=== PATIENT | female | born 1960 | race Caucasian/White ===

== ENCOUNTER → 2018-08-04 | Outpatient (REF) | payer BC ==
[2018-08-04 13:46] LABS: C REACTIVE PROTEIN QUANTITATIV 1.35 MG/DL (0.00-0.30); RHEUMATOID FACTOR QUANT < 10.0 IU/ML (<15.0)
[2018-08-04 13:58] LABS: HEPATITIS B SURFACE ANTIBODY NEGATIVE (POSITIVE)
[2018-08-04 14:09] LABS: HEPATITIS B SURFACE ANTIGEN NEGATIVE (NEGATIVE)
[2018-08-04 14:37] LABS: HEPATITIS C VIRUS ABY INDEX 0.1 INDEX (<0.8)
[2018-08-08 00:13] LABS: ANA (HEP2) Positive (.); CYCLIC CITRULLINATED PEPTIDE 8 units (0-19); HEPATITIS B CORE ANTIBODY IGG Negative (Negative)
== END ==
LOC: M LAB REF 12:42
PROVIDERS: ATTEND Nurse Practitioner Family
DX: L40.50 Arthropathic psoriasis, unspecified (principal)

== ENCOUNTER 2018-09-25 12:29 | Outpatient (CLI) | payer BC ==
[~2018-09-25] VITALS: Ht 160 cm; Wt 95.9 kg
[2018-09-25] MEDS ORDERED: FILTER 1.2 MICRON (ADULT TPN/MANNITOL/REMICADE) XX ONE (13:00)
[2018-09-25] MEDS ORDERED: ALBUTEROL SULFATE 2.5 MG/0.5 ML INH NEB SOLN INH PRN (13:00)
[2018-09-25] MEDS ORDERED: NS 1,000 ML IV SCH (13:00)
[2018-09-25] MEDS ORDERED: methylPREDNISolone INJ 125 MG/2 ML VIAL (J2930) IV PRN (13:00)
[2018-09-25] MEDS ORDERED: EPINEPHrine INJ 1 MG/ML 1ML AMP IM PRN (13:00)
[2018-09-25] MEDS ORDERED: diphenhydrAMINE INJ 50MG/ML VIAL (J1200) IV PRN (13:00)
[2018-09-25 13:10] VITALS: BP 158/88
[2018-09-25] MEDS ORDERED: INFLIXIMAB BIOSIMILAR 600 MG in NS 190 ML IV ONE (14:00)
[2018-09-25] MEDS ORDERED: SIMV10TA2 PO (14:48)
[2018-09-25] MEDS ORDERED: METF-723 PO (14:48)
[2018-09-25] MEDS ORDERED: METH10CA9 PO (14:48)
[2018-09-25] MEDS ORDERED: GLIP10TA PO (14:48)
[2018-09-25] MEDS ORDERED: LISI10TA4 PO (14:48)
[2018-09-25 16:03] VITALS: BP 143/81
== END 2018-09-25 16:02 | disposition home or self-care (01) ==
LOC: M INFU 12:29
PROVIDERS: ATTEND Internal Medicine Rheumatology
DX: L40.50 Arthropathic psoriasis, unspecified (principal)
CPT/HCPCS: 96413; 96415; Q5103

== ENCOUNTER → 2018-11-06 | Outpatient (REF) | payer BC ==
[~2018-11-06] MED LIST: GLIP10TA PO; LISI10TA4 PO; METF-723 PO; METH10CA9 PO; SIMV10TA2 PO
== END ==
LOC: M LAB REF 16:18
PROVIDERS: ATTEND Nurse Practitioner Family
DX: L40.50 Arthropathic psoriasis, unspecified (principal)

== ENCOUNTER 2018-12-07 11:00 | Outpatient (CLI) | payer BC ==
[~2018-12-07] VITALS: Ht 160 cm; Wt 95.9 kg
[2018-12-07] MEDS ORDERED: NS 1,000 ML IV SCH (11:15)
[2018-12-07] MEDS ORDERED: EPINEPHrine INJ 1 MG/ML 1ML AMP IM PRN (11:15)
[2018-12-07] MEDS ORDERED: diphenhydrAMINE INJ 50MG/ML VIAL (J1200) IV PRN (11:15)
[2018-12-07] MEDS ORDERED: FILTER 1.2 MICRON (ADULT TPN/MANNITOL/REMICADE) XX ONE (11:15)
[2018-12-07] MEDS ORDERED: ALBUTEROL SULFATE 2.5 MG/0.5 ML INH NEB SOLN INH PRN (11:15)
[2018-12-07] MEDS ORDERED: methylPREDNISolone INJ 125 MG/2 ML VIAL (J2930) IV PRN (11:15)
[2018-12-07] MEDS ORDERED: INFLIXIMAB BIOSIMILAR 600 MG in NS 190 ML IV ONE (11:30)
[2018-12-07 11:45] VITALS: BP 132/70
== END 2018-12-07 14:05 | disposition home or self-care (01) ==
LOC: M INFU 11:00
PROVIDERS: ATTEND Internal Medicine Rheumatology
DX: L40.50 Arthropathic psoriasis, unspecified (principal)
CPT/HCPCS: 96413; 96415; Q5103

== ENCOUNTER 2019-01-08 23:43 | Emergency (ER) | payer BC ==
[~2019-01-08] VITALS: Ht 160 cm; Wt 91.0 kg
[2019-01-09 03:24] VITALS: BP 128/60
== END 2019-01-09 03:25 | disposition home or self-care (01) ==
LOC: M ED 23:43
DX: F41.1 Generalized anxiety disorder (principal); E11.9 Type 2 diabetes mellitus without complications; I10 Essential (primary) hypertension; F33.9 Major depressive disorder, recurrent, unspecified; Z79.899 Other long term (current) drug therapy; Z79.84 Long term (current) use of oral hypoglycemic drugs

== ENCOUNTER 2019-01-09 11:39 | Outpatient (CLI) | payer BC ==
[~2019-01-09] VITALS: Ht 160 cm; Wt 95.9 kg
[2019-01-09 11:53] VITALS: BP 124/75
[2019-01-09] MEDS ORDERED: methylPREDNISolone INJ 125 MG/2 ML VIAL (J2930) IV PRN (12:00)
[2019-01-09] MEDS ORDERED: ALBUTEROL SULFATE 2.5 MG/0.5 ML INH NEB SOLN INH PRN (12:00)
[2019-01-09] MEDS ORDERED: FILTER 1.2 MICRON (ADULT TPN/MANNITOL/REMICADE) XX ONE (12:00)
[2019-01-09] MEDS ORDERED: INFLIXIMAB BIOSIMILAR 600 MG in NS 190 ML IV ONE (12:00)
[2019-01-09] MEDS ORDERED: NS 1,000 ML IV SCH (12:00)
[2019-01-09] MEDS ORDERED: EPINEPHrine INJ 1 MG/ML 1ML AMP IM PRN (12:00)
[2019-01-09] MEDS ORDERED: diphenhydrAMINE INJ 50MG/ML VIAL (J1200) IV PRN (12:00)
== END 2019-01-09 14:40 | disposition home or self-care (01) ==
LOC: M INFU 11:39
PROVIDERS: ATTEND Internal Medicine Rheumatology
DX: L40.50 Arthropathic psoriasis, unspecified (principal)
CPT/HCPCS: 96365; 96366; Q5103

== ENCOUNTER → 2019-02-27 | Outpatient (REF) | payer BC ==
[~2019-02-27] MED LIST changes: +CVS400LI PO; +INFL10VL IV; +VENL150C43 PO
== END ==
LOC: M LAB REF 13:35
PROVIDERS: ATTEND Internal Medicine
DX: L40.50 Arthropathic psoriasis, unspecified (principal)

== ENCOUNTER 2019-03-06 12:47 | Outpatient (CLI) | payer BC ==
[~2019-03-06] VITALS: Ht 160 cm; Wt 88.0 kg
[2019-03-06] VITALS (8 sets, daily range): BP systolic 90–139; BP diastolic 51–69
[~2019-03-06 12:47] MED LIST changes: -CVS400LI PO; -INFL10VL IV; -SIMV10TA2 PO; +SIMV10TA21 PO; -VENL150C43 PO
[2019-03-06] MEDS ORDERED: FILTER 1.2 MICRON (ADULT TPN/MANNITOL/REMICADE) XX ONE (13:30)
[2019-03-06] MEDS ORDERED: diphenhydrAMINE INJ 50MG/ML VIAL (J1200) IV PRN (13:30)
[2019-03-06] MEDS ORDERED: ALBUTEROL SULFATE 2.5 MG/0.5 ML INH NEB SOLN INH PRN (13:30)
[2019-03-06] MEDS ORDERED: EPINEPHrine INJ 1 MG/ML 1ML VIAL IM PRN (13:30)
[2019-03-06] MEDS ORDERED: INFLIXIMAB BIOSIMILAR 600 MG in NS 190 ML IV ONE (13:30)
[2019-03-06] MEDS ORDERED: methylPREDNISolone INJ 125 MG/2 ML VIAL (J2930) IV PRN (13:30)
[2019-03-06] MEDS ORDERED: CVS400LI PO (16:30)
[2019-03-06] MEDS ORDERED: VENL150C43 PO (16:31)
[2019-03-06] MEDS ORDERED: INFL10VL IV (16:32)
[2019-06-08] MEDS ORDERED: CINN500C2 PO (11:21)
[2019-06-08] MEDS ORDERED: RA T500C2 PO (11:21)
[2019-06-08] MEDS ORDERED: B-10TAB2 PO (11:22)
[2019-06-08] MEDS ORDERED: MULTCAP PO (11:22)
[2019-07-05] MEDS ORDERED: ALPR2TAB3 PO ×2 (11:47→15:06)
[2019-07-06] MEDS ORDERED: ALPR1TAB7 PO (14:17)
== END 2019-03-06 16:30 | disposition home or self-care (01) ==
LOC: M INFU 12:47
PROVIDERS: ATTEND Internal Medicine Rheumatology
DX: L40.50 Arthropathic psoriasis, unspecified (principal)
CPT/HCPCS: 96413; 96415; Q5103

== ENCOUNTER 2019-04-20 13:59 | Inpatient (IN) | payer BC ==
[~2019-04-20] VITALS: Ht 160 cm; Wt 88.2 kg
[~2019-04-20 13:59] MED LIST changes: +CVS400LI PO; +INFL10VL IV; +VENL150C43 PO
[2019-04-20] MEDS ORDERED: METH30CA PO (14:22)
[2019-04-20] MEDS ORDERED: INVO100T PO (14:23)
[2019-04-20 14:58] LABS: BASO % 0.3 % (0.0-1.0); EOS % 0.3 % (0.0-3.0); HEMATOCRIT 37.7 % (36.0-47.0); HEMOGLOBIN 11.9 g/dl (12.0-15.5); LYMPH # 2.5 10^3/uL (1.5-5.0); MEAN CORPUSCULAR HEMOGLOBIN 25.2 pg (27.0-33.0); MEAN CORPUSCULAR HGB CONC 31.6 g/dl (32.0-36.5); MEAN CORPUSCULAR VOLUME 79.7 fl (80.0-96.0); MONO # 0.9 10^3/uL (0.0-0.8); MONO % 7.2 % (0.0-5.0); NEUTROPHILS # 8.3 10^3/uL (1.5-8.5); NEUTROPHILS % 70.8 % (36.0-66.0); PLATELET COUNT, AUTOMATED 489 10^3/uL (150-450); RED BLOOD COUNT 4.73 10^6/uL (4.00-5.40); WHITE BLOOD COUNT 11.7 10^3/uL (4.0-10.0)
[2019-04-20 15:11] LABS: INR 1.12; PROTHROMBIN TIME 14.1 SECONDS (11.8-14.0)
[2019-04-20 15:12] LABS: PARTIAL THROMBOPLASTIN TIME 29.1 SECONDS (25.0-38.4)
[2019-04-20 15:23] LABS: ALBUMIN 3.4 GM/DL (3.2-5.2); ALT/SGPT 16 U/L (12-78); AMYLASE 30 U/L (25-115); BILIRUBIN,DIRECT < 0.1 MG/DL (0.0-0.2); BILIRUBIN,TOTAL 0.3 MG/DL (0.2-1.0); LIPASE 68 U/L (73-393); TOTAL PROTEIN 7.9 GM/DL (6.4-8.2)
[2019-04-20 16:05] LABS: BLOOD UREA NITROGEN 8 MG/DL (7-18); CALCIUM LEVEL 9.5 MG/DL (8.5-10.1); CARBON DIOXIDE LEVEL 27 MEQ/L (21-32); CHLORIDE LEVEL 98 MEQ/L (98-107); CREATININE FOR GFR 0.76 MG/DL (0.55-1.30); GLOMERULAR FILTRATION RATE > 60.0 (>51); GLUCOSE, FASTING 285 MG/DL (70-100); SODIUM LEVEL 133 MEQ/L (136-145)
[2019-04-20] MEDS ORDERED: ISOVUE-370 76% 100ML VIAL (Q9967) As Ordered ONE (16:10)
--- NOTE | 2019-04-20 16:45 | REP ---
Clinical: Periumbilical pain. Technique: Axial contrast enhanced images from the lung bases to the pubic symphysis using 100 ml Isovue 370 intravenous contrast material with coronal and sagittal re-formations. Comparison: 10/29/2013. Findings: There is an irregular obstructing colonic neoplasm involving the mid ascending colon just inferior to the liver irregular apple core appearance, surrounding inflammatory stranding, adenopathy, and an adjacent separate metastatic focus measuring 4.3 cm diameter just inferior to the esther hepatis. Mass lesion is causing early moderate small bowel obstruction and obstructing the cecum through the ascending colon to the level of the mass. Subtle invasion along the inferior margin of the right hepatic lobe inseparable from the mass lesion cannot be excluded as well. Liver includes 1.5 cm hemangioma and no further hepatic lesions are identified. Spleen, pancreas, bilateral adrenal glands and kidneys appear normal. Cholelithiasis noted without acute cholecystitis. Pelvis demonstrates normal bladder and age-appropriate uterus/adnexa. Small amount of free fluid in the pelvis is nonspecific and a possible metastatic focus in the deep posterior cul-de-sac measuring 2.1 cm ("drop met") cannot be excluded (image 116). Abdominal aorta and vasculature appear normal. Musculoskeletal structures demonstrate degenerative changes and small stable bone island in the left jasbir-sacrum. Lung bases are clear. Impression: 1. Obstructing colonic neoplasm in the mid ascending colon with surrounding inflammatory change, adenopathy, and adjacent metastatic focus. Obstructing lesion is causing associated small bowel obstruction. Possible metastatic focus in the deep hemipelvis. 2. Benign hemangioma in the posterior right hepatic lobe. 3. Cholelithiasis. Electronically Signed by Parker Razo MD 04/20/2019 04:36 P
[2019-04-20] MEDS ORDERED: DEXTROSE 50% 50 ML SYRINGE IV PRN (17:45)
[2019-04-20] MEDS ORDERED: GLUCAGON FOR INJ 1 MG VIAL (J1610) SC PRN (17:45)
[2019-04-20] MEDS ORDERED: GLUCOSE 4 GM CHEW TABLET PO PRN (17:45)
--- NOTE | 2019-04-20 17:53 | HPEPDOC ---
[facility] Medical History & Physical Date of Admission Apr 20, 2019 Date of Service: Apr 20, 2019 Attending Physician: MIREYA GORDON MD History and Physical CHIEF COMPLAINT: Abdominal pain, nausea HISTORY OF PRESENT ILLNESS: 58-year-old female with past medical history of hypertension, hyperlipidemia, diabetes, psoriasis, ADHD, presents with lower abdominal pain. She reports pain has been intermittent since August of this year, has been progressively worsening over the past few months, significantly worse over the past week. At its worst. She rates the pain 6-7 out of 10, pain is located in the lower abdomen, not radiating, dull in nature, with associated nausea but no vomiting. She reports mild diarrhea over the past few days as well. She also reports a 30+ pound weight loss over the past year, unplanned. She also reports night sweats over the past month or so. She denies any fever, shortness of breath, chest pain or headaches. 10 point review of system was negative except for above PAST MEDICAL HISTORY: 1. Hypertension. 2. Hyperlipidemia. 3. Diabetes mellitus. 4. Psoriasis. 5. ADHD. PAST SURGICAL HISTORY: 1. None. SOCIAL HISTORY: Never smoker. Denies alcohol. Denies drug use FAMILY HISTORY: family history pancreatic cancer (sister) ALLERGIES: Please see below. HOME MEDICATIONS: Please see below. PHYSICAL EXAMINATION: VITAL SIGNS: Please see below. GENERAL: No distress, obese HEENT: Normocephalic, atraumatic, moist mucous membranes NECK: Supple CARDIOVASCULAR EXAMINATION: S1, S2, no murmurs RESPIRATORY EXAMINATION: Clear to auscultation, no wheezing ABDOMINAL EXAMINATION: Soft, mild tenderness to palpation right upper quadrant region, no rebound or guarding, nondistended, positive bowel sounds EXTREMITIES: Range of motion intact SKIN: No rash NEUROLOGICAL EXAMINATION: Alert and oriented 3, no focal deficits PSYCHIATRIC EXAMINATION: Calm and cooperative LABORATORY DATA: See below. IMAGING: CT of abdomen and pelvis showing neoplastic lesion in the ascending colon with subsequent small bowel obstruction, possible deep pelvic lesion, adenopathy. MICROBIOLOGY: Please see below. ASSESSMENT: 28-year-old female with past medical history of hypertension, hy perlipidemia, diabetes, ADHD, and psoriasis with intermittent abdominal pain for the past 6 months, being admitted for small bowel obstruction likely secondary to neoplastic lesion in the ascending colon. PLAN: 1. Bowel obstruction. Secondary to neoplastic lesion in the ascending colon, has been having symptoms for the past 6 months, night sweats and weight loss over the past year, no prior history of colonoscopy. Surgery consult pending, consider oncology evaluation. Nothing by mouth, maintenance IV fluids, no need for NG tube. 2. Hypertension. Continue ALBINO inhibitor. 3. Diabetes mellitus. Hold metformin and Invokana, sliding scale insulin with fingersticks every 6 hours. 4. Psoriasis. Hold Remicade. 5. ADHD. Continue Ritalin 6. Hyperlipidemia. Continue statin DVT prophylaxis: Heparin subcutaneous GI prophylaxis: Not needed Vital Signs Vital Signs Date Time Temp Pulse Resp B/P (MAP) Pulse Ox O2 Delivery O2 Flow Rate FiO2 04/20/19 14:00 97.0 87 20 158/72 (100) 100 Room Air Laboratory Data Labs 24H Laboratory Tests 2 04/20/19 14:15: Immature Granulocyte % (Auto) 0.4, Neutrophils (%) (Auto) 70.8H, Lymphocytes (%) (Auto) 21.0L, Monocytes (%) (Auto) 7.2H, Eosinophils (%) (Auto) 0.3, Basophils (%) (Auto) 0.3, Neutrophils # (Auto) 8.3, Lymphocytes # (Auto) 2.5, Monocytes # (Auto) 0.9H, Eosinophils # (Auto) 0.0, Basophils # (Auto) 0.0, Nucleated Red Blood Cells % (auto) 0.0, Prothrombin Time 14.1H, Prothromb Time International Ratio 1.12, Activated Partial Thromboplast Time 29.1, Urine Color YELLOW, Urine Appearance CLEAR, Urine pH 6.0, Urine Specific [place] 1.010, Urine Protein NEGATIVE, Urine Glucose (UA) 2+H, Urine Ketones NEGATIVE, Urine Blood NEGATIVE, Urine Nitrite NEGATIVE, Urine Bilirubin NEGATIVE, Urine Urobilinogen 0.2, Urine Leukocyte Esterase TRACEH, Urine WBC (Auto) 2, Urine RBC (Auto) 2, Urine Hyaline Casts (Auto) 1, Urine Bacteria (Auto) NEGATIVE, Urine Squamous Epithelial Cells 0, Urine Mucus (Auto) SMALL, Urine Sperm (Auto) , Anion Gap 8, Glomerular Filtration Rate > 60.0, Calcium Level 9.5, Total Bilirubin 0.3, Direct Bilirubin < 0.1, Aspartate Amino Transf (AST/SGOT) 10, Alanine Aminotransferase (ALT/SGPT) 16, Alkaline Phosphatase 101, Total Protein 7.9, Albumin 3.4, Albumin/Globulin Ratio 0.76L, Amylase Level 30, Lipase 68L CBC/BMP Laboratory Tests 04/20/19 14:15 Microbiology Microbiology 04/20/19 Urine Culture, Received Pending Home Medications Scheduled Canagliflozin (Invokana) 100 Mg Tablet, 100 MG PO DAILY Cholecalciferol (Vitamin D3) (Vitamin D3) 15 Ml Drops, 1 DROP PO DAILY Glipizide (Glipizide) 10 Mg Tablet, 10 MG PO DAILY Infliximab Injection (Remicade) 100 Mg Vial, 100 MG IV ASDIRECTED Lisinopril (Lisinopril) 10 Mg Tablet, 10 MG PO DAILY Metformin HCl (Metformin HCl ER) 500 Mg Tab.er.24h, 1,000 MG PO BID Simvastatin (Simvastatin) 10 Mg Tablet, 10 MG PO DAILY Venlafaxine HCl (Venlafaxine HCl ER) 150 Mg Cap.er.24h, 1 CAP PO DAILY Miscellaneous Medications Methylphenidate HCl (Methylphenidate LA) 30 Mg Cpbp.50.50, 30 MG PO Allergies Coded Allergies: No Known Allergies (Unverified , 09/25/18) A-FIB/CHADSVASC A-FIB History Current/History of A-Fib/PAF?: No MIREYA GORDON MD Apr 20, 2019 17:53
[2019-04-20] MEDS ORDERED: MORPHINE 2 MG/ML 1ML VIAL (J2270) IV PRN (18:45)
[2019-04-20] MEDS ORDERED: MORPHINE 4 MG/ML 1ML VIAL/SYRINGE (J2270) As Ordered ONE (18:47)
[2019-04-20] MEDS: MORPHINE 4 MG/ML 1ML VIAL/SYRINGE (J2270) IV PRN ×2 (18:51→23:45)
[2019-04-20 19:13] LABS: AMPHETAMINES LEVEL URINE NEGATIVE (NEGATIVE); BARBITURATES URINE NEGATIVE (NEGATIVE); BENZODIAZEPINES URINE NEGATIVE (NEGATIVE); CANNABINOIDS URINE NEGATIVE (NEGATIVE); COCAINE METABOLITE URINE NEGATIVE (NEGATIVE); METHADONE URINE NEGATIVE (NEGATIVE); OPIATES URINE NEGATIVE (NEGATIVE); PHENCYCLIDINE URINE NEGATIVE (NEGATIVE)
[2019-04-20] MEDS ORDERED: BABY400D2 PO (19:16)
[2019-04-20] MEDS ORDERED: PT COMMENTS (19:17)
[2019-04-20 20:07] VITALS: BP 148/84
[2019-04-20] MEDS: ONDANSETRON 4MG/2ML VIAL (J2405) IV SCH ×2 (20:13→23:37)
[2019-04-20] MEDS: D5W/0.9% SODIUM CHLORIDE 1,000 ML IV SCH (20:13)
[2019-04-20] MEDS: cefTRIAXone SOD 1 GM in D5W MINI-BAG PLUS 50 ML IV SCH (20:13)
[2019-04-20 20:45] VITALS: BP 141/78
[2019-04-20] MEDS: HumaLOG INSULIN (NovoLOG) PER UNIT SC SCH ×2 (21:00→23:37)
[2019-04-20] MEDS: HEPARIN SOD (PORCINE) 5000 UNITS/ML VIAL SC SCH (21:43)
[2019-04-21] MEDS: ONDANSETRON 4MG/2ML VIAL (J2405) IV SCH ×6 (03:17→22:11)
[2019-04-21 06:24] VITALS: BP 111/51
[2019-04-21 06:40] LABS: HEMATOCRIT 33.3 % (36.0-47.0); HEMOGLOBIN 10.2 g/dl (12.0-15.5); MEAN CORPUSCULAR HEMOGLOBIN 25.1 pg (27.0-33.0); MEAN CORPUSCULAR HGB CONC 30.6 g/dl (32.0-36.5); MEAN CORPUSCULAR VOLUME 81.8 fl (80.0-96.0); PLATELET COUNT, AUTOMATED 406 10^3/uL (150-450); RED BLOOD COUNT 4.07 10^6/uL (4.00-5.40); WHITE BLOOD COUNT 8.6 10^3/uL (4.0-10.0)
[2019-04-21] MEDS: D5W/0.9% SODIUM CHLORIDE 1,000 ML IV SCH (06:41)
[2019-04-21] MEDS: HEPARIN SOD (PORCINE) 5000 UNITS/ML VIAL SC SCH ×3 (06:41→22:11)
[2019-04-21] MEDS: HumaLOG INSULIN (NovoLOG) PER UNIT SC SCH ×3 (06:41→17:52)
[2019-04-21 07:18] LABS: ALBUMIN 2.6 GM/DL (3.2-5.2); ALT/SGPT 14 U/L (12-78); BILIRUBIN,TOTAL 0.3 MG/DL (0.2-1.0); BLOOD UREA NITROGEN 6 MG/DL (7-18); CARBON DIOXIDE LEVEL 28 MEQ/L (21-32); CHLORIDE LEVEL 103 MEQ/L (98-107); CREATININE FOR GFR 0.74 MG/DL (0.55-1.30); FERRITIN 67 NG/ML (8-252); GLOMERULAR FILTRATION RATE > 60.0 (>51); GLUCOSE, FASTING 230 MG/DL (70-100); IRON (FE) 19 UG/DL (50-170); MAGNESIUM LEVEL 2.2 MG/DL (1.8-2.4); PERCENT SATURATION 7.1 % (13.2-45.0); POTASSIUM SERUM 3.6 MEQ/L (3.5-5.1); SODIUM LEVEL 137 MEQ/L (136-145); TOTAL IRON BINDING CAPACITY 267 UG/DL (250-450); TOTAL PROTEIN 6.6 GM/DL (6.4-8.2)
[2019-04-21] MEDS ORDERED: KCL 20MEQ IN D5/0.45NS 1000ML 1,000 ML IV SCH (08:00)
--- NOTE | 2019-04-21 08:38 | REP ---
Clinical: Preoperative assessment . Comparison: 07/28/2009 . Technique: PA and lateral. Findings: The mediastinum and cardiac silhouette are normal. The lung greene are clear and without acute consolidation, effusion, or pneumothorax. The skeletal structures are intact and normal. Impression: 1. No acute cardiopulmonary process. Electronically Signed by Parker Razo MD 04/21/2019 08:29 A
[2019-04-21] MEDS: VENLAFAXINE **XR** 75MG CAPSULE PO SCH (08:54)
--- NOTE | 2019-04-21 08:54 | IPN ---
DATE: 04/21/2019 PRIMARY CARE PROVIDER: Dr. Judith Graves. ATTENDING PHYSICIAN: Hospitalist service. CLINICAL TRIAL MANAGER: Dr. Miguel Angel Kim. Molly Morfin is a 58-year-old on the hospitalist service admitted with suspected malignancy of her ascending colon. She has no prior colonoscopy. She was admitted with partial small bowel obstruction. The case was discussed with Dr. Kim. He plans some peripheral parenteral nutrition for a few days and has surgery planned for 04/24/2019. The patient denies any fever, chills, or night sweats. Her last Remicade infusion was 03/06/2019. She has a past medical history of psoriatic arthritis as well as cutaneous psoriasis, hypertensive heart disease, depression, type 2 diabetes, chronic anxiety and attention deficit hyperactivity disorder (ADHD). Home medications: - Effexor XR 150 mg daily - metformin 500 mg daily - lisinopril 10 mg daily - vitamin D 2000 units daily - Remicade infusions every 8 weeks - glipizide 10 mg daily - simvastatin 40 mg at bedtime - Invokana 100 mg daily SOCIAL HISTORY: Nonsmoker. Rare to moderate alcohol. ALLERGIES: None known. PHYSICAL EXAMINATION: VITAL SIGNS: Per flow sheet. They are stable. She is resting comfortably. No distress. HEENT: Unremarkable. Lungs: Clear. Heart without murmur. Abdomen: Soft, nontender. No masses. No peripheral edema. LABS: Sodium 137, potassium 3.6, BUN 6, creatinine 0.7, glucose 230, TIBC and ferritin are both normal. CEA 44. White count 8.6, hemoglobin 10.2, platelets 406, hemoglobin is down from 11.9, probably from hydration. IMPRESSION: Obstructing mass ascending colon suspicious for colon cancer with possible metastases. PLAN: 1. After discussion with Dr. Kim, he plans surgery on 04/24/2019. The patient is at an optimal interval from her last Remicade treatment. She needs a preoperative EKG and chest x-ray which we will order. Surgical risk looks average/acceptable. 2. Type 2 diabetes: Sliding scale insulin with coverage based on fingerstick blood sugars. Her metformin and Invokana have both discontinued as has her glipizide. 3. Hyperlipidemia: Continue her simvastatin. 4. Hypertensive heart disease: Blood pressure is currently adequately controlled. Her antihypertensives are on hold. Should they be restarted, I would advise holding lisinopril on the morning of her surgical procedure in order to reduce intraoperative, perioperative hypotension. 5. History of depression: Restart her Effexor XR to avoid any kind of serotonin-norepinephrine reuptake Inhibitor (SNRI) withdrawal preoperatively. 6. Attention deficit hyperactivity disorder (ADHD): Hold her methylphenidate at this time.
[2019-04-21] MEDS ORDERED: FLUBLOK(EGG FREE)(QUAD)INFLUENZA VACC 0.5ML SYRINGE (90682)18YRS&OLDER IM ONE (09:00)
[2019-04-21] MEDS: AMINO AC/ELECTROLYTE/DEX/CALC 1,000 ML IV SCH (12:50)
--- NOTE | 2019-04-21 13:47 | IPN ---
DATE: 04/21/2019 Patient has done well overnight. She has needed less pain medication. Still has been nauseated with some crampy abdominal pain that seems to come in waves. She has been taking sips of water and some ice chips. She does not feel significantly distended. She states that she did have some small bowel movements that are relatively soft, but not normal. Her abdomen is soft, nontender, nondistended. She is afebrile and her labs show a white count came down from 11.7 down to 8.6 this morning. Albumin is down to 2.6 which is where I anticipated this should be with the chronic malnutrition associated with weight loss and this lesion present. Her CEA came back 44, which also supports the fact that this is most likely a colon cancer primary. Once again, we will continue her on some IV nutrition and both decompress her with time and I anticipate that we will see how she is doing over the next 48 hours and plan on operative intervention probably Tuesday or Tuesday this week.
--- NOTE | 2019-04-21 13:52 | CR ---
DATE OF CONSULTATION: 04/20/2019 REASON FOR CONSULTATION: Abdominal pain, nausea, weight loss, and evidence of a hepatic flexure mass on CAT scan. BRIEF HISTORY OF PRESENT ILLNESS: The patient is a 58-year-old female with lower abdominal pain that has been going on intermittently over the last 6 months. However, over the last few weeks it has been getting worse and over the last week it has been steady. She notes it is mostly across her mid abdomen radiating into her back at times. She has had some intermittent diarrhea. She has had some night sweats without true fevers, without constipation. She is here for a high-grade partial obstruction of the colon and an ascending colon mass. Past medical history is significant for diabetes mellitus, hypertension, hyperlipidemia, psoriasis, ADHD. Medications include: - Invokana - vitamin D - glipizide - Remicade - lisinopril - metformin - simvastatin - venlafaxine Physical exam reveals an obese, white female who looks stated age. HEENT is unremarkable. Neck supple without adenopathy. Lungs are clear to auscultation without crackles, wheezes or rhonchi. Heart is regular. Abdomen is softly distended throughout without significant guarding, rebound or peritoneal signs. Extremities are warm, well-perfused. IMPRESSION/PLAN: CAT scan was reviewed and indeed there is a lesion in the ascending colon/hepatic flexure which seems to be abutting if not invasive into the liver edge. There is also some lymphadenopathy in this area and evidence of a small bowel obstruction, but I anticipate this bowel obstruction is secondary to this ascending colon/hepatic flexure lesion given the significant distension of the cecum and terminal ileum, etc. There is a lymph node that is present overlying the duodenum but does not seem to be invasive into the duodenum. I am not seeing any metastatic disease in her liver. However, there may be a drop metastases in the pelvis. Thus, at this point, my recommendation is to keep her nothing by mouth, intravenous (IV) fluids, IV antibiotics given that the concern is that she does have a slightly elevated white count and there may be some infectious process or at least some necrosis of the tumor in this area causing some of her significant discomfort instead of just bowel obstruction issues, and we will see how she is doing in the morning. I would recommend that we start her on some total parenteral nutrition (TPN)/peripheral parenteral nutrition (PPN) while we are setting up a semi-elective/urgent right colectomy. I anticipate this may be a few days before we get this on the schedule, and in the meantime, she can be optimized from a medical standpoint diabetic, cardiac issues. Fortunately, her last dose of Remicade was several weeks ago also optimizing the time for operative intervention. In general, the patient has no evidence of emergent need for operative intervention, i.e. no active bleeding, no perforation and no significant peritoneal signs.
[2019-04-21 14:00] VITALS: BP 123/65
[2019-04-21] MEDS ORDERED: FAT EMULSION IV 20% 500 ML IV SCH (18:00)
[2019-04-21] MEDS: cefTRIAXone SOD 1 GM in D5W MINI-BAG PLUS 50 ML IV SCH (20:52)
[2019-04-21] MEDS: SIMVASTATIN 10 MG TAB PO SCH (20:52)
[2019-04-21 21:00] VITALS: BP 124/65
[2019-04-22] MEDS: HumaLOG INSULIN (NovoLOG) PER UNIT SC SCH ×4 (00:29→18:00)
[2019-04-22] MEDS: AMINO AC/ELECTROLYTE/DEX/CALC 1,000 ML IV SCH ×2 (00:29→12:32)
[2019-04-22] MEDS: ONDANSETRON 4MG/2ML VIAL (J2405) IV SCH ×6 (02:58→22:39)
[2019-04-22 05:15] VITALS: BP 118/52
[2019-04-22] MEDS: HEPARIN SOD (PORCINE) 5000 UNITS/ML VIAL SC SCH ×3 (06:01→22:38)
[2019-04-22 06:23] LABS: MEAN CORPUSCULAR HEMOGLOBIN 25.3 pg (27.0-33.0); MEAN CORPUSCULAR HGB CONC 31.3 g/dl (32.0-36.5); MEAN CORPUSCULAR VOLUME 80.8 fl (80.0-96.0); PLATELET COUNT, AUTOMATED 390 10^3/uL (150-450); RED BLOOD COUNT 3.96 10^6/uL (4.00-5.40)
[2019-04-22 06:47] LABS: BLOOD UREA NITROGEN 7 MG/DL (7-18); CALCIUM LEVEL 8.4 MG/DL (8.5-10.1); CARBON DIOXIDE LEVEL 28 MEQ/L (21-32); CHLORIDE LEVEL 103 MEQ/L (98-107); CREATININE FOR GFR 0.73 MG/DL (0.55-1.30); GLOMERULAR FILTRATION RATE > 60.0 (>51); GLUCOSE, FASTING 238 MG/DL (70-100); POTASSIUM SERUM 4.1 MEQ/L (3.5-5.1); SODIUM LEVEL 139 MEQ/L (136-145)
[2019-04-22] MEDS: VENLAFAXINE **XR** 75MG CAPSULE PO SCH (08:47)
--- NOTE | 2019-04-22 11:55 | IPN ---
DATE: 04/22/2019 Emperatriz was seen on [address] [facility]. She is getting PPN preoperatively. She has no chest pain, shortness of breath, and no new symptoms today. PHYSICAL EXAMINATION: Afebrile. Vital signs stable. Lungs: Clear. Heart: Regular rhythm. Abdomen: Soft, nontender. No peripheral edema. LABS: Look unremarkable. CBC and BMP were reviewed. IMPRESSION: 1. Suspected obstructing colon cancer for which she is receiving preoperative PPN in anticipation of surgery later this week. 2. Type 2 diabetes. Fingerstick with coverage. Metformin, Invokana, glipizide on hold. 3. Hyperlipidemia. Continue simvastatin. 4. Hypertensive heart disease. Blood pressure medications are currently on hold. Continue to hold lisinopril on the morning of procedure to reduce perioperative hypotension. 5. History of depression. Restart her Effexor XR yesterday to avoid SNRI withdrawal. 6. Attention deficit/hyperactivity disorder (ADHD). Hold her methylphenidate at this time.
--- NOTE | 2019-04-22 12:21 | IPN ---
DATE: 04/22/2019 The patient seems to be doing well since her admission. Overall, no other major complaints. She still has some intermittent nausea, but she has been having some bowel movements. She has had no fevers or chills. These are just very small liquid bowel movements. She is not having any blood per rectum and her white count is returning to normal. Hematocrit is decreasing as I anticipated would. Otherwise, she is seems to be stable. Abdomen is soft, nontender, nondistended. She has been afebrile and vital signs are stable. IMPRESSION AND PLAN: The patient has a high-grade partial obstruction of the ascending colon. Will plan on a right colectomy and this will need to be an open operative intervention for her. Will keep her decompressed as much as possible prior to operative intervention and will discuss with the operating room when there is available OR time. Otherwise will be continuing IV nutrition for now.
[2019-04-22 14:00] VITALS: BP 103/85
[2019-04-22] MEDS: FAT EMULSION IV 20% 500 ML IV SCH (18:03)
[2019-04-22] MEDS: SIMVASTATIN 10 MG TAB PO SCH (20:32)
[2019-04-22] MEDS: cefTRIAXone SOD 1 GM in D5W MINI-BAG PLUS 50 ML IV SCH (20:33)
[2019-04-22 21:01] VITALS: BP 104/84
[2019-04-22] MEDS ORDERED: RAMELTEON 8 MG TAB (ROZEREM) PO ONE (22:30)
[2019-04-23] MEDS: HumaLOG INSULIN (NovoLOG) PER UNIT SC SCH ×4 (00:40→18:30)
[2019-04-23] MEDS: ONDANSETRON 4MG/2ML VIAL (J2405) IV SCH ×6 (03:00→22:18)
[2019-04-23] MEDS: AMINO AC/ELECTROLYTE/DEX/CALC 1,000 ML IV SCH ×2 (03:22→17:20)
[2019-04-23] MEDS: FAT EMULSION IV 20% 500 ML IV SCH (03:23)
[2019-04-23 05:36] VITALS: BP 125/69
[2019-04-23] MEDS: HEPARIN SOD (PORCINE) 5000 UNITS/ML VIAL SC SCH ×3 (06:05→21:48)
[2019-04-23 06:42] LABS: HEMATOCRIT 33.2 % (36.0-47.0); HEMOGLOBIN 10.4 g/dl (12.0-15.5); MEAN CORPUSCULAR HEMOGLOBIN 25.2 pg (27.0-33.0); MEAN CORPUSCULAR HGB CONC 31.3 g/dl (32.0-36.5); MEAN CORPUSCULAR VOLUME 80.4 fl (80.0-96.0); PLATELET COUNT, AUTOMATED 371 10^3/uL (150-450); RED BLOOD COUNT 4.13 10^6/uL (4.00-5.40); WHITE BLOOD COUNT 8.5 10^3/uL (4.0-10.0)
[2019-04-23 07:04] LABS: BLOOD UREA NITROGEN 9 MG/DL (7-18); CALCIUM LEVEL 8.6 MG/DL (8.5-10.1); CARBON DIOXIDE LEVEL 26 MEQ/L (21-32); CHLORIDE LEVEL 105 MEQ/L (98-107); CREATININE FOR GFR 0.64 MG/DL (0.55-1.30); GLOMERULAR FILTRATION RATE > 60.0 (>51); GLUCOSE, FASTING 206 MG/DL (70-100); POTASSIUM SERUM 3.9 MEQ/L (3.5-5.1); SODIUM LEVEL 138 MEQ/L (136-145)
[2019-04-23] MEDS: VENLAFAXINE **XR** 75MG CAPSULE PO SCH (09:33)
--- NOTE | 2019-04-23 09:37 | IPN ---
DATE: 04/23/2019 Molly is seen on [address] [facility]. She is awaiting surgery. Denies any chest pain or shortness of breath. She is tolerating her total parenteral nutrition (TPN) without any difficulty. PHYSICAL EXAMINATION: Vital signs stable. Lungs are clear. Heart regular rhythm. Abdomen soft and nontender. No peripheral edema. LABS: CBC unremarkable. CMP unremarkable. Blood sugars have been in the 100 to 200 range. IMPRESSION: 1. Bowel obstruction secondary to suspected colon cancer. Received her preoperative TPN. Plan for surgery perhaps later this evening. 2. Type 2 diabetes. Continue finger stick with coverage. Her home oral meds are on hold. 3. Hyperlipidemia. Continue simvastatin. 4. Hypertensive heart disease. Her lisinopril and furosemide are on hold pending surgery. Her blood pressure is in the 100 to 120 range systolic. She might not need to have these restarted postoperatively until her blood pressure returns to a hypertensive range. 5. History of depression. Continue Effexor XR. 6. Attention deficit hyperactivity disorder (ADHD). She is off her methylphenidate at this time and doing well without it.
--- NOTE | 2019-04-23 13:48 | IPN ---
DATE: 04/23/2019 The patient has been admitted. We are going to put a peripherally inserted central catheter (PICC) line in her today and continue her TPN. Her white count is been fine. She has been having some minimal soft bowel movements. Her abdomen is becoming softer over time. She has had no fevers or chills and from her standpoint has been doing relatively well. At this point, we are optimizing her for operative intervention and it appears that we will be able to schedule her for Tuesday. I have discussed the operative intervention with the patient, but I will discuss this in more detail over the next couple days. We will keep her on TPN until that time. She understands and at this point I do have slight concerns that the hepatic flexure cancer will be partially invasive into the edge of the liver and in addition it appears that she may have some metastatic nodules or a drop metastases in the pelvis that might be present, suggesting advanced disease. The family is concerned about starting chemotherapy and the timing of that and most importantly I have discussed with them that this will depend on how she does perioperatively and postoperatively.
[2019-04-23 14:00] VITALS: BP 137/79
[2019-04-23] MEDS ORDERED: LIDOCAINE 1% MDV 20ML VIAL As Ordered ONE (15:45)
[2019-04-23] MEDS ORDERED: FAT EMULSION IV 20% 500 ML IV SCH (18:00)
[2019-04-23] MEDS ORDERED: AMINO AC/ELECTROLYTE/DEX/CALC 2,000 ML IV SCH (18:00)
[2019-04-23] MEDS: cefTRIAXone SOD 1 GM in D5W MINI-BAG PLUS 50 ML IV SCH (20:05)
[2019-04-23 20:11] VITALS: BP 135/48
--- NOTE | 2019-04-23 21:33 | ECGEPIP ---
[facility] Test Date: 2019-04-21 Pat Name: BROOKS YAO Department: Room: [place] [address] Gender: Female Pipe Caulker: AB : 1960 Requested By: Cristian Marroquin Order Number: [id number] Reading MD: James Alvarenga Measurements Intervals [place] Rate: 80 P: 20 AL: 153 QRS: 24 QRSD: 86 T: 47 QT: 347 QTc: 403 Interpretive Statements Normal sinus rhythm Normal EKG Comparison tracing not on file Electronically Signed on 04-23-2019 21:33:45 EST by James Alvarenga
[2019-04-23] MEDS: RAMELTEON 8 MG TAB (ROZEREM) PO SCH (21:48)
[2019-04-23] MEDS: SIMVASTATIN 10 MG TAB PO SCH (21:49)
[2019-04-24] MEDS: HumaLOG INSULIN (NovoLOG) PER UNIT SC SCH ×4 (00:21→17:58)
[2019-04-24] MEDS ORDERED: ACETAMINOPHEN TAB 650MG DOSE (2X325MG) PO ONE (02:00)
[2019-04-24] MEDS: ONDANSETRON 4MG/2ML VIAL (J2405) IV SCH ×6 (03:00→22:01)
[2019-04-24 05:32] VITALS: BP 145/63
[2019-04-24] MEDS: HEPARIN SOD (PORCINE) 5000 UNITS/ML VIAL SC SCH ×3 (06:36→22:00)
[2019-04-24] MEDS: SODIUM CHLORIDE 0.9% INJ 10 ML SYR IV SCH ×2 (06:36→17:58)
[2019-04-24 07:57] LABS: HEMATOCRIT 32.3 % (36.0-47.0); HEMOGLOBIN 9.9 g/dl (12.0-15.5); MEAN CORPUSCULAR HEMOGLOBIN 24.8 pg (27.0-33.0); MEAN CORPUSCULAR HGB CONC 30.7 g/dl (32.0-36.5); MEAN CORPUSCULAR VOLUME 80.8 fl (80.0-96.0); PLATELET COUNT, AUTOMATED 321 10^3/uL (150-450); WHITE BLOOD COUNT 6.1 10^3/uL (4.0-10.0)
--- NOTE | 2019-04-24 07:57 | REP ---
Procedure: PICC line insertion with Ronnie The procedure was performed under the direct supervision of Dr. Kelly. The risks and benefits of the procedure were explained to the patient and informed consent was obtained. The right basilic vein was localized using ultrasound guidance. The skin was prepped and draped in a sterile fashion. 1% lidocaine was used as a local anesthetic. Using ultrasound guidance the basilic vein was cannulated and a 0.018 guidewire was inserted and advanced to the SVC using fluoroscopic guidance. The needle was removed and a 5.5 [place] dilator and peel-away sheath was inserted over the guide wire. A 5.5 [place] dual lumen catheter was cut to length of 38 cm. The dilator was removed and the catheter was inserted over the guide wire with the tip ending in the SVC. The peel-away sheath was removed and the catheter was flushed with heparinized saline as per Hospital protocol. The catheter was affixed to the skin and a sterile dressing was applied. The patient tolerated the procedure well and there were no immediate complications. 0.1 minutes of fluoro time was utilized for this procedure. Electronically Signed by MARIO Bellamy 04/23/2019 04:33 P Electronically Signed by Michelet Kelly MD 04/23/2019 05:26 P
[2019-04-24 08:17] LABS: BLOOD UREA NITROGEN 11 MG/DL (7-18); CALCIUM LEVEL 8.5 MG/DL (8.5-10.1); CARBON DIOXIDE LEVEL 27 MEQ/L (21-32); CHLORIDE LEVEL 104 MEQ/L (98-107); CREATININE FOR GFR 0.71 MG/DL (0.55-1.30); GLOMERULAR FILTRATION RATE > 60.0 (>51); GLUCOSE, FASTING 271 MG/DL (70-100); POTASSIUM SERUM 4.4 MEQ/L (3.5-5.1); SODIUM LEVEL 138 MEQ/L (136-145)
[2019-04-24] MEDS: VENLAFAXINE **XR** 75MG CAPSULE PO SCH (09:44)
[2019-04-24 14:00] VITALS: BP 115/56
--- NOTE | 2019-04-24 16:54 | IPN ---
DATE: 04/24/2019 The patient seems to be making some nice daily progress. Otherwise seems to be doing well. We have discussed with her specifically that will proceed with a right colectomy. This will be an open colectomy tomorrow and I anticipate we should be able to proceed with a anastomosis with a small bowel to transverse colon. The hope is that the enlarged lymph node in the area of the duodenum / sweep of the duodenum is mobile and that we can also resect this as well and also plan to with also plan to remove the drop metastases at this is not tightly adherent to other underlying structures in the pelvis. In any case the patient understands our current plan. She has been nothing by mouth and her abdomen is becoming less distended each day and seems to be doing well with the TPN. Thus at this point will plan on keeping her nothing by mouth, IV fluids, TPN and plan on operative intervention tomorrow afternoon.
--- NOTE | 2019-04-24 16:56 | IPNPDOC ---
Date Seen The patient was seen on 04/24/19. Progress Note SUBJECTIVE: 58-year-old female, past medical history diabetes, hypertension, depression, ADHD, was admitted for bowel structures secondary to colonic mass. She is awaiting surgery scheduled for tomorrow, currently on TPN via PICC line. She reports no complaints at this time, denies any short of breath, chest pain, vomiting, abdominal pain or diarrhea. 10 point review of system was negative except for above PHYSICAL EXAMINATION: VITAL SIGNS: Please see below. GENERAL: No distress, obese HEENT: Normocephalic, atraumatic, moist mucous membranes NECK: Supple CARDIOVASCULAR EXAMINATION: S1, S2, no murmurs RESPIRATORY EXAMINATION: Clear to auscultation, no wheezing ABDOMINAL EXAMINATION: Soft, nontender, nondistended, positive bowel sounds EXTREMITIES: Range of motion intact SKIN: No rash NEUROLOGICAL EXAMINATION: Alert and oriented 3, no focal deficits PSYCHIATRIC EXAMINATION: Calm and cooperative LABORATORY DATA, IMAGING STUDIES, MICROBIOLOGY: Please see below. DVT prophylaxis ordered?: Yes ASSESSMENT AND PLAN: 58-year-old female with past medical history of hypertension, diabetes, depression and ADHD admitted for bowel structures second her to colonic mass. PROBLEMS: 1. Colonic mass: . Likely malignancy, scheduled for surgical removal tomorrow. Continue TPN via PICC line 2. Hypertension.: Holding home meds preoperatively. 3. Diabetes mellitus: Sliding scale insulin with fingersticks every 6 hours. 4. ADHD. Hold Ritalin for now. 5. Depression. Continue Effexor DVT prophylaxis: Heparin subcutaneous GI prophylaxis: Not needed VS, I&O, 24H, Fishbone Vital Signs/I&O Vital Signs Date Time Temp Pulse Resp B/P (MAP) Pulse Ox O2 Delivery O2 Flow Rate FiO2 04/24/19 14:00 99.5 83 15 115/56 (75) 99 Room Air I&O- Last 24 Hours up to 6 AM 04/24/19 06:00 Intake Total 20 ml Output Total 0 ml Balance 20 ml Laboratory Data 24H LABS Laboratory Tests 2 04/23/19 17:15: Bedside Glucose (Misc Panel) 124H 04/24/19 00:04: Bedside Glucose (Misc Panel) 298H 04/24/19 05:29: Bedside Glucose (Misc Panel) 237H 04/24/19 07:32: Nucleated Red Blood Cells % (auto) 0.0, Anion Gap 7L, Glomerular Filtration Rate > 60.0, Calcium Level 8.5 04/24/19 12:18: Bedside Glucose (Misc Panel) 248H CBC/BMP Laboratory Tests 04/24/19 07:32 Microbiology Microbiology 04/20/19 Urine Culture - Final, Complete MIREYA GORDON MD Apr 24, 2019 16:56
[2019-04-24] MEDS ORDERED: FAT EMULSION IV 20% 500 ML IV SCH (18:00)
[2019-04-24] MEDS ORDERED: AMINO AC/ELECTROLYTE/DEX/CALC 2,000 ML IV SCH (18:00)
[2019-04-24] MEDS: RAMELTEON 8 MG TAB (ROZEREM) PO SCH (22:00)
[2019-04-24] MEDS: SIMVASTATIN 10 MG TAB PO SCH (22:01)
[2019-04-24 22:32] VITALS: BP 119/56
[2019-04-25] VITALS (7 sets, daily range): BP systolic 131–145; BP diastolic 70–74
[2019-04-25] MEDS: HumaLOG INSULIN (NovoLOG) PER UNIT SC SCH ×4 (01:21→18:46)
[2019-04-25] MEDS: ONDANSETRON 4MG/2ML VIAL (J2405) IV SCH ×3 (03:00→11:00)
[2019-04-25] MEDS: SODIUM CHLORIDE 0.9% INJ 10 ML SYR IV SCH ×2 (06:04→18:46)
[2019-04-25 06:40] LABS: HEMATOCRIT 33.1 % (36.0-47.0); HEMOGLOBIN 10.3 g/dl (12.0-15.5); MEAN CORPUSCULAR HEMOGLOBIN 25.1 pg (27.0-33.0); MEAN CORPUSCULAR HGB CONC 31.1 g/dl (32.0-36.5); MEAN CORPUSCULAR VOLUME 80.5 fl (80.0-96.0); PLATELET COUNT, AUTOMATED 310 10^3/uL (150-450); RED BLOOD COUNT 4.11 10^6/uL (4.00-5.40); WHITE BLOOD COUNT 5.4 10^3/uL (4.0-10.0)
[2019-04-25 07:08] LABS: ALBUMIN 2.6 GM/DL (3.2-5.2); ALT/SGPT 26 U/L (12-78); BILIRUBIN,TOTAL 0.2 MG/DL (0.2-1.0); BLOOD UREA NITROGEN 11 MG/DL (7-18); CALCIUM LEVEL 8.6 MG/DL (8.5-10.1); CARBON DIOXIDE LEVEL 27 MEQ/L (21-32); CHLORIDE LEVEL 103 MEQ/L (98-107); CREATININE FOR GFR 0.69 MG/DL (0.55-1.30); GLOMERULAR FILTRATION RATE > 60.0 (>51); GLUCOSE, FASTING 253 MG/DL (70-100); MAGNESIUM LEVEL 2.2 MG/DL (1.8-2.4); PHOSPHORUS LEVEL 3.8 MG/DL (2.5-4.9); SODIUM LEVEL 136 MEQ/L (136-145); TOTAL PROTEIN 7.4 GM/DL (6.4-8.2)
[2019-04-25] MEDS: VENLAFAXINE **XR** 75MG CAPSULE PO SCH (09:18)
[2019-04-25] MEDS ORDERED: PROPOFOL 200 MG/20 ML VIAL As Ordered ONE (11:25)
[2019-04-25] MEDS ORDERED: ROCURONIUM BROMIDE 50 MG/5 ML VIAL As Ordered ONE ×2 (11:25→12:55)
[2019-04-25] MEDS ORDERED: MIDAZOLAM INJ 2 MG/2 ML VIAL (J2250) As Ordered ONE (11:25)
[2019-04-25] MEDS ORDERED: LIDOCAINE 2% INJ 100 MG/5 ML SDV (FOR ANES.) As Ordered ONE (11:25)
[2019-04-25] MEDS ORDERED: fentaNYL 100 MCG/2 ML INJECTION (J3010) As Ordered ONE ×2 (11:25→14:12)
--- NOTE | 2019-04-25 11:56 | IPNPDOC ---
Date Seen The patient was seen on 04/25/19. Progress Note SUBJECTIVE: 58-year-old female, past medical history diabetes, hypertension, depression, ADHD, was admitted for bowel structures secondary to colonic mass. 04/25/2019 Patient without any complaints in the morning, scheduled for surgery later in the day, all questions answered. She denies any nausea, vomiting, chest pain, abdominal pain or diarrhea. 10 point review of system was negative except for above PHYSICAL EXAMINATION: VITAL SIGNS: Please see below. GENERAL: No distress, obese HEENT: Normocephalic, atraumatic, moist mucous membranes NECK: Supple CARDIOVASCULAR EXAMINATION: S1, S2, no murmurs RESPIRATORY EXAMINATION: Clear to auscultation, no wheezing ABDOMINAL EXAMINATION: Soft, nontender, nondistended, positive bowel sounds EXTREMITIES: Range of motion intact SKIN: No rash NEUROLOGICAL EXAMINATION: Alert and oriented 3, no focal deficits PSYCHIATRIC EXAMINATION: Calm and cooperative LABORATORY DATA, IMAGING STUDIES, MICROBIOLOGY: Please see below. DVT prophylaxis ordered?: Yes ASSESSMENT AND PLAN: 58-year-old female with past medical history of hypertension, diabetes, depression and ADHD admitted for bowel structures second her to colonic mass. PROBLEMS: 1. Colonic mass: Likely malignancy, scheduled for surgery today Continue TPN via PICC line 2. Hypertension.: Holding home meds preoperatively. 3. Diabetes mellitus: Sliding scale insulin with fingersticks every 6 hours. 4. ADHD. Hold Ritalin for now. 5. Depression. Continue Effexor DVT prophylaxis: Heparin subcutaneous GI prophylaxis: Not needed VS, I&O, 24H, Fishbone Vital Signs/I&O Vital Signs Date Time Temp Pulse Resp B/P (MAP) Pulse Ox O2 Delivery O2 Flow Rate FiO2 04/25/19 05:56 99.5 74 18 145/72 (96) 98 Room Air I&O- Last 24 Hours up to 6 AM 04/25/19 06:00 Intake Total 1840 ml Output Total 250 ml Balance 1590 ml Laboratory Data 24H LABS Laboratory Tests 2 04/24/19 12:18: Bedside Glucose (Misc Panel) 248H 04/24/19 17:26: Bedside Glucose (Misc Panel) 219H 04/25/19 01:13: Bedside Glucose (Misc Panel) 301H 04/25/19 05:52: Bedside Glucose (Misc Panel) 268H 04/25/19 06:06: Nucleated Red Blood Cells % (auto) 0.0, Anion Gap 6L, Glomerular Filtration Rate > 60.0, Calcium Level 8.6, Phosphorus Level 3.8, Magnesium Level 2.2, Total Bilirubin 0.2, Aspartate Amino Transf (AST/SGOT) 23, Alanine Aminotransferase (ALT/SGPT) 26, Alkaline Phosphatase 77, Total Protein 7.4, Albumin 2.6L, Albumin/Globulin Ratio 0.54L CBC/BMP Laboratory Tests 04/25/19 06:06 Microbiology Microbiology 04/20/19 Urine Culture - Final, Complete MIREYA GORDON MD Apr 25, 2019 11:55
[2019-04-25] MEDS ORDERED: HumaLOG INSULIN (NovoLOG) PER UNIT SC ONE ×2 (12:00→15:30)
[2019-04-25] MEDS ORDERED: HumaLOG INSULIN (NovoLOG) PER UNIT As Ordered ONE ×2 (12:03→15:17)
[2019-04-25] MEDS ORDERED: HYDROmorphone HCL 2 MG/ML 1ML VIAL (J1170) As Ordered ONE (12:55)
[2019-04-25] MEDS ORDERED: dexameTHASONE 4 MG/ML 1ML VIAL (J1100) As Ordered ONE (12:55)
[2019-04-25] MEDS ORDERED: ePHEDrine SULFATE 25 MG/5 ML(5MG/ML) SYRINGE As Ordered ONE (13:11)
[2019-04-25] MEDS ORDERED: METOCLOPRAMIDE INJ 10MG/2ML VIAL (J2765) As Ordered ONE (13:11)
[2019-04-25] MEDS ORDERED: ONDANSETRON 4MG/2ML VIAL (J2405) As Ordered ONE ×2 (13:12→15:16)
[2019-04-25] MEDS ORDERED: ESMOLOL INJ 100MG/10ML VIAL As Ordered ONE (13:23)
[2019-04-25] MEDS ORDERED: LABETALOL HCL 100 MG/20 ML VIAL As Ordered ONE (13:56)
[2019-04-25] MEDS ORDERED: NEOSTIGMINE 10 MG/10 ML VIAL (J2710) As Ordered ONE (14:12)
[2019-04-25] MEDS ORDERED: ACETAMINOPHEN 1000MG 100ML IV BTL (OFIRMEV) (J0131 PER 10MG) As Ordered ONE (14:12)
[2019-04-25] MEDS ORDERED: GLYCOPYRROLATE INJ 0.2 MG/ML 2 ML VIAL As Ordered ONE (14:13)
[2019-04-25] MEDS ORDERED: BUPIVACAINE HCL 0.25% 10 ML VIAL As Ordered ONE (14:24)
[2019-04-25] MEDS ORDERED: BUPIVACAINE LIPOSOME/PF 1.3% 20ML VIAL (13.3MG/ML)(EXPAREL)(C9290 PER1MG) As Ordered ONE (14:24)
[2019-04-25] MEDS ORDERED: MORPHINE 1MG/ML IN 0.9% NACL 100ML IV BAG As Ordered ONE (14:46)
[2019-04-25] MEDS: NS 1,000 ML IV SCH (14:54)
[2019-04-25] MEDS ORDERED: diphenhydrAMINE INJ 50MG/ML VIAL (J1200) IV PRN (15:00)
[2019-04-25] MEDS ORDERED: EPIDURAL/PCA KEYS XX PRN (15:00)
[2019-04-25] MEDS ORDERED: MORPHINE 1MG/ML IN 0.9% NACL 100ML IV BAG IV PRN (15:00)
[2019-04-25] MEDS ORDERED: NALBUPHINE HCL 10 MG/ML AMP (J2300) IV PRN (15:00)
[2019-04-25] MEDS ORDERED: NALOXONE INJ 0.4 MG/1 ML VIAL (J2310) IV PRN (15:00)
[2019-04-25] MEDS ORDERED: fentaNYL 100 MCG/2 ML INJECTION (J3010) IV PRN (15:30)
[2019-04-25] MEDS ORDERED: ONDANSETRON 4MG/2ML VIAL (J2405) IV PRN (15:30)
[2019-04-25] MEDS ORDERED: LR 1,000 ML IV SCH (15:30)
[2019-04-25] MEDS ORDERED: PROMETHAZINE INJ 25 MG/ML VIAL (J2550) IV PRN (15:30)
[2019-04-25] MEDS ORDERED: KETOROLAC 30 MG/ML VIAL (J1885) IV PRN (15:30)
[2019-04-25] MEDS: HYDROMORPHONE HCL 0.5 MG/ 0.5 ML SYRINGE (J1170 PER 1) IV PRN ×2 (15:31→15:49)
[2019-04-25] MEDS ORDERED: HYDROMORPHONE HCL 0.5 MG/ 0.5 ML SYRINGE (J1170 PER 1) As Ordered ONE (15:36)
[2019-04-25] MEDS: KETOROLAC 30 MG/ML VIAL (J1885) IV SCH ×2 (16:00→21:44)
[2019-04-25] MEDS ORDERED: FAT EMULSION IV 20% 500 ML IV SCH (18:00)
[2019-04-25] MEDS ORDERED: AMINO AC/ELECTROLYTE/DEX/CALC 2,000 ML IV SCH (18:00)
[2019-04-25] MEDS: RAMELTEON 8 MG TAB (ROZEREM) PO SCH (21:44)
[2019-04-25] MEDS: ALVIMOPAN 12 MG CAPSULE (ENTEREG) PO SCH (21:44)
[2019-04-25] MEDS: SIMVASTATIN 10 MG TAB PO SCH (21:44)
[2019-04-25] MEDS: ONDANSETRON 4MG/2ML VIAL (J2405) IV PRN (21:51)
[2019-04-26] MEDS: HumaLOG INSULIN (NovoLOG) PER UNIT SC SCH ×4 (00:34→17:36)
[2019-04-26 03:31] VITALS: BP 132/76
[2019-04-26] MEDS: KETOROLAC 30 MG/ML VIAL (J1885) IV SCH ×4 (04:13→21:11)
[2019-04-26 05:35] VITALS: BP 135/61
[2019-04-26] MEDS: HEPARIN SOD (PORCINE) 5000 UNITS/ML VIAL SC SCH ×3 (06:02→21:11)
[2019-04-26] MEDS: SODIUM CHLORIDE 0.9% INJ 10 ML SYR IV SCH ×2 (06:03→17:35)
[2019-04-26] MEDS ORDERED: MOM 30ML SUSPENSION UDC PO ONE (06:15)
[2019-04-26 07:21] LABS: HEMATOCRIT 32.4 % (36.0-47.0); HEMOGLOBIN 9.8 g/dl (12.0-15.5); MEAN CORPUSCULAR HEMOGLOBIN 24.6 pg (27.0-33.0); MEAN CORPUSCULAR HGB CONC 30.2 g/dl (32.0-36.5); MEAN CORPUSCULAR VOLUME 81.2 fl (80.0-96.0); PLATELET COUNT, AUTOMATED 316 10^3/uL (150-450); RED BLOOD COUNT 3.99 10^6/uL (4.00-5.40); WHITE BLOOD COUNT 8.6 10^3/uL (4.0-10.0)
[2019-04-26 07:54] LABS: BLOOD UREA NITROGEN 15 MG/DL (7-18); CALCIUM LEVEL 8.3 MG/DL (8.5-10.1); CARBON DIOXIDE LEVEL 29 MEQ/L (21-32); CHLORIDE LEVEL 100 MEQ/L (98-107); CREATININE FOR GFR 0.74 MG/DL (0.55-1.30); GLOMERULAR FILTRATION RATE > 60.0 (>51); GLUCOSE, FASTING 293 MG/DL (70-100); POTASSIUM SERUM 4.2 MEQ/L (3.5-5.1); SODIUM LEVEL 135 MEQ/L (136-145)
[2019-04-26] MEDS ORDERED: CALCIUM CARBONATE 500 MG CHEW U/D PO SCH (09:00)
[2019-04-26] MEDS: ALVIMOPAN 12 MG CAPSULE (ENTEREG) PO SCH ×2 (09:11→21:11)
[2019-04-26] MEDS: VENLAFAXINE **XR** 75MG CAPSULE PO SCH (09:11)
[2019-04-26 14:00] VITALS: BP 138/78
--- NOTE | 2019-04-26 14:09 | IPNPDOC ---
Date Seen The patient was seen on 04/26/19. Progress Note SUBJECTIVE: 58-year-old female, past medical history diabetes, hypertension, depression, ADHD, was admitted for bowel structures secondary to colonic mass status post right colectomy. 04/26/2019 Patient resting comfortably in bed, status post right colectomy yesterday, reporting mild abdominal pain/discomfort, no other complaints at this time. Denies any nausea, vomiting, chest pain or headache. 10 point review of system was negative except for above PHYSICAL EXAMINATION: VITAL SIGNS: Please see below. GENERAL: No distress, obese HEENT: Normocephalic, atraumatic, moist mucous membranes NECK: Supple CARDIOVASCULAR EXAMINATION: S1, S2, no murmurs RESPIRATORY EXAMINATION: Clear to auscultation, no wheezing ABDOMINAL EXAMINATION: Soft, mild tenderness to palpation, DEL draining serosang uineous fluid, dressings clean, dry and intact, nondistended, hypoactive bowel sounds EXTREMITIES: Range of motion intact SKIN: No rash NEUROLOGICAL EXAMINATION: Alert and oriented 3, no focal deficits PSYCHIATRIC EXAMINATION: Calm and cooperative LABORATORY DATA, IMAGING STUDIES, MICROBIOLOGY: Please see below. DVT prophylaxis ordered?: Yes ASSESSMENT AND PLAN: 58-year-old female with past medical history of hypertension, diabetes, depression and ADHD admitted for bowel structures second her to colonic mass. PROBLEMS: 1. Colonic mass: Likely malignancy, status post right hemicolectomy, path pending Continue TPN via PICC line 2. Hypertension.: Restart lisinopril 3. Diabetes mellitus: Sliding scale insulin with fingersticks every 6 hours. Start Levemir 20 units daily 4. ADHD. Hold Ritalin for now. 5. Depression. Continue Effexor DVT prophylaxis: Heparin subcutaneous GI prophylaxis: Not needed VS, I&O, 24H, Fishbone Vital Signs/I&O Vital Signs Date Time Temp Pulse Resp B/P (MAP) Pulse Ox O2 Delivery O2 Flow Rate FiO2 04/26/19 05:35 98.0 77 20 135/61 (85) 99 Room Air 04/26/19 03:31 2.0 I&O- Last 24 Hours up to 6 AM 04/26/19 05:59 Intake Total 1550 ml Output Total 2330 ml Balance -780 ml Laboratory Data 24H LABS Laboratory Tests 2 04/25/19 14:53: Bedside Glucose (Misc Panel) 325H 04/25/19 18:19: Bedside Glucose (Misc Panel) 340H 04/26/19 00:26: Bedside Glucose (Misc Panel) 272H 04/26/19 05:31: Bedside Glucose (Misc Panel) 280H 04/26/19 06:55: Nucleated Red Blood Cells % (auto) 0.0, Anion Gap 6L, Glomerular Filtration Rate > 60.0, Calcium Level 8.3L 04/26/19 11:52: Bedside Glucose (Misc Panel) 293H CBC/BMP Laboratory Tests 04/26/19 06:55 Microbiology Microbiology 04/20/19 Urine Culture - Final, Complete MIREYA GORDON MD Apr 26, 2019 14:09
[2019-04-26] MEDS: NS 1,000 ML IV SCH (14:57)
[2019-04-26] MEDS: LEVEMIR (INSULIN DETEMIR) 1 UNITS/0.01ML SC SCH (14:58)
[2019-04-26] MEDS ORDERED: FAT EMULSION IV 20% 500 ML IV SCH (18:00)
[2019-04-26] MEDS ORDERED: AMINO AC/ELECTROLYTE/DEX/CALC 2,000 ML IV SCH (18:00)
[2019-04-26 20:00] VITALS: BP 155/73
[2019-04-26] MEDS: RAMELTEON 8 MG TAB (ROZEREM) PO SCH (21:11)
[2019-04-26] MEDS: SIMVASTATIN 10 MG TAB PO SCH (21:11)
[2019-04-26] MEDS: CALCIUM CARBONATE 500 MG CHEW U/D PO PRN (21:11)
[2019-04-26] MEDS: lisinopriL 10 MG TAB PO SCH (21:14)
[2019-04-27] MEDS: HumaLOG INSULIN (NovoLOG) PER UNIT SC SCH ×5 (00:21→23:49)
[2019-04-27 02:00] VITALS: BP 148/68
[2019-04-27] MEDS: KETOROLAC 30 MG/ML VIAL (J1885) IV SCH ×4 (03:38→21:12)
[2019-04-27] MEDS: SODIUM CHLORIDE 0.9% INJ 10 ML SYR IV SCH ×2 (05:48→18:01)
[2019-04-27 06:00] VITALS: BP 120/67
[2019-04-27] MEDS: HEPARIN SOD (PORCINE) 5000 UNITS/ML VIAL SC SCH ×3 (06:02→21:12)
[2019-04-27 06:09] LABS: HEMATOCRIT 30.8 % (36.0-47.0); HEMOGLOBIN 9.3 g/dl (12.0-15.5); MEAN CORPUSCULAR HEMOGLOBIN 24.7 pg (27.0-33.0); MEAN CORPUSCULAR HGB CONC 30.2 g/dl (32.0-36.5); MEAN CORPUSCULAR VOLUME 81.9 fl (80.0-96.0); PLATELET COUNT, AUTOMATED 264 10^3/uL (150-450); RED BLOOD COUNT 3.76 10^6/uL (4.00-5.40); WHITE BLOOD COUNT 8.5 10^3/uL (4.0-10.0)
[2019-04-27 06:35] LABS: BLOOD UREA NITROGEN 16 MG/DL (7-18); CALCIUM LEVEL 8.4 MG/DL (8.5-10.1); CARBON DIOXIDE LEVEL 27 MEQ/L (21-32); CHLORIDE LEVEL 103 MEQ/L (98-107); CREATININE FOR GFR 0.56 MG/DL (0.55-1.30); GLOMERULAR FILTRATION RATE > 60.0 (>51); GLUCOSE, FASTING 246 MG/DL (70-100); PHOSPHORUS LEVEL 4.3 MG/DL (2.5-4.9); POTASSIUM SERUM 4.1 MEQ/L (3.5-5.1); SODIUM LEVEL 135 MEQ/L (136-145)
[2019-04-27] MEDS ORDERED: LEVEMIR (INSULIN DETEMIR) 1 UNITS/0.01ML SC ONE (09:00)
[2019-04-27] MEDS: ALVIMOPAN 12 MG CAPSULE (ENTEREG) PO SCH ×2 (09:00→21:12)
[2019-04-27] MEDS: VENLAFAXINE **XR** 75MG CAPSULE PO SCH (09:01)
[2019-04-27] MEDS: LEVEMIR (INSULIN DETEMIR) 1 UNITS/0.01ML SC SCH (09:01)
[2019-04-27 10:00] VITALS: BP 174/77
[2019-04-27] MEDS: PANTOPRAZOLE 40MG INJ (PROTONIX) (C9113) IV SCH ×2 (10:58→21:11)
--- NOTE | 2019-04-27 13:20 | IPNPDOC ---
Date Seen The patient was seen on 04/27/19. Progress Note SUBJECTIVE: 58-year-old female, past medical history diabetes, hypertension, depression, ADHD, was admitted for bowel structures secondary to colonic mass status post right colectomy. 04/26/2019 Patient resting comfortably in bed, status post right colectomy yesterday, reporting mild abdominal pain/discomfort, no other complaints at this time. Denies any nausea, vomiting, chest pain or headache. 04/27/2019 Patient resting comfortably in bed, reports abdominal pain with movement and exertion, otherwise no symptoms at this time. She did have a bowel movement earlier today. She denies any nausea, vomiting, shortness of breath, chest pain, or headache. Patient remains on TPN at this time. 10 point review of system was negative except for above PHYSICAL EXAMINATION: VITAL SIGNS: Please see below. GENERAL: No distress, obese HEENT: Normocephalic, atraumatic, moist mucous membranes NECK: Supple CARDIOVASCULAR EXAMINATION: S1, S2, no murmurs RESPIRATORY EXAMINATION: Clear to auscultation, no wheezing ABDOMINAL EXAMINATION: Soft, mild tenderness to palpation, DEL draining serosanguineous fluid, dressings removed, wound is stapled and clean, nondistended, hypoactive bowel sounds EXTREMITIES: Range of motion intact SKIN: No rash NEUROLOGICAL EXAMINATION: Alert and oriented 3, no focal deficits PSYCHIATRIC EXAMINATION: Calm and cooperative LABORATORY DATA, IMAGING STUDIES, MICROBIOLOGY: Please see below. DVT prophylaxis ordered?: Yes ASSESSMENT AND PLAN: 58-year-old female with past medical history of hypertension, diabetes, depression and ADHD admitted for bowel structures second her to colonic mass. PROBLEMS: 1. Adenocarcinoma of colon. Status post right hemicolectomy, pathology positive for moderately differentiated adenocarcinoma with 5 positive lymph nodes. Plan to stop TPN after today, start liquid diet tomorrow, remove Javier today as per surgery. No oncology coverage through the weekend, will plan for outpatient follow-up and treatment. When ready for discharge. 2. Hypertension.: Continue lisinopril 3. Diabetes mellitus: Sliding scale insulin with fingersticks every 6 hours. Start Levemir 20 units daily 4. ADHD. Continue Ritalin 5. Depression. Continue Effexor DVT prophylaxis: Heparin subcutaneous GI prophylaxis: Not needed VS, I&O, 24H, Fishbone Vital Signs/I&O Vital Signs Date Time Temp Pulse Resp B/P (MAP) Pulse Ox O2 Delivery O2 Flow Rate FiO2 04/27/19 10:00 99.1 78 20 174/77 (109) 96 Room Air 04/26/19 03:31 2.0 I&O- Last 24 Hours up to 6 AM 04/27/19 05:59 Intake Total 60 ml Output Total 1190 ml Balance -1130 ml Laboratory Data 24H LABS Laboratory Tests 2 04/26/19 17:00: Bedside Glucose (Misc Panel) 275H 04/26/19 23:47: Bedside Glucose (Misc Panel) 311H 04/27/19 05:43: Nucleated Red Blood Cells % (auto) 0.0, Anion Gap 5L, Glomerular Filtration Rate > 60.0, Calcium Level 8.4L, Phosphorus Level 4.3, Magnesium Level 2.0 04/27/19 05:56: Bedside Glucose (Misc Panel) 241H 04/27/19 11:40: Bedside Glucose (Misc Panel) 246H CBC/BMP Laboratory Tests 04/27/19 05:43 Microbiology Microbiology 04/20/19 Urine Culture - Final, Complete MIREYA GORDON MD Apr 27, 2019 13:20
[2019-04-27 14:00] VITALS: BP 142/52
[2019-04-27] MEDS: MORPHINE 4 MG/ML 1ML VIAL/SYRINGE (J2270) IV PRN ×2 (18:44→21:11)
--- NOTE | 2019-04-27 20:08 | IPN ---
DATE: 04/27/2019 Patient seems to be doing well. She had a bowel movement this morning. However, she still has some nausea, and she has been taking a fair bit of Tums for some reflux symptoms that she has had. And my concern at this point is although she is not having any significant nausea, she has been taking some Zofran, this nausea has been better since her operation but still present and with some increased reflux symptoms. She is still not having any significant pain and only using the patient-controlled analgesia (BARREL RIFLER) every couple hours. Her Vic-Rothman drainage yesterday was 110 mL, still serosanguineous. Her abdomen is otherwise soft, nontender, nondistended. The dressing was removed from the midline and reveals a clean incision, intact and otherwise the dressings are clean and dry. IMPRESSION AND PLAN: Patient probably has some return of bowel function. However, I anticipate this is probably the small bowel and the colon that has returned its bowel function. However, with the extensive dissection in the area of the duodenum, I do have concern that she may have some difficulty with gastric emptying, which may last for another 24-48 hours. So, instead of starting her on a clear liquid diet, I would like to hold off that until tomorrow morning, and I would like to get rid of her Javier, discontinue her IVs, BARREL RIFLER, change house attendant to some as needed pain medication and see if we can mobilize her a little bit more today.
--- NOTE | 2019-04-27 20:18 | IPN ---
DATE: 04/26/2019 SUBJECTIVE The patient has been doing quite well with no complaints at this time. No nausea, no vomiting. No fevers, no chills, no diarrhea complaints. No other GI complaints at this time. Her white count has been normal and hematocrit has been stable. Her Vic-Rothman drain has been putting out some serosanguineous and otherwise she seems to be doing well. She was up out of bed yesterday, still complaining of some discomfort and then using the PRINTMAKER. Vital signs are stable. She has been afebrile. Intake and output (I and Os) reveal Vic-Rothman output of serosanguineous fluid 190 mL yesterday. It seems to be less today. PHYSICAL EXAMINATION: Reveals abdomen which is softly distended, nontender. No guarding, no rebound. No peritoneal signs are appreciated. Dressing is clean and dry without any drainage, erythema. IMPRESSION AND PLAN The patient seems to be stable at this time making typical progress after her colectomy and extensive resection of ed involvement near the duodenal C-loop. At this point my recommendation is that we keep her nothing by mouth (npo), continue with TPN for today and will see how she does over the ensuing 12 hours to 24 hours. Otherwise continue with the Javier catheter until she a little more ambulatory, probably discontinue that tomorrow.
[2019-04-27 20:48] VITALS: BP 143/52
[2019-04-27] MEDS: SIMVASTATIN 10 MG TAB PO SCH (21:12)
[2019-04-27] MEDS: RAMELTEON 8 MG TAB (ROZEREM) PO SCH (21:12)
[2019-04-27] MEDS: lisinopriL 10 MG TAB PO SCH (21:19)
[2019-04-27] MEDS: SODIUM CHLORIDE 0.9% INJ 10 ML SYR IV PRN (21:25)
[2019-04-28] MEDS: KETOROLAC 30 MG/ML VIAL (J1885) IV SCH ×4 (04:34→20:48)
[2019-04-28 06:03] VITALS: BP 148/72
[2019-04-28] MEDS: HumaLOG INSULIN (NovoLOG) PER UNIT SC SCH ×3 (06:24→20:47)
[2019-04-28] MEDS: SODIUM CHLORIDE 0.9% INJ 10 ML SYR IV SCH ×2 (06:25→17:06)
[2019-04-28] MEDS: HEPARIN SOD (PORCINE) 5000 UNITS/ML VIAL SC SCH ×3 (06:25→20:47)
[2019-04-28 06:55] LABS: HEMOGLOBIN 9.4 g/dl (12.0-15.5); MEAN CORPUSCULAR HEMOGLOBIN 24.9 pg (27.0-33.0); MEAN CORPUSCULAR HGB CONC 31.3 g/dl (32.0-36.5); MEAN CORPUSCULAR VOLUME 79.4 fl (80.0-96.0); PLATELET COUNT, AUTOMATED 301 10^3/uL (150-450); RED BLOOD COUNT 3.78 10^6/uL (4.00-5.40); WHITE BLOOD COUNT 8.7 10^3/uL (4.0-10.0)
[2019-04-28 07:16] LABS: BLOOD UREA NITROGEN 13 MG/DL (7-18); CALCIUM LEVEL 8.8 MG/DL (8.5-10.1); CARBON DIOXIDE LEVEL 28 MEQ/L (21-32); CHLORIDE LEVEL 105 MEQ/L (98-107); CREATININE FOR GFR 0.59 MG/DL (0.55-1.30); GLOMERULAR FILTRATION RATE > 60.0 (>51); GLUCOSE, FASTING 151 MG/DL (70-100); POTASSIUM SERUM 4.2 MEQ/L (3.5-5.1); SODIUM LEVEL 138 MEQ/L (136-145)
[2019-04-28 08:54] LABS: MAGNESIUM LEVEL 2.3 MG/DL (1.8-2.4)
[2019-04-28] MEDS: VENLAFAXINE **XR** 75MG CAPSULE PO SCH (08:56)
[2019-04-28] MEDS: ALVIMOPAN 12 MG CAPSULE (ENTEREG) PO SCH ×2 (08:57→20:45)
[2019-04-28] MEDS: PANTOPRAZOLE 40MG INJ (PROTONIX) (C9113) IV SCH ×2 (08:58→20:45)
[2019-04-28] MEDS: SODIUM CHLORIDE 0.9% INJ 10 ML SYR IV PRN ×2 (09:09→20:49)
[2019-04-28 10:00] VITALS: BP 141/69
[2019-04-28] MEDS ORDERED: DEXTROSE 50% 50 ML SYRINGE IV PRN ×2 (12:30→13:00)
[2019-04-28] MEDS ORDERED: GLUCOSE 4 GM CHEW TABLET PO PRN ×2 (12:30→13:00)
[2019-04-28] MEDS ORDERED: GLUCAGON FOR INJ 1 MG VIAL (J1610) SC PRN ×2 (12:30→13:00)
[2019-04-28 14:00] VITALS: BP 145/68
--- NOTE | 2019-04-28 14:09 | IPNPDOC ---
Date Seen The patient was seen on 04/28/19. Progress Note SUBJECTIVE: 58-year-old female, past medical history diabetes, hypertension, depression, ADHD, was admitted for bowel structures secondary to colonic mass status post right colectomy. 04/26/2019 Patient resting comfortably in bed, status post right colectomy yesterday, reporting mild abdominal pain/discomfort, no other complaints at this time. Denies any nausea, vomiting, chest pain or headache. 04/27/2019 Patient resting comfortably in bed, reports abdominal pain with movement and exertion, otherwise no symptoms at this time. She did have a bowel movement earlier today. She denies any nausea, vomiting, shortness of breath, chest pain, or headache. Patient remains on TPN at this time. 04/28/2019 Patient comfortably in bed, minimal abdominal pain/discomfort, tolerated clear liquid diet today, ambulating around the room, no complaints at this time. She denies any shortness of breath, chest pain, nausea, vomiting or diarrhea. 10 point review of system was negative except for above PHYSICAL EXAMINATION: VITAL SIGNS: Please see below. GENERAL: No distress, obese HEENT: Normocephalic, atraumatic, moist mucous membranes NECK: Supple CARDIOVASCULAR EXAMINATION: S1, S2, no murmurs RESPIRATORY EXAMINATION: Clear to auscultation, no wheezing ABDOMINAL EXAMINATION: Soft, mild tenderness to palpation, DEL draining serosanguineous fluid, dressings removed, wound is stapled and clean, nondistended, normoactive bowel sounds EXTREMITIES: Range of motion intact SKIN: No rash NEUROLOGICAL EXAMINATION: Alert and oriented 3, no focal deficits PSYCHIATRIC EXAMINATION: Calm and cooperative LABORATORY DATA, IMAGING STUDIES, MICROBIOLOGY: Please see below. DVT prophylaxis ordered?: Yes ASSESSMENT AND PLAN: 58-year-old female with past medical history of hypertension, diabetes, depression and ADHD admitted for bowel structures second her to colonic mass. PROBLEMS: 1. Adenocarcinoma of colon. Status post right hemicolectomy, pathology positive for moderately differentiated adenocarcinoma with 5 positive lymph nodes. Continue clear liquid diet, will monitor, possible discharge on Tuesday No oncology coverage through the weekend, will plan for outpatient follow-up and treatment when ready for discharge. 2. Hypertension: Continue lisinopril 3. Diabetes mellitus: Sliding scale insulin with fingersticks every 6 hours. Continue Levemir 30 units daily 4. ADHD. Continue Ritalin 5. Depression. Continue Effexor DVT prophylaxis: Heparin subcutaneous GI prophylaxis: Protonix VS, I&O, 24H, Fishbone Vital Signs/I&O Vital Signs Date Time Temp Pulse Resp B/P (MAP) Pulse Ox O2 Delivery O2 Flow Rate FiO2 04/28/19 10:00 98.1 73 18 141/69 (93) 99 Room Air 04/26/19 03:31 2.0 I&O- Last 24 Hours up to 6 AM 04/28/19 06:00 Intake Total 480 ml Output Total 1945 ml Balance -1465 ml Laboratory Data 24H LABS Laboratory Tests 2 04/27/19 17:16: Bedside Glucose (Misc Panel) 180H 04/27/19 23:47: Bedside Glucose (Misc Panel) 90 04/28/19 05:59: Bedside Glucose (Misc Panel) 135H 04/28/19 06:38: Nucleated Red Blood Cells % (auto) 0.0, Anion Gap 5L, Glomerular Filtration Rate > 60.0, Calcium Level 8.8, Phosphorus Level 5.0H, Magnesium Level 2.3 04/28/19 12:43: Bedside Glucose (Misc Panel) 150H CBC/BMP Laboratory Tests 04/28/19 06:38 Microbiology Microbiology 04/20/19 Urine Culture - Final, Complete MIREYA GORDON MD Apr 28, 2019 14:09
[2019-04-28] MEDS: LEVEMIR (INSULIN DETEMIR) 1 UNITS/0.01ML SC SCH (14:40)
[2019-04-28] MEDS: lisinopriL 10 MG TAB PO SCH (20:46)
[2019-04-28] MEDS: RAMELTEON 8 MG TAB (ROZEREM) PO SCH (20:46)
[2019-04-28] MEDS: SIMVASTATIN 10 MG TAB PO SCH (20:46)
[2019-04-28 22:00] VITALS: BP 136/69
[2019-04-29] MEDS: KETOROLAC 30 MG/ML VIAL (J1885) IV SCH ×4 (03:40→21:24)
[2019-04-29] MEDS: HEPARIN SOD (PORCINE) 5000 UNITS/ML VIAL SC SCH ×3 (06:06→21:23)
[2019-04-29] MEDS: MORPHINE 4 MG/ML 1ML VIAL/SYRINGE (J2270) IV PRN (06:10)
[2019-04-29] MEDS: SODIUM CHLORIDE 0.9% INJ 10 ML SYR IV SCH ×2 (06:10→17:33)
[2019-04-29 06:28] LABS: HEMATOCRIT 30.2 % (36.0-47.0); HEMOGLOBIN 9.4 g/dl (12.0-15.5); MEAN CORPUSCULAR HEMOGLOBIN 24.7 pg (27.0-33.0); MEAN CORPUSCULAR HGB CONC 31.1 g/dl (32.0-36.5); MEAN CORPUSCULAR VOLUME 79.5 fl (80.0-96.0); PLATELET COUNT, AUTOMATED 352 10^3/uL (150-450); WHITE BLOOD COUNT 9.8 10^3/uL (4.0-10.0)
[2019-04-29 06:45] VITALS: BP 136/68
[2019-04-29 06:51] LABS: BLOOD UREA NITROGEN 11 MG/DL (7-18); CALCIUM LEVEL 8.4 MG/DL (8.5-10.1); CARBON DIOXIDE LEVEL 28 MEQ/L (21-32); CHLORIDE LEVEL 106 MEQ/L (98-107); CREATININE FOR GFR 0.64 MG/DL (0.55-1.30); GLOMERULAR FILTRATION RATE > 60.0 (>51); GLUCOSE, FASTING 73 MG/DL (70-100); POTASSIUM SERUM 3.9 MEQ/L (3.5-5.1); SODIUM LEVEL 140 MEQ/L (136-145)
[2019-04-29] MEDS: HumaLOG INSULIN (NovoLOG) PER UNIT SC SCH ×4 (07:30→21:00)
[2019-04-29] MEDS: PANTOPRAZOLE 40MG INJ (PROTONIX) (C9113) IV SCH ×2 (09:03→21:23)
--- NOTE | 2019-04-29 09:03 | IPNPDOC ---
Subjective General Date/Time Seen The patient was seen on 04/29/19 at 09:02. Subject Chief Complaint/History The patient is a 58-year-old female admitted with a reason for visit of Adhd Colon Neoplasm Diabetes Mellitus Hld Htn...... Patient complaining of epigastric discomfort overnight, oral intake not so great yet. She denies any nausea, still passing flatus, no BMs yesteday. She is ambulating the hallways and using her incentive spirometer Current Medications Current Medications Current Medications Medications (Trade) Dose Ordered Sig/Juan Route PRN Reason Start Time Stop Time Status Last Admin Dose Admin Alvimopan (Entereg) 12 mg BID PO 04/25/19 21:00 05/02/19 20:59 04/28/19 20:45 Amino Ac/Electrol/ Dextrose/Calcium 1,000 ml @ 75 mls/hr [id number] IV 04/21/19 12:00 04/23/19 17:59 DC 04/23/19 03:22 Amino Ac/Electrol/ Dextrose/Calcium 2,000 ml @ 75 mls/hr ONCE@1800 IV 04/23/19 18:00 04/24/19 17:59 DC 04/23/19 18:28 Amino Ac/Electrol/ Dextrose/Calcium 2,000 ml @ 75 mls/hr ONCE@1800 IV 04/24/19 18:00 04/25/19 17:59 DC 04/24/19 17:58 Amino Ac/Electrol/ Dextrose/Calcium 2,000 ml @ 75 mls/hr ONCE@1800 IV 04/25/19 18:00 04/26/19 17:59 DC 04/25/19 19:57 Amino Ac/Electrol/ Dextrose/Calcium 2,000 ml @ 75 mls/hr ONCE@1800 IV 04/26/19 18:00 04/27/19 17:59 DC 04/26/19 17:35 Calcium Carbonate (Tums) 1,000 mg BID PO 04/26/19 09:00 04/26/19 13:45 DC 04/26/19 09:00 Calcium Carbonate (Tums) 1,000 mg BID PRN PO INDIGESTION 04/26/19 13:45 04/26/19 21:11 Ceftriaxone Sodium 1 gm/ Dextrose 50 ml @ 100 mls/hr Q24H IV 04/20/19 20:00 04/24/19 13:09 DC 04/23/19 20:05 Dextrose (Dextrose 50%) 25 ml ASDIRECTED PRN IV SEE LABEL COMMENTS 04/20/19 17:45 Cancel Dextrose (Dextrose 50%) 25 ml ASDIRECTED PRN IV SEE LABEL COMMENTS 04/28/19 12:30 Dextrose (Dextrose 50%) 25 ml ASDIRECTED PRN IV SEE LABEL COMMENTS 04/28/19 13:00 Dextrose/Sodium Chloride 1,000 ml @ 80 mls/hr [id number] IV 04/20/19 17:45 04/21/19 07:50 DC 04/21/19 06:41 Diphenhydramine HCl (Benadryl) 12.5 mg Q4HP PRN IV ITCHING 04/25/19 15:00 Fat Emulsion Intravenous 500 ml @ 20 mls/hr ONCE@1800 IV 04/21/19 18:00 04/22/19 17:59 DC 04/21/19 17:53 Fat Emulsion Intravenous 500 ml @ 20 mls/hr ONCE@1800 IV 04/22/19 18:00 04/23/19 17:59 DC 04/23/19 03:23 Fat Emulsion Intravenous 500 ml @ 20 mls/hr ONCE@1800 IV 04/23/19 18:00 04/24/19 17:59 DC 04/23/19 18:28 Fat Emulsion Intravenous 500 ml @ 20 mls/hr ONCE@1800 IV 04/24/19 18:00 04/25/19 17:59 DC 04/24/19 17:58 Fat Emulsion Intravenous 500 ml @ 20 mls/hr ONCE@1800 IV 04/25/19 18:00 04/26/19 17:59 DC 04/25/19 19:57 Fat Emulsion Intravenous 500 ml @ 20 mls/hr ONCE@1800 IV 04/26/19 18:00 04/27/19 17:59 DC 04/26/19 17:35 Fentanyl Citrate (Sublimaze) 25 mcg Q5MP PRN IV PAIN LEVEL 5-10 04/25/19 15:30 04/25/19 16:30 DC Glucagon (Glucagon) 1 mg ASDIRECTED PRN SC SEE LABEL COMMENTS 04/20/19 17:45 Cancel Glucagon (Glucagon) 1 mg ASDIRECTED PRN SC SEE LABEL COMMENTS 04/28/19 12:30 Glucagon (Glucagon) 1 mg ASDIRECTED PRN SC SEE LABEL COMMENTS 04/28/19 13:00 Glucose (Glucose) 16 GM ASDIRECTED PRN PO SEE LABEL COMMENTS 04/20/19 17:45 Cancel Glucose (Glucose) 16 GM ASDIRECTED PRN PO SEE LABEL COMMENTS 04/28/19 12:30 Glucose (Glucose) 16 GM ASDIRECTED PRN PO SEE LABEL COMMENTS 04/28/19 13:00 Heparin Sodium (Heparin (Flush)) 200 units ASDIRECTED PRN IV SEE LABEL COMMENTS 04/23/19 19:00 04/28/19 20:49 Heparin Sodium (Heparin (Flush)) 200 units PICC IV 04/24/19 06:00 04/29/19 06:10 Heparin Sodium (Porcine) (Heparin) 5,000 units Q8H SC 04/20/19 22:00 04/29/19 06:06 Home Med (Med Rec Complete!) ASDIRECTED XX 04/20/19 19:30 04/20/19 19:20 DC Hydromorphone HCl (Dilaudid) 0.2 mg Q5MP PRN IV PAIN LEVEL 4-7 04/25/19 15:30 04/25/19 16:30 DC 04/25/19 15:49 Insulin Detemir (Levemir Insulin) 20 units DAILY SC 04/26/19 15:00 04/27/19 13:14 DC 04/27/19 09:01 Insulin Detemir (Levemir Insulin) 30 units DAILY@1500 SC 04/28/19 15:00 04/28/19 14:40 Insulin Human Lispro (HumaLOG INSULIN) SEE PROTOCOL TABLE Q6H DC 04/20/19 18:00 04/28/19 12:30 DC 04/28/19 06:24 Insulin Human Lispro (HumaLOG INSULIN) See Protocol Table AC DC 04/28/19 17:30 04/28/19 17:05 Insulin Human Lispro (HumaLOG INSULIN) See Protocol Table QHS SC 04/28/19 21:00 Ketorolac Tromethamine (ToRADol) 30 mg ONCE PRN IV PAIN 04/25/19 15:30 04/25/19 16:30 DC Ketorolac Tromethamine (ToRADol) 30 mg Q6H IV 04/25/19 16:00 04/30/19 15:59 04/28/19 20:48 Lactated Ringer's 1,000 ml @ 100 mls/hr Q10H IV 04/25/19 15:30 04/25/19 16:30 DC Lisinopril (Prinivil) 10 mg QHS PO 04/26/19 21:00 04/28/19 20:46 Miscellaneous (Unresolved Clarification Entry) SEE LABEL COMMENTS DAILY XX 04/26/19 09:00 04/27/19 06:25 DC Miscellaneous (Unresolved Clarification Entry) SEE LABEL COMMENTS DAILY XX 04/27/19 09:00 04/28/19 17:33 DC Morphine Sulfate (Morphine Sulfate In 0.9%Nacl Iv Bag) Concentration 1 mg/ml ASDIRECTED PRN IV SEE LABEL COMMENTS 04/25/19 15:00 04/27/19 09:01 DC 04/25/19 15:11 Morphine Sulfate (Morphine Sulfate Inj) 2 mg Q2H PRN IV PAIN LEVEL 1-5 04/20/19 18:45 04/27/19 18:44 DC 04/23/19 11:07 Morphine Sulfate (Morphine Sulfate Inj) 3 mg Q2HP PRN IV MODERATE/SEVERE PAIN (PS 5-10) 04/27/19 09:15 04/29/19 06:10 Morphine Sulfate (Morphine Sulfate Inj) 4 mg Q3HP PRN IV SEVERE PAIN (PS 8-10) 04/20/19 18:45 04/25/19 14:57 DC 04/20/19 23:45 Nalbuphine HCl (Nubain) 2.5 mg Q6HP PRN IV PRURITIS 04/25/19 15:00 04/27/19 09:01 DC Naloxone HCl (Narcan) 0.1 mg Q5MP PRN IV SEE LABEL COMMENTS 04/25/19 15:00 04/27/19 09:01 DC Non-Formulary Medication (Epidural/[employer] [place]) USE THIS ENTRY TO VEND ... Q1M PRN XX SEE LABEL COMMENTS 04/25/19 15:00 04/27/19 09:01 DC Ondansetron HCl (ZOFRAN INJection) 4 mg Q4H IV 04/20/19 19:00 04/25/19 14:57 DC 04/22/19 14:39 Ondansetron HCl (ZOFRAN INJection) 4 mg Q4HP PRN IV NAUSEA OR VOMITING 04/25/19 15:30 04/25/19 16:30 DC 04/25/19 15:21 Ondansetron HCl (ZOFRAN INJection) 4 mg Q6HP PRN IV NAUSEA 04/25/19 15:00 04/25/19 21:51 Pantoprazole Sodium (Protonix) 40 mg Q12H IV 04/27/19 09:00 04/28/19 20:45 Potassium Chloride/Dextrose/ Sod Cl 1,000 ml @ 75 mls/hr [id number] IV 04/21/19 08:00 04/21/19 21:21 DC 04/21/19 08:54 Promethazine HCl (PHENERGAN INJection) 12.5 mg Q5MP PRN IV NAUSEA OR VOMITING 04/25/19 15:30 04/25/19 16:30 DC Ramelteon (Rozerem) 8 mg QHS PO 04/23/19 21:00 04/28/19 20:46 Simvastatin (Zocor) 10 mg QHS PO 04/21/19 21:00 04/28/19 20:46 Sodium Chloride 1,000 ml @ 15 mls/hr Q24H IV 04/25/19 14:54 04/27/19 09:01 DC 04/26/19 14:57 Sodium Chloride (Saline Lock Flush) 10 ml ASDIRECTED PRN IV SEE LABEL COMMENTS 04/23/19 19:00 04/28/19 20:49 Sodium Chloride (Saline Lock Flush) 10 ml PICC IV 04/24/19 06:00 04/29/19 06:10 Venlafaxine HCl (Effexor Xr) 150 mg DAILY PO 04/21/19 09:00 04/28/19 08:56 Allergies Coded Allergies: No Known Allergies (Unverified , 09/25/18) Objective Physical Examination Examination GENERAL APPEARANCE:looks comfortable. SKIN: warm and dry. HEENT: Normocephalic, atraumatic. [place] palpebral conjunctiva, anicteric sclerae. Lips and mucosa appear moist. NECK: Supple, no thyromegaly. No obvious jugular venous distention. LUNGS: Clear to auscultation bilaterally. No wheezing appreciated. HEART: No chest wall abnormalities. Regular rate and rhythm with no murmurs appreciated. ABDOMEN: Abdomen is mild obese, soft, minimally distended. midline incision is C/D/I. no erythema or drainage. Nontender on palpatin. EXTREMITIES: Extremities have no deformities. No edema identified. Vital Signs Vital Signs Date Time Temp Pulse Resp B/P (MAP) Pulse Ox O2 Delivery O2 Flow Rate FiO2 04/29/19 06:45 97.4 74 17 136/68 (90) 99 Room Air 04/26/19 03:31 2.0 I&Os I&O- Last 24 Hours up to 6 AM0 04/29/19 06:00 Intake Total 1470 ml Output Total 240 ml Balance 1230 ml Laboratory Data Labs 24H Laboratory Tests 2 04/28/19 12:43: Bedside Glucose (Misc Panel) 150H 04/28/19 16:54: Bedside Glucose (Misc Panel) 160H 04/28/19 20:14: Bedside Glucose (Misc Panel) 127H 04/29/19 06:16: Nucleated Red Blood Cells % (auto) 0.0, Anion Gap 6L, Glomerular Filtration Rate > 60.0, Calcium Level 8.4L CBC/BMP Laboratory Tests 04/29/19 06:16 Microbiology Microbiology 04/20/19 Urine Culture - Final, Complete Impression She is now postop day 4 after 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 Final pathology shows She also suspected to have dropped metastases in the peritoneum in the sacrum. I have discussed with her the pathology result and have told her that she will need adjuvant chemotherapy which will be arranged after her discharge from the hospital. still poor oral intake but she is working on it. will give her one dose of MOM today. She is ambulating to the hallways and promises to d more of that today continue with incentives. Plan / VTE VTE Prophylaxis Ordered?: Yes KUN PATINO MD Apr 29, 2019 09:03
[2019-04-29] MEDS: VENLAFAXINE **XR** 75MG CAPSULE PO SCH (09:04)
[2019-04-29] MEDS: ALVIMOPAN 12 MG CAPSULE (ENTEREG) PO SCH ×2 (09:04→21:22)
[2019-04-29] MEDS ORDERED: MOM 30ML SUSPENSION UDC PO ONE (09:45)
[2019-04-29 10:00] VITALS: BP 140/69
[2019-04-29] MEDS: NORCO, ANEXSIA 5/325MG TABLET (HYDROcodone/ACETAMINOPHEN) PO PRN ×3 (11:27→21:25)
[2019-04-29 14:00] VITALS: BP 141/70
--- NOTE | 2019-04-29 14:49 | IPNPDOC ---
Date Seen The patient was seen on 04/29/19. Progress Note SUBJECTIVE: 58-year-old female, past medical history diabetes, hypertension, depression, ADHD, was admitted for bowel structures secondary to colonic mass status post right colectomy. 04/26/2019 Patient resting comfortably in bed, status post right colectomy yesterday, reporting mild abdominal pain/discomfort, no other complaints at this time. Denies any nausea, vomiting, chest pain or headache. 04/27/2019 Patient resting comfortably in bed, reports abdominal pain with movement and exertion, otherwise no symptoms at this time. She did have a bowel movement earlier today. She denies any nausea, vomiting, shortness of breath, chest pain, or headache. Patient remains on TPN at this time. 04/28/2019 Patient comfortably in bed, minimal abdominal pain/discomfort, tolerated clear liquid diet today, ambulating around the room, no complaints at this time. She denies any shortness of breath, chest pain, nausea, vomiting or diarrhea. 04/29/2019 Patient comfortably bed, reports mild abdominal pain after is getting out of bed and moving, otherwise tolerating diet, advanced to solids today. 10 point review of system was negative except for above PHYSICAL EXAMINATION: VITAL SIGNS: Please see below. GENERAL: No distress, obese HEENT: Normocephalic, atraumatic, moist mucous membranes NECK: Supple CARDIOVASCULAR EXAMINATION: S1, S2, no murmurs RESPIRATORY EXAMINATION: Clear to auscultation, no wheezing ABDOMINAL EXAMINATION: Soft, mild tenderness to palpation, DEL draining serosangu ineous fluid, dressings removed, wound is stapled and clean, nondistended, normoactive bowel sounds EXTREMITIES: Range of motion intact SKIN: No rash NEUROLOGICAL EXAMINATION: Alert and oriented 3, no focal deficits PSYCHIATRIC EXAMINATION: Calm and cooperative LABORATORY DATA, IMAGING STUDIES, MICROBIOLOGY: Please see below. DVT prophylaxis ordered?: Yes ASSESSMENT AND PLAN: 58-year-old female with past medical history of hypertension, diabetes, depression and ADHD admitted for bowel structures second her to colonic mass. PROBLEMS: 1. Adenocarcinoma of colon. Status post right hemicolectomy, pathology positive for moderately differentiated adenocarcinoma with 5 positive lymph nodes. Advanced to solids today, likely discharge tomorrow if stable. No oncology coverage through the weekend, will plan for outpatient follow-up and treatment when ready for discharge. 2. Hypertension: Continue lisinopril 3. Diabetes mellitus: Sliding scale insulin with fingersticks every 6 hours. Continue Levemir 30 units daily 4. ADHD. Continue Ritalin 5. Depression. Continue Effexor DVT prophylaxis: Heparin subcutaneous GI prophylaxis: Protonix VS, I&O, 24H, Fishbone Vital Signs/I&O Vital Signs Date Time Temp Pulse Resp B/P (MAP) Pulse Ox O2 Delivery O2 Flow Rate FiO2 04/29/19 11:57 18 Room Air 04/29/19 06:45 97.4 74 136/68 (90) 99 04/26/19 03:31 2.0 I&O- Last 24 Hours up to 6 AM 04/29/19 06:00 Intake Total 1470 ml Output Total 240 ml Balance 1230 ml Laboratory Data 24H LABS Laboratory Tests 2 04/28/19 16:54: Bedside Glucose (Misc Panel) 160H 04/28/19 20:14: Bedside Glucose (Misc Panel) 127H 04/29/19 06:16: Nucleated Red Blood Cells % (auto) 0.0, Anion Gap 6L, Glomerular Filtration Rate > 60.0, Calcium Level 8.4L 04/29/19 11:45: Bedside Glucose (Misc Panel) 125H CBC/BMP Laboratory Tests 04/29/19 06:16 Microbiology Microbiology 04/20/19 Urine Culture - Final, Complete MIREYA GORDON MD Apr 29, 2019 14:49
[2019-04-29] MEDS ORDERED: LEVEMIR (INSULIN DETEMIR) 1 UNITS/0.01ML SC SCH (15:00)
[2019-04-29] MEDS: LEVEMIR (INSULIN DETEMIR) 1 UNITS/0.01ML SC SCH ×2 (15:35→16:54)
[2019-04-29 18:00] VITALS: BP 142/70
[2019-04-29] MEDS: SIMVASTATIN 10 MG TAB PO SCH (21:22)
[2019-04-29] MEDS: RAMELTEON 8 MG TAB (ROZEREM) PO SCH (21:22)
[2019-04-29] MEDS: lisinopriL 10 MG TAB PO SCH (21:23)
[2019-04-29] MEDS: SODIUM CHLORIDE 0.9% INJ 10 ML SYR IV PRN (21:25)
[2019-04-29 21:33] VITALS: BP 100/70
[2019-04-30 02:00] VITALS: BP 116/72
[2019-04-30] MEDS: KETOROLAC 30 MG/ML VIAL (J1885) IV SCH ×2 (04:00→08:54)
[2019-04-30] MEDS: HEPARIN SOD (PORCINE) 5000 UNITS/ML VIAL SC SCH ×3 (05:34→21:39)
[2019-04-30] MEDS: SODIUM CHLORIDE 0.9% INJ 10 ML SYR IV SCH ×2 (05:34→17:44)
[2019-04-30] MEDS: NORCO, ANEXSIA 5/325MG TABLET (HYDROcodone/ACETAMINOPHEN) PO PRN ×4 (05:36→21:49)
[2019-04-30 06:21] VITALS: BP 122/68
[2019-04-30 06:32] LABS: HEMATOCRIT 30.4 % (36.0-47.0); HEMOGLOBIN 9.4 g/dl (12.0-15.5); MEAN CORPUSCULAR HEMOGLOBIN 24.7 pg (27.0-33.0); MEAN CORPUSCULAR HGB CONC 30.9 g/dl (32.0-36.5); MEAN CORPUSCULAR VOLUME 79.8 fl (80.0-96.0); PLATELET COUNT, AUTOMATED 383 10^3/uL (150-450); RED BLOOD COUNT 3.81 10^6/uL (4.00-5.40); WHITE BLOOD COUNT 11.6 10^3/uL (4.0-10.0)
[2019-04-30 07:00] LABS: BLOOD UREA NITROGEN 13 MG/DL (7-18); CALCIUM LEVEL 8.4 MG/DL (8.5-10.1); CARBON DIOXIDE LEVEL 28 MEQ/L (21-32); CHLORIDE LEVEL 106 MEQ/L (98-107); CREATININE FOR GFR 0.79 MG/DL (0.55-1.30); GLOMERULAR FILTRATION RATE > 60.0 (>51); GLUCOSE, FASTING 170 MG/DL (70-100); MAGNESIUM LEVEL 2.4 MG/DL (1.8-2.4); POTASSIUM SERUM 4.1 MEQ/L (3.5-5.1); SODIUM LEVEL 138 MEQ/L (136-145)
[2019-04-30 08:49] LABS: ALBUMIN 2.2 GM/DL (3.2-5.2); ALT/SGPT 25 U/L (12-78); BILIRUBIN,TOTAL 0.2 MG/DL (0.2-1.0); LIPASE 974 U/L (73-393); TOTAL PROTEIN 6.6 GM/DL (6.4-8.2)
[2019-04-30] MEDS: PANTOPRAZOLE 40MG INJ (PROTONIX) (C9113) IV SCH ×2 (08:53→21:39)
[2019-04-30] MEDS: ALVIMOPAN 12 MG CAPSULE (ENTEREG) PO SCH ×2 (08:54→21:40)
[2019-04-30] MEDS: HumaLOG INSULIN (NovoLOG) PER UNIT SC SCH ×4 (08:56→21:00)
[2019-04-30] MEDS: VENLAFAXINE **XR** 75MG CAPSULE PO SCH (08:57)
[2019-04-30 10:00] VITALS: BP 127/65
--- NOTE | 2019-04-30 13:23 | IPNPDOC ---
Date Seen The patient was seen on 04/30/19. Progress Note SUBJECTIVE: 58-year-old female, past medical history diabetes, hypertension, depression, ADHD, was admitted for bowel structures secondary to colonic mass status post right colectomy. 04/26/2019 Patient resting comfortably in bed, status post right colectomy yesterday, reporting mild abdominal pain/discomfort, no other complaints at this time. Denies any nausea, vomiting, chest pain or headache. 04/27/2019 Patient resting comfortably in bed, reports abdominal pain with movement and exertion, otherwise no symptoms at this time. She did have a bowel movement earlier today. She denies any nausea, vomiting, shortness of breath, chest pain, or headache. Patient remains on TPN at this time. 04/28/2019 Patient comfortably in bed, minimal abdominal pain/discomfort, tolerated clear liquid diet today, ambulating around the room, no complaints at this time. She denies any shortness of breath, chest pain, nausea, vomiting or diarrhea. 04/29/2019 Patient comfortably bed, reports mild abdominal pain after is getting out of bed and moving, otherwise tolerating diet, advanced to solids today. 04/30/2019 Patient reports mild abdominal discomfort, otherwise without complaints. She is tolerating her diet, having bowel movements, ambulating. She denies any shortness of breath, chest pain, nausea, vomiting or diarrhea. 10 point review of system was negative except for above PHYSICAL EXAMINATION: VITAL SIGNS: Please see below. GENERAL: No distress, obese HEENT: Normocephalic, atraumatic, moist mucous membranes NECK: Supple CARDIOVASCULAR EXAMINATION: S1, S2, no murmurs RESPIRATORY EXAMINATION: Clear to auscultation, no wheezing ABDOMINAL EXAMINATION: Soft, mild tenderness to palpation, DEL draining serosanguineous fluid, dressings removed, wound is stapled and clean, nondistended, normoactive bowel sounds EXTREMITIES: Range of motion intact SKIN: No rash NEUROLOGICAL EXAMINATION: Alert and oriented 3, no focal deficits PSYCHIATRIC EXAMINATION: Calm and cooperative LABORATORY DATA, IMAGING STUDIES, MICROBIOLOGY: Please see below. DVT prophylaxis ordered?: Yes ASSESSMENT AND PLAN: 58-year-old female with past medical history of hypertension, diabetes, depression and ADHD admitted for bowel structures second her to colonic mass. PROBLEMS: 1. Adenocarcinoma of colon. Status post right hemicolectomy, pathology positive for moderately differentiated adenocarcinoma with 5 positive lymph nodes. Tolerating solids, lipase is elevated, mild abdominal tenderness, will provide IV fluids. Outpatient follow-up with oncology 2. Hypertension: Continue lisinopril 3. Diabetes mellitus: Sliding scale insulin with fingersticks every 6 hours. Continue Levemir 30 units daily 4. ADHD. Continue Ritalin 5. Depression. Continue Effexor DVT prophylaxis: Heparin subcutaneous GI prophylaxis: Protonix VS, I&O, 24H, Fishbone Vital Signs/I&O Vital Signs Date Time Temp Pulse Resp B/P (MAP) Pulse Ox O2 Delivery O2 Flow Rate FiO2 04/30/19 12:51 18 Room Air 04/30/19 10:00 99.0 72 127/65 (85) 99 04/26/19 03:31 2.0 I&O- Last 24 Hours up to 6 AM 04/30/19 06:00 Intake Total 1410 ml Output Total 180 ml Balance 1230 ml Laboratory Data 24H LABS Laboratory Tests 2 04/29/19 17:04: Bedside Glucose (Misc Panel) 136H 04/29/19 20:02: Bedside Glucose (Misc Panel) 139H 04/30/19 06:03: Nucleated Red Blood Cells % (auto) 0.0, Anion Gap 4L, Glomerular Filtration Rate > 60.0, Calcium Level 8.4L, Magnesium Level 2.4, Total Bilirubin 0.2, Aspartate Amino Transf (AST/SGOT) 18, Alanine Aminotransferase (ALT/SGPT) 25, Alkaline Phosphatase 102, Total Protein 6.6, Albumin 2.2L, Albumin/Globulin Ratio 0.50L, Lipase 974H 04/30/19 11:34: Bedside Glucose (Misc Panel) 100 CBC/BMP Laboratory Tests 04/30/19 06:03 Microbiology Microbiology 04/20/19 Urine Culture - Final, Complete MIREYA GORDON MD Apr 30, 2019 13:23
[2019-04-30] MEDS: NS 1,000 ML IV SCH ×3 (13:30→21:39)
[2019-04-30 14:00] VITALS: BP 134/65
[2019-04-30] MEDS: LEVEMIR (INSULIN DETEMIR) 1 UNITS/0.01ML SC SCH (15:00)
[2019-04-30] MEDS: SODIUM CHLORIDE 0.9% INJ 10 ML SYR IV PRN (17:42)
[2019-04-30] MEDS: ONDANSETRON 4MG/2ML VIAL (J2405) IV PRN (18:04)
[2019-04-30] MEDS: RAMELTEON 8 MG TAB (ROZEREM) PO SCH (21:39)
[2019-04-30] MEDS: lisinopriL 10 MG TAB PO SCH (21:40)
[2019-04-30] MEDS: SIMVASTATIN 10 MG TAB PO SCH (21:40)
[2019-04-30 21:42] VITALS: BP 169/67
--- NOTE | 2019-04-30 23:34 | IPN ---
DATE: 04/30/2019 Patient was seen early this morning for evaluation/followup of her colon cancer resection. However, today she had a bump in her white count and slight elevation of her temperature, although really did not have any other etiologies for her from an infectious standpoint, and knowing her dissection included dissecting the enlarged lymph node off the pancreatic head/duodenal C-loop, I then ordered a lipase which indeed showed elevated lipase, which would fit better with her current situation. Otherwise her abdomen is soft, nondistended, nontender. No guarding, no rebound, no peritoneal signs are appreciated. She has some mild discomfort in the upper abdomen but states this really has not made much of a difference over the last 12 hours to 24 hours. IMPRESSION AND PLAN: The patient has evidence of possible mild pancreatitis. It may be that it was worse yesterday. Will have to get some followup labs in the morning tomorrow and see how that is going, and then depending on the findings, will ask her to stay on a low-fat diet after discharge. However, if lipase increases, we may need to make her nothing by mouth or at least on clear liquids. This was discussed with the patient. She understands our current plan at this time. WILLIAMS
[2019-05-01] MEDS: HEPARIN SOD (PORCINE) 5000 UNITS/ML VIAL SC SCH ×3 (05:55→22:10)
[2019-05-01] MEDS: SODIUM CHLORIDE 0.9% INJ 10 ML SYR IV SCH ×2 (05:55→18:53)
[2019-05-01] MEDS: NORCO, ANEXSIA 5/325MG TABLET (HYDROcodone/ACETAMINOPHEN) PO PRN (05:56)
[2019-05-01 06:00] VITALS: BP 153/51
[2019-05-01 07:02] LABS: HEMATOCRIT 27.8 % (36.0-47.0); HEMOGLOBIN 8.6 g/dl (12.0-15.5); MEAN CORPUSCULAR HEMOGLOBIN 24.6 pg (27.0-33.0); MEAN CORPUSCULAR HGB CONC 30.9 g/dl (32.0-36.5); MEAN CORPUSCULAR VOLUME 79.7 fl (80.0-96.0); PLATELET COUNT, AUTOMATED 333 10^3/uL (150-450); RED BLOOD COUNT 3.49 10^6/uL (4.00-5.40); WHITE BLOOD COUNT 12.6 10^3/uL (4.0-10.0)
[2019-05-01 07:45] LABS: BLOOD UREA NITROGEN 7 MG/DL (7-18); CALCIUM LEVEL 8.2 MG/DL (8.5-10.1); CARBON DIOXIDE LEVEL 24 MEQ/L (21-32); CHLORIDE LEVEL 104 MEQ/L (98-107); CREATININE FOR GFR 0.61 MG/DL (0.55-1.30); GLOMERULAR FILTRATION RATE > 60.0 (>51); GLUCOSE, FASTING 162 MG/DL (70-100); LIPASE 71 U/L (73-393); MAGNESIUM LEVEL 1.9 MG/DL (1.8-2.4); POTASSIUM SERUM 3.8 MEQ/L (3.5-5.1); SODIUM LEVEL 137 MEQ/L (136-145)
[2019-05-01] MEDS ORDERED: ISOVUE-370 76% 100ML VIAL (Q9967) As Ordered ONE (08:28)
[2019-05-01] MEDS: HumaLOG INSULIN (NovoLOG) PER UNIT SC SCH ×4 (08:30→21:00)
[2019-05-01] MEDS: PANTOPRAZOLE 40MG INJ (PROTONIX) (C9113) IV SCH ×2 (08:31→22:10)
[2019-05-01] MEDS: ALVIMOPAN 12 MG CAPSULE (ENTEREG) PO SCH ×2 (08:31→22:14)
[2019-05-01] MEDS: VENLAFAXINE **XR** 75MG CAPSULE PO SCH (08:31)
[2019-05-01 10:00] VITALS: BP 171/54
--- NOTE | 2019-05-01 12:58 | IPNPDOC ---
Date Seen The patient was seen on 05/01/19. Progress Note SUBJECTIVE: 58-year-old female, past medical history diabetes, hypertension, depression, ADHD, was admitted for bowel structures secondary to colonic mass status post right colectomy. 04/26/2019 Patient resting comfortably in bed, status post right colectomy yesterday, reporting mild abdominal pain/discomfort, no other complaints at this time. Denies any nausea, vomiting, chest pain or headache. 04/27/2019 Patient resting comfortably in bed, reports abdominal pain with movement and exertion, otherwise no symptoms at this time. She did have a bowel movement earlier today. She denies any nausea, vomiting, shortness of breath, chest pain, or headache. Patient remains on TPN at this time. 04/28/2019 Patient comfortably in bed, minimal abdominal pain/discomfort, tolerated clear liquid diet today, ambulating around the room, no complaints at this time. She denies any shortness of breath, chest pain, nausea, vomiting or diarrhea. 04/29/2019 Patient comfortably bed, reports mild abdominal pain after is getting out of bed and moving, otherwise tolerating diet, advanced to solids today. 04/30/2019 Patient reports mild abdominal discomfort, otherwise without complaints. She is tolerating her diet, having bowel movements, ambulating. She denies any shortness of breath, chest pain, nausea, vomiting or diarrhea. 05/01/2019 Patient febrile overnight (T-Max of 100.9), patient continues to have mild abdominal pain, decreased appetite, no other complaints at this time. She denies any shortness of breath, chest pain, nausea, vomiting or diarrhea. CT ordered in the morning, results pending. 10 point review of system was negative except for above PHYSICAL EXAMINATION: VITAL SIGNS: Please see below. GENERAL: No distress, obese HEENT: Normocephalic, atraumatic, moist mucous membranes NECK: Supple CARDIOVASCULAR EXAMINATION: S1, S2, no murmurs RESPIRATORY EXAMINATION: Clear to auscultation, no wheezing ABDOMINAL EXAMINATION: Soft, mild tenderness to palpation, DEL draining serous fluid, wound is stapled and clean, nondistended, normoactive bowel sounds EXTREMITIES: Range of motion intact SKIN: No rash NEUROLOGICAL EXAMINATION: Alert and oriented 3, no focal deficits PSYCHIATRIC EXAMINATION: Calm and cooperative LABORATORY DATA, IMAGING STUDIES, MICROBIOLOGY: Please see below. DVT prophylaxis ordered?: Yes ASSESSMENT AND PLAN: 58-year-old female with past medical history of hypertension, diabetes, depression and ADHD admitted for bowel structures second her to colonic mass. PROBLEMS: 1. Adenocarcinoma of colon. Status post right hemicolectomy, pathology positive for moderately differentiated adenocarcinoma with 5 positive lymph nodes. Tolerating solids, lipase normalized after IV fluids, continues to have mild abdominal tenderness, now febrile, CT abdomen and pelvis done, results pending. Outpatient follow-up with oncology 2. Hypertension: Continue lisinopril 3. Diabetes mellitus: Sliding scale insulin with fingersticks every 6 hours. Decrease Levemir to 7 units daily, oral intake has decreased, no longer on TPN. 4. ADHD. Continue Ritalin 5. Depression. Continue Effexor DVT prophylaxis: Heparin subcutaneous GI prophylaxis: Protonix VS, I&O, 24H, Fishbone Vital Signs/I&O Vital Signs Date Time Temp Pulse Resp B/P (MAP) Pulse Ox O2 Delivery O2 Flow Rate FiO2 05/01/19 06:26 3 05/01/19 06:00 100.3 91 153/51 (85) 95 Room Air 04/26/19 03:31 2.0 I&O- Last 24 Hours up to 6 AM 05/01/19 06:00 Intake Total 2050 ml Output Total 155 ml Balance 1895 ml Laboratory Data 24H LABS Laboratory Tests 2 04/30/19 16:28: Bedside Glucose (Misc Panel) 133H 04/30/19 21:04: Bedside Glucose (Misc Panel) 147H 05/01/19 05:46: Bedside Glucose (Misc Panel) 161H 05/01/19 06:50: Nucleated Red Blood Cells % (auto) 0.0, Anion Gap 9, Glomerular Filtration Rate > 60.0, Calcium Level 8.2L, Phosphorus Level 3.0, Magnesium Level 1.9, Lipase 71L 05/01/19 11:44: Bedside Glucose (Misc Panel) 190H CBC/BMP Laboratory Tests 05/01/19 06:50 MIREYA GORDON MD May 01, 2019 12:58
[2019-05-01] MEDS ORDERED: ACETAMINOPHEN TAB 650MG DOSE (2X325MG) PO PRN (13:00)
[2019-05-01] MEDS: PIPERACILLIN/TAZOBACTAM SOD 3.375 GM in D5W MINI-BAG PLUS 50 ML IV SCH ×2 (15:39→22:09)
[2019-05-01 17:28] VITALS: BP 164/61
--- NOTE | 2019-05-01 20:58 | IPN ---
DATE: 05/01/2019 The patient was seen earlier this morning, had increasing white count and with the white count elevation I ordered a lipase on the fluid that was draining out of her DEL drain, concerned that this may be lipase/a fistula associated with the pancreas, although it seemed unlikely given the dissection that I performed. But in any case with the elevated lipase yesterday this was not an unreasonable possibility. We did get the lipase back from blood today and it was down to 71. The fluid also was serous fluid and overall because of this elevated white count, a CT scan was performed and revealed some air within the incision. Final report is still pending but given the air in the incision I reevaluated her incision. I could see just a little bit of redness in the supraumbilical area; not a significant amount, but with the air and the subcutaneous tissue that was present then I took the saloni out and the incision actually opened up relatively easy suggesting that this was infected and then all of a sudden the subcutaneous pus came out through this wound. A few more saloni were removed and the wound relatively fell apart and I just packed this wound at the bedside, and is the most likely etiology for the elevated white count. IMPRESSION AND PLAN: The patient has a wound infection, status post colectomy. Unfortunately, the patient did not receive a preoperative bowel prep because of her obstruction nor did she receive any made by mouth antibiotics prior to her operative intervention thus increasing her postoperative infection rate unfortunately. Given this presentation and it is drainage present I do feel that antibiotic treatment at this time and dressing changes is very reasonable. Dressing changes have been ordered. Culture as been ordered and will see how things look in the morning. If she has significant improvement of her white count and her wound seems to clear up over the next 24-48 hours it may be reasonable to have a wound vac placed for a few days prior to discharge. Family is very nervous about taking care of any wound and feels quite overwhelmed with the acute onset of this issue/obstruction present and the cancer diagnosis and thus at this point I do feel that it is reasonable to see how she does with a wound vac for a few days over the weekend if the patient would so desire this.
[2019-05-01] MEDS ORDERED: LEVEMIR (INSULIN DETEMIR) 1 UNITS/0.01ML SC SCH (21:00)
[2019-05-01] MEDS: CALCIUM CARBONATE 500 MG CHEW U/D PO PRN (21:09)
[2019-05-01] MEDS: SODIUM CHLORIDE 0.9% INJ 10 ML SYR IV PRN (21:09)
[2019-05-01] MEDS: ONDANSETRON 4MG/2ML VIAL (J2405) IV PRN (21:09)
[2019-05-01 22:00] VITALS: BP 135/79
[2019-05-01] MEDS: RAMELTEON 8 MG TAB (ROZEREM) PO SCH (22:11)
[2019-05-01] MEDS: lisinopriL 10 MG TAB PO SCH (22:14)
[2019-05-01] MEDS: SIMVASTATIN 10 MG TAB PO SCH (22:14)
[2019-05-02 02:00] VITALS: BP 142/78
[2019-05-02] MEDS: PIPERACILLIN/TAZOBACTAM SOD 3.375 GM in D5W MINI-BAG PLUS 50 ML IV SCH ×4 (03:34→21:35)
[2019-05-02] MEDS: HEPARIN SOD (PORCINE) 5000 UNITS/ML VIAL SC SCH ×3 (04:55→21:36)
[2019-05-02] MEDS: SODIUM CHLORIDE 0.9% INJ 10 ML SYR IV SCH ×2 (04:55→17:25)
--- NOTE | 2019-05-02 05:25 | REP ---
Clinical: Pancreatitis. Technique: Axial contrast enhanced images from the lung bases to the pubic symphysis using 100 ml Isovue 370 intravenous contrast material with coronal and sagittal re-formations. Comparison: 04/20/2019, 03/06/2011. Findings: The patient is known to be status post right hemicolectomy for colonic neoplasm. A drainage catheter is identified in the right side of the abdomen and postsurgical stranding primarily noted in the right upper quadrant and subcutaneous tissues with small amounts of gas in relation to the midline incisional site as well as at the inferior tip of the liver are noted. The enterocolonic anastomosis appears relatively normal / intact. There is no evidence for bowel obstruction. No significant ascites or drainable collection/abscess identified. Liver demonstrates few scattered hypodensities which are similar to prior examination and likely reflect focal fatty infiltration and small cysts/hemangioma. Spleen, pancreas, bilateral adrenal glands and kidneys are normal / stable. Small left adrenal nodule along the lateral limb is again identified and essentially stable compared 09/06/2010. Cholelithiasis noted without acute cholecystitis. No obvious evidence of pancreatitis. Pelvis demonstrates normal bladder and stable appearance to the uterus/adnexa. Small mass in the posterior cul-de-sac between the cervix and the rectum is unchanged (image 131). No obvious intraperitoneal or significant retroperitoneal adenopathy. Abdominal aorta without aneurysm or dissection. Musculoskeletal structures are intact. Lung bases are clear. Impression: 1. Relatively normal-appearing postsurgical changes related to prior right hemicolectomy for colonic neoplasm. A mild peritonitis cannot definitively be excluded. No significant free air or drainable collection/abscess identified. 2. Suspicious possible small metastatic focus/mass lesion in the posterior pelvic cul-de-sac between the cervix and the rectum remains stable. 3. Hepatic hypodensities remain stable likely representing cysts/hemangioma and possible focal fatty changes. 4. Cholelithiasis. 5. No obvious CT evidence for acute cholecystitis. Electronically Signed by Parker Razo MD 05/02/2019 05:16 A
[2019-05-02 05:52] LABS: HEMOGLOBIN 8.6 g/dl (12.0-15.5); MEAN CORPUSCULAR HEMOGLOBIN 24.7 pg (27.0-33.0); MEAN CORPUSCULAR HGB CONC 30.7 g/dl (32.0-36.5); MEAN CORPUSCULAR VOLUME 80.5 fl (80.0-96.0); PLATELET COUNT, AUTOMATED 367 10^3/uL (150-450); RED BLOOD COUNT 3.48 10^6/uL (4.00-5.40); WHITE BLOOD COUNT 11.2 10^3/uL (4.0-10.0)
[2019-05-02 06:00] VITALS: BP 171/74
[2019-05-02] MEDS: NORCO, ANEXSIA 5/325MG TABLET (HYDROcodone/ACETAMINOPHEN) PO PRN ×2 (06:11→21:35)
[2019-05-02 06:13] LABS: BLOOD UREA NITROGEN 5 MG/DL (7-18); CARBON DIOXIDE LEVEL 29 MEQ/L (21-32); CHLORIDE LEVEL 103 MEQ/L (98-107); CREATININE FOR GFR 0.64 MG/DL (0.55-1.30); GLOMERULAR FILTRATION RATE > 60.0 (>51); GLUCOSE, FASTING 174 MG/DL (70-100); MAGNESIUM LEVEL 1.9 MG/DL (1.8-2.4); PHOSPHORUS LEVEL 3.4 MG/DL (2.5-4.9); POTASSIUM SERUM 3.6 MEQ/L (3.5-5.1); SODIUM LEVEL 138 MEQ/L (136-145)
[2019-05-02] MEDS: HumaLOG INSULIN (NovoLOG) PER UNIT SC SCH ×4 (07:30→21:00)
[2019-05-02 08:45] VITALS: BP 119/66
[2019-05-02] MEDS: VENLAFAXINE **XR** 75MG CAPSULE PO SCH (09:10)
[2019-05-02] MEDS: ALVIMOPAN 12 MG CAPSULE (ENTEREG) PO SCH (09:20)
[2019-05-02] MEDS: PANTOPRAZOLE 40MG INJ (PROTONIX) (C9113) IV SCH ×2 (09:20→21:35)
--- NOTE | 2019-05-02 13:38 | IPN ---
DATE: 05/02/2019 The patient's white count dropped nicely down to 11.2 today and her temperature has been normal overnight. She states that she is having less discomfort and pressure in the upper abdomen, and overall no other complaints at this time. No nausea or vomiting. No fevers. No chills. She is still having some bowel movements. Her wound packing was removed and replaced and revealed some good healthy appearing granulation tissue on the lateral aspect, but there still a fair amount of drainage present. Otherwise, no cellulitis is appreciated. No other inflammatory infectious process. IMPRESSION/PLAN: The patient seems to be making some good progress at this time and we will keep her with a wet-to-dry today, but however, once tomorrow comes around will place a wound vacuum-assisted closure (VAC) on her to see if that does not expedite her wound healing since she will be needing some chemotherapy after discharge. I anticipate she will probably spend the next few days in the hospital with the wound VAC in place and give her some empiric antibiotics while were waiting for the cultures to return and discharge her to home with a wound VAC on Tuesday of next week. Otherwise, from a Vic-Roth[employer] (J-P) standpoint she is putting out less fluid and overall doing quite well.
[2019-05-02 13:45] VITALS: BP 143/80
--- NOTE | 2019-05-02 17:28 | REP ---
CT chest with IV contrast: History: New diagnosis of colonic adenocarcinoma. Staging exam. Comparison CT study chest exam is from March 06, 2011. CT contrast dose: 75 mL of intravenous Isovue [address] findings: Digital preliminary will call clerk radiograph demonstrates a right-sided PICC line but no other finding. Axial CT images show no pleural or pericardial effusion. There is no evidence of hilar or mediastinal adenopathy. There are two or three scattered very small normal appearing mediastinal lymph nodes. There are two tiny epicardial lymph nodes. No pulmonary mass lesion or significant pulmonary nodule is appreciated. No infiltrate is seen. There is no evidence of endobronchial disease. The PICC line terminates in the superior vena cava. No mediastinal vascular abnormality is observed. There is a segmental perfusion asymmetry visible in the right lobe of the liver and a wedge shaped configuration. There is a 1 cm low density area in the dome of the liver and a 1.6 cm low density area is seen in the posterior segment of the right lobe further caudally as seen on recent abdominal CT study. The latter low density area is unchanged from the 2011 study. No bony destructive lesion is seen. Impression: No active cardiopulmonary disease. Electronically Signed by Michelet Kelly MD 05/03/2019 07:58 A
[2019-05-02 18:00] VITALS: BP 122/53
--- NOTE | 2019-05-02 19:43 | IPNPDOC ---
Date Seen The patient was seen on 05/02/19. Progress Note SUBJECTIVE: 58-year-old female, past medical history diabetes, hypertension, depression, ADHD, was admitted for bowel structures secondary to colonic mass status post right colectomy. 05/02/2019 Patient with abdominal wound infection, saloni removed by surgery and wound is currently packed, reportedly was draining, cultures pending, surgery plans to place wound VAC. Patient without any additional Lasix at this time, denies nausea, vomiting, shortness of breath, chest pain or diarrhea. Patient is tolerating diet without difficulty. 10 point review of system was negative except for above PHYSICAL EXAMINATION: VITAL SIGNS: Please see below. GENERAL: No distress, obese HEENT: Normocephalic, atraumatic, moist mucous membranes NECK: Supple CARDIOVASCULAR EXAMINATION: S1, S2, no murmurs RESPIRATORY EXAMINATION: Clear to auscultation, no wheezing ABDOMINAL EXAMINATION: Soft, abdominal wound partially open and packed, DEL draining serous fluid, nondistended, normoactive bowel sounds EXTREMITIES: Range of motion intact SKIN: No rash NEUROLOGICAL EXAMINATION: Alert and oriented 3, no focal deficits PSYCHIATRIC EXAMINATION: Calm and cooperative LABORATORY DATA, IMAGING STUDIES, MICROBIOLOGY: Please see below. DVT prophylaxis ordered?: Yes ASSESSMENT AND PLAN: 58-year-old female with past medical history of hypertension, diabetes, depression and ADHD admitted for bowel structures second her to colonic mass. PROBLEMS: 1. Adenocarcinoma of colon. Status post right hemicolectomy, pathology positive for moderately differentiated adenocarcinoma with 5 positive lymph nodes. Case discussed with oncology who advised patient needs to heal from wound infection and surgery before any treatment can be initiated. Outpatient follow-up with oncology 2. Surgical wound infection. Continue Zosyn, wound currently open with packing, plan for wound VAC placement as per surgery. 3. Hypertension: Continue lisinopril 4. Diabetes mellitus: Sliding scale insulin with fingersticks every 6 hours. Increase Levemir to 10 units daily. 5. ADHD. Continue Ritalin 6. Depression. Continue Effexor DVT prophylaxis: Heparin subcutaneous GI prophylaxis: Protonix VS, I&O, 24H, Fishbone Vital Signs/I&O Vital Signs Date Time Temp Pulse Resp B/P (MAP) Pulse Ox O2 Delivery O2 Flow Rate FiO2 05/02/19 18:00 98.7 85 18 122/53 (76) 98 Room Air 04/26/19 03:31 2.0 I&O- Last 24 Hours up to 6 AM 05/02/19 05:59 Intake Total 1680 ml Output Total 100 ml Balance 1580 ml Laboratory Data 24H LABS Laboratory Tests 2 05/01/19 20:37: Bedside Glucose (Misc Panel) 237H 05/02/19 05:25: Nucleated Red Blood Cells % (auto) 0.0, Anion Gap 6L, Glomerular Filtration Rate > 60.0, Lactic Acid Level 0.8, Calcium Level 8.0L, Phosphorus Level 3.4, Magnesium Level 1.9 05/02/19 11:38: Bedside Glucose (Misc Panel) 189H 05/02/19 16:20: Bedside Glucose (Misc Panel) 188H CBC/BMP Laboratory Tests 05/02/19 05:25 Microbiology Microbiology 05/01/19 Blood Culture - Preliminary, Resulted No growth after 24 hours . All specim... MIREYA GORDON MD May 02, 2019 19:43
[2019-05-02 20:00] VITALS: BP 140/73
[2019-05-02] MEDS: RAMELTEON 8 MG TAB (ROZEREM) PO SCH (21:34)
[2019-05-02] MEDS: SIMVASTATIN 10 MG TAB PO SCH (21:35)
[2019-05-02] MEDS: lisinopriL 10 MG TAB PO SCH (21:35)
[2019-05-02] MEDS: LEVEMIR (INSULIN DETEMIR) 1 UNITS/0.01ML SC SCH (21:36)
[2019-05-03] MEDS: PIPERACILLIN/TAZOBACTAM SOD 3.375 GM in D5W MINI-BAG PLUS 50 ML IV SCH ×4 (03:02→21:54)
[2019-05-03] MEDS: NORCO, ANEXSIA 5/325MG TABLET (HYDROcodone/ACETAMINOPHEN) PO PRN ×2 (05:18→13:55)
[2019-05-03] MEDS: HEPARIN SOD (PORCINE) 5000 UNITS/ML VIAL SC SCH ×3 (05:18→21:53)
[2019-05-03] MEDS: SODIUM CHLORIDE 0.9% INJ 10 ML SYR IV SCH ×2 (05:19→17:51)
[2019-05-03 05:53] VITALS: BP 119/64
[2019-05-03 06:17] LABS: HEMATOCRIT 27.2 % (36.0-47.0); HEMOGLOBIN 8.4 g/dl (12.0-15.5); MEAN CORPUSCULAR HEMOGLOBIN 24.6 pg (27.0-33.0); MEAN CORPUSCULAR HGB CONC 30.9 g/dl (32.0-36.5); MEAN CORPUSCULAR VOLUME 79.5 fl (80.0-96.0); PLATELET COUNT, AUTOMATED 391 10^3/uL (150-450); RED BLOOD COUNT 3.42 10^6/uL (4.00-5.40); WHITE BLOOD COUNT 9.6 10^3/uL (4.0-10.0)
[2019-05-03 07:42] LABS: ALBUMIN 1.9 GM/DL (3.2-5.2); ALT/SGPT 21 U/L (12-78); BILIRUBIN,TOTAL 0.3 MG/DL (0.2-1.0); BLOOD UREA NITROGEN 5 MG/DL (7-18); CALCIUM LEVEL 8.4 MG/DL (8.5-10.1); CARBON DIOXIDE LEVEL 30 MEQ/L (21-32); CHLORIDE LEVEL 105 MEQ/L (98-107); GLOMERULAR FILTRATION RATE > 60.0 (>51); GLUCOSE, FASTING 152 MG/DL (70-100); MAGNESIUM LEVEL 2.1 MG/DL (1.8-2.4); PHOSPHORUS LEVEL 4.3 MG/DL (2.5-4.9); POTASSIUM SERUM 3.6 MEQ/L (3.5-5.1); SODIUM LEVEL 140 MEQ/L (136-145); TOTAL PROTEIN 5.7 GM/DL (6.4-8.2)
[2019-05-03] MEDS ORDERED: POTASSIUM CHLORIDE 10 MEQ SR TABLET PO ONE (08:30)
[2019-05-03] MEDS: PANTOPRAZOLE 40MG INJ (PROTONIX) (C9113) IV SCH ×2 (09:17→21:53)
[2019-05-03] MEDS: VENLAFAXINE **XR** 75MG CAPSULE PO SCH (09:18)
[2019-05-03] MEDS: HumaLOG INSULIN (NovoLOG) PER UNIT SC SCH ×4 (09:19→21:00)
[2019-05-03 14:30] VITALS: BP 125/82
--- NOTE | 2019-05-03 19:08 | IPNPDOC ---
Date Seen The patient was seen on 05/03/19. Progress Note SUBJECTIVE: 58-year-old female, past medical history diabetes, hypertension, depression, ADHD, was admitted for bowel structures secondary to colonic mass status post right colectomy. 05/02/2019 Patient with abdominal wound infection, saloni removed by surgery and wound is currently packed, reportedly was draining, cultures pending, surgery plans to place wound VAC. Patient without any additional Lasix at this time, denies nausea, vomiting, shortness of breath, chest pain or diarrhea. Patient is tolerating diet without difficulty. 05/03/2019 Patient comfort and bed, without any complaints, reports significant improvement in abdominal discomfort from yesterday. She is tolerating her diet, ambulating, awaiting wound VAC placement today. 10 point review of system was negative except for above PHYSICAL EXAMINATION: VITAL SIGNS: Please see below. GENERAL: No distress, obese HEENT: Normocephalic, atraumatic, moist mucous membranes NECK: Supple CARDIOVASCULAR EXAMINATION: S1, S2, no murmurs RESPIRATORY EXAMINATION: Clear to auscultation, no wheezing ABDOMINAL EXAMINATION: Soft, abdominal wound partially open and packed, DEL draining serous fluid, nondistended, normoactive bowel sounds EXTREMITIES: Range of motion intact SKIN: No rash NEUROLOGICAL EXAMINATION: Alert and oriented 3, no focal deficits PSYCHIATRIC EXAMINATION: Calm and cooperative LABORATORY DATA, IMAGING STUDIES, MICROBIOLOGY: Please see below. DVT prophylaxis ordered?: Yes ASSESSMENT AND PLAN: 58-year-old female with past medical history of hypertension, diabetes, depression and ADHD admitted for bowel structures second her to colonic mass. PROBLEMS: 1. Adenocarcinoma of colon. Status post right hemicolectomy, pathology positive for moderately differentiated adenocarcinoma with 5 positive lymph nodes. Case discussed with oncology who advised patient needs to heal from wound infection and surgery before any treatment can be initiated. Outpatient follow-up with oncology 2. Surgical wound infection. Continue Zosyn, wound currently open with packing, plan for wound VAC placement as per surgery, blood cultures negative so far. 3. Hypertension: Continue lisinopril 4. Diabetes mellitus: Sliding scale insulin with fingersticks every 6 hours. Increase Levemir to 10 units daily. 5. ADHD. Continue Ritalin 6. Depression. Continue Effexor DVT prophylaxis: Heparin subcutaneous GI prophylaxis: Protonix VS, I&O, 24H, Fishbone Vital Signs/I&O Vital Signs Date Time Temp Pulse Resp B/P (MAP) Pulse Ox O2 Delivery O2 Flow Rate FiO2 05/03/19 14:30 99.0 76 16 125/82 (96) 97 Room Air I&O- Last 24 Hours up to 6 AM 05/03/19 06:00 Intake Total 1680 ml Output Total 20 ml Balance 1660 ml Laboratory Data 24H LABS Laboratory Tests 2 05/02/19 20:58: Bedside Glucose (Misc Panel) 235H 05/03/19 05:39: Nucleated Red Blood Cells % (auto) 0.0, Anion Gap 5L, Glomerular Filtration Rate > 60.0, Calcium Level 8.4L, Phosphorus Level 4.3#, Magnesium Level 2.1, Total Bilirubin 0.3, Aspartate Amino Transf (AST/SGOT) 11, Alanine Aminotransferase (ALT/SGPT) 21, Alkaline Phosphatase 100, Total Protein 5.7L, Albumin 1.9L, Albumin/Globulin Ratio 0.50L 05/03/19 12:26: Bedside Glucose (Misc Panel) 161H 05/03/19 17:21: Bedside Glucose (Misc Panel) 140H CBC/BMP Laboratory Tests 05/03/19 05:39 Microbiology Microbiology 05/01/19 Blood Culture - Preliminary, Resulted No Growth after 48 hours. All Specime... MIREYA GORDON MD May 03, 2019 19:08
[2019-05-03 20:00] VITALS: BP 143/71
[2019-05-03] MEDS: lisinopriL 10 MG TAB PO SCH (21:53)
[2019-05-03] MEDS: SIMVASTATIN 10 MG TAB PO SCH (21:53)
[2019-05-03] MEDS: LEVEMIR (INSULIN DETEMIR) 1 UNITS/0.01ML SC SCH (21:53)
[2019-05-03] MEDS: RAMELTEON 8 MG TAB (ROZEREM) PO SCH (21:53)
[2019-05-04] MEDS: PIPERACILLIN/TAZOBACTAM SOD 3.375 GM in D5W MINI-BAG PLUS 50 ML IV SCH ×2 (03:19→08:18)
[2019-05-04] MEDS: HEPARIN SOD (PORCINE) 5000 UNITS/ML VIAL SC SCH ×3 (05:48→21:43)
[2019-05-04] MEDS: SODIUM CHLORIDE 0.9% INJ 10 ML SYR IV SCH ×2 (05:49→17:39)
[2019-05-04] MEDS: NORCO, ANEXSIA 5/325MG TABLET (HYDROcodone/ACETAMINOPHEN) PO PRN (05:49)
[2019-05-04 06:07] LABS: HEMATOCRIT 27.2 % (36.0-47.0); HEMOGLOBIN 8.3 g/dl (12.0-15.5); MEAN CORPUSCULAR HEMOGLOBIN 24.5 pg (27.0-33.0); MEAN CORPUSCULAR HGB CONC 30.5 g/dl (32.0-36.5); MEAN CORPUSCULAR VOLUME 80.2 fl (80.0-96.0); PLATELET COUNT, AUTOMATED 410 10^3/uL (150-450); RED BLOOD COUNT 3.39 10^6/uL (4.00-5.40); WHITE BLOOD COUNT 8.2 10^3/uL (4.0-10.0)
[2019-05-04 06:39] LABS: BLOOD UREA NITROGEN 5 MG/DL (7-18); CALCIUM LEVEL 8.7 MG/DL (8.5-10.1); CARBON DIOXIDE LEVEL 29 MEQ/L (21-32); CHLORIDE LEVEL 106 MEQ/L (98-107); CREATININE FOR GFR 0.68 MG/DL (0.55-1.30); GLOMERULAR FILTRATION RATE > 60.0 (>51); GLUCOSE, FASTING 170 MG/DL (70-100); POTASSIUM SERUM 3.9 MEQ/L (3.5-5.1); SODIUM LEVEL 141 MEQ/L (136-145)
[2019-05-04 06:47] VITALS: BP 136/77
[2019-05-04] MEDS: VENLAFAXINE **XR** 75MG CAPSULE PO SCH (08:17)
[2019-05-04] MEDS: HumaLOG INSULIN (NovoLOG) PER UNIT SC SCH ×4 (08:18→21:00)
[2019-05-04] MEDS: PANTOPRAZOLE 40MG INJ (PROTONIX) (C9113) IV SCH (08:18)
[2019-05-04] MEDS: FERROUS GLUCONATE 324 MG TAB PO SCH (12:02)
[2019-05-04] MEDS: BACTRIM 160MG/800MG DS TAB PO SCH ×2 (12:02→21:44)
--- NOTE | 2019-05-04 17:43 | IPNPDOC ---
Date Seen The patient was seen on 05/04/19. Progress Note SUBJECTIVE: 58-year-old female, past medical history diabetes, hypertension, depression, ADHD, was admitted for bowel structures secondary to colonic mass status post right colectomy. 05/02/2019 Patient with abdominal wound infection, saloni removed by surgery and wound is currently packed, reportedly was draining, cultures pending, surgery plans to place wound VAC. Patient without any additional Lasix at this time, denies nausea, vomiting, shortness of breath, chest pain or diarrhea. Patient is tolerating diet without difficulty. 05/03/2019 Patient comfort and bed, without any complaints, reports significant improvement in abdominal discomfort from yesterday. She is tolerating her diet, ambulating, awaiting wound VAC placement today. 05/04/2019 Patient comfortable, wound VAC in place, without any complaints, ambulating and tolerating diet without difficulty. She denies any shortness of breath, nausea, vomiting, chest pain, abdominal pain or diarrhea. 10 point review of system was negative except for above PHYSICAL EXAMINATION: VITAL SIGNS: Please see below. GENERAL: No distress, obese HEENT: Normocephalic, atraumatic, moist mucous membranes NECK: Supple CARDIOVASCULAR EXAMINATION: S1, S2, no murmurs RESPIRATORY EXAMINATION: Clear to auscultation, no wheezing ABDOMINAL EXAMINATION: Soft, wound VAC in place, nondistended, normoactive bowel sounds EXTREMITIES: Range of motion intact SKIN: No rash NEUROLOGICAL EXAMINATION: Alert and oriented 3, no focal deficits PSYCHIATRIC EXAMINATION: Calm and cooperative LABORATORY DATA, IMAGING STUDIES, MICROBIOLOGY: Please see below. DVT prophylaxis ordered?: Yes ASSESSMENT AND PLAN: 58-year-old female with past medical history of hypertension, diabetes, depression and ADHD admitted for bowel structures second her to colonic mass. PROBLEMS: 1. Adenocarcinoma of colon. Status post right hemicolectomy, pathology positive for moderately differentiated adenocarcinoma with 5 positive lymph nodes. Case discussed with oncology who advised patient needs to heal from wound infection and surgery before any treatment can be initiated. Outpatient follow-up with oncology 2. Surgical wound infection. Antibiotic switched to Bactrim by mouth, wound VAC in place, cultures negative so far. 3. Hypertension: Continue lisinopril 4. Diabetes mellitus: Sliding scale insulin with fingersticks every 6 hours. Continue Levemir 10 units daily. 5. ADHD. Continue Ritalin 6. Depression. Continue Effexor DVT prophylaxis: Heparin subcutaneous GI prophylaxis: Protonix VS, I&O, 24H, Fishbone Vital Signs/I&O Vital Signs Date Time Temp Pulse Resp B/P (MAP) Pulse Ox O2 Delivery O2 Flow Rate FiO2 05/04/19 06:47 97.0 62 20 136/77 (96) 98 Room Air I&O- Last 24 Hours up to 6 AM 05/04/19 06:00 Intake Total 1520 ml Output Total 30 ml Balance 1490 ml Laboratory Data 24H LABS Laboratory Tests 2 05/03/19 21:05: Bedside Glucose (Misc Panel) 204H 05/04/19 05:49: Nucleated Red Blood Cells % (auto) 0.0, Anion Gap 6L, Glomerular Filtration Rate > 60.0, Calcium Level 8.7 05/04/19 11:22: Bedside Glucose (Misc Panel) 210H 05/04/19 16:50: Bedside Glucose (Misc Panel) 142H CBC/BMP Laboratory Tests 05/04/19 05:49 Microbiology Microbiology 05/01/19 Blood Culture - Preliminary, Resulted No Growth after 72 hours. All specime... MIREYA GORDON MD May 04, 2019 17:43
[2019-05-04 20:00] VITALS: BP 119/78
[2019-05-04] MEDS: LEVEMIR (INSULIN DETEMIR) 1 UNITS/0.01ML SC SCH (21:43)
[2019-05-04] MEDS: lisinopriL 10 MG TAB PO SCH (21:44)
[2019-05-04] MEDS: RAMELTEON 8 MG TAB (ROZEREM) PO SCH (21:44)
[2019-05-04] MEDS: SIMVASTATIN 10 MG TAB PO SCH (21:44)
[2019-05-05] MEDS: HEPARIN SOD (PORCINE) 5000 UNITS/ML VIAL SC SCH ×3 (05:38→21:24)
[2019-05-05] MEDS: SODIUM CHLORIDE 0.9% INJ 10 ML SYR IV SCH ×2 (05:38→18:06)
[2019-05-05] MEDS: NORCO, ANEXSIA 5/325MG TABLET (HYDROcodone/ACETAMINOPHEN) PO PRN ×2 (05:39→17:42)
[2019-05-05 06:00] VITALS: BP 123/77
[2019-05-05 07:29] LABS: HEMATOCRIT 30.9 % (36.0-47.0); HEMOGLOBIN 9.3 g/dl (12.0-15.5); MEAN CORPUSCULAR HEMOGLOBIN 24.3 pg (27.0-33.0); MEAN CORPUSCULAR HGB CONC 30.1 g/dl (32.0-36.5); MEAN CORPUSCULAR VOLUME 80.7 fl (80.0-96.0); PLATELET COUNT, AUTOMATED 479 10^3/uL (150-450); RED BLOOD COUNT 3.83 10^6/uL (4.00-5.40); WHITE BLOOD COUNT 8.9 10^3/uL (4.0-10.0)
[2019-05-05] MEDS: HumaLOG INSULIN (NovoLOG) PER UNIT SC SCH ×4 (07:30→21:00)
[2019-05-05 07:47] LABS: BLOOD UREA NITROGEN 5 MG/DL (7-18); CALCIUM LEVEL 8.6 MG/DL (8.5-10.1); CARBON DIOXIDE LEVEL 25 MEQ/L (21-32); CHLORIDE LEVEL 106 MEQ/L (98-107); CREATININE FOR GFR 0.61 MG/DL (0.55-1.30); GLOMERULAR FILTRATION RATE > 60.0 (>51); GLUCOSE, FASTING 174 MG/DL (70-100); POTASSIUM SERUM 4.2 MEQ/L (3.5-5.1); SODIUM LEVEL 141 MEQ/L (136-145)
[2019-05-05] MEDS: VENLAFAXINE **XR** 75MG CAPSULE PO SCH (08:59)
[2019-05-05] MEDS: FERROUS GLUCONATE 324 MG TAB PO SCH (09:00)
[2019-05-05] MEDS: BACTRIM 160MG/800MG DS TAB PO SCH ×2 (09:00→21:24)
[2019-05-05 14:00] VITALS: BP 125/71
--- NOTE | 2019-05-05 16:27 | IPNPDOC ---
Date Seen The patient was seen on 05/05/19. Progress Note SUBJECTIVE: 58-year-old female, past medical history diabetes, hypertension, depression, ADHD, was admitted for bowel structures secondary to colonic mass status post right colectomy, pathology positive for adenocarcinoma, hospitalization complicated by wound infection, currently on Bactrim, wound VAC in place, awaiting home arrangement for wound VAC prior to discharge. Patient reports no complaints today, tolerating diet, ambulating, denies nausea, vomiting, abdominal pain, diarrhea, chest pain, shortness of breath. 10 point review of system was negative except for above PHYSICAL EXAMINATION: VITAL SIGNS: Please see below. GENERAL: No distress, obese HEENT: Normocephalic, atraumatic, moist mucous membranes NECK: Supple CARDIOVASCULAR EXAMINATION: S1, S2, no murmurs RESPIRATORY EXAMINATION: Clear to auscultation, no wheezing ABDOMINAL EXAMINATION: Soft, wound VAC in place, nondistended, normoactive bowel sounds EXTREMITIES: Range of motion intact SKIN: No rash NEUROLOGICAL EXAMINATION: Alert and oriented 3, no focal deficits PSYCHIATRIC EXAMINATION: Calm and cooperative LABORATORY DATA, IMAGING STUDIES, MICROBIOLOGY: Please see below. DVT prophylaxis ordered?: Yes ASSESSMENT AND PLAN: 58-year-old female with past medical history of hypertension, diabetes, depression and ADHD admitted for bowel structures second her to colonic mass. PROBLEMS: 1. Adenocarcinoma of colon. Status post right hemicolectomy, pathology positive for moderately differentiated adenocarcinoma with 5 positive lymph nodes. Case discussed with oncology who advised patient needs to heal from wound infection and surgery before any treatment can be initiated. Outpatient follow-up with oncology 2. Surgical wound infection. Continue Bactrim, wound VAC in place. 3. Hypertension: Continue lisinopril 4. Diabetes mellitus: Sliding scale insulin with fingersticks every 6 hours. Continue Levemir 10 units daily. 5. ADHD. Continue Ritalin 6. Depression. Continue Effexor DVT prophylaxis: Heparin subcutaneous GI prophylaxis: Not needed VS, I&O, 24H, Fishbone Vital Signs/I&O Vital Signs Date Time Temp Pulse Resp B/P (MAP) Pulse Ox O2 Delivery O2 Flow Rate FiO2 05/05/19 14:00 100.5 79 17 125/71 (89) 98 Room Air I&O- Last 24 Hours up to 6 AM 05/05/19 06:00 Intake Total 2190 ml Output Total 5 ml Balance 2185 ml Laboratory Data 24H LABS Laboratory Tests 2 05/04/19 16:50: Bedside Glucose (Misc Panel) 142H 05/04/19 21:34: Bedside Glucose (Misc Panel) 213H 05/05/19 06:42: Nucleated Red Blood Cells % (auto) 0.0, Anion Gap 10, Glomerular Filtration Rate > 60.0, Calcium Level 8.6 05/05/19 11:43: Bedside Glucose (Misc Panel) 195H CBC/BMP Laboratory Tests 05/05/19 06:42 Microbiology Microbiology 05/01/19 Blood Culture - Preliminary, Resulted No Growth after 72 hours. All specime... MIREYA GORDON MD May 05, 2019 16:27
[2019-05-05] MEDS: ONDANSETRON 4MG/2ML VIAL (J2405) IV PRN (19:26)
[2019-05-05] MEDS: LEVEMIR (INSULIN DETEMIR) 1 UNITS/0.01ML SC SCH (21:23)
[2019-05-05] MEDS: RAMELTEON 8 MG TAB (ROZEREM) PO SCH (21:24)
[2019-05-05] MEDS: SIMVASTATIN 10 MG TAB PO SCH (21:24)
[2019-05-05] MEDS: lisinopriL 10 MG TAB PO SCH (21:27)
[2019-05-05 22:00] VITALS: BP 132/83
[2019-05-06 06:00] VITALS: BP 122/61
[2019-05-06] MEDS: HEPARIN SOD (PORCINE) 5000 UNITS/ML VIAL SC SCH ×3 (06:17→22:30)
[2019-05-06] MEDS: SODIUM CHLORIDE 0.9% INJ 10 ML SYR IV SCH ×2 (06:17→18:46)
[2019-05-06] MEDS: HumaLOG INSULIN (NovoLOG) PER UNIT SC SCH ×4 (09:00→21:00)
[2019-05-06] MEDS: FERROUS GLUCONATE 324 MG TAB PO SCH (09:56)
[2019-05-06] MEDS: BACTRIM 160MG/800MG DS TAB PO SCH ×2 (09:56→22:33)
[2019-05-06] MEDS: VENLAFAXINE **XR** 75MG CAPSULE PO SCH (09:56)
[2019-05-06] MEDS: ONDANSETRON 4MG/2ML VIAL (J2405) IV PRN (11:54)
[2019-05-06 13:56] VITALS: BP 134/66
--- NOTE | 2019-05-06 15:17 | IPNPDOC ---
Text Note Date of Service The patient was seen on 05/06/19. NOTE SUBJECTIVE: 58-year-old female, past medical history diabetes, hypertension, depression, ADHD, was admitted for bowel structures secondary to colonic mass status post right colectomy, pathology positive for adenocarcinoma, hospitalization complicated by wound infection, currently on Bactrim, wound VAC in place, awaiting home arrangement for wound VAC prior to discharge. Patient reports no complaints today, tolerating diet, ambulating, denies nausea, vomiting, abdominal pain, diarrhea, chest pain, shortness of breath. 10 point review of system was negative except for above PHYSICAL EXAMINATION: VITAL SIGNS: Please see below. GENERAL: No distress, obese HEENT: Normocephalic, atraumatic, moist mucous membranes NECK: Supple CARDIOVASCULAR EXAMINATION: S1, S2, no murmurs RESPIRATORY EXAMINATION: Clear to auscultation, no wheezing ABDOMINAL EXAMINATION: Soft, wound VAC in place, nondistended, normoactive bowel sounds EXTREMITIES: Range of motion intact SKIN: No rash NEUROLOGICAL EXAMINATION: Alert and oriented 3, no focal deficits PSYCHIATRIC EXAMINATION: Calm and cooperative LABORATORY DATA, IMAGING STUDIES, MICROBIOLOGY: Please see below. DVT prophylaxis ordered?: Yes ASSESSMENT AND PLAN: 58-year-old female with past medical history of hypertension, diabetes, depression and ADHD admitted for bowel structures second her to colonic mass. PROBLEMS: 1. Adenocarcinoma of colon. Status post right hemicolectomy, pathology positive for moderately differentiated adenocarcinoma with 5 positive lymph nodes. Case discussed with oncology who advised patient needs to heal from wound infection and surgery before any treatment can be initiated. Outpatient follow-up with oncology 2. Surgical wound infection. Continue Bactrim, wound VAC in place. 3. Hypertension: Continue lisinopril 4. Diabetes mellitus: Sliding scale insulin with fingersticks every 6 hours. Continue Levemir 10 units daily. 5. ADHD. Continue Ritalin 6. Depression. Continue Effexor #DVT prophylaxis: Heparin subcutaneous Dispo:pending surgery f/u and placement VS,Fishbone, I+O VS, Fishbone, I+O Vital Signs Date Time Temp Pulse Resp B/P (MAP) Pulse Ox O2 Delivery O2 Flow Rate FiO2 05/06/19 13:56 98.2 84 18 134/66 (88) 100 Room Air l I&O- Last 24 Hours up to 6 AM 05/06/19 06:00 Intake Total 1380 ml Output Total 0 ml Balance 1380 ml MICHELL PINA MD May 06, 2019 15:17
[2019-05-06] MEDS: NORCO, ANEXSIA 5/325MG TABLET (HYDROcodone/ACETAMINOPHEN) PO PRN (15:47)
[2019-05-06] MEDS: LEVEMIR (INSULIN DETEMIR) 1 UNITS/0.01ML SC SCH (21:00)
[2019-05-06 22:00] VITALS: BP 125/58
[2019-05-06] MEDS: SIMVASTATIN 10 MG TAB PO SCH (22:30)
[2019-05-06] MEDS: RAMELTEON 8 MG TAB (ROZEREM) PO SCH (22:30)
[2019-05-06] MEDS: lisinopriL 10 MG TAB PO SCH (22:32)
[2019-05-07] MEDS: SODIUM CHLORIDE 0.9% INJ 10 ML SYR IV SCH (06:11)
[2019-05-07] MEDS: HEPARIN SOD (PORCINE) 5000 UNITS/ML VIAL SC SCH ×3 (06:11→20:58)
[2019-05-07 07:04] LABS: HEMATOCRIT 30.7 % (36.0-47.0); HEMOGLOBIN 9.4 g/dl (12.0-15.5); MEAN CORPUSCULAR HEMOGLOBIN 24.6 pg (27.0-33.0); MEAN CORPUSCULAR HGB CONC 30.6 g/dl (32.0-36.5); MEAN CORPUSCULAR VOLUME 80.4 fl (80.0-96.0); PLATELET COUNT, AUTOMATED 510 10^3/uL (150-450); RED BLOOD COUNT 3.82 10^6/uL (4.00-5.40); WHITE BLOOD COUNT 12.2 10^3/uL (4.0-10.0)
[2019-05-07 07:22] LABS: BLOOD UREA NITROGEN 8 MG/DL (7-18); CALCIUM LEVEL 8.4 MG/DL (8.5-10.1); CARBON DIOXIDE LEVEL 25 MEQ/L (21-32); CHLORIDE LEVEL 100 MEQ/L (98-107); GLOMERULAR FILTRATION RATE > 60.0 (>51); GLUCOSE, FASTING 209 MG/DL (70-100); POTASSIUM SERUM 3.7 MEQ/L (3.5-5.1); SODIUM LEVEL 136 MEQ/L (136-145)
[2019-05-07] MEDS: VENLAFAXINE **XR** 75MG CAPSULE PO SCH (08:41)
[2019-05-07] MEDS: FERROUS GLUCONATE 324 MG TAB PO SCH (08:41)
[2019-05-07] MEDS: BACTRIM 160MG/800MG DS TAB PO SCH ×2 (08:42→20:58)
[2019-05-07] MEDS: HumaLOG INSULIN (NovoLOG) PER UNIT SC SCH ×5 (08:42→21:00)
[2019-05-07] MEDS ORDERED: ISOVUE-370 76% 100ML VIAL (Q9967) As Ordered ONE (11:13)
--- NOTE | 2019-05-07 12:20 | IPNPDOC ---
Text Note Date of Service The patient was seen on 05/07/19. NOTE SUBJECTIVE: 58-year-old female, past medical history diabetes, hypertension, depression, ADHD, was admitted for bowel structures secondary to colonic mass status post right colectomy, pathology positive for adenocarcinoma, hospitalization complicated by wound infection, currently on Bactrim, wound VAC in place, awaiting home arrangement for wound VAC prior to discharge. Patient reports no complaints today, tolerating diet, ambulating, denies nausea, vomiting, abdominal pain, diarrhea, chest pain, shortness of breath. 10 point review of system was negative except for above PHYSICAL EXAMINATION: VITAL SIGNS: Please see below. GENERAL: No distress, obese HEENT: Normocephalic, atraumatic, moist mucous membranes NECK: Supple CARDIOVASCULAR EXAMINATION: S1, S2, no murmurs RESPIRATORY EXAMINATION: Clear to auscultation, no wheezing ABDOMINAL EXAMINATION: Soft, wound VAC in place, nondistended, normoactive bowel sounds EXTREMITIES: Range of motion intact SKIN: No rash NEUROLOGICAL EXAMINATION: Alert and oriented 3, no focal deficits PSYCHIATRIC EXAMINATION: Calm and cooperative LABORATORY DATA, IMAGING STUDIES, MICROBIOLOGY: Please see below. DVT prophylaxis ordered?: Yes ASSESSMENT AND PLAN: 58-year-old female with PMHx of hypertension, diabetes, depression and ADHD, found to have adenoCA of the colon s/p resection. #Adenocarcinoma of colon. s/p right hemicolectomy, pathology positive for moderately differentiated adenocarcinoma with 5 positive lymph nodes. Case discussed with oncology who advised patient needs to heal from wound infection and surgery before any treatment can be initiated. Outpatient follow-up with oncology #Surgical wound infection. Continue Bactrim, wound VAC in place. - worsening leukocytosis - surgical f/u appreciated - repeat CT A/P pending #HTN - continue lisinopril #DM - sliding scale insulin with fingersticks every 6 hours. Continue Levemir 10 units daily. #ADHD Continue Ritalin #Depression. Continue Effexor #DVT prophylaxis: Heparin subcutaneous Dispo: repeat CT pending, surgical f/u VS,Fishbone, I+O VS, Fishbone, I+O Laboratory Tests 05/07/19 06:46 Vital Signs Date Time Temp Pulse Resp B/P (MAP) Pulse Ox O2 Delivery O2 Flow Rate FiO2 05/06/19 22:32 134/68 05/06/19 22:00 98.3 87 18 96 Room Air I&O- Last 24 Hours up to 6 AM 05/07/19 06:00 Intake Total 1260 ml Output Total 1 ml Balance 1259 ml MICHELL PINA MD May 07, 2019 12:20
--- NOTE | 2019-05-07 13:31 | REP ---
CT abdomen and pelvis with IV but without oral contrast: History: Elevated white blood cell count. The patient is status post right hemicolectomy for obstructing colonic neoplasm. Comparison CT study May 01, 2019. Preoperative study from April 20, [address] contrast dose: 100 mL of intravenous Isovue 370 is administered. Findings: Digital preliminary electric distribution checker radiograph demonstrates a right-sided PICC line in good position. Bowel gas pattern shows two or three dilated small bowel loops filled with air and fluid in the central abdomen. Colonic loops are unremarkable. Scattered surgical clips. Today's CT images demonstrate that the lung bases are clear. There is mild diffuse fatty infiltration of the liver with areas of fat sparing as before. A surgical drain has been removed from the abdomen in the interval since the May 01, 2019 study. There is a tiny 1 cm by 1.8 cm fluid collection at the inferior tip of the liver adjacent to the drainage tube tract. There is some fluid and air tracking in the laparotomy incision in the periumbilical region of the abdomen wall anteriorly. There is a little less air and a little more fluid compared to the prior study in this region. No other abdominal wall collection is seen. No intraabdominal or pelvic abscess is seen. Right ileocolonic anastomosis appears patent. There are a few air-fluid levels in mildly dilated central abdominal small bowel loops which may reflect ileus. No obstructive lesion is seen. The previously noted paraduodenal lymph ed mass has been removed. Superiorly adjacent to the anastomosis with the right colon, there is a 1.7 cm low density area which may be lymph node or residual fluid. The previously noted nodular density between the cervix and the rectum is again seen 2.5 cm in diameter. This is most compatible with a fibroid at the level of the cervix. Impression: Status post right hemicolectomy. Ileus pattern. Two tiny fluid collections. Gallstones. Fluid and air tracking in the laparotomy incision site in the anterior abdominal wall. Electronically Signed by Michelet Kelly MD 05/07/2019 01:39 P
[2019-05-07 14:00] VITALS: BP 116/66
[2019-05-07] MEDS: RAMELTEON 8 MG TAB (ROZEREM) PO SCH (20:57)
[2019-05-07 20:58] VITALS: BP 116/66
[2019-05-07] MEDS: LEVEMIR (INSULIN DETEMIR) 1 UNITS/0.01ML SC SCH (20:58)
[2019-05-07] MEDS: SIMVASTATIN 10 MG TAB PO SCH (20:58)
[2019-05-07] MEDS: lisinopriL 10 MG TAB PO SCH (20:58)
[2019-05-07 20:59] VITALS: BP 133/80
[2019-05-08 05:57] LABS: HEMATOCRIT 28.5 % (36.0-47.0); HEMOGLOBIN 8.9 g/dl (12.0-15.5); MEAN CORPUSCULAR HEMOGLOBIN 24.9 pg (27.0-33.0); MEAN CORPUSCULAR HGB CONC 31.2 g/dl (32.0-36.5); MEAN CORPUSCULAR VOLUME 79.8 fl (80.0-96.0); PLATELET COUNT, AUTOMATED 516 10^3/uL (150-450); RED BLOOD COUNT 3.57 10^6/uL (4.00-5.40)
[2019-05-08 06:14] VITALS: BP 126/57
[2019-05-08 06:18] LABS: BLOOD UREA NITROGEN 9 MG/DL (7-18); CALCIUM LEVEL 8.8 MG/DL (8.5-10.1); CARBON DIOXIDE LEVEL 26 MEQ/L (21-32); CHLORIDE LEVEL 103 MEQ/L (98-107); CREATININE FOR GFR 0.82 MG/DL (0.55-1.30); GLOMERULAR FILTRATION RATE > 60.0 (>51); GLUCOSE, FASTING 164 MG/DL (70-100); POTASSIUM SERUM 3.9 MEQ/L (3.5-5.1); SODIUM LEVEL 136 MEQ/L (136-145)
[2019-05-08] MEDS: HEPARIN SOD (PORCINE) 5000 UNITS/ML VIAL SC SCH ×2 (06:42→14:00)
[2019-05-08] MEDS ORDERED: SULF1TAB93 PO (08:27)
[2019-05-08] MEDS ORDERED: HYDR-4571 PO (08:27)
[2019-05-08] MEDS: FERROUS GLUCONATE 324 MG TAB PO SCH (09:51)
[2019-05-08] MEDS: VENLAFAXINE **XR** 75MG CAPSULE PO SCH (09:51)
[2019-05-08] MEDS: BACTRIM 160MG/800MG DS TAB PO SCH (09:51)
[2019-05-08] MEDS: HumaLOG INSULIN (NovoLOG) PER UNIT SC SCH ×2 (09:52→14:15)
[2019-05-08 10:00] VITALS: BP 140/77
--- NOTE | 2019-05-08 18:32 | DS.PDOC ---
Discharge Summary General Date of Admission Apr 23, 2019 at 09:20 Date of Discharge 05/08/2019 Attending Physician: MIREYA GORDON MD Discharge Summary PROCEDURES PERFORMED DURING STAY: None. ADMITTING DIAGNOSES: 1. Bowel obstruction, colon cancer. DISCHARGE DIAGNOSES: 1. Bowel obstruction, colon cancer, wound infection. COMPLICATIONS/CHIEF COMPLAINT: Adhd Colon Neoplasm Diabetes Mellitus Hld Htn...... HISTORY OF PRESENT ILLNESS: 58-year-old female admitted for bowel obstruction secondary to ascending colon mass underwent right hemicolectomy, pathology positive for adenocarcinoma of the colon. Imaging also showed questionable liver and pelvic lesion. Patient's hospitalization was complicated by wound infection, being treated with Bactrim, wound VAC placed. Patient without any complaints, tolerating diet, ambulating without difficulty, arrangements have been made for home wound VAC, ready for discharge. Patient is clinically, he would not be stable for discharge at this time with outpatient follow-up. Patient will follow up with oncology, reportedly at [facility] and PCP. HOSPITAL COURSE: As above. DISCHARGE MEDICATIONS: Please see below. ALLERGIES: Please see below. PHYSICAL EXAMINATION: VITAL SIGNS: Please see below. GENERAL: No distress HEENT: Normocephalic, atraumatic, moist mucous membranes NECK: Supple CARDIOVASCULAR EXAMINATION: S1, S2, no murmurs RESPIRATORY EXAMINATION: Clear to auscultation, no wheezing ABDOMINAL EXAMINATION: Soft, nontender, wound VAC in place, positive bowel sounds EXTREMITIES: Range of motion intact SKIN: No rash NEUROLOGICAL EXAMINATION: Alert and oriented 3, no focal deficits PSYCHIATRIC EXAMINATION: Calm and cooperative LABORATORY DATA: Please see below. PROGNOSIS: Guarded ACTIVITY: As tolerated. DIET: Consistent carbs DISCHARGE PLAN: She will follow with oncology and PCP in 1-2 weeks DISPOSITION: 06 Home Health Service. DISCHARGE INSTRUCTIONS: 1. As above. DISCHARGE CONDITION: Stable. TIME SPENT ON DISCHARGE: Greater than 33 minutes. Vital Signs/I&Os Vital Signs Date Time Temp Pulse Resp B/P (MAP) Pulse Ox O2 Delivery O2 Flow Rate FiO2 05/08/19 10:30 99 Room Air 05/08/19 10:00 99.0 106 16 140/77 (98) I&O- Last 24 Hours up to 6 AM 05/08/19 06:00 Intake Total 1290 ml Output Total 0 ml Balance 1290 ml Laboratory Data Labs 24H Laboratory Tests 2 05/07/19 21:02: Bedside Glucose (Misc Panel) 151H 05/08/19 05:29: Nucleated Red Blood Cells % (auto) 0.0, Anion Gap 7L, Glomerular Filtration Rate > 60.0, Calcium Level 8.8 05/08/19 11:36: Bedside Glucose (Misc Panel) 149H CBC/BMP Laboratory Tests 05/08/19 05:29 FSBS Laboratory Tests Test 05/07/19 21:02 05/08/19 11:36 Range/Units Bedside Glucose (Misc Panel) 151 149 70-105 MG/DL Microbiology Microbiology 05/01/19 Blood Culture - Final, Complete NO GROWTH AFTER 5 DAYS Discharge Medications Scheduled Canagliflozin (Invokana) 100 Mg Tablet, 100 MG PO DAILY, (Reported) Cholecalciferol (Vitamin D3) (Baby Vitamin D3) 15 Ml Drops, 1 DROP PO DAILY, (Reported) Glipizide (Glipizide) 10 Mg Tablet, 10 MG PO DAILY, (Reported) Infliximab Injection (Remicade) 100 Mg Vial, 100 MG IV ASDIRECTED, (Reported) Lisinopril (Lisinopril) 10 Mg Tablet, 10 MG PO QHS, (Reported) Metformin HCl (Metformin HCl ER) 500 Mg Tab.er.24h, 1,000 MG PO QHS, (Reported) Simvastatin (Simvastatin) 10 Mg Tablet, 10 MG PO QHS, (Reported) Sulfamethoxazole/Trimethoprim (Sulfamethoxazole-Tmp Ds Tablet) 1 Each Tablet, 1 TAB PO BID Venlafaxine HCl (Venlafaxine HCl ER) 150 Mg Cap.er.24h, 150 MG PO DAILY, (Reported) Scheduled PRN Hydrocodone/Acetaminophen (Hydrocodone-Acetamin 5-325 mg) 1 Each Tablet, 1 TAB PO Q4HP PRN for MILD/MODERATE PAIN (PS 1-7) Methylphenidate HCl (Methylphenidate LA) 30 Mg Cpbp.50.50, 30 MG PO DAILY PRN for ADHD, (Reported) Miscellaneous Medications [Pt Comments] , (Reported) PT STATES THAT SHE HASN'T RENEWED SCRIPTS IN A WHILE AND SO HAS BEEN MISSING GLIPIZIDE, INVOKANA AND SIMVASTATIN FOR AT LEAST 2 WEEKS. Allergies Coded Allergies: No Known Allergies (Unverified , 09/25/18) MIREYA GORDON MD May 08, 2019 18:32
--- NOTE | 2019-05-28 19:24 | RO ---
DATE OF PROCEDURE: 04/25/2019 PREOPERATIVE DIAGNOSIS: Obstructing right colon cancer. POSTOPERATIVE DIAGNOSIS: Obstructing right colon cancer. PROCEDURE: Right colectomy. SURGEON: Dr. Miguel Angel Kim. THREADING MACHINE OPERATOR: Dr. Kumar (provided retraction, exposure assistance with the anastomosis, abdominal wall closure). ESTIMATED BLOOD LOSS: Minimal. FLUIDS: Crystalloid. ANESTHESIA: General endotracheal anesthesia. BRIEF OPERATIVE SUMMARY: The patient was brought to the operating room and was given general anesthesia. After adequate anesthesia and preoperative antibiotics were given the patient was prepped and draped in the usual sterile fashion. Next the midline incision was made with skin knife. Electrocautery was used cut through dermis, underlying subcutaneous tissue down to the fascia which was opened. The patient had a relatively large obstructing cancer in the right-hand side with a large lymph node located at the head of the pancreas. the located at the head of the pancreas. This appeared to be a malignant appearing node on the CT scan. There was also a node/nodule that was in the pelvis seen preoperatively and after opening the abdomen placing the Bookwalter in place it was obvious there was a large mass in the right colon The patient did not receive a bowel prep preoperatively because of this obstructing mass. However, fortunately the small bowel decompressed for relatively well prior to this but the colon still was not bowel mechanically prepped. In any case after evaluating the omentum I did not see any omental metastases in the pelvis and was able to feel the nodularity nodule that was appreciated on the CT scan. However, it was up against the pelvis behind the peritoneum and thus I did not appreciate an intraperitoneal mass. The terminal ileum then was transected using a CINDY stapler. The ileocolic vessels were taken with echelon 60 stapler. After the right colon was mobilized along the line of Toldt using some electrocautery. He has some blunt dissection and eventually this was mobilized off the vessels in this area. The dissection continued such that it was able to visualize the duodenum nicely around the room of the C loop and once I was able to mobilize this further the transverse colon was transected the right colon / hepatic flexure area will mesentery was transected using a echelon 60 stapler and the large node that was a palpable was on the anterior surface of the pancreas. This was slowly dissected off after the colon had been removed and direct visualization of this area could be seen and did not have any active vessels going into it and care was taken to slowly go around this large firm node and eventually using the harmonic using electrocautery. Blunt dissection and some minimal sharp dissection node was removed. No other significantly enlarged nodes were appreciated in this area and then a [id number] anastomosis of the small bowel to the colon was performed with a CINDY stapler. The enterotomy site was closed with CINDY stapler and the #19 Vic-Rothman drain was left in the bed of the dissection there was some oozing throughout the right upper quadrant with this dissection and given the desmoplastic reaction and the inflammatory response of this obstructing colon cancer but mostly this was some venous oozing along this area which was well controlled prior to closure. The abdomen was copiously irrigated until clear and the midline was closed with running looped O PDS times 2 and the cyst was subcutaneous tissue was irrigated copiously with normal saline and then brought together with saloni. Dry sterile dressing was applied. The patient was awakened, extubated, brought to recovery room awake, alert, hemodynamically stable. Sponge and needle counts correct times two.
== END 2019-05-08 17:25 | disposition home health service (06) | DRG 221 ==
LOC: M ED 13:59 → M ED INP 14:00 → M MS5PR 19:20 → OBSVTOIN 04-23 09:20
PROVIDERS: ADMIT Internal Medicine; ATTEND Internal Medicine
PROC: 3E0436Z Introduction of Nutritional Substance into Central Vein, Percutaneous Approach (ICD-10-PCS; 2019-04-24)
PROC: 02HV33Z Insertion of Infusion Device into Superior Vena Cava, Percutaneous Approach (ICD-10-PCS; 2019-04-24)
PROC: 0DBL0ZZ Excision of Transverse Colon, Open Approach (ICD-10-PCS; 2019-04-25)
PROC: 0DBB0ZZ Excision of Ileum, Open Approach (ICD-10-PCS; 2019-04-25)
PROC: 07BB0ZX Excision of Mesenteric Lymphatic, Open Approach, Diagnostic (ICD-10-PCS; 2019-04-25)
PROC: 0DTF0ZZ Resection of Right Large Intestine, Open Approach (ICD-10-PCS; principal; 2019-04-25 07:30)
DX: C18.2 Malignant neoplasm of ascending colon (principal); C77.2 Secondary and unspecified malignant neoplasm of intra-abdominal lymph nodes; I11.9 Hypertensive heart disease without heart failure; E78.5 Hyperlipidemia, unspecified; F32.9 Major depressive disorder, single episode, unspecified; E11.9 Type 2 diabetes mellitus without complications; L40.9 Psoriasis, unspecified; F90.9 Attention-deficit hyperactivity disorder, unspecified type; Z79.84 Long term (current) use of oral hypoglycemic drugs; Z79.899 Other long term (current) drug therapy; Y83.8 Other surgical procedures as the cause of abnormal reaction of the patient, or of later complication, without mention of misadventure at the time of the procedure; T81.49XA Infection following a procedure, other surgical site, initial encounter

== ENCOUNTER → 2019-06-15 | Outpatient (CLI) | payer BC ==
[~2019-06-15] MED LIST changes: +B-10TAB2 PO; +BABY400D2 PO; +CINN500C2 PO; +GASTROGRAFIN SOLUTION 30ML (Q9963) As Ordered ONE; +HYDR-4571 PO; +INVO100T PO; +ISOVUE-370 76% 100ML VIAL (Q9967) As Ordered ONE; +METH30CA PO; +MULTCAP PO; +PT COMMENTS; +RA T500C2 PO; +SULF1TAB93 PO
--- NOTE | 2019-06-15 17:16 | REP ---
Clinical: Colon cancer. Restaging. Technique: Axial contrast enhanced images from the lung bases to the pubic symphysis using oral (per protocol) and 100 ml Isovue 370 intravenous contrast material with coronal and sagittal re-formations as well as delayed images of the abdomen. Comparison: 05/07/2019. Findings: Lung bases are clear. Visualized heart and pericardium normal. Subtle scattered hepatic hypodensities suggest few metastatic lesions measuring up to 1.6 cm which represents a change from prior examination dated 04/20/2019. Few stable hepatic hypodensities are also noted suggesting chronic benign cysts. Spleen, pancreas, bilateral adrenal glands and kidneys are normal. Cholelithiasis noted without acute cholecystitis. Postsurgical changes consistent with prior right hemicolectomy are again noted and similar to prior examination. In the right upper quadrant adjacent to the the surgical clips and inflammatory stranding, there are increased lymph nodes measuring up to approximately 12 mm concerning and consistent with continued neoplastic involvement. The remaining small large bowel is without obstruction or acute inflammatory process. Evaluation of the pelvis demonstrates normal bladder and age-appropriate uterus/adnexa. There is a heterogeneous enhancing 2.7 cm mass in the right jasbir pelvis (image 103) which is increased in size and concerning for metastatic focus. No ascites. No free air. No retroperitoneal adenopathy. Abdominal aorta without aneurysm or dissection. Musculoskeletal structures are intact. Impression: 1. Increased adenopathy at the surgical site in the right upper quadrant along with subtle increased hypodense lesions in the liver up to 1.6 cm and increasing presumed metastatic focus in the right jasbir pelvis. Findings are consistent with continued malignancy. Electronically Signed by Parker Razo MD 06/15/2019 05:08 P
== END ==
LOC: M RAD 14:46
PROVIDERS: ATTEND Internal Medicine Medical Oncology
DX: C18.9 Malignant neoplasm of colon, unspecified (principal)
CPT/HCPCS: 74177; Q9963; Q9967

== ENCOUNTER 2019-06-23 17:10 | Emergency (ER) | payer BC ==
[~2019-06-23] VITALS: Ht 160 cm; Wt 83.6 kg
[~2019-06-23 17:10] MED LIST changes: -GASTROGRAFIN SOLUTION 30ML (Q9963) As Ordered ONE; -ISOVUE-370 76% 100ML VIAL (Q9967) As Ordered ONE
[2019-06-23 17:12] VITALS: BP 126/59
[2019-06-23] MEDS ORDERED: ROBA750T4 PO (18:00)
[2019-06-23] MEDS ORDERED: LIDO1CRE2 TOP (18:00)
== END 2019-06-23 18:12 | disposition home or self-care (01) ==
LOC: M ED 17:10
DX: M25.511 Pain in right shoulder (principal); E11.9 Type 2 diabetes mellitus without complications; I10 Essential (primary) hypertension; F41.9 Anxiety disorder, unspecified; F32.9 Major depressive disorder, single episode, unspecified; Z79.84 Long term (current) use of oral hypoglycemic drugs; Z79.899 Other long term (current) drug therapy

== ENCOUNTER → 2019-06-27 | Outpatient (CLI) | payer BC ==
[~2019-06-27] MED LIST changes: +LIDO1CRE2 TOP; +ROBA750T4 PO
--- NOTE | 2019-06-27 18:46 | REP ---
PET/CT: History: Staging malignant neoplasm of the ascending colon. Comparisons: Comparison CT study abdomen and pelvis June 15, 2019. TECHNIQUE: 45 minutes following the intravenous injection of a 8.52 mCi dose of F-18 FDG, three-dimensional PET scintigraphy is acquired from the skull base to the proximal thighs. Triplanar noncontrast CT scanning is acquired through the same anatomic range for attenuation correction, and image registration with scan parameters optimized to minimize radiation exposure to the patient. PET scintigraphy and CT datasets were fused and displayed on a workstation with multiplanar and projection display capability. PET/CT Findings: Head and neck soft tissues are unremarkable. There is no abnormal hypermetabolic uptake within the thorax. There is a hypodense hypermetabolic lesion in the dome of the liver anteriorly consistent with a hepatic metastasis. Maximum standard uptake value here is 5.52. There is another small low-density lesion in the liver posteriorly but this does not show hypermetabolic uptake over background liver parenchyma. There is a second 1 cm suspicious hypermetabolic left lobe liver lesion with maximum SUV value 5.40. There is a hypermetabolic soft tissue uptake in the region of the umbilicus with maximizing the value 6.63. This may be postoperative or neoplastic. In the right upper quadrant, adjacent to some surgical sutures and clips anterior to the duodenum is an ill-defined non mass-like area of mildly increased uptake 4.27. This is of uncertain significance. There is a 2.7 cm hypermetabolic ed mass lesion in the right pelvis in front of the upper sacrum with maximum standard uptake value 6.55. Lastly the enhancing nodular density seen in the cul-de-sac posterior the bladder and anterior to the rectum shows hypermetabolic uptake, maximum SUV value to 6.06. This density measures 3.5 cm and is just posterior to the cervix. No other abnormal hypermetabolic uptake is seen. Impression: There are two suspicious hypermetabolic liver nodules. There are two ed masses in the pelvis one the cul-de-sac and the other in the right pelvis. There is equivocal uptake in the abdominal wall at the umbilicus and equivocal uptake is seen at the surgical site in the right upper quadrant paraduodenal region. Electronically Signed by Michelet Kelly MD 06/27/2019 09:28 P
== END ==
LOC: M PLARAD 09:23
PROVIDERS: ATTEND Internal Medicine Medical Oncology
DX: C18.2 Malignant neoplasm of ascending colon (principal)
CPT/HCPCS: 78815; A9552

== ENCOUNTER → 2019-07-02 | Outpatient (CLI) | payer BC ==
--- NOTE | 2019-07-02 11:29 | REP ---
INDICATION: Trauma PROCEDURE: Plain film cervical spine includes AP lateral and obliques COMPARISON STUDIES: no similar FINDINGS: No acute fracture or malalignment. Prevertebral soft tissues within normal limits. Craniovertebral junction is unremarkable. CONCLUSION: No traumatic findings. Normal examination. Electronically Signed by Shabbir Cheney MD 07/02/2019 11:20 A
--- NOTE | 2019-07-03 01:51 | REP ---
Clinical: Trauma. Technique: AP and lateral views of the right humerus. Findings: Age-related changes at the shoulder and elbow joint. No acute fracture dislocation. Surrounding soft tissues are unremarkable. Impression: No acute fracture dislocation. Electronically Signed by Parker Razo MD 07/03/2019 01:42 A
== END ==
LOC: M RAD 10:44
PROVIDERS: ATTEND Internal Medicine Medical Oncology
DX: C18.9 Malignant neoplasm of colon, unspecified (principal)

== ENCOUNTER → 2019-07-05 | Outpatient (CLI) | payer BC ==
[~2019-07-05] MED LIST changes: +ALPR1TAB7 PO; +ALPR2TAB3 PO; +ISOVUE-370 76% 100ML VIAL (Q9967) As Ordered ONE; +ONDA8TAB10 PO; +PROC10TA4 PO
--- NOTE | 2019-07-05 08:59 | REP ---
INDICATION: Stage IV colon CA PROCEDURE: CT head with and without contrast COMPARISON STUDIES: No prior similar studies FINDINGS: No acute bleed or acute large vessel territorial infarct. Ventricles, cisterns and sulci within normal limits. No mass effect or midline shift. No abnormal fluid collections. Following contrast, no abnormal enhancement. Paranasal sinuses and mastoid air cells are clear. No evidence of a calvarial lesion. CONCLUSION: No evidence of metastatic disease to brain or calvarium. Electronically Signed by Shabbir Cheney MD 07/05/2019 08:51 A
--- NOTE | 2019-07-06 01:51 | REP ---
Clinical: Trauma. Technique: Two views of the left clavicle. Findings: Evidence to suggest old healed mid clavicular shaft fracture. No obvious acute fractures appreciated. Sternoclavicular joint is normal. The acromioclavicular joint demonstrates cortical irregularities suggesting mild degenerative change. Surrounding soft tissues are unremarkable. Impression: Findings suggesting old mid clavicular shaft fracture. Electronically Signed by Parker Razo MD 07/06/2019 01:43 A
== END ==
LOC: M RAD 08:02
PROVIDERS: ATTEND Internal Medicine Medical Oncology
DX: C18.9 Malignant neoplasm of colon, unspecified (principal); R51 Headache
CPT/HCPCS: 70470; 73000; Q9967

== ENCOUNTER → 2019-07-05 | Outpatient (CLI) | payer BC ==
[~2019-07-05] MED LIST changes: -ISOVUE-370 76% 100ML VIAL (Q9967) As Ordered ONE; +LIDOCAINE 1% MDV 20ML VIAL As Ordered ONE; +MIDAZOLAM INJ 2 MG/2 ML VIAL (J2250) As Ordered ONE; +ceFAZolin 1GM INJ (J0690 PER 500MG) As Ordered ONE; +diphenhydrAMINE INJ 50MG/ML VIAL (J1200) As Ordered ONE; +fentaNYL 100 MCG/2 ML INJECTION (J3010) As Ordered ONE
--- NOTE | 2019-07-05 14:43 | IRHP ---
[facility] IR Pre-Procedure H & P General Date of Service: Jul 05, 2019 Procedure: Same Day Surgery Interval History and Physical I have seen the patient and reviewed last H & P performed within 30 days. There is no significant interval change. History of Present Illness Chief Complaint The patient is a 59-year-old female admitted with a reason for visit of Colon Ca. PRE-PROCEDURE DIAGNOSIS: colon ca HEART: normal rate. LUNGS: normal breathing at rest. ASA Classification ASA Classification: II-Mild systemic disease Mallampati Score: II NPO: Yes Problems with prior sedation: No Obstructive Sleep Apnea: No Plan moderate sedation Allergies Coded Allergies: No Known Allergies (Unverified , 09/25/18) Home Medications Scheduled Cholecalciferol (Vitamin D3) (Baby Vitamin D3), 1 DROP PO DAILY, (Reported) Lisinopril (Lisinopril), 10 MG PO QHS, (Reported) Metformin HCl (Metformin HCl ER), 1,000 MG PO QHS, (Reported) Methocarbamol (Robaxin-750), 1 TAB PO TID Multivitamin (Multivitamins), 1 CAP PO DAILY, (Reported) Simvastatin (Simvastatin), 10 MG PO QHS, (Reported) Venlafaxine HCl (Venlafaxine HCl ER), 150 MG PO DAILY, (Reported) Vit B Complex 100 Combo No.2 (B-100 Complex), 1 TAB PO DAILY, (Reported) Scheduled PRN Methylphenidate HCl (Methylphenidate LA), 30 MG PO DAILY PRN for ADHD, (Reported) Miscellaneous Medications Cinnamon Bark (Cinnamon), 500 MG PO, (Reported) Turmeric Root Extract (Turmeric), PO, (Reported) Discontinued Medications Alprazolam (Alprazolam), 1 TAB PO DAILY PRN for anxiety Discontinued Reason: Pt states not taking Lidocaine (Lidocaine), 1 APLCT TOP BID Discontinued Reason: Pt states not taking [Pt Comments], (Reported) Discontinued Reason: Pt states not taking VS, I&O, 24H, Fishbone Vital Signs/I&O Vital Signs Date Time Temp Pulse Resp B/P (MAP) Pulse Ox O2 Delivery O2 Flow Rate FiO2 07/05/19 14:30 83 18 100 Nasal Cannula 2 07/05/19 13:05 98.8 WYATT NICE MD Jul 05, 2019 14:43
--- NOTE | 2019-07-05 15:26 | POST-OPPD ---
Postoperative Procedure Note Date Of Procedure: Jul 05, 2019 Time Of Procedure: 15:25 PREOPERATIVE DIAGNOSIS: colon ca POSTOPERATIVE DIAGNOSIS: same FINDINGS: patent right IJ PROCEDURE: right sided port SURGEON: mukesh ANESTHESIA: mod sed ESTIMATED BLOOD LOSS: < 5 ml COMPLICATIONS: none POSTOPERATIVE CONDITION: stable WYATT NICE MD Jul 05, 2019 15:26
[2019-07-05 16:40] VITALS: BP 110/54
--- NOTE | 2019-07-06 07:04 | REP ---
IR Ultrasound and fluoroscopy-guided port placement. IR Ultrasound of the neck. IR Moderate sedation. Clinical information: colon cancer. Physician: Dr. Parker. Procedure: The patient was advised of the benefits, risks, and alternatives of the procedure and informed consent was obtained. A time-out was performed with verification of the patient's name, MRN, site of procedure and type of procedure to be performed. The patient was positioned in the supine position on the angiographic table. The site was prepped and draped in the usual sterile fashion. Moderate sedation was performed by the physician including the presence of an independent trained observer who assisted and monitored the patient's level of consciousness and physiologic status. Following the administration of Fentanyl and versed, the physician spent 45 minutes of continuous face to face time with the patient. Ultrasound of the neck reveals a patent and compressible right internal jugular vein. A account support manager radiograph reveals no gross abnormality. The neck and anterior chest wall were anesthetized with lidocaine. The right internal jugular vein was accessed using a microintroducer needle under ultrasound guidance, via a lateral approach. An 018 wire was advanced into the superior vena cava, the needle was removed and a microsheath was placed. An Amplatz wire was then passed into the inferior vena cava. An incision at the internal jugular vein access site and anterior chest wall were made using a scalpel. An incision was made at the anterior chest wall. A small pocket was created using a combination of blunt and sharp dissection. A tunneling device was then used to pass the catheter from the pocket to the neck puncture site. An 8-Bruneian Angio dynamics Smart power port was then positioned in the pocket. The catheter was then measured and cut. The introducer sheath was exchanged for a peel-away sheath. The catheter was passed through the peel-away sheath into the internal jugular vein and the peel-away sheath was removed. The port tip was positioned at the cavoatrial junction. The port was then accessed with a Hernandez needle. The port flushes and aspirates well. The puncture site in the neck was closed. The chest wall incision was then closed with 2-0 Vicryl and 4-0 Monocryl. Glue and Steri-Strips were applied. A sterile dressing was then applied. The patient tolerated the procedure well and was returned to the PRU in stable condition. Estimated blood loss: <5 ml. Complications: None. Conclusion: 1. Successful placement of an 8-Bruneian Angio dynamics Smart power port via the right internal jugular vein. The port is ready for immediate use. 2. Patient to follow up in IR clinic in 2 weeks. Thank you for this referral. Electronically Signed by Mary Parker MD 07/06/2019 07:03 A
== END ==
LOC: M IRPRO 12:14
PROVIDERS: ATTEND Internal Medicine Medical Oncology
DX: C18.9 Malignant neoplasm of colon, unspecified (principal); Z79.899 Other long term (current) drug therapy
CPT/HCPCS: 36561; 99152; 99153; C1769; C1788; C1894; J0690; J1200; J2250; J3010

== ENCOUNTER → 2019-07-17 | Outpatient (REF) | payer BC ==
[~2019-07-17] MED LIST changes: -LIDOCAINE 1% MDV 20ML VIAL As Ordered ONE; -MIDAZOLAM INJ 2 MG/2 ML VIAL (J2250) As Ordered ONE; -ceFAZolin 1GM INJ (J0690 PER 500MG) As Ordered ONE; -diphenhydrAMINE INJ 50MG/ML VIAL (J1200) As Ordered ONE; -fentaNYL 100 MCG/2 ML INJECTION (J3010) As Ordered ONE
== END ==
LOC: M LAB REF 13:09
PROVIDERS: ATTEND Nurse Practitioner Family
DX: N76.0 Acute vaginitis (principal)

== ENCOUNTER → 2019-07-27 | Outpatient (CLI) | payer BC ==
[~2019-07-27] MED LIST changes: +PROHANCE 279.3MG/ML 15ML VIAL (A9576) As Ordered ONE; +PROHANCE 279.3MG/ML 5ML VIAL (A9576) As Ordered ONE
--- NOTE | 2019-07-28 17:42 | REPVR ---
PROCEDURE INFORMATION: Exam: MR Thoracic Spine Without and With Contrast Exam date and time: 07/27/2019 1:09 PM Age: 59 years old Clinical indication: Injury or trauma; Late effect from previous injury; Crushing; Injury date: 06/07; Injury details: HX fall, back neck pain; Patient HX: HX CA; Additional info: Radicular pain in back TECHNIQUE: Imaging protocol: Multiplanar magnetic resonance images of the thoracic spine without and with intravenous contrast. Contrast material: PROHANCE; Contrast volume: 16 ml; Contrast route: IV; COMPARISON: No relevant prior studies available. FINDINGS: Vertebrae: T1 weighted images demonstrate mottled decreased signal throughout the vertebrae, findings which can be seen in association with chronic anemia or other myeloproliferative abnormality. This should be correlated with clinical evaluation. Spinal cord: No abnormal signal, myelomalacia or cord expansion. No abnormal enhancement. Discs/Spinal canal/Neural foramina: Small posterior disc protrusions at T5-T6, T6-T7, and T7-T8 without cord impingement. Soft tissues: Unremarkable. IMPRESSION: 1. T1 weighted images demonstrate mottled decreased signal throughout the vertebrae, findings which can be seen in association with chronic anemia or other myeloproliferative abnormality. This should be correlated with clinical evaluation. 2. Small posterior disc protrusions at T5-T6, T6-T7, and T7-T8 without cord impingement. Electronically signed by: Shahid Logan On 07/28/2019 17:41:43 PM
== END ==
LOC: M RAD 13:03
PROVIDERS: ATTEND Internal Medicine Medical Oncology
DX: M54.16 Radiculopathy, lumbar region (principal)
CPT/HCPCS: 72157; A9576

== ENCOUNTER 2019-08-25 10:35 | Emergency (ER) | payer BC ==
[~2019-08-25] VITALS: Ht 160 cm; Wt 81.0 kg
[~2019-08-25 10:35] MED LIST changes: -PROHANCE 279.3MG/ML 15ML VIAL (A9576) As Ordered ONE; -PROHANCE 279.3MG/ML 5ML VIAL (A9576) As Ordered ONE
[2019-08-25 12:14] VITALS: BP 119/69
[2019-08-26] MEDS ORDERED: SODIUM CHLORIDE 0.9% INJ 10 ML SYR IV SCH (09:00)
== END 2019-08-25 12:16 | disposition home or self-care (01) ==
LOC: M ED 10:35
DX: Z45.2 Encounter for adjustment and management of vascular access device (principal); E11.9 Type 2 diabetes mellitus without complications; I10 Essential (primary) hypertension; Z79.899 Other long term (current) drug therapy; Z79.84 Long term (current) use of oral hypoglycemic drugs
CPT/HCPCS: 99283; J1642

== ENCOUNTER → 2019-08-30 | Outpatient (CLI) | payer BC ==
[~2019-08-30] MED LIST changes: +GASTROGRAFIN SOLUTION 30ML (Q9963) As Ordered ONE; +ISOVUE-370 76% 100ML VIAL (Q9967) As Ordered ONE; -METH30CA PO; +METH30CA13 PO
--- NOTE | 2019-08-30 14:11 | REP ---
Whole body radionuclide bone scan: Five views. History: Colon cancer. Evaluate for metastatic disease. Technique: 22.0 mCi technetium 99m MDP is injected and standard whole body bone scan images are acquired. Scintigraphic findings: There is normal distribution of skeletal tracer with uptake in bilateral kidneys and within the urinary bladder. There is mild arthritic uptake in each wrist. Mild arthropathy related uptake is seen in the feet bilaterally. There is no other abnormal uptake to suggest metastatic disease. Impression: No evidence to suggest skeletal metastatic disease. Electronically Signed by Michelet Kelly MD 08/30/2019 02:02 P
--- NOTE | 2019-08-31 05:33 | REP ---
Clinical: Colon cancer. Staging. Technique: Axial contrast enhanced images from the thoracic inlet to the upper abdomen with coronal and sagittal re-formations using 100 ml Isovue 370 intravenous contrast material. Comparison: 05/02/2019. Findings: There is a small 2 mm subpleural nodule along the periphery of the left lower lobe (image 68). Two small perifissural densities along the anterior and lateral margins of the minor fissure are similar to prior examination. No further obvious nodule or mass lesion. No consolidation. No effusion. No pneumothorax. Axillary and mediastinal lymph nodes are nonspecific and measure up to approximately 12 mm. Tracheobronchial tree is patent. Thoracic aorta, pulmonary vasculature and heart/pericardium appear normal. Surrounding musculoskeletal structures are intact. [id number] identified with tip in the SVC. Impression: 1. Small 2 mm subpleural nodule in the periphery of the left lower lobe represents a new finding. While this may represent small benign granuloma, follow-up may be warranted to exclude the possibility of metastatic disease. Electronically Signed by Parker Razo MD 08/31/2019 05:24 A
--- NOTE | 2019-08-31 05:47 | REP ---
Clinical: Colon cancer. Staging. Technique: Axial contrast enhanced images from the lung bases to the pubic symphysis using oral (per protocol) and 100 ml Isovue 370 intravenous contrast material with coronal and sagittal re-formations. Delayed images of the abdomen obtained. Comparison: 06/15/2019. Findings: Few scattered small of vague hypodense areas within the right hepatic lobe and medial segment left hepatic lobe are again noted and concerning for metastatic disease, but without significant progression as compared to prior examination. A presumed benign hepatic cyst in the posterior segment right lobe is unchanged and measures approximately 1.3 cm. Spleen, pancreas, bilateral adrenal glands and kidneys appear normal/stable. Cholelithiasis noted without acute cholecystitis. The right upper quadrant adjacent to the area of prior surgical anastomoses demonstrates inflammatory changes appear improved from prior examination and without the previously noted subtle focal soft tissue. There is mildly prominent mesenteric adenopathy primarily noted in the right upper quadrant which appears to be improved. Specifically, the largest lymph nodes now identifiable measure approximately 10 mm maximal diameter and previously measured 12 mm maximal diameter. The midline incision site and underlying subcutaneous tissue demonstrates postsurgical changes and the previously noted soft tissue prominence appears decreased. Small soft tissue lesion in the deep right jasbir pelvis now measures roughly 1.7 cm maximal diameter and previously measured 2.7 cm maximal diameter (image 102). No ascites. No new mass lesion identified. Further evaluation of the pelvis demonstrates normal bladder and stable age appropriate uterus / adnexa. Abdominal aorta and vasculature without aneurysm or dissection. Musculoskeletal structures demonstrate degenerative changes without focal abnormality. Impression: 1. Very subtle scattered hypodense lesions within the liver are similar to prior examination and may represent stable metastatic changes. No new or progressively enlarging hepatic lesions are identified. 2. The changes involving the right upper quadrant and subcutaneous tissues at the site of surgical incision appear improved. Previously noted abdominal mesenteric lymph nodes have decreased in size. 3. Soft tissue lesion within the right jasbir pelvis has decreased. No new abdominopelvic mass lesion is appreciated. No ascites. No increased adenopathy. 4. Incidental cholelithiasis again noted. Electronically Signed by Parker aRzo MD 08/31/2019 05:39 A
== END ==
LOC: M RAD 08:40
PROVIDERS: ATTEND Internal Medicine Medical Oncology
DX: R91.1 Solitary pulmonary nodule (principal); C18.9 Malignant neoplasm of colon, unspecified; K80.20 Calculus of gallbladder without cholecystitis without obstruction
CPT/HCPCS: 71260; 74177; 78306; A9503; Q9963; Q9967

== ENCOUNTER → 2019-11-20 | Outpatient (CLI) | payer BC ==
[~2019-11-20] MED LIST changes: -GASTROGRAFIN SOLUTION 30ML (Q9963) As Ordered ONE; -ISOVUE-370 76% 100ML VIAL (Q9967) As Ordered ONE
--- NOTE | 2019-11-21 09:54 | REP ---
REASON FOR EXAM: Followup colon cancer. Prior PET/CT 06/27/2019 was reviewed along with prior CT scan chest, abdomen and pelvis 08/30/2019. The latest prior PET/CT showed two suspicious areas of hypermetabolic activity in the pelvis, one in the right hemipelvis and the other in the cul-de-sac with two supposed hypermetabolic areas in the liver. After the intravenous administration of 8.75 millicuries of FDG18, triplane whole body PET/CT was performed from the skull base to the mid thigh. The hypermetabolic activity seen previously in the pelvis has abated. The activity seen throughout the liver is heterogeneously symmetric without abnormal focal hypermetabolic lesions. There is no abnormal hypermetabolic activity seen in the neck, chest, abdomen or pelvis. There is diffuse hypermetabolic activity seen throughout the axial and appendicular skeleton. This represents a change from the prior exam. Maximal SUV values at multiple sites is between 5 and 6 SUV values. IMPRESSION: 1. Hypermetabolic activity seen in the axial and appendicular skeleton is likely secondary to chemotherapeutic response with chemo-reactive marrow. Unfortunately, I have not been given the patient's history in regards to chemotherapy a such, although unlikely, I cannot rule out metastatic disease. 2. Improvement in the liver and pelvis as described above. Electronically Signed by Russell Caballero DO 11/21/2019 11:26 A
== END ==
LOC: M PLARAD 08:35
PROVIDERS: ATTEND Internal Medicine Medical Oncology
DX: C18.8 Malignant neoplasm of overlapping sites of colon (principal)
CPT/HCPCS: 78815; A9552

== ENCOUNTER → 2020-07-12 | Outpatient (CLI) | payer BC ==
[~2020-07-12] MED LIST changes: +BACT800T5 PO; +CYMB1CAP5 PO; +LISI10TA22 PO; -LISI10TA4 PO; +MAGICMW SSP; +NEUR100C PO
== END ==
LOC: M LABSMTC 11:39
PROVIDERS: ATTEND Anesthesiology
DX: Z01.812 Encounter for preprocedural laboratory examination (principal); Z20.822 Contact with and (suspected) exposure to COVID-19

== ENCOUNTER 2020-07-17 09:33 | Day surgery (SDC) | payer BC ==
[~2020-07-17] VITALS: Ht 160 cm; Wt 77.0 kg
[~2020-07-17 09:33] MED LIST changes: +LIDOCAINE 2% 100MG/5ML SDV (FOR ANES.) As Ordered ONE; -LISI10TA22 PO; +LISI10TA4 PO; +NS 1,000 ML IV ONE; +SODIUM CHLORIDE 0.9% INJ 10 ML SYR IV SCH; +propofoL 200 MG/20 ML VIAL As Ordered ONE
--- OUTSIDE RECORDS SUMMARY | 2020-07-17 09:39 | CCD ---
Author Author [facility] Address Unknown Phone Unavailable Care Team Providers Care Quality Systems Technician Name Role Phone Isaiah iKm JR, MD Unavailable Unavailable Isaiah Kim JR, MD Unavailable Unavailable Isaiah Kim JR, MD Unavailable Unavailable Isaiah Kim JR, MD Unavailable Unavailable Isaiah Kim JR, MD Unavailable Unavailable Isaiah Kim JR, MD Unavailable Unavailable Isaiah Kim JR, MD Unavailable Unavailable Isaiah Kim JR, MD Unavailable Unavailable Isaiah Kim JR, MD Unavailable Unavailable Isaiah Kim JR, MD Unavailable Unavailable Isiaah Kim JR, MD Unavailable Unavailable Isaiah Kim JR, MD Unavailable Unavailable Isaiah Kim JR, MD Unavailable Unavailable Isaiah Kim JR, MD Unavailable Unavailable Isaiah Kim JR, MD Unavailable Unavailable Isaiah Kim JR, MD Unavailable Unavailable Isaiah Kim JR, MD Unavailable Unavailable Isaiah Kim JR, MD Unavailable Unavailable Isaiah Kim JR, MD Unavailable Unavailable Isaiah Kim JR, MD Unavailable Unavailable Isaiah Kim JR, MD Unavailable Unavailable Isaiah Kim JR, MD Unavailable Unavailable JudyIsaiah cash JR, MD Unavailable Unavailable JudyIsaiah cash JR, MD Unavailable Unavailable Judy JR, J Miguel Angel BARNES Unavailable Unavailable Judy JR, J Miguel Angel BARNES Unavailable Unavailable Judy JR, J Miguel Angel BARNES Unavailable Unavailable Judy JR, J Miguel Angel BARNES Unavailable Unavailable Judy JR, J Miguel Angel BARNES Unavailable Unavailable Judy JR, J Miguel Angel BARNES Unavailable Unavailable Judy JR, J Miguel Angel BARNES Unavailable Unavailable Judy JR, J Miguel Angel BARNES Unavailable Unavailable Judy , J Miguel Angel BARNES Unavailable Unavailable Judy JR, J Miguel Angel BARNES Unavailable Unavailable Judy JR, J Miguel Angel BARNES Unavailable Unavailable Judy JR, J Miguel Angel BARNES Unavailable Unavailable Judy JR, J Miguel Angel BARNES Unavailable Unavailable Judy JR, J Miguel Angel BARNES Unavailable Unavailable Judy JR, J Miguel Angel BARNES Unavailable Unavailable Judy JR, J Miguel Angel BARNES Unavailable Unavailable Judy JR, J Miguel Angel BARNES Unavailable Unavailable Judy JR, J Miguel Angel BARNES Unavailable Unavailable Judy JR, J Miguel Angel BARNES Unavailable Unavailable Judy JR, J Miguel Angel BARNES Unavailable Unavailable JudyIsaiah cash JR, MD Unavailable Unavailable Judy JR, J Miguel Angel BARNES Unavailable Unavailable Judy JR, J Miguel Angel BARNES Unavailable Unavailable JudyIsaiah cash JR, MD Unavailable Unavailable JudyIsaiah cash JR, MD Unavailable Unavailable Isaiah Kim JR, MD Unavailable Unavailable Isaiah Kim JR, MD Unavailable Unavailable Isaiah Kim JR, MD Unavailable Unavailable Isaiah Kim JR, MD Unavailable Unavailable Isaiah Kim JR, MD Unavailable Unavailable Isaiah Kim JR, MD Unavailable Unavailable Iasiah Kim JR, MD Unavailable Unavailable Tosin BURR MD Unavailable Unavailable Gumaro Chacko MD Unavailable Unavailable Fozia Crisostomo MD Unavailable Unavailable Fozia Crisostomo MD Unavailable Unavailable Fozia Crisostomo MD Unavailable Unavailable Fozia Crisostomo MD Unavailable Unavailable Fozia Crisostomo MD Unavailable Unavailable Fozia Crisostomo MD Unavailable Unavailable Fozia Crisostomo MD Unavailable Unavailable Fozia Crisostomo MD Unavailable Unavailable Fozia Crisostomo MD Unavailable Unavailable Fozia Crisostomo MD Unavailable Unavailable Fozia Crisostomo MD Unavailable Unavailable Fozia Crisostomo MD Unavailable Unavailable Fozia Crisostomo MD Unavailable Unavailable Fozia Crisostomo MD Unavailable Unavailable KranthiFozia MD Unavailable Unavailable KranthiFozia MD Unavailable Unavailable KranthiFozia MD Unavailable Unavailable KranthiFozia MD Unavailable Unavailable KranthiFozia MD Unavailable Unavailable KranthiFozia MD Unavailable Unavailable KranthiFozia MD Unavailable Unavailable KranthiFozia MD Unavailable Unavailable KranthiFozia MD Unavailable Unavailable KranthiFozia davenport MD Unavailable Unavailable KranthiFozia MD Unavailable Unavailable KranthiFozia MD Unavailable Unavailable KranthiFozia MD Unavailable Unavailable KranthiFozia MD Unavailable Unavailable KranthiFozia MD Unavailable Unavailable KranthiFozia MD Unavailable Unavailable KranthiFozia MD Unavailable Unavailable KranthiFozia MD Unavailable Unavailable KranthiFozia MD Unavailable Unavailable KranthiFozia anand MD Unavailable Unavailable Fozia Crisostomo MD Unavailable Unavailable Fozia Crisostomo MD Unavailable Unavailable KranthiFozia davenport MD Unavailable Unavailable Fozia Crisostomo MD Unavailable Unavailable Fozia Crisostomo MD Unavailable Unavailable Fozia Crisostomo MD Unavailable Unavailable Fozia Crisostomo MD Unavailable Unavailable Fozia Crisostomo MD Unavailable Unavailable Fozia Crisostomo MD Unavailable Unavailable Fozia Crisostomo MD Unavailable Unavailable Fozia Crisostomo MD Unavailable Unavailable Fzoia Crisostomo MD Unavailable Unavailable Fozia Crisostomo MD Unavailable Unavailable Fozia Crisostomo MD Unavailable Unavailable Fozia Crisostomo MD Unavailable Unavailable Fozia Crisostomo MD Unavailable Unavailable Fozia Crisostomo MD Unavailable Unavailable Fozia Crisostomo MD Unavailable Unavailable Fozia Crisostomo MD Unavailable Unavailable oFzia Crisostomo MD Unavailable Unavailable Fozia Crisostomo MD Unavailable Unavailable Fozia Crisostomo MD Unavailable Unavailable KranthiFozia davenport MD Unavailable Unavailable Fozia Crisostomo MD Unavailable Unavailable Fozia Crisostomo MD Unavailable Unavailable Fozia Crisostomo MD Unavailable Unavailable Fozia Crisostomo MD Unavailable Unavailable Fozia Crisostomo MD Unavailable Unavailable Fozia Crisostomo MD Unavailable Unavailable KranthiFozia davenport MD Unavailable Unavailable Kranthi M Judith MD Unavailable Unavailable Fozia Crisostomo MD Unavailable Unavailable Fozia Crisostomo MD Unavailable Unavailable Fozia Crisostomo MD Unavailable Unavailable Fozia Crisostomo MD Unavailable Unavailable Fozia Crisostomo MD Unavailable Unavailable Fozia Crisostomo MD Unavailable Unavailable Fozai Crisostomo MD Unavailable Unavailable Fozia Crisostomo MD Unavailable Unavailable Fozia Crisostomo MD Unavailable Unavailable Fozia Crisostomo MD Unavailable Unavailable Fozia Crisostomo MD Unavailable Unavailable Fozia Crisostomo MD Unavailable Unavailable Fozia Crisostomo MD Unavailable Unavailable Ankush Ocampo MD Unavailable Unavailable JAGDEEP ZAMAN MD Unavailable Unavailable JAGDEEP ZMAAN MD Unavailable Unavailable JAGDEEP ZAMAN MD Unavailable Unavailable JAGDEEP ZAMAN MD Unavailable Unavailable JAGDEEP ZAMAN MD Unavailable Unavailable JAGDEEP ZAMAN MD Unavailable Unavailable JAGDEEP ZAMAN MD Unavailable Unavailable JAGDEEP ZAMAN MD Unavailable Unavailable JAGDEEP ZAMNA MD Unavailable Unavailable JAGDEEP ZAMAN MD Unavailable Unavailable JAGDEEP ZAMAN MD Unavailable Unavailable JAGDEEP ZAMAN MD Unavailable Unavailable Soldier, F Day M.D. Unavailable Unavailable Soldier, F Day M.D. Unavailable Unavailable Soldier, F Day M.D. Unavailable Unavailable Soldier, F Day M.D. Unavailable Unavailable Soldier, F Day M.D. Unavailable Unavailable Soldier, F Day M.D. Unavailable Unavailable Jarrett, Madelaine RACEBOOK WRITER Unavailable Unavailable Jarrett, Madelaine RACEBOOK WRITER Unavailable Unavailable Jarrett, Madelaine RACEBOOK WRITER Unavailable Unavailable Jarrett, Madelaine RACEBOOK WRITER Unavailable Unavailable Jarrett, Madelaine RACEBOOK WRITER Unavailable Unavailable Jarrett, Madelaine RACEBOOK WRITER Unavailable Unavailable Jarrett, Madelaine RACEBOOK WRITER Unavailable Unavailable Jarrett, Madelaine RACEBOOK WRITER Unavailable Unavailable Jarrett, Madelaine RACEBOOK WRITER Unavailable Unavailable Jarrett, Madelaine RACEBOOK WRITER Unavailable Unavailable Jarrett, Madelaine RACEBOOK WRITER Unavailable Unavailable Ajrrett, Madelaine RACEBOOK WRITER Unavailable Unavailable Jarrett, Madelaine RACEBOOK WRITER Unavailable Unavailable Jarrett, Madelaine RACEBOOK WRITER Unavailable Unavailable Jarrett, Madelaine RACEBOOK WRITER Unavailable Unavailable Jarrett, Madelaine RACEBOOK WRITER Unavailable Unavailable Jarrett, Madelaine RACEBOOK WRITER Unavailable Unavailable Jarrett, Madelaine RACEBOOK WRITER Unavailable Unavailable Jarrett, Madelaine RACEBOOK WRITER Unavailable Unavailable Jarrett, Madelaine RACEBOOK WRITER Unavailable Unavailable Jarrett, Madelaine RACEBOOK WRITER Unavailable Unavailable Jarrett, Madelaine RACEBOOK WRITER Unavailable Unavailable Jarrett, Madelaine RACEBOOK WRITER Unavailable Unavailable Jarrett, Madelaine RACEBOOK WRITER Unavailable Unavailable Jarrett, Madelaine RACEBOOK WRITER Unavailable Unavailable Jarrett, Madelaine RACEBOOK WRITER Unavailable Unavailable Jarrett, Madelaine RACEBOOK WRITER Unavailable Unavailable Jarrett, Madelaine RACEBOOK WRITER Unavailable Unavailable Jarrett, Madelaine RACEBOOK WRITER Unavailable Unavailable Jarrett, Madelaine RACEBOOK WRITER Unavailable Unavailable Jarrett, Madelaine RACEBOOK WRITER Unavailable Unavailable Jarrett, Madelaine RACEBOOK WRITER Unavailable Unavailable Jarrett, Madelaine RACEBOOK WRITER Unavailable Unavailable Jarrett, Madelaine RACEBOOK WRITER Unavailable Unavailable Jarrett, Madelaine RACEBOOK WRITER Unavailable Unavailable Jarrett, Madelaine RACEBOOK WRITER Unavailable Unavailable Jarrett, Madelaine RACEBOOK WRITER Unavailable Unavailable Jarrett, Madelaine RACEBOOK WRITER Unavailable Unavailable Jarrett, Madelaine RACEBOOK WRITER Unavailable Unavailable Jarrett, Madelaine RACEBOOK WRITER Unavailable Unavailable Jarrett, Madelaine RACEBOOK WRITER Unavailable Unavailable Jarrett, Madelaine RACEBOOK WRITER Unavailable Unavailable Jarrett, Madelaine RACEBOOK WRITER Unavailable Unavailable Jarrett, Madelaine RACEBOOK WRITER Unavailable Unavailable Jarrett, Madelaine RACEBOOK WRITER Unavailable Unavailable Jarrett, Madelaine RACEBOOK WRITER Unavailable Unavailable Jarrett, Madelaine RACEBOOK WRITER Unavailable Unavailable Jarrett, Madelaine RACEBOOK WRITER Unavailable Unavailable Jarrett, Madelaine RACEBOOK WRITER Unavailable Unavailable Jarrett, Madelaine RACEBOOK WRITER Unavailable Unavailable Jarrett, Madelaine RACEBOOK WRITER Unavailable Unavailable Jarrett, Madelaine RACEBOOK WRITER Unavailable Unavailable Jarrett, Madelaine RACEBOOK WRITER Unavailable Unavailable Jarrett, Madelaine RACEBOOK WRITER Unavailable Unavailable Jarrett, Madelaine RACEBOOK WRITER Unavailable Unavailable Jarrett, Madelaine RACEBOOK WRITER Unavailable Unavailable Jarrett, Madelaine RACEBOOK WRITER Unavailable Unavailable Jarrett, Madelaine RACEBOOK WRITER Unavailable Unavailable Jarrett, Madelaine RACEBOOK WRITER Unavailable Unavailable Jarrett, Madelaine RACEBOOK WRITER Unavailable Unavailable Jarrett, Madelaine RACEBOOK WRITER Unavailable Unavailable Jarrett, Madelaine RACEBOOK WRITER Unavailable Unavailable Jarrett, Madelaine RACEBOOK WRITER Unavailable Unavailable Jarrett, Madelaine RACEBOOK WRITER Unavailable Unavailable Jarrett, Madelaine RACEBOOK WRITER Unavailable Unavailable Jarrett, Madelaine RACEBOOK WRITER Unavailable Unavailable Jarrett, Madelaine RACEBOOK WRITER Unavailable Unavailable Jarrett, Madelaine RACEBOOK WRITER Unavailable Unavailable Jarrett, Madelaine RACEBOOK WRITER Unavailable Unavailable Jarrett, Madelaine RACEBOOK WRITER Unavailable Unavailable Jarrett, Madelaine RACEBOOK WRITER Unavailable Unavailable Jarrett, Madelaine RACEBOOK WRITER Unavailable Unavailable Jarrett, Madelaine RACEBOOK WRITER Unavailable Unavailable Jarrett, Madelaine RACEBOOK WRITER Unavailable Unavailable Jarrett, Madelaine RACEBOOK WRITER Unavailable Unavailable Jarrett, Madelaine RACEBOOK WRITER Unavailable Unavailable Jarrett, Madelaine RACEBOOK WRITER Unavailable Unavailable Jarrett, Madelaine RACEBOOK WRITER Unavailable Unavailable Jarrett, Madelaine RACEBOOK WRITER Unavailable Unavailable Jarrett, Madelaine RACEBOOK WRITER Unavailable Unavailable Jarrett, Madelaine RACEBOOK WRITER Unavailable Unavailable Jarrett, Madelaine RACEBOOK WRITER Unavailable Unavailable Jarrett, Madelaine RACEBOOK WRITER Unavailable Unavailable Jarrett, Madelaine RACEBOOK WRITER Unavailable Unavailable Jarrett, Madelaine RACEBOOK WRITER Unavailable Unavailable Jarrett, Madelaine RACEBOOK WRITER Unavailable Unavailable Jarrett, Madelaine RACEBOOK WRITER Unavailable Unavailable Jarrett, Madelaine RACEBOOK WRITER Unavailable Unavailable Jarrett, Madelaine RACEBOOK WRITER Unavailable Unavailable Jarrett, Madelaine RACEBOOK WRITER Unavailable Unavailable Jarrett, Madelaine RACEBOOK WRITER Unavailable Unavailable Jarrett, Madelaine RACEBOOK WRITER Unavailable Unavailable Jarrett, Mdaelaine RACEBOOK WRITER Unavailable Unavailable Jarrett, Madelaine RACEBOOK WRITER Unavailable Unavailable Jarrett, Madelaine RACEBOOK WRITER Unavailable Unavailable Jarrett, Madelaine RACEBOOK WRITER Unavailable Unavailable Jarrett, Maedlaine RACEBOOK WRITER Unavailable Unavailable Jarrett, Madelaine RACEBOOK WRITER Unavailable Unavailable Jarrett, Madelaine RACEBOOK WRITER Unavailable Unavailable Jarrett, Madelaine RACEBOOK WRITER Unavailable Unavailable Jarrett, Madelaine RACEBOOK WRITER Unavailable Unavailable Jarrett, Madelaine RACEBOOK WRITER Unavailable Unavailable Jarrett, Madelaine RACEBOOK WRITER Unavailable Unavailable Jarrett, Madelaine RACEBOOK WRITER Unavailable Unavailable Jarrett, Madelaine RACEBOOK WRITER Unavailable Unavailable Jarrett, Madelaine RACEBOOK WRITER Unavailable Unavailable Re-disclosure Warning The records that you are about to access may contain information from federally-assisted alcohol or drug abuse programs. If such information is present, then the following federally mandated warning applies: This information has been disclosed to you from records protected by federal confidentiality rules (42 CFR part 2). The federal rules prohibit you from making any further disclosure of this information unless further disclosure is expressly permitted by the written consent of the person to whom it pertains or as otherwise permitted by 42 CFR part 2. A general authorization for the release of medical or other information is NOT sufficient for this purpose. The Federal rules restrict any use of the information to criminally investigate or prosecute any alcohol or drug abuse patient.The records that you are about to access may contain highly sensitive health information, the redisclosure of which is protected by Article 27-F of the [facility] Public Health law. If you continue you may have access to information: Regarding HIV / AIDS; Provided by facilities licensed or operated by the [facility] Office of Mental Health; or Provided by the [facility] Office for People With Developmental Disabilities. If such information is present, then the following [facility] mandated warning applies: This information has been disclosed to you from confidential records which are protected by state law. State law prohibits you from making any further disclosure of this information without the specific written consent of the person to whom it pertains, or as otherwise permitted by law. Any unauthorized further disclosure in violation of state law may result in a fine or group home sentence or both. A general authorization for the release of medical or other information is NOT sufficient authorization for further disc losure. Allergies and Adverse Reactions Type Description Substance Reaction Status Data Source(s ) Drug allergy No Known Drug Allergies No Known Drug Allergies [facility] Family History Family Member Name Family Member Gender Family Member Status Date o f Status Description Data Source(s) Unknown Female Diagnosis 09/15/2017 12:00:00 AM EDT [facility] ([facility]) Unknown Female Problem [facility] ([facility]) Unknown Female Problem [facility] ([facility]) Unknown Female Problem [facility] ([facility]) Unknown Female Problem [facility] Encounters Encounter Providers Location Date Indications Data Source(s ) Emergency Attender: Gumaro Chacko MD 02:50:00 PM EDT - 04/12/2020 05:52:00 PM EDT BLOOD IN STOOL [facility] l BLOOD IN STOOL Patient discharged. Outpatient Attender: GERONIMO BURR MD 02/28/2020 10:06:0 0 AM EDT W/RESTAGING COLON CANCER [facility] W/RESTAGING COLON CANCER Outpatient Referrer: Madelaine MANE 12/04/2019 06:13:0 0 AM EDT [facility] Outpatient Attender: Cassie El M.D. 11/05/2019 10:09 :00 AM EDT COLON CANCER STAGING [facility] COLON CANCER STAGING Emergency Attender: Ankush Ocampo MD 0402/2020 03:57:00 PM EDT - 09/27/2019 05:34:00 PM EDT [facility] Patient [facility]. Outpatient Attender: Madelaine Harman 0 09/27/2019 02:00:00 PM EDT [facility] ([facility] ) Outpatient Referrer: Madelaine MANE 09/25/2019 05:26:0 0 AM EDT [facility] Outpatient Attender: Miguel Angel Landa/Mabel/Johnny/Graciela cole 08/20/2019 12:30:00 PM EST [facility] ([facility] ) Emergency Attender: JAGDEEP ZAMAN MDConsultant: Judith Crisostomo MD 07/27/2019 04:00:00 PM EST - 07/27/2019 05:21:00 PM EST [facility] Patient discharged. Outpatient Referrer: Madelaine MANE 07/17/2019 08:17:0 0 PM EST [facility] Outpatient Attender: Madelaine Harman 0 07/17/2019 08:00:00 AM EST MED[facility] ([facility] ) Outpatient Referrer: Madelaine MANE 07/11/2019 02:58:0 0 PM EST [facility] Outpatient Referrer: Madelaine MANE 07/03/2019 08:10:0 0 PM EST [facility] [address] [place] [phone] 06/08/2019 12:00:00 AM EST eCW1 ([facility]) [facility] [address] [place] [phone] 06/05/2019 12:00:00 AM EST eCW1 ([facility]) Medications Medication Brand Name Start Date Product Form Dose Route Admi nistrative Instructions Pharmacy Instructions Status Indications Reaction Description Data Source(s) canagliflozin 100 MG Oral Tablet Canagliflozin (Invoka na) 100 mg tablet Canagliflozin (Invokana) 100 mg tablet 09/27/2019 04:12:12 PM EDT 100 MG [facility] Vit B Complex 100 Combo No.2 09/27/2019 04:12:12 PM EDT 1 T AB [facility] 24 HR venlafaxine 150 MG Extended Release Oral Tablet Venlaf axine Venlafaxine 09/27/2019 04:12:12 PM EDT 150 MG [facility] Vitamin D3-Tocophersolan 09/27/2019 04:12:12 PM EDT 15 ML [facility] Vitamin D3-Tocophersolan 09/27/2019 04:12:12 PM EDT 15 ML [facility] Lisinopril 10 MG Oral Tablet Lisinopril 09/27/2019 04:12:12 PM EDT 10 MG [facility] Methylphenidate Hcl 09/27/2019 04:12:12 PM EDT 30 MG [facility] Lisinopril 10 MG Oral Tablet Lisinopril 09/27/2019 04:12:12 PM EDT 10 MG [facility] Simvastatin 10 MG Oral Tablet Simvastatin 09/27/2019 04:12:12 PM EDT 10 MG [facility] Vit B Complex 100 Combo No.2 (B-100 Complex) 100 mg Tablet E xtended Release 09/27/2019 04:12:12 PM EDT 1 TAB [facility] 24 HR venlafaxine 150 MG Extended Release Oral Tablet Venlaf axine Venlafaxine 09/27/2019 04:12:12 PM EDT 150 MG [facility] 24 HR Metformin hydrochloride 500 MG Extended Release Oral T ablet Metformin 09/27/2019 04:12:12 PM EDT 1000 MG [facility] Simvastatin 10 MG Oral Tablet Simvastatin 09/27/2019 04:12:12 PM EDT 10 MG [facility] Methylphenidate Hcl 09/27/2019 04:12:12 PM EDT 30 MG [facility] canagliflozin 100 MG Oral Tablet Canagliflozin Canagliflozin 09/27/2019 04:12:12 PM EDT 100 MG [facility] 24 HR Metformin hydrochloride 500 MG Extended Release Oral T ablet Metformin 09/27/2019 04:12:12 PM EDT 1000 MG [facility] Cholecalciferol 100 UNT/ML Oral Solution Vitamin D3 Immune H ealth 09/27/2019 12:00:00 AM EDT active M EDENT ([facility]) Contour Next Blood Glucose Test 09/10/2019 12:00:00 AM EDT active MED[facility] ([facility] ) Contour Next Blood Glucose Test 09/05/2019 12:00:00 AM EDT completed [facility] ([facility]) Fluconazole 150 MG Oral Tablet [Diflucan] Diflucan 07/20/2019 1 2:00:00 AM EST ORAL active [facility] ([facility]) Dexameth 07/17/2019 12:00:00 AM EST active [facility] ([facility]) Oxaliplatin 07/17/2019 12:00:00 AM EST active [facility] ([facility]) Leucovorin 07/17/2019 12:00:00 AM EST active [facility] ([facility]) Fluorouracil 07/17/2019 12:00:00 AM EST activ e [facility] ([facility]) Onetouch Ultra 2 05/28/2019 12:00:00 AM EST a ctive [facility] ([facility]) Insurance Providers Payer name Policy type / Coverage type Policy ID Covered libertarian ID Covered libertarian's relationship to darnell Policy Darnell Plan Information [place] 200/700 [id number] SP [id number] [place] [id number] SP [id number] [place] PPO 302/307 [id number] SP [id number] [place]CELL[place] BCBS B [id number] S [id number] [place] 200/700 [id number] SP [id number] [place] [id number] SP [id number] BLUE CROSS BLUE SHIELD -O/P [id number] EXCELLUS C [id number] Self [id number] EXCELLUS BCBS B [id number] S B [id number] [place] PPO 302/307 [id number] SP [id number] [employer] [place] [id number] BLUE [employer]OSS BLUE SHIELD -PHYSICIAN [id number] ANSI-Commercial [id number] ANSI-Commercial [id number] BS [place] Commercial [id number] Self [id number] [facility] [id number] Self [id number] [facility] [id number] Self [id number] [facility] Blue Ppo Health Maintenance Organization (HMO) [id number] Family Dependent [id number] BS [place] Trad/MX Medigap Part B [id number] [facility] [id number] Self [id number] [facility] [id number] Self [id number] [facility] [id number] Self [id number] [facility] [id number] Self [id number] [facility] [id number] Self [id number] [facility] [id number] Self [id number] [employer] PPO 302/307 [id number] SP [id number] [facility] [id number] Self [id number] [facility] [id number] 00 Self [id number] [facility] [id number] Self [id number] ANSI-Commercial [id number] [facility] [id number] Self [id number] [facility] [id number] 00 Self [id number] [facility] [id number] Self [id number] [facility] [id number] Self [id number] [facility] [id number] 00 Self [id number] [facility] [id number] Self [id number] [facility] [id number] Self [id number] [facility] [id number] Self [id number] [facility] [id number] Self [id number] ANSI-Commercial [id number] ANSI-Commercial [id number] ANS-Commercial [id number] [facility] [id number] Self [id number] [facility] [id number] 00 Self [id number] 00 [facility] [id number] Self [id number] [facility] [id number] Self [id number] [facility] [id number] 00 Self [id number] 00 [facility] [id number] Self [id number] [facility] [id number] Self [id number] [facility] [id number] 00 Self [id number] 00 [facility] [id number] Self [id number] [facility] 200 Self 20 0 [facility] 200 Self 20 0 [facility] 200 Self 20 0 [employer] Ppo Health Maintenance Organization (HMO) 802 Family Dependent 802 BS [place] Tr[employer] Commercial 802 802 BS [place] Medigap Part B Family Dependent [place] Commercial Self [place] PPO 302/307 [id number] 2 [id number] [employer] BCBS P [id number] P [id number] Problems, Conditions, and Diagnoses Code Display Name Description Problem Type Effective Dates Data Source(s) [id number] Adverse effect of benzodiazepines, initi al encounter Adverse effect of benzodiazepines, initial encounter Diagnosis 07/27/2019 04:00:00 PM ES T [facility] [id number] Poisoning by benzodiazepines, undetermin ed, initial encounter Poisoning by benzodiazepines, undetermined, initial encounter Diagnosis 04:00:00 PM EST [facility] Surgeries/Procedures Procedure Description Date Indications Data Source(s) Computed tomography of abdomen and pelvis with contrast (pro cedure) 04/12/2020 03:07:00 PM EDT [facility] l Blood Culture 04/12/2020 12:00:00 AM EDT [facility] Computed tomography of abdomen and pelvis with contrast (pro cedure) 02/28/2020 12:36:00 PM EDT [facility] Computerized axial tomography of thorax with contrast (proce dure) 02/28/2020 12:35:00 PM EDT [facility] Computed tomography of abdomen and pelvis with contrast (pro cedure) 11/05/2019 01:03:00 PM EDT [facility] Computerized axial tomography of thorax with contrast (proce dure) 11/05/2019 01:03:00 PM EDT [facility] Plain chest X-ray (procedure) 09/27/2019 04:27:00 PM E [facility] Plain chest X-ray (procedure) 09/27/2019 04:27:00 PM E [facility] Results ID Date Data Source [id number] 07/12/2020 11:30:00 AM EST [facility] Name Value Range Interpretation Code Description Data Esme rce(s) Supporting Document(s) SARS coronavirus [address] [facility] This lab was ordered by [facility] and reported by [facility]. ID Date Data Source [id number] 04/12/2020 04:45:00 PM EDT [facility] [address], [place] [address] [phone] NAME SEX PT STATUS ACCOUNT NUMBER BROOKS YAO [facility] ER [id number] ORDERING PHYSICIAN LOCATION MEDICAL RECORD NO. Gumaro Chacko MD ER [id number] ATTENDING PHYSICIAN DATE OF DATE OF EXAM/TIME Judith Crisostomo MD 1960 04/12/201506 TYPE / EXAM CT Abd/pel w/ contrast REASON FOR EXAM Rectal bleeding; Hx colon cancer and resection Clinical History/Indication for Exam: Rectal bleeding; Hx colon cancer and resection CT ABDOMEN AND PELVIS WITH INTRAVENOUS CONTRAST INDICATION: Rectal bleeding; Hx colon cancer and resection TECHNIQUE: Axial computed tomography images of the abdomen and pelvis with intravenous contrast. Sagittal and coronal reformatted images were created and reviewed. This CT exam was performed using one or more of the following dose reduction techniques: automated exposure control, adjustment of the mA and/or kV according to patient size, and/or use of iterative reconstruction technique. COMPARISON: CT abdomen and pelvis 02/28/2020. FINDINGS: Lung bases: Clear. ABDOMEN: Liver: Subcentimeter hepatic hypodensities unchanged compared to 02/28/2020. Some of the lesions are small are or with decreased attenuation compared to earlier CT 08/30/2019. Gallbladder and bile ducts: Few small calcified gallstones within the gallbladder. No ductal dilation. Pancreas: Unremarkable. No mass. No ductal dilation. Spleen: The spleen is enlarged, 15.5 cm. Adrenals: Unremarkable. No mass. Kidneys and ureters: Mild right renal cortical scarring. No hydronephrosis. Stomach and bowel: Status post right hemicolectomy. No obstruction. PELVIS: Appendix: See above. Bladder: Unremarkable. No mass. Reproductive: Unremarkable as visualized. ABDOMEN and PELVIS: Intraperitoneal space: Unremarkable. No free air. No significant fluid collection. Bones/joints: No acute fracture. No dislocation. Soft tissues: Unremarkable. Vasculature: Unremarkable. No abdominal aortic aneurysm. Lymph nodes: Unremarkable. No enlarged lymph nodes. IMPRESSION: 1. Status post right hemicolectomy. Subcentimeter hepatic hypodensities as above, some of which are decreased in size and attenuation compared to earliest available CT 08/30/2019, suggesting that at least some of the lesions may represent treated metastatic foci. Attention on follow-up recommended. 2. Splenomegaly. 3. Cholelithiasis. Automatic exposure control was used as a dose lowering technique. Radiation Dose: CTDI is 18.24 mGy. DLP is 820.14 mGy-cm. Contrast Type: Isovue 300. Contrast Volume: 100 mL REPORT SIGNATURE ON FILE 04/12/2020 (16:45 Eastern Time ) Signed by: Obed Espinoza M.D. Reported By Obed Espinoza MD on 04/12/201644 Signed By Obed Espinoza MD on 04/12/201644 Date Time CC: Obed Espinoza MD; Judith Crisostomo MD Techn: EBEBR Trans Dt/Tm: Trans by: DT Prt Dt/Tm: 3160-0704: Total DLP = 821.00 mGy-cm 9962-1035: Total Radiation Dose = 12.3150 mSv Lifetime Dose: 26.2110 mSv Name Value Range Interpretation Code Description Data Esme rce(s) Supporting Document(s) ID Date Data Source [id number] 04/12/2020 03:09:00 PM EDT [facility] ED Physician Documentation NAME: BROOKS AYO : 1960 AGE: 59 MR#: [id number] SERVICE DATE: 04/12/[address]: Gumaro Chacko MD PRIMARY CARE DR: Judith Crisostomo MD ROOM#: HPI (Adult, General) General Chief Complaint: GI Stated Complaint: BLOOD IN STOOL Resident LT, travel outisde home, exposure to hot tubs:: No Time Seen by Provider: 04/12/20 14:53 Source: patient Exam Limitations: no limitations History of Present Illness Narrative: patient has a history of colon cancer and colon resection in April of 2019, and has had some blood in her stools for about a week to 10 days; denies any abdominal pain, nausea or vomiting History of Present Illness Timing/Duration: constant Place Injury/Event Occurred (if applicable): home Past Medical History Past Medical History: Nursing Past Medical History Has Been Reviewed Allergies/Home Meds Allergies Allergy/AdvReac Type Severity Reaction Status Date / Time No Known Drug Allergies Allergy Verif ied 04/12/20 15:39 Home Medications Medication Instructions Recorded Confirmed Last Taken Type B-100 Complex 1 tab PO DAILY 09/27/19 09/27/19 09/27/19 History Invokana 100 mg PO DAILY 09/27/19 09/27/19 Unknown History lisinopril 10 mg PO HS 09/27/19 09/27/19 09/26/19 History metformin 1,000 mg PO BID 09/27/19 09/27/19 09/27/19 History methylphenidate HCl 30 mg PO DAILY PRN 09/27/19 09/27/19 Unknown History simvastatin 10 mg PO HS 09/27/19 09/27/19 09/26/19 History venlafaxine 150 mg PO BID 09/27/19 09/27/19 09/27/19 History vitamin D3-tocophersolan 15 ml PO DAILY 09/27/19 09/27/19 09/27/19 History PMH (from Triage) Patient Medical History PMH Reviewed/Updated as Needed: Yes PMH/PSH from Triage: Medical History (Updated 09/27/19 @ 16:10 by Bambi Mckeon) Colon cancer (Medical) C18.9 Surgical History (Updated 09/27/19 @ 16:10 by Bambi Mckeon) History of colon resection (Surgical) Z90.49 Hx Drug Resistant Infections Hx Other Resistant Infection?: No Isolation: Reverse (Standard) Hx Recent Travel Nurse screening for coronavirus: Recent Travel outside the No country (where) Has patient experienced No coronavirus symptoms Social History Are you in a relationship with/Does anyone hit you, yell/swear at you, steal from you?: No Substance Use Smoking Status: Former smoker Vaccination History Hx/Date of Tetanus, Diphtheria Vaccination: No Hx/Date of Influenza Vaccination: Yes Hx/Date of Pneumococcal Vaccination: Yes PFSH Medical History (Updated 04/12/20 @ 17:18 by Gumaro Chacko MD) Colon cancer Surgical History (Updated 09/27/19 @ 16:10 by Bambi Mckeon) History of colon resection Social History Does the Patient have a Healthcare Proxy: No Does Patient have a DNR?: No Does Patient have a Living Will?: No Smoking Status: Never smoker ROS Review of Systems Constitutional: Denies fever, chills, weakness and malaise Eyes: Denies vision change ENT: Denies mouth pain, nasal pain, nasal discharge, nasal congestion, post nasal drip, throat pain and hoarseness Respiratory: Denies cough and SOB Cardiovascular: Denies chest pain and palpitations Gastrointestinal: Reports hematochezia; Denies nausea, vomiting, abdominal pain and diarrhea Genitourinary-Female: Denies dysuria, frequency and urgency Musculoskeletal: Denies neck pain and shoulder pain Neurologic: Denies weakness and headache Physical Exam General Limitations: no limitations General appearance: alert and in no apparent distress Head Head exam: Present atraumatic, normocephalic and normal inspection Eye Eye exam: Present normal apperance and EOMI ENT ENT exam: Present normal exam, normal orophraynx and mucous membranes moist Neck Neck exam: Present normal inspection, full ROM and supple Respiratory Respiratory exam: Present normal lung sounds bilaterally Cardiovascular Cardiovascular Exam: Present regular rate and normal rhythm GI/Abdominal GI/Abdominal exam: Present soft and normal bowel sounds; Absent tenderness Rectal Rectal exam: Present bloody stool Extremities Exam Extremities exam: Present normal inspection and full ROM; Absent tenderness Back Exam Back exam: Present normal inspection and full ROM; Absent tenderness Neurological Exam Neurological exam: Present alert, oriented X3, normal gait and other (speech normal) Psychiatric Psychiatric exam: Present normal affect and normal mood Skin Skin exam: Present warm, dry, intact and normal color Vital Signs Vital Signs: Vital Signs 04/12/20 15:12 Temperature 98.6 F Pulse Rate 74 Respiratory Rate 16 Blood Pressure 138/76 O2 Sat by Pulse Oximetry 99 MDM (comp rehensive) Lab Data Labs: 04/12/20 13:25 04/12/20 13:25 Laboratory Results Last 24 hours 04/12/20 13:25: WBC 6.6, RBC 3.47 L, Hgb 11.6, Hct 35.8 L, MCV 103.2 H, MCH 33.4 H, MCHC 32.4 L, RDW15, Plt Count 73 L, MPV 8.8 L, Immature Gran % (Auto) 1.1, Neut % (Auto) 63.7, Lymph % (Auto) 18.2, [place] % (Auto) 15.8 H, Eos % (Auto) 0.3, Baso % (Auto) 0.9, Lymph # (Auto) 1.2, Abs Immat Gran (auto)0.1, Add Manual Diff No, Absolute Neutrophils 4.2, Monocytes # 1.0, Absolute Eosinophils 0.0, Absolute Basophils 0.1 04/12/20 13:25: Sodium 139, Potassium 4.0, Chloride 104, Carbon Dioxide 30, Anion Gap 9, BUN 10, Creatinine 0.7, GFR Calculation Greater than 60, Glucose 178 H, Calcium 8.7, Total Bilirubin 0.3, AST 40 H, ALT 50 H, Alkaline Phosphatase 146 H, Troponin I Less than 0.015, Serum Total Protein 7.2,Albumin 3.1 L, Amylase 74, Lipase 160 04/12/20 13:25: Lactic Acid 1.0 04/12/20 13:25: PT 11.4, INR 1.1, PTT ([place]) 25.0 Radiology Data Radiology impressions: CT Abdomen and Pelvis; IMPRESSION: 1. Status post right hemicolectomy. Subcentimeter hepatic hypodensities as above, some of which are decreased in size and attenuation compared to earliest available CT 08/30/2019, suggesting that at least some of the lesions may represent treated metastatic foci. Attention on follow-up recommended. 2. Splenomegaly. 3. Cholelithiasis. Medical Decision Making Free Text/Narative:: [facility], where the patient is seen by her Oncologists, Dr. Burr and Dr. Rea, was called, and the patient, her lab results and CT results were discussed with Dr. Rea. He said that the patient should follow up with their Office on Tuesday to schedule a colonoscopy. I told the patient this and she said that she would follow up withDr. Burr on Tuesday. Discharge Plan Admission/Discharge Dx Primary DC Diagnosis: stable lower GI bleed ED Provider: Gumaro Chacko ED Status: Registered Time Seen by Provider: 04/12/20 14:53 Triaged At: 04/12/20 14:51 Discharge Detail Disposition: Home, Self-Care Med Rec New Prescriptions: Continued simvastatin 10 mg tablet 10 mg PO HS RF: 0 lisinopril 10 mg tablet 10 mg PO HS RF: 0 metformin 500 mg Tablet Extended Release 24 Hr 1,000 mg PO BID RF: 0 methylphenidate HCl 20 mg capsule, ER biphasic 30-70 30 mg PO DAILY PRN (Reason: ADHD) RF: 0 venlafaxine 150 mg Tablet Extended Release 24hr 150 mg PO BID RF: 0 B-100 Complex 100 mg Tablet Extended Release 1 tab PO DAILY RF: 0 Invokana 100 mg tablet 100 mg PO DAILY RF: 0 vitamin D3- tocophersolan 10 mcg-4 mg/ 0.2 mL Drops 15 ml PO DAILY RF: 0 Discharge Education Printouts: Gastrointestinal Bleeding (ED) Discharge Problem: Acute lower GI bleeding Follow Up Care/Instructions Diet/Activity/Wound Care..: Follow up with your Oncologist at the [facility] on Tuesday04/14/10; return to the ED as needed *Discharge Patient* Discharge Orders: Discharge Order (Routine); Ordered 04/12/20 Ordered By: Gumaro Chacko Interventions Interventions: ED GI Gastrointestinal Last Done: 04/12/20 15:36 Report Signers: <Electronically signed by Gumaro Chacko MD> Gumaro Chacko MD 04/12/20 1719 Gumaro Chacko MD SIGNATURE DA Report Cosigners: D: NATALIYA 04/12/20 1509 T: NATALIYA 04/12/20 1509 CC: Judith Crisostomo MD Name Value Range Interpretation Code Description Data Esme rce(s) Supporting Document(s) ID Date Data Source [id number] 04/12/2020 03:30:00 PM EDT [facility] Special Instructions: Lab may order repe at test if initial test elevatedPhysician If elevated, reflex second test in 4-6 hrs Name Value Range Interpretation Code Description Data Esme rce(s) Supporting Document(s) Leukocytes [#/volume] in Blood by Automated count 6.6 10*3/uL 4.45-10 .71 [facility] Erythrocytes [#/volume] in Blood by Automated count 3.47 10*6/uL 4.20-5.40 Below low normal [facility] Hemoglobin [Moles/volume] in Blood 11.6 g/dL 10.7-15.4 N [facility] Hematocrit [Volume Fraction] of Blood by Automated count 35.8 % 37-47 Below low normal [facility] Erythrocyte mean corpuscular volume [Ent itic volume] in Cord blood by Automated count 103.2 fL 80-96 Above high normal [facility] Erythrocyte mean corpuscular hemoglobin [Entitic mass] by Automated count 33.4 pg 27-[address] [facility] spital Erythrocyte mean corpuscular hemoglobin concentration [Mass/volume] in Cord blood 32.4 g/dL 33-37 Below low normal [facility] Erythrocyte distribution width [Entitic volume] by Automated count 15 % 11-15 N [facility] Platelets [#/volume] in Blood by Automated count 73 10*3/uL 130-472 Below low normal [facility] Platelet mean volume [Entitic volume] in Blood 8.8 fL 9.1-13. 1 Below low normal [facility] Neutrophils/100 leukocytes in Blood by Automated count 63.7 % 41- 77 N [facility] Neutrophils [#/volume] in Blood by Automated count 4.2 U 1.7-7.6 N [facility] Lymphocytes/100 leukocytes in Blood by Automated count 18.2 % 14- 46 N [facility] Lymphocytes [#/volume] in Blood by Automated count 1.2 U 0.6-4.6 N [facility] Monocytes/100 leukocytes in Blood by Automated count 15.8 % 4-12 Above high normal [facility] Monocytes [#/volume] in Blood by Automated count 1.0 U 0.2-1.2 N [facility] Eosinophils/100 leukocytes in Blood by Automated count 0.3 % 0-7 N [facility] Eosinophils [#/volume] in Blood by Automated count 0.0 U 0.0-0.5 N [facility] Basophils/100 leukocytes in Blood by Automated count 0.9 % 0.4-1 .3 N [facility] Basophils [#/volume] in Blood by Automated count 0.1 U 0.0-0.2 N [facility] NUCLEATED RED BLOOD CELL 0 % [facility] NUCLEATED RED BLOOD CELL# [address] [facility] Immature granulocytes [Presence] in Blood by Automated count 0-2 N [facility] Immature granulocytes [#/volume] in Blood by Automated count 0.1 U 0-0.1 N [facility] Manual Differential panel - Blood NO [facility] ID Date Data Source [id number] 04/12/2020 03:52:00 PM EDT [facility] Special Instructions: Lab may order repe at test if initial test elevatedPhysician If elevated, reflex second test in 4-6 hrs Name Value Range Interpretation Code Description Data Esme rce(s) Supporting Document(s) Urea nitrogen [Mass/volume] in Serum or Plasma 10 mg/dL 9-23 N [facility] Sodium [Moles/volume] in Serum or Plasma 139 mmol/L 132-146 N [facility] Potassium [Moles/volume] in Serum or Plasma 4.0 mmol/L 3.5-5.5 N [facility] Chloride [Moles/volume] in Serum or Plasma 104 mmol/L 99-109 N [facility] Carbon dioxide, total [Moles/volume] in Serum or Plasma 30 mmol/L 20 -31 N [facility] Anion gap in Serum or Plasma 9 mmol/L 8-16 N [facility] Glucose [Mass/volume] in Serum or Plasma 178 mg/dL 74-106 Above high normal [facility] Creatinine 0.7 mg/dL 0.5-1.1 N [facility] Glomerular filtration rate/1.73 sq M.pre dicted [Volume Rate/Area] in Serum or Plasma Greater Than 60 ABOVE 60 [facility] Alanine aminotransferase [Enzymatic acti vity/volume] in Serum or Plasma by With P-5'-P 50 U/L 10-49 Above high normal [facility] Aspartate aminotransferase [Enzymatic ac tivity/volume] in Serum or Plasma by With P-5'-P 40 U/L 0-33 Above high normal [facility] Alkaline phosphatase [Enzymatic activity/volume] in Serum or Plasma 146 U/L 45-129 Above high normal [facility] Calcium [Mass/volume] in Serum or Plasma 8.7 mg/dL 8.5-10.1 [facility] Bilirubin.total [Mass/volume] in Serum or Plasma 0.3 mg/dL 0.3-1.2 [facility] Albumin [Mass/volume] in Serum or Plasma by Bromocresol purple (BCP) dye binding method 3.1 g/dL 3.2-4.8 Below low normal [facility] Protein [Mass/volume] in Serum or Plasma 7.2 g/dL 5.7-8.2 N [facility] ID Date Data Source [id number] 04/12/2020 03:53:00 PM [facility] Special Instructions: Lab may order repe at test if initial test elevatedPhysician If elevated, reflex second test in 4-6 hrs Name Value Range Interpretation Code Description Data Esme rce(s) Supporting Document(s) Lactic w Rfx (if elevated) 1.0 mmol/L 0.5-2.2 N [facility] ID Date Data Source [id number] 04/17/2020 03:28:00 PM [facility] Special Instructions: Lab may order repe at test if initial test elevatedPhysician If elevated, reflex second test in 4-6 hrs Name Value Range Interpretation Code Description Data Esme rce(s) Supporting Document(s) Bacteria identified in Blood by Culture [facility] NO GROWTH AFTER 5 DAYS ID Date Data Source [id number] 04/12/2020 03:52:00 PM [facility] Special Instructions: Lab may order repe at test if initial test elevatedPhysician If elevated, reflex second test in 4-6 hrs Name Value Range Interpretation Code Description Data Esme rce(s) Supporting Document(s) Amylase [Enzymatic activity/volume] in Serum or Plasma 74 U/L 30- 118 N [facility] ID Date Data Source [id number] 04/12/2020 03:52:00 PM [facility] Special Instructions: Lab may order repe at test if initial test elevatedPhysician If elevated, reflex second test in 4-6 hrs Name Value Range Interpretation Code Description Data Esme rce(s) Supporting Document(s) Lipase [Enzymatic activity/volume] in Serum or Plasma 160 U/L 73-3 93 N [facility] ID Date Data Source [id number] 04/12/2020 03:52:00 PM [facility] Special Instructions: Lab may order repe at test if initial test elevatedPhysician If elevated, reflex second test in 4-6 hrs Name Value Range Interpretation Code Description Data Esme rce(s) Supporting Document(s) Troponin I.cardiac [Mass/volume] in Serum or Plasma Less Than 0.015 0.00-0.09 [facility] Less than 0.09 NG/ML Negative0.10 - 0.77 NG/ML High Risk0.78 NG/ML or Greater PositiveThe WHO defined the cutoff (definition for diagnosis of [place])for this method as 0.78 ng/ml. ID Date Data Source [id number] 04/12/2020 03:49:00 PM EDT [facility] Name Value Range Interpretation Code Description Data Esme rce(s) Supporting Document(s) Prothrombin Time (Patient) 11.4 s 9.6-12.3 N [facility] INR 1.1 0.9-1.1 [facility] THE INR IS OPERATIONALLY DEFINED FOR RUPETR SH PLASMA FROMPATIENTS STABILIZED ON ORAL ANTICOAGULANTS.ROUTINE ANTICOAGULANT THERAPY 2.0-3.0RECURRENT SYSTEMIC EMBOLISM/HEART VALVE REPLACEMENT 2.5-3.5 aPTT.lupus sensitive (LA screen) 25.0 s 22.7-31.6 [facility] ID Date Data Source [id number] 02/29/2020 03:31:00 PM EDT [facility] [address] [place] [address] [phone] NAME SEX PT STATUS ACCOUNT NUMBER BROOKS YAO REG REF [id number] ORDERING PHYSICIAN LOCATION MEDICAL RECORD NO. GERONIMO Tosin BURR MD CT [id number] ATTENDING PHYSICIAN DATE OF DATE OF EXAM/TIME Judith Crisostomo MD 1960 02/28/20 / 6 TYPE / EXAM CT Abd/pel w/ contrast REASON FOR EXAM RESTAGING COLON CANCER COMPARISON: 11/05/2019 TECHNIQUE: CT images through the abdomen and pelvis obtained with intravenous contrast. FINDINGS: LUNG BASES: Unremarkable LIVER: Hepatic steatosis unchanged since prior study. There are multiple areas of lucencies largestnoted in the posterior aspect of the right lobe of the liver measuring approximately 1.5 cm in size probably not significantly changed since prior study. GALLBLADDER: Cholelithiasis unchanged. No ductal dilatation. SPLEEN: Unremarkable. PANCREAS: Normal CT appearance. ADRENALS: No nodules. KIDNEYS: No solid lesions. No calculi. No hydroureteronephrosis. BOWEL: Nondilated. Possible loop of small bowel with a thickened wall seen on axial image 75 of 140not definitely identified on the prior study. Also image 82 of 140. Postoperative changes are seen from a partial right colectomy. MESENTERY/PERITONEUM: Unremarkable. NODES: Nondilated. PELVIS: Unremarkable. BONE WINDOWS: No aggressive osseous abnormalities. VASCULATURE: Normal, without aneurysm or significant atherosclerotic disease. SOFT TISSUES: Unremarkable. IMPRESSION: Lesions in the liver appear to be unchanged since prior study. Postoperative changes are noted froma partial right colectomy. Questionable thickened cortes of small bowel in the region of the anastomosis. Follow-up is recommended. Reported By Irlanda Harding MD on 02/29/20 153 Signed By Irlanda Harding MD on 02/29/20 193 Date Time CC: Judith Crisostomo MD; Irlanda Harding MD Techn: FROSA Trans Dt/Tm: Trans by: DT Prt Dt/Tm: : Total DLP = 300.00 mGy-cm : Total Radiation Dose = 4.5000 mSv Lifetime Dose: 13.8960 mSv Name Value Range Interpretation Code Description Data Esme rce(s) Supporting Document(s) ID Date Data Source [id number] 02/28/2020 01:26:00 PM EDT [facility] [address] [place] [id number] [phone] NAME SEX PT STATUS ACCOUNT NUMBER BROOKS YAO REG REF [id number] ORDERING PHYSICIAN LOCATION MEDICAL RECORD NO. GERONIMO U MD [place] CT [id number] ATTENDING PHYSICIAN DATE OF DATE OF EXAM/TIME Judith Crisostomo MD 1960 02/28/20 / 1235 TYPE / EXAM CT Thorax with contrast REASON FOR EXAM RESTAGING COLON CANCER COMPARISON: 08/30/2019 TECHNIQUE: Contrast Enhanced Multidetector-Row Chest Computed Tomography images were acquired. FINDINGS: Pulmonary Parenchyma and Airways: No pulmonary parenchymal or airway process is present. A tiny left-sided pleural- based nodule is unchanged since the prior study measuring approximately 2.4 mm ingreatest diameter. Pleural Space: No pleural fluid or thickening is present. Heart and Pericardium: The cardiac chambers are normal in size. No pericardial fluid or thickening is present. Mediastinum and Luanne: No mediastinal mass is present. No enlarged lymph nodes are present. Thoracic Vessels: No vascular abnormality is present. Osseous Structures and Chest Wall: No pathologic osseous or soft-tissue process is present. Upper Abdomen: A low density lesion seen in the posterior aspect of the right lobe of the liver will be discussed in the CT of the abdomen.. Additional findings: A small nodule is seen at the most lateral aspect of the right breast measuring approximately 6 mm stable since the prior study. Right-sided port is seen. IMPRESSION: No acute changes. A tiny nodule seen in the lateral aspect of the right breast appears stable. No recent mammogram is available for correlation. Fleischner Criteria A. Solid Nodules Nodule Type <6mm 6-8mm >8mm Single Low Risk No routine follow-up CT at 6-12 months, then [address] at 18-[address] at3 months, PET/CT, or tissue sampling High Risk Optional CT at [address] at 6-[address] months, then [address] at 18-24 months ConsiderCT at 3 months, PET/CT, or tissue sampling Multiple Low Risk No routine follow-up CT at 3-6 months, then [address] at 18-[address] at 3-6 months, then consider CT at 18-24 months High Risk Optional CT at [address] at 3-6 months, then consider CT at 18-[address] at 3-6 months, then consider CT at 18-24 months B. Subsolid Nodules Single <6mm 6mm or greater Ground Glass No routine follow-up CT at 6-12 months to confirm persistence, then CT every 2 yearsuntil 5 years. Part Solid No routine follow-up CT at 3-6 months to confirm persistence. If unchanged and solid component remains <6mm, annual CT should be performed for [address] at 3-6 months, if stable, consider CT at [address] at 3-6 months. Subsequent management based on the most suspicious nodule(s). Dose reduction was performed utilizing CARE dose with automated adjustment of the kV and MAS according to patient size, iterative reconstruction, automated exposure control, as well as adaptivedose shielding. Reported By Irlanda Harding MD on 02/28/20 1326 Signed By Irlanda Harding MD on 02/29/20 1928 Date Time CC: Judith Crisostomo MD; Irlanda Harding MD Techn: FROSA Trans Dt/Tm: Trans by: DT Prt Dt/Tm: 4: Total DLP = 256.00 mGy-cm : Total Radiation Dose = 3.3280 mSv Lifetime Dose: 13.8960 mSv Name Value Range Interpretation Code Description Data Esme rce(s) Supporting Document(s) ID Date Data Source [id number] 11/05/2019 01:40:00 PM EDT [facility] [address], [place] [id number] [phone] NAME SEX PT STATUS ACCOUNT NUMBER BROOKS YAO REG REF [id number] ORDERING PHYSICIAN LOCATION MEDICAL RECORD NO. Cassie Jagdish El M.D. CT [id number] ATTENDING PHYSICIAN DATE OF DATE OF EXAM/TIME Judith Crisostomo MD 1960 11/05/19 / 1303 TYPE / EXAM CT Abd/pel w/ contrast REASON FOR EXAM COLON CANCER CLINICAL HISTORY: 59 years of age, Female, colon cancer. TECHNIQUE: Multiple axial CT images of the chest, abdomen and pelvis were obtained from the thoracic inlet to the level of the pubic symphysis following the administration of oral and intravenous contrast. 100 mL of Isovue-300 intravenous contrast was utilized. Multiple coronal and sagittal reformatted images were obtained and reviewed. Dose reduction techniques were used including automated exposure control and adjustment of mA and/or KV according to patient size. RADIATION DOSE: CTDI: 6.72 DLP: 436 COMPARISON: 08/30/2019 (outside study) FINDINGS: CT Chest: Thyroid: The thyroid is unremarkable. Mediastinum/vascular: A portacatheter is embedded in the right chest wall with the distal lead extending to the right atrium. The heart is normal in size. There is no significant pericardial effusion. The aorta is normal in course and caliber. Shotty mediastinal and hilar lymph nodes are present, a nonspecific finding. * Lungs: The trachea and central airways are patent. There are no focal pulmonary consolidations. There is no pleural effusion or pneumothorax. * * Pulmonary nodules: * 4 mm right upper lobe groundglass nodule, (series 3, image 31), unchanged. * 3 mm subpleural right upper lobe nodule, (series 3, image 40), not definitely present on prior study. * 3 mm subpleural left lower lobe nodule, (series 3, image 73), unchanged. CT Abdomen and Pelvis: Liver: 1.6 cm hypoattenuating defect in segment 7 of the liver, (series 1, image 35), unchanged. Additional smaller subcentimeter hypodensities are seen throughout the liver, similar to prior study. Gallbladder and Biliary System: No intrahepatic or extrahepatic biliary ductal dilatation is present. Multiple small calcified stones are seen in the dependent portion the gallbladder, unchanged. Pancreas: Unremarkable. Spleen: Unremarkable. Adrenal: Unremarkable. Kidneys and Ureters: The kidneys are symmetric in size and enhancement. Normal corticomedullary differentiation is present. There is no evidence for obstructive uropathy. Urinary Bladder: The urinary bladder is underdistended limiting evaluation. Reproductive Organs: The uterus and ovaries are grossly unremarkable. Gastrointestinal: Oral contrast is seen extending to the sigmorectal colon. The stomach is unremarkable. Status post right partial colectomy with anastomosis in the right upper abdominal quadrant. Mild persistent infiltrative changes are seen at the anastomosis site, similar to prior study.The small bowel is otherwise unremarkable without evidence for small bowel obstruction. The distal colon is filled with contrast and is otherwise unremarkable. Peritoneum/Retroperitoneum: No significant intra-abdominal ascites or pneumoperitoneum is present. Lymphatic: Shotty retroaortic and mesenteric lymph nodes are present, a nonspecific finding. Musculoskeletal: 12 mm oval lucency is present within the manubrium similar to prior study, (series4, image 59). 6 mm sclerotic density seen in the left sacral wing similar to prior study, (series 3,image 61). Multilevel degenerative changes of the spine. IMPRESSION: 1. Multiple scattered pulmonary nodules measuring up to 4 mm, most which were present on prior study. 2. 3. Status post right partial colectomy with anastomosis in the right upper abdominal quadrant. Mild associated infiltrative changes, similar to prior study. 4. 5. Multiple hepatic hypodensities, some which are too small to categorize. Given the history of colon cancer, metastatic hepatic lesions cannot be excluded. Further evaluation with MRI can be obtained as clinically warranted. 6. 7. 12 mm oval lucency present within the manubrium, unchanged. 6 mm left sacral wing sclerotic lesion, unchanged. Given the history of colon cancer, metastatic osseous lesions cannot be entirely excluded. Further evaluation with bone scintigraphy can be obtained as clinically warranted. 8. Cholelithiasis. Reported By Michelet Allen DO on 11/05/19 1340 Signed By Michelet Allen DO on 11/05/19 1416 Date Time CC: Michelet Allen DO; Judith Crisostomo MD; Elisabeth MANE Jarrett Techn: FROSA Trans Dt/Tm: Trans by: DT Prt Dt/Tm: : Total DLP = 200.00 mGy-cm : Total Radiation Dose = 3.0000 mSv Lifetime Dose: 6.0680 mSv Name Value Range Interpretation Code Description Data Esme rce(s) Supporting Document(s) ID Date Data Source [id number] 11/05/2019 01:40:00 PM EDT [facility] [address], [place] [address] [phone] NAME SEX PT STATUS ACCOUNT NUMBER BROOKS YAO REG REF [id number] ORDERING PHYSICIAN LOCATION MEDICAL RECORD NO. Cassie El M.D. CT [id number] ATTENDING PHYSICIAN DATE OF DATE OF EXAM/TIME Judith Crisostomo MD 1960 11/05/191302 TYPE / EXAM CT Thorax with contrast REASON FOR EXAM COLON CANCER CLINICAL HISTORY: 59 years of age, Female, colon cancer. TECHNIQUE: Multiple axial CT images of the chest, abdomen and pelvis were obtained from the thoracic inlet to the level of the pubic symphysis following the administration of oral and intravenous contrast. 100 mL of Isovue-300 intravenous contrast was utilized. Multiple coronal and sagittal reformatted images were obtained and reviewed. Dose reduction techniques were used including automated exposure control and adjustment of mA and/or KV according to patient size. RADIATION DOSE: CTDI: 6.72 DLP: 436 COMPARISON: 08/30/2019 (outside study) FINDINGS: CT Chest: Thyroid: The thyroid is unremarkable. Mediastinum/vascular: A portacatheter is embedded in the right chest wall with the distal lead extending to the right atrium. The heart is normal in size. There is no significant pericardial effusion. The aorta is normal in course and caliber. Shotty mediastinal and hilar lymph nodes are present, a nonspecific finding. * Lungs: The trachea and central airways are patent. There are no focal pulmonary consolidations. There is no pleural effusion or pneumothorax. * * Pulmonary nodules: * 4 mm right upper lobe groundglass nodule, (series 3, yen ge 31), unchanged. * 3 mm subpleural right upper lobe nodule, (series 3, image 40), not definitely present on prior study. * 3 mm subpleural left lower lobe nodule, (series 3, image 73), unchanged. CT Abdomen and Pelvis: Liver: 1.6 cm hypoattenuating defect in segment 7 of the liver, (series 1, image 35), unchanged. Additional smaller subcentimeter hypodensities are seen throughout the liver, similar to prior study. Gallbladder and Biliary System: No intrahepatic or extrahepatic biliary ductal dilatation is present. Multiple small calcified stones are seen in the dependent portion the gallbladder, unchanged. Pancreas: Unremarkable. Spleen: Unremarkable. Adrenal: Unremarkable. Kidneys and Ureters: The kidneys are symmetric in size and enhancement. Normal corticomedullary differentiation is present. There is no evidence for obstructive uropathy. Urinary Bladder: The urinary bladder is underdistended limiting evaluation. Reproductive Organs: The uterus and ovaries are grossly unremarkable. Gastrointestinal: Oral contrast is seen extending to the sigmorectal colon. The stomach is unremarkable. Status post right partial colectomy with anastomosis in the right upper abdominal quadrant. Mild persistent infiltrative changes are seen at the anastomosis site, similar to prior study. The small bowel is otherwise unremarkable without evidence for small bowel obstruction. The distalcolon is filled with contrast and is otherwise unremarkable. Peritoneum/Retroperitoneum: No significant intra-abdominal ascites or pneumoperitoneum is present. Lymphatic: Shotty retroaortic and mesenteric lymph nodes are present, a nonspecific finding. Musculoskeletal: 12 mm oval lucency is present within the manubrium similar to prior study, (series4, image 59). 6 mm sclerotic density seen in the left sacral wing similar to prior study, (series 3,image 61). Multilevel degenerative changes of the spine. IMPRESSION: 1. Multiple scattered pulmonary nodules measuring up to 4 mm, most which were present on prior study. 2. 3. Status post right partial colectomy with anastomosis in the right upper abdominal quadrant. Mild associated infiltrative changes, similar to prior study. 4. 5. Multiple hepatic hypodensities, some which are too small to categorize. Given the history of colon cancer, metastatic hepatic lesions cannot be excluded. Further evaluation with MRI can be obtained as clinically warranted. 6. 7. 12 mm oval lucency present within the manubrium, unchanged. 6 mm left sacral wing sclerotic lesion, unchanged. Given the history of colon cancer, metastatic osseous lesions cannot be entirely excluded. Further evaluation with bone scintigraphy can be obtained as clinically warranted. 8. Cholelithiasis. Reported By Michelet Allen DO on 11/05/19 1340 Signed By Michelet Allen DO on 11/05/19 1416 Date Time CC: Michelet Allen DO; Judith Crisostomo MD Techn: FROSA Trans Dt/Tm: Trans by: DT Prt Dt/Tm: : Total DLP = 236.00 mGy-cm : Total Radiation Dose = 3.0680 mSv Lifetime Dose: 6.0680 mSv Name Value Range Interpretation Code Description Data Esme rce(s) Supporting Document(s) ID Date Data Source [id number] 09/28/2019 10:50:00 AM EDT [facility] ([facility]) Name Value Range Interpretation Code Description Data Esme rce(s) Supporting Document(s) Neutrophils % 48.0 % 36.0-66.0 [facility] ([facility]) Lymph % 32.6 % 24.0-44.0 [facility]) Baso % 0.9 % 0.0-1.0 [facility]) [place] % 17.4 % 0.0-5.0 [facility]) Eos % 0.3 % 0.0-3.0 [facility]) Neutrophils # 3.1 10 1.5-8.5 [facility] ([facility]) Immature Granulocyte % 0.8 % 0-3.0 [facility] ([facility]) [place] # 1.1 10 0.0-0.8 [facility]) Eos # 0.0 10 0.0-0.5 [facility]) Lymph # 2.1 10 1.5-5.0 [facility]) Baso # 0.1 10 0.0-0.2 [facility]) ID Date Data Source [id number] 09/28/2019 10:50:00 AM EDT [facility] ([facility]) Name Value Range Interpretation Code Description Data Esme rce(s) Supporting Document(s) White Blood Count 6.5 10 4.0-10.0 [facility] ([facility]) Hemoglobin 12.4 g/dL 12.0-15.5 [facility] Hematocrit 38.7 % 36.0-47.0 [facility] Red Blood Count 4.51 10 4.00-5.40 [facility] ([facility]) Mean Corpuscular Volume 85.8 fl 80.0-96.0 [facility] ([facility]) Mean Corpuscular Hemoglobin 27.5 pg 27.0-33.0 [facility] ([facility]) Mean Corpuscular HGB Conc 32.0 g/dL 32.0-36.5 [facility] ([facility]) Platelet Count, Automated 112 10 150-450 [facility] ([facility]) Red Cell Distribution Width 26.0 % 11.5-14.5 [facility] ([facility]) Nucleated Red Blood Cell % 0.0 % 0-0 [facility] ([facility]) ID Date Data Source [id number] 09/27/2019 04:45:00 PM EDT [facility] ED Physician Documentation NAME: BROOKS YAO : 1960 AGE: 59 MR#: [id number] SERVICE DATE: 09/27/[address]: Ankush Ocampo MD PRIMARY CARE DR: No Family PHYS Provided ROOM#: [facility] (Adult, General) General Chief Complaint: Chest pain Resident [facility], travel outisde home, exposure to hot tubs:: No Time Seen by Provider: 09/27/19 16:04 Source: patient Exam Limitations: no limitations History of Present Illness Narrative: 59 yo woman with colon cancer, receiving chemotherapy with Folfox and Avastin, last dose 9 days ago, presents with c/o L sided chest pressure off and on for the past 2 days. She describes the pain as squeezing in nature. She has actually noted the chest pressure for many years without incident or prior work-up but is more concerned now due to the current chemotherapy. She spoke to her Oncologist who advised her to come to the ER. She notes that part of a tooth fell out of her mouth yesterday while eating. She has pain at the site. Allergies/Home Meds Allergies Allergy/AdvReac Type Severity Reaction Status Date / Time No Known Drug Allergies Allergy Verified 09/27/19 16:10 Home Medications Medication Instructions Recorded Confirmed Last Taken Type canagliflozin [Invokana] 100 mg PO DAILY 09/27/19 09/27/19 Unknown History lisinopril 10 mg PO HS 09/27/19 09/27/19 09/26/19 History metformin 1,000 mg PO BID 09/27/19 09/27/19 09/27/19 History methylphenidate HCl 30 mg PO DAILY PRN 09/27/19 09/27/19 Unknown History simvastatin 10 mg PO HS 09/27/19 09/27/19 09/26/19 History venlafaxine 150 mg PO BID 09/27/19 09/27/19 09/27/19 History vit B complex 100 combo no.2 1 tab PO DAILY 09/27/19 09/27/19 09/27/19 History [B-100 Complex] vitamin D3-tocophersolan 15 ml PO DAILY 09/27/19 09/27/19 09/27/19 History PMH (from Triage) Patient Medical History PMH Reviewed/Updated as Needed: Yes Female History LMP:: Amenorrhea Hx Drug Resis tant Infections Hx Other Resistant Infection?: No Isolation: Reverse (Standard) Social History Are you in a relationship with/Does anyone hit you, yell/swear at you, steal from you?: No Substance Use Second Hand Smoke Exposure: No Smoking Status: Former smoker Vaccination History Hx/Date of Tetanus, Diphtheria Vaccination: No Hx/Date of Influenza Vaccination: Yes Hx/Date of Pneumococcal Vaccination: Yes Immunizations Up to Date: Yes ROS Review of Systems Constitutional: Denies fever, chills, weakness and malaise ENT: Denies nasal congestion and throat pain Respiratory: Denies cough, SOB and pleuritic pain Cardiovascular: Reports chest pain; Denies palpitations and orthopnea Gastrointestinal: Denies nausea, vomiting, abdominal pain and diarrhea Genitourinary-Female: Denies dysuria and frequency Musculoskeletal: Denies muscle pain and joint pain Skin/Breasts: Denies rash Neurologic: Denies weakness and numbness Endocrine: Denies Loss of appetite Allergic/Immunologic: Denies rash Physical Exam General Physical Exam Narrative: wd woman, awake and alert, comfortable appearing Limitations: no limitations General appearance: alert and in no apparent distress Head Head exam: Present atraumatic and normocephalic Eye Eye exam: Present normal apperance and EOMI; Absent scleral icterus and conjunctival injection ENT ENT exam: Present mucous membranes moist; Absent normal exam and normal orophraynx (multiple missingand fractured teeth noted) Neck Neck exam: Present normal inspection and full ROM Respiratory Respiratory exam: Present normal lung sounds bilaterally; Absent respiratory distress and chest walltenderness Cardiovascular Cardiovascular Exam: Present regular rate and normal rhythm GI/Abdominal GI/Abdominal exam: Present Abd soft, bowel sounds present all quadrents; Absent tenderness Rectal Rectal exam: Present deferred Extremities Exam Extremities exam: Present normal inspection and full ROM; Absent tenderness Back Exam Back exam: Present normal inspection and full ROM; Absent tenderness Neurological Exam Neurological exam: Present alert; Absent motor sensory deficit Psychiatric Psychiatric exam: Present normal affect and normal mood Skin Skin exam: Present warm, dry, intact and normal color Vital Signs Vital Signs: Vital Signs 09/27/19 15:57 Temperature 98.6 F Pulse Rate 81 Respiratory Rate 18 Blood Pressure 130/73 O2 Sat by Pulse Oximetry 100 MDM (comprehensive) Lab Data Result diagrams: 09/27/19 16:15 09/27/19 16:15 Lab Results 09/27/19 09/27/19 Range/Units 16:15 16:15 WBC 7.3 (4.45-10.71) 10e3/uL RBC 4.13 L (4.20-5.40) 10e6/uL Hgb 11.6 (10.7-15.4) g/dL Hct 34.7 L (37-47) % MCV 84.0 (80-96) fl MCH 28.1 (27-31) pg MCHC 33.4 (33-37) g/dl RDW 25 H (11-15) % Plt Count 73 L (130-472) 10e3/ul MPV 8.7 L (9.1-13.1) fl Immature Gran % (Auto) 0.4 (0-2) % Neut % (Auto) 48.0 (41-77) % Lymph % (Auto) 32.1 (14-46) % [place] % (Auto) 17.9 H (4-12) % Eos % (Auto) 0.8 (0-7) % Baso % (Auto) 0.8 (0.4-1. 3) % Lymph # (Auto) 2.3 (0.6-4.6) # Abs Immat Gran (auto) 0.0 (0-0.1) # Add Manual Diff Manual diff added Total Counted 100 Neutrophils (Manual) 45 (41-77) % Absolute Neutrophils 3.5 (1.7- 7.6) # Lymphocytes (Manual) 42 (14-46) % Monocytes (Manual) 8 (4-12) % Monocytes # 1.3 H (0.2-1.2) # Absolute Eosinophils 0.1 (0.0-0.5) # Absolute Basophils 0.1 (0.0-0.2) # Atypical Lymphocytes 5 (0-5) Platelet Estimate Appears normal (NORMAL) RBC Morphology Appears normal (NORMAL) Sodium 137 (132-146) mmol/L Potassium 3.6 (3.5-5.5) mmol/L Chloride 105 (99-109) mmol/l Carbon Dioxide 24 (20-31) mmol/l Anion Gap 12 (8-16) mmol/l BUN 8 L (9-23) mg/dL Creatinine 0.7 (0.5-1.1) mg/dL GFR Calculation Greater than 60 (ABOVE 60) ml/min Glucose 208 H (74-106) mg/dL Calcium 8.7 (8.5-10.1) mg/dL Total Bilirubin 0.2 L (0.3-1.2) mg/dL AST 36 H (0-33) U/L ALT 53 H (10-49) U/L Alkaline Phosphatase 180 H (45-129) U/L Troponin I Less than 0.015 (0.00-0.09) ng/mL Eeb-W-Mivjprdxrfr Pept 63.00 (0.00-175) pg/mL Serum Total Protein 6.9 (5.7-8.2) g/dL Albumin 3.1 L (3.2-4.8) g/dL EKG Data -: EKG Interpreted by Wa EKG shows normal: sinus rhythm Rate: normal Radiology Data Radiology results: report reviewed Medical Decision Making The patient was evaluated for L sided chest pain for the past 2 days. The PE was unremarkable. TheEKG and CXR were normal. The labs were significant for normal troponin and bnp with minimal chemistry abnormalities. Discharge Plan Admission/Discharge Dx Primary DC Diagnosis: Non- Cardiac Chest pain ED Provider: Srinath Ocampo ED Status: Physician Time Seen by Provider: 09/27/19 16:04 Triaged At: 09/27/19 15:57 Condition Condition: Good Discharge Detail Disposition: Home, Self-Care Med Rec New Prescriptions: No Action simvastatin 10 mg tablet 10 mg PO HS RF: 0 lisinopril 10 mg tablet 10 mg PO HS RF: 0 metformin 500 mg Tablet Extended Release 24 Hr 1,000 mg PO BID RF: 0 methylphenidate HCl 20 mg capsule, ER biphasic 30-70 30 mg PO DAILY PRN (Reason: ADHD) RF: 0 venlafaxine 150 mg Tablet Extended Release 24hr 150 mg PO BID RF: 0 B-100 Complex 100 mg Tablet Extended Release 1 tab PO DAILY RF: 0 Invokana 100 mg tablet 100 mg PO DAILY RF: 0 vitamin D3-tocophersolan 10 mcg-4 mg/ 0.2 mL Drops 15 ml PO DAILY RF: 0 Medications Medication reconciliation performed by provider at discharge: Yes Follow Up Care/Instructions Diet/Activity/Wound Care..: continue with current outpatient care, return for increased symptoms *Dischar ge Patient* Discharge Orders: Discharge Order (Routine); Ordered 09/27/19 Ordered By: Ankush Ocampo Report Signers: <Electronically signed by Aknush Ocampo MD> Ankush Ocampo MD 09/27/19 1715 Ankush Ocampo MD SIGNATURE DA Report Cosigners: D: MO 09/27/191644 T: MO 09/27/191644 CC: No Family PHYS Provided Name Value Range Interpretation Code Description Data Esme rce(s) Supporting Document(s) ID Date Data Source [id number] 09/27/2019 04:29:00 PM EDT [facility] [address] [id number] [phone] NAME SEX PT STATUS ACCOUNT NUMBER BROOKS YAO [facility] ER [id number] ORDERING PHYSICIAN LOCATION MEDICAL RECORD NO. Ankush Ocampo MD ER [id number] ATTENDING PHYSICIAN DATE OF DATE OF EXAM/TIME Doctor Provided,No Family 1960 09/27/191626 TYPE / EXAM Xray Chest One View REASON FOR EXAM chest pain COMPARISON: None FINDINGS: Precordial leads overlie the chest. A right-sided Port-A-Cath is seen. It terminates at the superior cavoatrial junction. The cardiac and mediastinal silhouettes appear normal and the lungs are clear. The bones and soft tissues are normal. The upper abdomen is unremarkable. IMPRESSION: No acute cardiopulmonary disease. Reported By Pantera Ely MD on 09/27/191628 Signed By Pantera Ely MD on 09/27/191628 Date Time CC: Pantera Ely MD; No Family PHYS Provided Techn: CUMME Trans Dt/Tm: Trans by: DT Prt Dt/Tm: 2020-9139: Total DLP = 0.00 mGy-cm Fluoroscopy Time (in secs): Name Value Range Interpretation Code Description Data Esme rce(s) Supporting Document(s) ID Date Data Source [id number] 09/27/2019 04:47:00 PM EDT [facility] @09/27/19 1623: MANUAL DIFF added. RFLXG = DIFF. @09/27/19 1623: MANUAL DIFF added. RFLXG = DIFF. Name Value Range Interpretation Code Description Data Esme rce(s) Supporting Document(s) Leukocytes [#/volume] in Blood by Automated count 7.3 10*3/uL 4.45-10 .71 N [facility] Erythrocytes [#/volume] in Blood by Automated count 4.13 10*6/uL 4.20-5.40 Below low normal [facility] Hemoglobin [Moles/volume] in Blood 11.6 g/dL 10.7-15.4 N [facility] Hematocrit [Volume Fraction] of Blood by Automated count 34.7 % 37-47 Below low normal [facility] Erythrocyte mean corpuscular volume [Ent itic volume] in Cord blood by Automated count 84.0 fL 80-96 N [facility] Erythrocyte mean corpuscular hemoglobin [Entitic mass] by Automated count 28.1 pg 27-31 [facility] mean corpuscular hemoglobin concentration [Mass/volume] in Cord blood 33.4 g/dL 33-37 N [facility] ital Erythrocyte distribution width [Entitic volume] by Automated cou nt 25 % 11-15 Above high normal [facility] Platelets [#/volume] in Blood by Automated count 73 10*3/uL 130-472 Below low normal [facility] Platelet mean volume [Entitic volume] in Blood 8.7 fL 9.1-13. 1 Below low normal [facility] Neutrophils/100 leukocytes in Blood by Automated count 48.0 % 41- 77 [facility] Neutrophils [#/volume] in Blood by Automated count 3.5 U 1.7-7.6 N [facility] Lymphocytes/100 leukocytes in Blood by Automated count 32.1 % 14- 46 [facility] Lymphocytes [#/volume] in Blood by Automated count 2.3 U 0.6-4.6 N [facility] Monocytes/100 leukocytes in Blood by Automated count 17.9 % 4-12 Above high normal [facility] Monocytes [#/volume] in Blood by Automated count 1.3 U 0.2-1.2 Above high normal [facility] Eosinophils/100 leukocytes in Blood by Automated count 0.8 % 0-7 N [facility] Eosinophils [#/volume] in Blood by Automated count 0.1 U 0.0-0.5 N [facility] Basophils/100 leukocytes in Blood by Automated count 0.8 % 0.4-1 .3 N [facility] Basophils [#/volume] in Blood by Automated count 0.1 U 0.0-0.2 N [facility] NUCLEATED RED BLOOD CELL 0 % [facility] NUCLEATED RED BLOOD CELL# [address] [facility] Immature granulocytes [Presence] in Blood by Automated count 0-2 N [facility] Immature granulocytes [#/volume] in Blood by Automated count 0.0 U 0-0.1 N [facility] Manual Differential panel - Blood Manual Diff Added [facility] ID Date Data Source [id number] 09/27/2019 04:47:00 PM EDT [facility] @09/27/19 1623: MANUAL DIFF added. RFLXG = DIFF. @09/27/19 1623: MANUAL DIFF added. RFLXG = DIFF. Name Value Range Interpretation Code Description Data Esme rce(s) Supporting Document(s) Urea nitrogen [Mass/volume] in Serum or Plasma 8 mg/dL 9-23 Below low normal [facility] Sodium [Moles/volume] in Serum or Plasma 137 mmol/L 132-146 N [facility] Potassium [Moles/volume] in Serum or Plasma 3.6 mmol/L 3.5-5.5 N [facility] Chloride [Moles/volume] in Serum or Plasma 105 mmol/L 99-109 N [facility] Carbon dioxide, total [Moles/volume] in Serum or Plasma 24 mmol/L 20 -31 N [facility] Anion gap in Serum or Plasma 12 mmol/L 8-16 N [facility] Glucose [Mass/volume] in Serum or Plasma 208 mg/dL 74-106 Above high normal [facility] Creatinine 0.7 mg/dL 0.5-1.1 N [facility] Glomerular filtration rate/1.73 sq M.pre dicted [Volume Rate/Area] in Serum or Plasma Greater Than 60 ABOVE 60 [facility] Alanine aminotransferase [Enzymatic acti vity/volume] in Serum or Plasma by With P-5'-P 53 U/L 10-49 Above high normal [facility] Aspartate aminotransferase [Enzymatic ac tivity/volume] in Serum or Plasma by With P-5'-P 36 U/L 0-33 Above high normal [facility] Alkaline phosphatase [Enzymatic activity/volume] in Serum or Plasma 180 U/L 45-129 Above high normal [facility] Calcium [Mass/volume] in Serum or Plasma 8.7 mg/dL 8.5-10.1 N [facility] Bilirubin.total [Mass/volume] in Serum or Plasma 0.2 mg/dL 0.3-1.2 Below low normal [facility] Albumin [Mass/volume] in Serum or Plasma by Bromocresol purple (BCP) dye binding method 3.1 g/dL 3.2-4.8 Below low normal [facility] Protein [Mass/volume] in Serum or Plasma 6.9 g/dL 5.7-8.2 N [facility] ID Date Data Source [id number] 09/27/2019 04:47:00 PM EDT [facility] @09/27/19 1623: MANUAL DIFF added. RFLXG = DIFF. @09/27/19 1623: MANUAL DIFF added. RFLXG = DIFF. Name Value Range Interpretation Code Description Data Esme rce(s) Supporting Document(s) Cells counted [#] 100 [facility] Neutrophils [#/volume] in Blood by Manual count 45 % 41-77 N [facility] Lymphocytes [#/volume] in Blood by Manual count 42 % 14-46 N [facility] Monocytes [#/volume] in Blood by Manual count 8 % 4-12 N [facility] Mononuclear cells atypical [#/volume] in Blood by Manual count 5 0-5 N [facility] Platelets [#/volume] in Blood by Estimate APPEARS NORMAL NORMAL [facility] Morphology [Interpretation] in Blood Narrative APPEARS NORMAL NORMAL [facility] ID Date Data Source [id number] 09/27/2019 04:47:00 PM EDT [facility] @09/27/19 1623: MANUAL DIFF added. RFLXG = DIFF. @09/27/19 1623: MANUAL DIFF added. RFLXG = DIFF. Name Value Range Interpretation Code Description Data Esme rce(s) Supporting Document(s) Troponin I.cardiac [Mass/volume] in Serum or Plasma Less Than 0.015 0.00-0.09 [facility] Less than 0.09 NG/ML Negative0.10 - 0.77 NG/ML High Risk0.78 NG/ML or Greater PositiveThe WHO defined the cutoff (definition for diagnosis of [place])for this method as 0.78 ng/ml. ID Date Data Source [id number] 09/27/2019 04:47:00 PM EDT [facility] @09/27/19 1623: MANUAL DIFF added. RFLXG = DIFF. @09/27/19 1623: MANUAL DIFF added. RFLXG = DIFF. Name Value Range Interpretation Code Description Data Esme rce(s) Supporting Document(s) Natriuretic peptide.B prohormone N-Terminal [Mass/volu me] in Serum or Plasma 63.00 pg/mL 0.00-175 [facility] ID Date Data Source [id number] 09/18/2019 08:00:00 AM EDT [facility] ([facility]) Name Value Range Interpretation Code Description Data Esme rce(s) Supporting Document(s) Appearance, Urine CLEAR [facility] ([facility]) Color, Urine YELLOW [facility] ([facility]) PH,Urine 5.0 units 5.0-9.0 [facility] Glucose, Urine (Ua) Auto 3+ mg/dL [facility] ([facility]) Protein, Urine Auto NEGATIVE mg/dL [facility] ([facility]) Specific [place] Urine Auto 1.014 1.002-1.035 [facility] ([facility]) Urobilinogen, Urine Auto 0.2 mg/dL 0.0-2.0 [facility] ([facility]) Ketone, Urine Auto NEGATIVE mg/dL [facility] ([facility]) Nitrite, Urine Auto NEGATIVE [facility] ([facility] Bilirubin, Urine Auto NEGATIVE [facility] ( [facility]) Blood, Urine Blood NEGATIVE [facility] ([facility] Leukocyte Esterase, Urine Auto NEGATIVE [facility] ([facility]) WBC, Urine Auto 12 /HPF 0-3 [facility] ([facility]) RBC, Urine Auto 2 /HPF 0-3 [facility] ([facility]) Squamous Epithelial Cell Ur AU 0 /HPF 0-6 [facility] ([facility]) Bacteria, Urine Auto NEGATIVE [facility] ([facility] Mucus, Urine SMALL [facility] ([facility]) Hyaline Cast, Urine Auto 0 /LPF 0-1 [facility] ID Date Data Source [id number] 09/18/2019 07:59:00 AM EDT [facility]) Name Value Range Interpretation Code Description Data Esme rce(s) Supporting Document(s) Carcinoembryonic Ag [Mass/volume] in Serum or Plasma 6.5 ng/mL [facility] THE CEA ASSAY IS PERFORMED ON THE DIDI BitcastAUR BY CHEMILUMINESCENCE AND SHOULD NOT BE COMPARED INTERCHANGEABLY WITH OTHER METHODS. IT SHOULD NOT BE USED ALONE A SCREENING TEST OR DIAGNOSIS FOR THE PRESENCE OR ABSENCE OF MALIGNANT DISEASE. PREDICTIONS OF DISEASE RECURRENCE SHOULD NOT BE BASED SOLELY ON VALUES OBTAINED FROM SERIAL PATIENT SERUM VALUES. Cancer Ag 27-29 [Units/volume] in Serum or Plasma 60.6 U/mL 0.0-38.6 [facility] ([facility]) Siemens Centaur Immunochemiluminometric Methodology (ICMA) . Values obtained with different assay methods or kits cannot be used interchangeably. Results cannot be interpreted as absolute evidence of the presence or absence of malignant disease. Performed at: RN - [facility] [address] [id number] [employer]: Nelda Meneses MD, Phone: [phone] ID Date Data Source [id number] 09/18/2019 07:59:00 AM EDT [facility] ([facility]) Name Value Range Interpretation Code Description Data Esme rce(s) Supporting Document(s) Glucose, Fasting 208 mg/dL 70-100 [facility] ([facility]) Creatinine For GFR 0.76 mg/dL 0.55-1.30 [facility] ([facility]) Blood Urea Nitrogen 12 mg/dL 7-18 [facility] ([facility]) Potassium Serum 3.8 meq/L 3.5-5.1 [facility] ([facility]) Glomerular Filtration Rate > 60.0 [facility] ([facility]) <content>Units are mL/min/1.73 m2</content>
<content></content>
<content>Chronic Kidney Disease Staging per NKF:</content>
<content></content>
<content>Stage I & II GFR >=60 Normal to Mildly Decreased</content>
<content>Stage III GFR 30- 59 Moderately Decreased</content>
<content>Stage IV GFR 15-29 Severely Decreased</content>
<content>Stage V GFR <15 Very Little GFR Left</content>
<content>ESRD GFR <15 on DINING ROOM ATTENDANT CAFETERIA</content>
<content></content> Sodium Level 138 meq/L 136-145 [facility] ([facility]) Chloride Level 104 meq/L 98-107 [facility] ([facility]) Carbon Dioxide Level 26 meq/L 21-32 [facility] ([facility]) Calcium Level 8.5 mg/dL 8.8-10.2 [facility] ([facility]) Anion Gap 8 meq/L 8-16 [facility] ([place] [facility]) Ast/Sgot 31 U/L 7-37 [facility] ([place] [facility]) Alt/SGPT 43 U/L 12-78 [facility] ([place] [facility]) Bilirubin,Total 0.2 mg/dL 0.2-1.0 [facility] ([facility]) Alkaline Phosphatase 168 U/L 45-117 [facility] ([facility]) Albumin 3.0 GM/DL 3.2-5.2 [facility] ([place] [facility]) Total Protein 7.5 GM/DL 6.4-8.2 [facility] ([place] [facility]) Albumin/Globulin Ratio 0.67 1.00-1.93 [facility] ([facility]) ID Date Data Source [id number] 09/18/2019 07:59:00 AM EDT [facility] ([facility]) Name Value Range Interpretation Code Description Data Esme rce(s) Supporting Document(s) Neutrophils % 63.3 % 36.0-66.0 [facility] ([facility] Eos % 0.5 % 0.0-3.0 [facility] [facility]) [place] % 9.7 % 0.0-5.0 [facility] [facility]) Lymph % 23.5 % 24.0-44.0 [facility] [facility]) Immature Granulocyte % 2.2 % 0-3.0 [facility] ([facility]) Baso % 0.8 % 0.0-1.0 [facility] [facility]) [place] # 1.0 10 0.0-0.8 [facility] [facility]) Lymph # 2.5 10 1.5-5.0 [facility] [facility]) Neutrophils # 6.6 10 1.5-8.5 [facility] ([facility] Baso # 0.1 10 0.0-0.2 [facility] [facility]) Eos # 0.1 10 0.0-0.5 [facility] [facility]) ID Date Data Source [id number] 09/18/2019 07:59:00 AM EDT [facility] ([facility]) Name Value Range Interpretation Code Description Data Esme rce(s) Supporting Document(s) White Blood Count 10.4 10 4.0-10.0 [facility] ([facility]) Red Blood Count 4.72 10 4.00-5.40 [facility] ([facility]) Hematocrit 40.2 % 36.0-47.0 [facility] [facility] Hemoglobin 12.8 g/dL 12.0-15.5 [facility]) Mean Corpuscular HGB Conc 31.8 g/dL 32.0-36.5 [facility] ([facility]) Mean Corpuscular Volume 85.2 fl 80.0-96.0 [facility] ([facility]) Mean Corpuscular Hemoglobin 27.1 pg 27.0-33.0 [facility] ([facility]) Red Cell Distribution Width 26.3 % 11.5-14.5 [facility] ([facility]) Nucleated Red Blood Cell % 0.3 % 0-0 [facility] ([facility]) Platelet Count, Automated 135 10 150-450 [facility] ([facility]) ID Date Data Source [id number] 09/04/2019 09:54:00 AM EDT [facility] ([facility]) Name Value Range Interpretation Code Description Data Esme rce(s) Supporting Document(s) Red Blood Count 4.29 10 4.00-5.40 [facility] ([facility]) Hemoglobin 10.8 g/dL 12.0-15.5 [facility] [facility] White Blood Count 4.8 10 4.0-10.0 [facility] ([facility]) Mean Corpuscular Hemoglobin 25.2 pg 27.0-33.0 [facility] ([facility]) Mean Corpuscular Volume 81.8 fl 80.0-96.0 [facility] ([facility]) Hematocrit 35.1 % 36.0-47.0 [facility] [facility]) Platelet Count, Automated 163 10 150-450 [facility] ([facility]) Mean Corpuscular HGB Conc 30.8 g/dL 32.0-36.5 [facility] ([facility]) Red Cell Distribution Width 22.3 % 11.5-14.5 [facility] ([facility]) Nucleated Red Blood Cell % 0.0 % 0-0 [facility] ([facility]) ID Date Data Source [id number] 09/04/2019 09:54:00 AM EDT [facility] ([facility]) Name Value Range Interpretation Code Description Data Esme rce(s) Supporting Document(s) Lymph % 33.1 % 24.0-44.0 [facility] [facility]) Neutrophils % 52.7 % 36.0-66.0 [facility] ([facility]) Baso % 0.4 % 0.0-1.0 [facility] [facility]) [place] % 13.0 % 0.0-5.0 [facility] [facility]) Eos % 0.4 % 0.0-3.0 [facility] [facility]) Immature Granulocyte % 0.4 % 0-3.0 [facility] ([facility]) Neutrophils # 2.5 10 1.5-8.5 [facility] ([facility]) Lymph # 1.6 10 1.5-5.0 [facility] [facility]) Eos # 0.0 10 0.0-0.5 [facility] [facility]) [place] # 0.6 10 0.0-0.8 [facility] [facility]) Baso # 0.0 10 0.0-0.2 [facility] [facility]) ID Date Data Source [id number] 09/04/2019 09:54:00 AM EDT [facility] ([facility]) Name Value Range Interpretation Code Description Data Esme rce(s) Supporting Document(s) Glucose, Fasting 316 mg/dL 70-100 [facility] ([facility]) Blood Urea Nitrogen 8 mg/dL 7-18 [facility] ([facility]) Glomerular Filtration Rate > 60.0 [facility] ([facility]) <content>Units are mL/min/1.73 m2</content>
<content></content>
<content>Chronic Kidney Disease Staging per NKF:</content>
<content></content>
<content>Stage I & II GFR >=60 Normal to Mildly Decreased</content>
<content>Stage III GFR 30- 59 Moderately Decreased</content>
<content>Stage IV GFR 15-29 Severely Decreased</content>
<content>Stage V GFR <15 Very Little GFR Left</content>
<content>ESRD GFR <15 on DINING ROOM ATTENDANT CAFETERIA</content>
<content></content> Creatinine For GFR 0.82 mg/dL 0.55-1.30 [facility] ([facility]) Potassium Serum 3.9 meq/L 3.5-5.1 [facility] ([facility]) Sodium Level 138 meq/L 136-145 [facility] ([facility]) Chloride Level 106 meq/L 98-107 [facility] ([facility]) Anion Gap 8 meq/L 8-16 [facility] ([place] [facility]) Calcium Level 8.3 mg/dL 8.8-10.2 [facility] ([facility]) Carbon Dioxide Level 24 meq/L 21-32 [facility] ([facility] Alt/SGPT 54 U/L 12-78 [facility] ([facility]) Ast/Sgot 40 U/L 7-37 [facility] ([facility]) Total Protein 6.9 GM/DL 6.4-8.2 [facility] ([facility] Alkaline Phosphatase 118 U/L 45-117 [facility] ([facility] Bilirubin,Total 0.3 mg/dL 0.2-1.0 [facility] ([facility]) Albumin 3.1 GM/DL 3.2-5.2 [facility] ([facility]) Albumin/Globulin Ratio 0.82 1.00-1.93 [facility] ([facility] [facility]) ID Date Data Source [id number] 09/04/2019 09:54:00 AM EDT [facility] ([facility]) Name Value Range Interpretation Code Description Data Esme rce(s) Supporting Document(s) Carcinoembryonic Ag [Mass/volume] in Serum or Plasma 16.7 ng/mL [facility] ([facility]) THE CEA ASSAY IS PERFORMED ON THE VdolgAUR BY CHEMILUMINESCENCE AND SHOULD NOT BE COMPARED INTERCHANGEABLY WITH OTHER METHODS. IT SHOULD NOT BE USED ALONE A SCREENING TEST OR DIAGNOSIS FOR THE PRESENCE OR ABSENCE OF MALIGNANT DISEASE. PREDICTIONS OF DISEASE RECURRENCE SHOULD NOT BE BASED SOLELY ON VALUES OBTAINED FROM SERIAL PATIENT SERUM VALUES. ID Date Data Source [id number] 09/04/2019 09:54:00 AM EDT [facility] ([facility]) Name Value Range Interpretation Code Description Data Esme rce(s) Supporting Document(s) Color, Urine YELLOW [facility] ([facility]) Appearance, Urine CLEAR [facility] ([facility]) PH,Urine 5.0 units 5.0-9.0 [facility] [facility]) Protein, Urine Auto NEGATIVE mg/dL [facility] ([facility]) Specific [place] Urine Auto 1.017 1.002-1.035 [facility] ([facility]) Glucose, Urine (Ua) Auto 3+ mg/dL [facility] ([facility]) Ketone, Urine Auto NEGATIVE mg/dL [facility] ([facility]) Urobilinogen, Urine Auto 0.2 mg/dL 0.0-2.0 [facility] ([facility]) Bilirubin, Urine Auto NEGATIVE [facility] ( [facility]) Leukocyte Esterase, Urine Auto NEGATIVE [facility] ([facility]) Blood, Urine Blood NEGATIVE [facility] Nitrite, Urine Auto NEGATIVE [facility] ([facility]) RBC, Urine Auto 2 /HPF 0-3 [facility] ([facility]) Bacteria, Urine Auto NEGATIVE [facility] ( [facility] WBC, Urine Auto 1 /HPF 0-3 [facility] ([facility]) Hyaline Cast, Urine Auto 0 /LPF 0-1 [facility] ([facility]) Squamous Epithelial Cell Ur AU 0 /HPF 0-6 [facility] ([facility]) ID Date Data Source [id number] 08/21/2019 08:23:00 AM EST [facility] ([facility]) Name Value Range Interpretation Code Description Data Esme rce(s) Supporting Document(s) Carcinoembryonic Ag [Mass/volume] in Serum or Plasma 37.4 ng/mL [facility] ([facility]) THE CEA ASSAY IS PERFORMED ON THE [employer] BY CHEMILUMINESCENCE AND SHOULD NOT BE COMPARED INTERCHANGEABLY WITH OTHER METHODS. IT SHOULD NOT BE USED ALONE A SCREENING TEST OR DIAGNOSIS FOR THE PRESENCE OR ABSENCE OF MALIGNANT DISEASE. PREDICTIONS OF DISEASE RECURRENCE SHOULD NOT BE BASED SOLELY ON VALUES OBTAINED FROM SERIAL PATIENT SERUM VALUES. ID Date Data Source [id number] 08/21/2019 08:23:00 AM EST [facility] ([facility]) Name Value Range Interpretation Code Description Data Esme rce(s) Supporting Document(s) Glucose, Fasting 274 mg/dL 70-100 [facility] ([facility]) Creatinine For GFR 0.90 mg/dL 0.55-1.30 [facility] ([facility]) Blood Urea Nitrogen 11 mg/dL 7-18 [facility] ([facility]) Glomerular Filtration Rate > 60.0 [facility] ([facility]) <content>Units are mL/min/1.73 m2</content>
<content></content>
<content>Chronic Kidney Disease Staging per NKF:</content>
<content></content>
<content>Stage I & II GFR >=60 Normal to Mildly Decreased</content>
<content>Stage III GFR 30- 59 Moderately Decreased</content>
<content>Stage IV GFR 15-29 Severely Decreased</content>
<content>Stage V GFR <15 Very Little GFR Left</content>
<content>ESRD GFR <15 on DINING ROOM ATTENDANT CAFETERIA</content>
<content></content> Sodium Level 134 meq/L 136-145 [facility] ([facility]) Carbon Dioxide Level 23 meq/L 21-32 [facility] ([facility]) Chloride Level 103 meq/L 98-107 [facility] ([facility]) Potassium Serum 3.9 meq/L 3.5-5.1 [facility] ([facility]) Anion Gap 8 meq/L 8-16 [facility] ([place] [facility]) Calcium Level 8.3 mg/dL 8.8-10.2 [facility] ([facility]) Ast/Sgot 28 U/L 7-37 [facility] ([place] [facility]) Alt/SGPT 37 U/L 12-78 [facility] ([place] [facility]) Alkaline Phosphatase 101 U/L 45-117 [facility] ([facility]) Albumin 3.1 GM/DL 3.2-5.2 [facility] ([place] [facility]) Bilirubin,Total 0.2 mg/dL 0.2-1.0 [facility] ([facility]) Total Protein 7.0 GM/DL 6.4-8.2 [facility] ([facility]) Albumin/Globulin Ratio 0.79 1.00-1.93 [facility] ([facility]) ID Date Data Source [id number] 08/21/2019 08:23:00 AM EST [facility] ([facility]) Name Value Range Interpretation Code Description Data Esme rce(s) Supporting Document(s) Appearance, Urine CLEAR [facility] ([facility]) Color, Urine YELLOW [facility] ([facility]) PH,Urine 5.0 units 5.0-9.0 [facility] [facility] Specific [place] Urine Auto 1.009 1.002-1.035 [facility] ([facility]) Protein, Urine Auto NEGATIVE mg/dL [facility] ([facility]) Urobilinogen, Urine Auto 0.2 mg/dL 0.0-2.0 [facility] ([facility]) Glucose, Urine (Ua) Auto 3+ mg/dL [facility] ([facility]) Ketone, Urine Auto NEGATIVE mg/dL [facility] ([facility]) Bilirubin, Urine Auto NEGATIVE [facility] ( [facility]) Nitrite, Urine Auto NEGATIVE [facility] ([facility]) Leukocyte Esterase, Urine Auto NEGATIVE [facility] ([facility]) Blood, Urine Blood NEGATIVE [facility] ([facility]) WBC, Urine Auto 1 /HPF 0-3 [facility] ([facility]) RBC, Urine Auto 0 /HPF 0-3 [facility] ([facility]) Squamous Epithelial Cell Ur AU 0 /HPF 0-6 [facility] ([facility]) Bacteria, Urine Auto NEGATIVE [facility] ([facility]) Mucus, Urine SMALL [facility] ([facility]) Hyaline Cast, Urine Auto 0 /LPF 0-1 [facility] ([facility]) ID Date Data Source [id number] 08/21/2019 08:23:00 AM EST [facility] ([facility]) Name Value Range Interpretation Code Description Data Esme rce(s) Supporting Document(s) Neutrophils % 55.3 % 36.0-66.0 [facility] Eos % 1.1 % 0.0-3.0 [facility] [facility]) [place] % 13.0 % 0.0-5.0 [facility] [facility]) Lymph % 30.0 % 24.0-44.0 [facility] [facility]) Baso % 0.6 % 0.0-1.0 [facility] [facility]) Immature Granulocyte % 0.0 % 0-3.0 [facility] ([facility]) Neutrophils # 2.6 10 1.5-8.5 [facility] ([facility] Lymph # 1.4 10 1.5-5.0 [facility] [facility]) [place] # 0.6 10 0.0-0.8 [facility] [facility]) Eos # 0.1 10 0.0-0.5 [facility] [facility]) Baso # 0.0 10 0.0-0.2 [facility] [facility]) ID Date Data Source [id number] 08/21/2019 08:23:00 AM EST [facility] ([facility]) Name Value Range Interpretation Code Description Data Esme rce(s) Supporting Document(s) Hemoglobin 9.9 g/dL 12.0-15.5 [facility] [facility] Red Blood Count 4.10 10 4.00-5.40 [facility] ([facility]) White Blood Count 4.7 10 4.0-10.0 [facility] ([facility]) Hematocrit 31.4 % 36.0-47.0 [facility] [facility] Mean Corpuscular Volume 76.6 fl 80.0-96.0 [facility] ([facility]) Mean Corpuscular Hemoglobin 24.1 pg 27.0-33.0 [facility] ([facility]) Red Cell Distribution Width 17.1 % 11.5-14.5 [place] [facility] ([facility] Platelet Count, Automated 153 10 150-450 [facility] ([facility] [facility]) Mean Corpuscular HGB Conc 31.5 g/dL 32.0-36.5 [facility] ([facility] [facility]) Nucleated Red Blood Cell % 0.0 % 0-0 [facility] ([facility] [facility] ID Date Data Source [id number] 08/06/2019 08:21:00 AM EST [facility]) Name Value Range Interpretation Code Description Data Esme rce(s) Supporting Document(s) Carcinoembryonic Ag [Mass/volume] in Serum or Plasma 84.3 ng/mL [facility] ([facility] [facility] THE CEA ASSAY IS PERFORMED ON THE [employer] BY CHEMILUMINESCENCE AND SHOULD NOT BE COMPARED INTERCHANGEABLY WITH OTHER METHODS. IT SHOULD NOT BE USED ALONE A SCREENING TEST OR DIAGNOSIS FOR THE PRESENCE OR ABSENCE OF MALIGNANT DISEASE. PREDICTIONS OF DISEASE RECURRENCE SHOULD NOT BE BASED SOLELY ON VALUES OBTAINED FROM SERIAL PATIENT SERUM VALUES. ID Date Data Source [id number] 08/06/2019 08:21:00 AM EST [facility] Name Value Range Interpretation Code Description Data Esme rce(s) Supporting Document(s) Glucose, Fasting 299 mg/dL 70-100 [facility] ([facility]) Blood Urea Nitrogen 15 mg/dL 7-18 [facility] ([facility]) Creatinine For GFR 0.89 mg/dL 0.55-1.30 [facility] Potassium Serum 4.0 meq/L 3.5-5.1 [facility] ([facility]) Glomerular Filtration Rate > 60.0 [facility] ([facility]) <content>Units are mL/min/1.73 m2</content>
<content></content>
<content>Chronic Kidney Disease Staging per NKF:</content>
<content></content>
<content>Stage I & II GFR >=60 Normal to Mildly Decreased</content>
<content>Stage III GFR 30- 59 Moderately Decreased</content>
<content>Stage IV GFR 15-29 Severely Decreased</content>
<content>Stage V GFR <15 Very Little GFR Left</content>
<content>ESRD GFR <15 on DINING ROOM ATTENDANT CAFETERIA</content>
<content></content> Sodium Level 134 meq/L 136-145 [facility] ([facility]) Carbon Dioxide Level 25 meq/L 21-32 [facility] ([facility]) Chloride Level 101 meq/L 98-107 [facility] ([facility]) Anion Gap 8 meq/L 8-16 [facility] ([place] [facility]) Calcium Level 8.8 mg/dL 8.8-10.2 [facility] ([facility]) Alt/SGPT 23 U/L 12-78 [facility] ([place] [facility]) Ast/Sgot 17 U/L 7-37 [facility] ([place] [facility]) Alkaline Phosphatase 116 U/L 45-117 [facility] ([facility]) Total Protein 7.5 GM/DL 6.4-8.2 [facility] ([facility]) Bilirubin,Total 0.2 mg/dL 0.2-1.0 [facility] ([facility]) Albumin 3.4 GM/DL 3.2-5.2 [facility] ([place] [facility]) Albumin/Globulin Ratio 0.83 1.00-1.93 [facility] ([facility]) ID Date Data Source [id number] 08/06/2019 08:21:00 AM EST [facility] ([facility]) Name Value Range Interpretation Code Description Data Esme rce(s) Supporting Document(s) Lymph % 26.7 % 24.0-44.0 [facility] [facility] Neutrophils % 57.7 % 36.0-66.0 [facility] ([facility]) [place] % 13.8 % 0.0-5.0 [facility] [facility] Eos % 1.0 % 0.0-3.0 [facility] ([place] [facility]) Baso % 0.4 % 0.0-1.0 [facility] ([place] [facility]) Immature Granulocyte % 0.4 % 0-3.0 [facility] ([facility]) Lymph # 1.8 10 1.5-5.0 [facility] ([place] [facility]) Neutrophils # 3.9 10 1.5-8.5 [facility] ([facility]) [place] # 0.9 10 0.0-0.8 [facility] ([place] [facility]) Eos # 0.1 10 0.0-0.5 [facility] ([place] [facility]) Baso # 0.0 10 0.0-0.2 [facility] ([place] [facility]) ID Date Data Source [id number] 08/06/2019 08:21:00 AM EST [facility] ([facility]) Name Value Range Interpretation Code Description Data Esme rce(s) Supporting Document(s) White Blood Count 6.7 10 4.0-10.0 [facility] ([facility]) Hemoglobin 10.8 g/dL 12.0-15.5 [facility] ([place] [facility]) Red Blood Count 4.51 10 4.00-5.40 [facility] ([facility]) Mean Corpuscular Hemoglobin 23.9 pg 27.0-33.0 ME [facility]ENT ([facility]) Mean Corpuscular Volume 76.7 fl 80.0-96.0 [facility] ([facility]) Hematocrit 34.6 % 36.0-47.0 [facility] ([facility] [facility]) Mean Corpuscular HGB Conc 31.2 g/dL 32.0-36.5 MEDE NT ([facility]) Red Cell Distribution Width 15.9 % 11.5-14.5 [place] [facility] ([facility]) Nucleated Red Blood Cell % 0.0 % 0-0 [facility] ([facility]) Platelet Count, Automated 169 10 150-450 [facility] NT ([facility]) ID Date Data Source [id number] 07/27/2019 04:00:00 PM EST [facility] 1 Medication Reconciliation Report [facility] Emergency Department [address] [place] [address] Phone #: ext- [phone] 07/27/2019 15:49 Patient: BROOKS YAO Sex: F : 1960 Age: 59yWeight: 80.7 kgHeight/Length: 63 in.BMI: 31.5ALLERGIES: NoneThe patient's Home Medications are listed below:CONTINUE TAKING THE FOLLOWING MEDICATIONS: Chemo med Effexor XR Oral 75 mg, daily Glipizide Oral Lisinopril Oral 10 mg, daily, every PM MetFORMIN HCl Oral 500 mg, daily, every PM Simvastatin Oral, dailyThe source(s) of the original Home Medication information:patientpatient's family memberThe following Medications were given to the patient in the Emergency Department:None.The following Medications were prescribed to the patient:None. Name Value Range Interpretation Code Description Data [facility]) Supporting Document(s) ID Date Data Source [id number] 07/27/2019 04:00:00 PM [place] [address] Medication Administration Record [facility] Emergency Department [address] [place] [address] Phone #: ext- [phone] 07/27/2019 15:49 Patient: BROOKS YAO Sex: F : 1960 Age: 59yWeight: 80.7 kgHeight/Length: 63 inBMI: 31.5ALLERGIES: NoneDate/Time Medication Administered Medication Ordered Name Value Range Interpretation Code Description Data [facility]) Supporting Document(s) ID Date Data Source [id number] 07/27/2019 04:00:00 PM [facility] 1 General Instructions [facility] Emergency Department [address] [place] [address] Phone #: ext- [phone] 07/27/2019 15:49 Patient: BROOKS YAO Sex: F : 1960 Age: 59yAdverse drug reaction involving a benzodiazepine and Xanax pt took double dose.INSTRUCTIONSWarnings: GENERAL WARNINGS: Return or contact your physician immediately if your conditionworsens or changes unexpectedly, if not improving as expected, or if other problems arise. Spec ificallyreturn if breathing difficulty.Your Current Medications: Your current home medications have been reviewed.CONTINUE TAKING THE FOLLOWING MEDICATIONS:Chemo med*.Effexor XR Oral : 75 mg daily.Glipizide Oral.Lisinopril Oral : 10 mg daily, every PM.MetFORMIN HCl Oral : 500 mg daily, every PM.Simvastatin Oral : daily.Follow-up:Follow up with your doctor as needed. Reason for referral: evaluation and treatment. Summary of careprovided to patient and family.Understanding of the discharge instructions verbalized by family. ADDITIONAL INFORMATIONReaction to Medicine (Other Type)You are having a reaction to a medicine you have taken. This may not be the same as an allergicreaction. It is an undesired, unfavorable reaction, or a side effect of a medicine. This can cause avariety of symptoms, including: Dizziness or headache Rash Flushing or hot sensation Nausea, vomiting, or stomach pain 2 General Instructions [facility] Emergency Department [address] [place] [address] Phone #: ext- [phone] 07/27/2019 15:49 Patient: BROOKS YAO Sex: F : 1960 Age: 59y Diarrhea or constipation Trouble breathing High or low blood pressureA reaction can be an upset stomach from something like aspirin or ibuprofen, feeling faint after takinga blood pressure medicine, feeling anxious, and many other things. Symptoms of a medicine reactioncan range from very mild to very severe.In most cases, the reaction goes away within 1 to 12 hours. But it will probably occur again if you takethis same medicine. Your healthcare provider will advise you whether to change how much, when, orhow often you take this medicine. He or she may also advise you to discontinue this medicine orswitch to another one.Home care Another medicine may be recommended to reduce your symptoms until the medicine's effect wears off. Follow your healthcare provider's advice. When the medicine's effect has worn off, there should be no further problem as long as you don't take the same medicine again. Ask your healthcare provider if you should also avoid similar medicines. Write down the information so you will remember it. Make certain the medicine reaction is documented in your medical record.Follow-up careFollow up with your healthcare provider, or as advised if your symptoms are not better within 24hours.When to seek medical adviceCall your healthcare provider right away if any of these occur. New symptoms that concern you Worsening of your current symptoms, including rash or facial swelling Symptoms that are not relieved by the treatment advised Fever of 100.4F (38C) or higher, or as advised by your healthcare providerCall 911 3 General Instructions [facility] Emergency Department [address] [place] [address] Phone #: ext- [phone] 07/27/2019 15:49 Patient: BROOKS YAO Sex: F : 1960 Age: 59yCall 911 if any of these occur: Trouble breathing or swallowing, or wheezing Hoarse voice or trouble speaking Confusion Extreme drowsiness or trouble awakening Fainting or loss of consciousness Rapid heart rate or slow heart rate Very low or very high blood pressure Vomiting blood, or large amounts of blood in stool Seizure [id number] [employer]. [address] [place] [address], [place] [address]. All rights reserved. This information is not intended as asubstitute for professional medical care. Always follow your healthcare professional's instructions. You have been given the following additional information: Drug Reaction, Other(Electronically signed by BRUCE Hawthorne 07/27/2019 20:30) Name Value Range Interpretation Code Description Data Esme rce(s) Supporting Document(s) ID Date Data Source [id number] 07/27/2019 04:00:00 PM EST [facility] 1 Clinical Report - Nurses [facility] Emergency Department [address] [place] [address] Phone #: ext- [phone] 07/27/2019 15:49 Patient: BROOKS YAO Sex: F : 1960 Age: 59yTRIAGEArrived by private vehicle. Historian: patient and family.Triage time: 15:59 07/27/2019. Acuity: LEVEL 2.Chief Complaint: DRUG OVERDOSE.No acute distress.This occurred 1300. ( pt had MRI today at [facility] and had 2mg tablets of alprazolam and took 2 tabletsinstead of 1 tablet. Pt drowsy and unsteady with standing. Pt having a hard time staying awake. Pt familyvery nervous.).Treatment MOLDING FITTER:None. --16:04 07/27/19 Dolores Ward R.N.15:59 07/27/19. BP: 108/62. HR: 74. RR: 15. O2 saturation: 100%. Temp: 97.7 F. Pain level now 0/10.--16:04 07/27/19 Dolores Ward R.N.Weight: 80.7 kg. Height/Length: 63 inches. BMI: 31.5. --15:58 07/27/19 Dolores Ward R.N.MedicationsEffexor XR Oral 75 mg, daily. Glipizide Oral. Lisinopril Oral 10 mg, daily every PM. MetFORMIN HCl Oral 500 mg, daily every PM. Simvastatin Oral, daily. --16:07 07/27/19 Dolores Ward R.N. Chemo med. --16:07 07/27/19 Dolores Ward R.N.AllergiesNone. --16:07 07/27/19 Dolores Ward R.N.Medication/allergy information source: the patient and patient's family. --16:04 07/27/19 Dolores Ward R.N.HistoryPAST MEDICAL HX: No history of previous suicide attempts. Immunizations: up-to-date. ( pt has hx ofcolon cancer and pt had chemo treatment Tuesday with pump removed ).SOCIAL HX: Never smoker. No alcohol use or drug use. She was offered HIV testing but declined andhepatitis C testing but declined.Infectious disease exposure: No infectious disease exposure.SELF HARM ASSESSMENT: Self harm assessment deferred due to patient condition. 2 Clinical Report - Nurses [facility] Emergency Department [address] [place] [address] Phone #: ext- [phone] 07/27/2019 15:49 Patient: BROOKS YAO Sex: F : 1960 Age: 59y ABUSE ASSESSMENT: Abuse assessment. No suspicion of abuse. No report of abuse. NUTRITIONAL RISK ASSESSMENT: The nutritional risk assessment revealed no deficiencies. FUNCTIONAL ASSESSMENT: Functional assessment: no impairments noted. LEARNING NEEDS ASSESSMENT: The learning needs assessment revealed no barriers. FALL RISK ASSESSMENT: Fall risk assessment completed per protocol. SKIN INTEGRITY ASSESSMENT: Skin integrity risk assessment completed. No skin integrity risk identified. --16:04 07/27/19 Dolores Ward R.N. SOCIAL HX: The patient has not traveled outside the [place] Infectious disease exposure: No infectious disease exposure. --17:35 07/27/19 James Acevedo R.N.PHYSICAL [id number] 07/27/19. Ambulatory to room.GENERAL / NEURO / PSYCH: Alert. Oriented X 4. Appears in no acute distress. Patient appears calmand cooperative. Gag reflex present. Speech within normal limits.RESPIRATORY: Respirations not labored. Breath sounds within normal limits.CVS: Capillary refill less than 2 seconds.GI / : Abdomen soft and nontender. Bowel sounds within normal limits.SKIN: Skin intact. Skin is warm and dry. Skin color is within normal limits. Affect appears within normallimits. --16:28 07/27/19 Jmaes Acevedo R.N.NURSING PROGRESS NOTESThe plan of care for this patient has been created. Monitoring of patient in place. Patient gowned. Headof bed elevated. Reassurance given. Two patient identifiers checked. Side rails up x 2. Bed placed inlowest position. Brakes of bed on. --16:04 07/27/19 Dolores Ward R.N.DISPOSITION / DISCHARGE 17:06 07/27/19. BP: 105/57. MAP: 73. HR: 73. RR: 15. O2 saturation: 100%. Temp: 97.7 F. Pain level now: 0/10. --17:07 07/27/19 [facility] TechRosaPERI Tech1 17:09 07/27/19. Condition at departure: improved and stable. The goals identified in the patient's plan of care were met. Fall risk assess ment completed. No risk factors identified. No learning barriers present. Discharge instructions provided and reviewed with the spouse and family. Reviewed warnings (check on her). Reviewed medication(s). Treatments reviewed. Reviewed referral to a primary care physician. Spouse and family verbalized understanding. Written instructions provided in Ukrainian. The patient was discharged by the physician assistant food service director. She was discharged home and accompanied by spouse and family. She left in a wheelchair and via private vehicle. Family member driving. --17:16 07/27/19 James Acevedo R.N. 3 Clinical Report - Nurses [facility] Emergency Department [address] [place] [address] Phone #: ext- [phone] 15:49 Patient: BROOKS YAO Sex: Jagdish : 1960 Age: 59yLocked/Released at 07/27/2019 17:35 by James Acevedo R.N. Name Value Range Interpretation Code Description Data Esme rce(s) Supporting Document(s) ID Date Data Source [id number] 07/27/2019 04:00:00 PM EST [facility] 1 Clinical Report - Physicians/Mid Levels [facility] Emergency Department [address] [place] [address] Phone #: ext- [phone] 07/27/2019 15:49 Patient: BROOKS YAO Sex: F : 1960 Age: 59y Time Seen: 16:10 07/27/2019. Arrived- By private vehicle. Historian- patient and family.HISTORY OF PRESENT ILLNESS Chief Complaint: Over Medicated. This started today 100 PM; pt had MRI today at [facility] and had 2mg tablets of alprazolam and took 2 tablets instead of 1 tablet. Pt drowsy and unsteady with standing. Pt having a hard time staying awake. Pt family very nervous and is still present. It was abrupt in onset and has been constant. At its maximum, severity described as moderate. When seen in the E.D., severity described as moderate. No loss of appetite, weight loss, headache, visual disturbance or fatigue. No muscle aches or weakness. Denies sleep problem. No decreased urine output. Similar symptoms previously. None. Recent medical care: The patient was seen recently by a health care provider.REVIEW OF SYSTEMSNo fever, sore throat, sinus drainage, nasal congestion or cough. No difficulty breathing, chest pain,abdominal pain, nausea or vomiting. No diarrhea, black stools, bloody stools, chills or difficulty withurination. No abnormal bleeding, skin rash, back pain, calf pain or headache. No blackouts or doublevision. The patient has had difficulty with ambulation.SOCIAL HISTORYNever smoker. No alcohol use or drug use.PHYSICAL EXAMVital Signs: 07/27/2019 15:59 BP: 108/62. MAP: 77. HR: 74. RR: 15. O2 saturation: 100%. Temp: 97.7 F.Have been reviewed as normal. Oxygen saturation normal.Appearance: Alert. No acute distress. (sleepy/ drowsy).Eyes: Pupils equal, round and reactive to light. Eyes normal inspection.ENT: Ears normal. Nose normal. Pharynx normal.Neck: Normal inspection. Neck supple.CVS: Normal heart rate and rhythm. Heart sounds normal. Pulses normal.Respiratory: No respiratory distress. Breath sounds normal.Abdomen: No visible injury. Soft and nontender. Bowel sounds normal. No mass.Back: Normal inspection.Skin: Skin warm and dry. Normal skin color. No rash. Normal skin turgor.Extremities: Extremities exhibit normal ROM.Neuro: Oriented X 3.PROGRESS AND PROCEDURESCourse of Care: 16:56 Jul 27 2019. Evaluation after observation. (Discussed medication side effects 2 Clinical Report - Physicians/Mid Levels [facility] Emergency Department [address] [place] [address] Phone #: ext- [phone] 07/27/2019 15:49 Patient: BROOKS YAO Sex: F : 1960 Age: 59y and family will closely observe pt who is resting and stable.). Patient counseled in person regarding the patient's stable condition, test results, diagnosis and need for follow-up. Patient agrees with plan of care. 16:56 Jul 27 2019. Disposition: Discharged home in good and improved condition (16:56 Jul 27 2019).CLINICAL IMPRESSION Adverse drug reaction involving a benzodiazepine and Xanax pt took double dose.INSTRUCTIONS Warnings: GENERAL WARNINGS: Return or contact your physician immediately if your condition worsens or changes unexpectedly, if not improving as expected, or if other problems arise. Specifically return if breathing difficulty. Your Current Medications: Your current home medications have been reviewed. CONTINUE TAKING THE FOLLOWING MEDICATIONS: Chemo med*. Effexor XR Oral : 75 mg daily. Glipizide Oral. Lisinopril Oral : 10 mg daily, every PM. MetFORMIN HCl Oral : 500 mg daily, every PM. Simvastatin Oral : daily. Follow-up: Follow up with your doctor as needed. Reason for referral: evaluation and treatment. Summary of care provided to patient and family. Understanding of the discharge instructions verbalized by family.(Electronically signed by BRUCE Hawthorne 07/27/2019 20:30) Name Value Range Interpretation Code Description Data Esme rce(s) Supporting Document(s) ID Date Data Source [id number] 07/24/2019 08:11:00 AM EST [facility] ([facility]) Name Value Range Interpretation Code Description Data [facility] rce(s) Supporting Document(s) White Blood Count 7.0 10 4.0-10.0 [facility] ([facility]) Hemoglobin 10.1 g/dL 12.0-15.5 [facility] Hematocrit 33.6 % 36.0-47.0 [facility] ([facility]) Red Blood Count 4.35 10 4.00-5.40 [facility] ([facility]) Mean Corpuscular Hemoglobin 23.2 pg 27.0-33.0 [place] [facility] ([facility]) Mean Corpuscular Volume 77.2 fl 80.0-96.0 [facility] ([facility]) Mean Corpuscular HGB Conc 30.1 g/dL 32.0-36.5 MEDE NT ([facility]) Red Cell Distribution Width 15.3 % 11.5-14.5 [place] [facility] ([facility]) Nucleated Red Blood Cell % 0.0 % 0-0 [facility] ([facility]) Platelet Count, Automated 283 10 150-450 [facility] ([facility]) ID Date Data Source [id number] 07/24/2019 08:11:00 AM EST [facility] ([facility]) Name Value Range Interpretation Code Description Data Esme rce(s) Supporting Document(s) Neutrophils % 62.8 % 36.0-66.0 [facility] ([facility]) [place] % 10.0 % 0.0-5.0 [facility] ([place] [facility]) Eos % 1.6 % 0.0-3.0 [facility] [facility]) Lymph % 24.8 % 24.0-44.0 [facility] [facility]) Immature Granulocyte % 0.4 % 0-3.0 [facility] ([facility]) Neutrophils # 4.4 10 1.5-8.5 [facility] ([facility]) Baso % 0.4 % 0.0-1.0 [facility] ([facility] [facility]) Lymph # 1.7 10 1.5-5.0 [facility] [facility]) [place] # 0.7 10 0.0-0.8 [facility] ([facility] [facility]) Eos # 0.1 10 0.0-0.5 [facility] ([facility] [facility]) Baso # 0.0 10 0.0-0.2 [facility] ([facility] [facility]) ID Date Data Source [id number] 07/24/2019 08:11:00 AM EST [facility] ([facility]) Name Value Range Interpretation Code Description Data Esme rce(s) Supporting Document(s) Glucose, Fasting 268 mg/dL 70-100 [facility] ([facility]) Glomerular Filtration Rate > 60.0 [facility] ([facility]) <content>Units are mL/min/1.73 m2</content>
<content></content>
<content>Chronic Kidney Disease Staging per NKF:</content>
<content></content>
<content>Stage I & II GFR >=60 Normal to Mildly Decreased</content>
<content>Stage III GFR 30- 59 Moderately Decreased</content>
<content>Stage IV GFR 15-29 Severely Decreased</content>
<content>Stage V GFR <15 Very Little GFR Left</content>
<content>ESRD GFR <15 on DINING ROOM ATTENDANT CAFETERIA</content>
<content></content> Creatinine For GFR 0.75 mg/dL 0.55-1.30 [facility] ([facility] Blood Urea Nitrogen 13 mg/dL 7-18 [facility] ([facility] Sodium Level 136 meq/L 136-145 [facility] ([facility] Potassium Serum 4.0 meq/L 3.5-5.1 [facility] ([facility]) Chloride Level 103 meq/L 98-107 [facility] ([facility]) Carbon Dioxide Level 26 meq/L 21-32 [facility] ([facility] Anion Gap 7 meq/L 8-16 [facility] ([place] [facility]) Calcium Level 8.2 mg/dL 8.8-10.2 [facility] ([facility] Ast/Sgot 11 U/L 7-37 [facility] ([place] [facility]) Alt/SGPT 15 U/L 12-78 [facility] ([facility]) Alkaline Phosphatase 103 U/L 45-117 [facility] Bilirubin,Total 0.2 mg/dL 0.2-1.0 [facility] ([facility]) Albumin 3.2 GM[facility]DL 3.2-5.2 [facility] Total Protein 7.1 GM/DL 6.4-8.2 [facility] ([facility] Albumin/Globulin Ratio 0.82 1.00-1.93 [facility] ([facility] ID Date Data Source [id number] 07/24/2019 08:11:00 AM EST [facility] Name Value Range Interpretation Code Description Data Esme rce(s) Supporting Document(s) Carcinoembryonic Ag [Mass/volume] in Serum or Plasma 188.5 ng/mL [facility] ([facility] THE CEA ASSAY IS PERFORMED ON THE [employer] BY CHEMILUMINESCENCE AND SHOULD NOT BE COMPARED INTERCHANGEABLY WITH OTHER METHODS. IT SHOULD NOT BE USED ALONE A SCREENING TEST OR DIAGNOSIS FOR THE PRESENCE OR ABSENCE OF MALIGNANT DISEASE. PREDICTIONS OF DISEASE RECURRENCE SHOULD NOT BE BASED SOLELY ON VALUES OBTAINED FROM SERIAL PATIENT SERUM VALUES. Calcidiol [Mass/volume] in Serum or Plasma 17.9 ng/mL 30.0-100.0 [facility] ([facility]) <content>note:<nlbl:demographic_changed></content>
<content>note:<nlbl:demog raphic_changed></content>
<content>note:<nlbl:demographic_changed></content>
<content></content> ID Date Data Source [id number] 07/17/2019 11:03:00 AM EST [facility] Name Value Range Interpretation Code Description Data Esme rce(s) Supporting Document(s) Bacteria identified in Genital specimen by Aerobe cult ure FULL REPORT IN L <SEE NOTE> [facility] ([facility] ) FULL REPORT IN LAB NOTES (eCW and [facility] ). NORMAL DANIEL PRESENT ORGANISM 1: YEAST LIKE ORGANISM QUANTITY OF GROWTH MODERATE ORGANISM 1: YEAST LIKE ORGANISM ID Date Data Source [id number] 07/17/2019 09:59:00 AM EST [facility] Name Value Range Interpretation Code Description Data Esme rce(s) Supporting Document(s) Urine Color YELLOW [facility] Urine Appearance SL. HAZY Abnormal (applies to non-numer ic results) [facility] Urine PH 6.0 units 5.0-9.0 [facility]) Specific gravity of Urine 1.020 1.005-1.030 [place] [facility] ([facility]) Urine Leukocytes NEGATIVE [facility] ([facility] Urine Blood NEGATIVE [facility] ([facility]) Glucose [Presence] in Urine >=2000 mg/dL mg/dL A bnormal (applies to non- numeric results) [facility] ([facility]) Urine Protein 1+ 0-0 Abnormal (applies to non-numeric results) [facility] ([facility]) Urine Nitrite NEGATIVE [facility] ([facility]) Bilirubin.total [Mass/volume] in Serum or Plasma NEGATIVE [facility] ([facility]) Urine Ketone 15 mg/dL mg/dL Abnormal (applies to non-numer ic results) [facility] ([facility]) Urine Urobilinogen 0.2 mg/dL 0.2-1.0 [facility] ([facility]) ID Date Data Source [id number] 07/11/2019 09:51:00 AM EST [facility] ([facility]) Name Value Range Interpretation Code Description Data Esme rce(s) Supporting Document(s) Glucose, Fasting 300 mg/dL 70-100 [facility] ([facility]) Blood Urea Nitrogen 12 mg/dL 7-18 [facility] ([facility]) Glomerular Filtration Rate > 60.0 [facility] ([facility]) <content>Units are mL/min/1.73 m2</content>
<content></content>
<content>Chronic Kidney Disease Staging per NKF:</content>
<content></content>
<content>Stage I & II GFR >=60 Normal to Mildly Decreased</content>
<content>Stage III GFR 30- 59 Moderately Decreased</content>
<content>Stage IV GFR 15-29 Severely Decreased</content>
<content>Stage V GFR <15 Very Little GFR Left</content>
<content>ESRD GFR <15 on DINING ROOM ATTENDANT CAFETERIA</content>
<content></content> Creatinine For GFR 0.96 mg/dL 0.55-1.30 [facility] ([facility]) Sodium Level 135 meq/L 136-145 [facility] ([facility]) Potassium Serum 3.9 meq/L 3.5-5.1 [facility] ([facility]) Chloride Level 99 meq/L 98-107 [facility] ([facility]) Carbon Dioxide Level 25 meq/L 21-32 [facility] ([facility]) Anion Gap 11 meq/L 8-16 [facility]) Ast/Sgot 12 U/L 7-37 [facility] ([facility]) Calcium Level 9.3 mg/dL 8.8-10.2 [facility] ([facility]) Alt/SGPT 19 U/L 12-78 [facility]) Bilirubin,Total 0.2 mg/dL 0.2-1.0 [facility] ([facility]) Total Protein 7.6 GM/DL 6.4-8.2 [facility] ([facility]) Alkaline Phosphatase 101 U/L 45-117 [facility] ([facility]) Albumin 3.5 GM/DL 3.2-5.2 [facility] ([facility]) Albumin/Globulin Ratio 0.85 1.00-1.93 [facility] ([facility]) ID Date Data Source [id number] 07/11/2019 09:51:00 AM EST [facility] ([facility]) Name Value Range Interpretation Code Description Data Esme rce(s) Supporting Document(s) Neutrophils % 68.7 % 36.0-66.0 [facility] ([facility]) Lymph % 22.1 % 24.0-44.0 [facility]) Baso % 0.5 % 0.0-1.0 [facility]) Eos % 0.9 % 0.0-3.0 [facility]) [place] % 7.5 % 0.0-5.0 [facility]) Lymph # 2.2 10 1.5-5.0 [facility]) Neutrophils # 6.7 10 1.5-8.5 [facility] ([facility]) Immature Granulocyte % 0.3 % 0-3.0 [facility] ([facility]) Eos # 0.1 10 0.0-0.5 [facility] ([facility]) [place] # 0.7 10 0.0-0.8 [facility] ([facility]) Baso # 0.1 10 0.0-0.2 [facility]) ID Date Data Source [id number] 07/11/2019 09:51:00 AM EST [facility] ([facility]) Name Value Range Interpretation Code Description Data Esme rce(s) Supporting Document(s) White Blood Count 9.8 10 4.0-10.0 [facility] ([facility]) Red Blood Count 4.42 10 4.00-5.40 [facility] ([facility]) Hemoglobin 10.5 g/dL 12.0-15.5 [facility] ([facility]) Hematocrit 34.7 % 36.0-47.0 [facility] Mean Corpuscular Volume 78.5 fl 80.0-96.0 [facility] ([facility]) Mean Corpuscular Hemoglobin 23.8 pg 27.0-33.0 [place] [facility] ([facility]) Mean Corpuscular HGB Conc 30.3 g/dL 32.0-36.5 [facility] NT ([facility]) Red Cell Distribution Width 15.8 % 11.5-14.5 [place] [facility] ([facility]) Platelet Count, Automated 379 10 150-450 [facility] ([facility]) Nucleated Red Blood Cell % 0.0 % 0-0 [facility] ([facility]) ID Date Data Source [id number] 07/02/2019 09:33:00 AM EST [facility] ([facility]) Name Value Range Interpretation Code Description Data Esme e(s) Supporting Document(s) Inr 1.04 [facility] ([facility]) THERAPUTIC HUMAN INR VALUES INDICATIONS NORMAL RANGES PROPHYLAXIS/TREATMENT OF: VENOUS THROMBOSIS 2.0-3.0 PULMONARY EMBOLISM 2.0-3.0 PREVENTION OF SYSTEMIC EMBOLISM FROM: TISSUE HEART VALVES 2.0-3.0 ACUTE MYOCARDIAL INFARCTION 2.0-3.0 VALVULAR HEART DISEASE 2.0-3.0 ATRIAL FIBRILLATION 2.0-3.0 MECHANICAL VALVES(HIGH RISK) 2.5-3.5 RECURRENT MYOCARDIAL INFARCTION 2.5-3.5 Prothrombin Time 13.3 s 11.8-14.0 [facility] Partial Thromboplastin Time 27.8 s 25.0-38.4 [place] [facility] ([facility]) ID Date Data Source [id number] 06/08/2019 12:25:00 PM EST [facility] ([facility]) Name Value Range Interpretation Code Description Data Esme rce(s) Supporting Document(s) White Blood Count 10.6 10 4.0-10.0 [facility] ([facility]) Hemoglobin 10.1 g/dL 12.0-15.5 [facility] Red Blood Count 4.11 10 4.00-5.40 [facility] ([facility]) Mean Corpuscular Hemoglobin 24.6 pg 27.0-33.0 [place] [facility] ([facility]) Hematocrit 32.9 % 36.0-47.0 [facility] Mean Corpuscular Volume 80.0 fl 80.0-96.0 [facility] ([facility]) Mean Corpuscular HGB Conc 30.7 g/dL 32.0-36.5 [facility] NT ([facility]) Red Cell Distribution Width 15.6 % 11.5-14.5 [place] [facility] ([facility]) Nucleated Red Blood Cell % 0.0 % 0-0 [facility] ([facility]) Platelet Count, Automated 482 10 150-450 [facility] ([facility]) ID Date Data Source [id number] 06/08/2019 12:25:00 PM EST [facility] ([facility]) Name Value Range Interpretation Code Description Data [facility] Supporting Document(s) Lymph % 25.5 % 24.0-44.0 [facility] ([facility]) Neutrophils % 65.5 % 36.0-66.0 [facility] ([facility]) [place] % 6.6 % 0.0-5.0 [facility] ([facility]) Eos % 1.3 % 0.0-3.0 [facility]) Baso % 0.5 % 0.0-1.0 [facility]) Immature Granulocyte % 0.6 % 0-3.0 [facility] ([facility]) Neutrophils # 7.0 10 1.5-8.5 [facility] ([facility]) Lymph # 2.7 10 1.5-5.0 [facility] ([facility] [facility]) [place] # 0.7 10 0.0-0.8 [facility] ([place] [facility]) Eos # 0.1 10 0.0-0.5 [facility] ([place] [facility]) Baso # 0.1 10 0.0-0.2 [facility] ([place] [facility]) ID Date Data Source [id number] 06/08/2019 12:25:00 PM EST [facility] ([facility]) Name Value Range Interpretation Code Description Data Esme rce(s) Supporting Document(s) Glucose, Fasting 149 mg/dL 70-100 [facility] ([facility]) Creatinine For GFR 0.70 mg/dL 0.55-1.30 [facility] ([facility]) Blood Urea Nitrogen 9 mg/dL 7-18 [facility] ([facility]) Glomerular Filtration Rate > 60.0 [facility] ([facility]) <content>Units are mL/min/1.73 m2</content>
<content></content>
<content>Chronic Kidney Disease Staging per NKF:</content>
<content></content>
<content>Stage I & II GFR >=60 Normal to Mildly Decreased</content>
<content>Stage III GFR 30- 59 Moderately Decreased</content>
<content>Stage IV GFR 15-29 Severely Decreased</content>
<content>Stage V GFR <15 Very Little GFR Left</content>
<content>ESRD GFR <15 on DINING ROOM ATTENDANT CAFETERIA</content>
<content></content> Potassium Serum 3.9 meq/L 3.5-5.1 [facility] ([facility]) Sodium Level 139 meq/L 136-145 [facility] ([facility]) Chloride Level 103 meq/L 98-107 [facility] ([facility]) Anion Gap 7 meq/L 8-16 [facility] ([place] [facility]) Carbon Dioxide Level 29 meq/L 21-32 [facility] Calcium Level 8.9 mg/dL 8.5-10.1 [facility] ([facility]) Alt/SGPT 16 U/L 12-78 [facility] ([place] [facility]) Ast/Sgot 11 U/L 7-37 [facility] ([place] [facility]) Alkaline Phosphatase 96 U/L 45-117 [facility] ([facility]) Bilirubin,Total 0.2 mg/dL 0.2-1.0 [facility] ([facility]) Albumin/Globulin Ratio 0.70 1.00-1.93 [facility] Albumin 3.1 GM/DL 3.2-5.2 [facility] [facility] Total Protein 7.5 GM/DL 6.4-8.2 [facility] ID Date Data Source [id number] 06/08/2019 12:25:00 PM EST [facility] ([facility]) Name Value Range Interpretation Code Description Data Esme rce(s) Supporting Document(s) Carcinoembryonic Ag [Mass/volume] in Serum or Plasma 36.4 ng/mL [facility] ([facility]) THE CEA ASSAY IS PERFORMED ON THE [facility] BY CHEMILUMINESCENCE AND SHOULD NOT BE COMPARED INTERCHANGEABLY WITH OTHER METHODS. IT SHOULD NOT BE USED ALONE A SCREENING TEST OR DIAGNOSIS FOR THE PRESENCE OR ABSENCE OF MALIGNANT DISEASE. PREDICTIONS OF DISEASE RECURRENCE SHOULD NOT BE BASED SOLELY ON VALUES OBTAINED FROM SERIAL PATIENT SERUM VALUES. Procedure Social History Code Duration Value Status Description Data Source(s ) 04/12/2020 03:36:00 PM EDT Never smoker completed Never s [facility] Smoking 04/12/2020 03:36:00 PM EDT Never smoker completed Never s [facility] 09/27/2019 04:46:55 PM EDT Former smoker completed Former smoker [facility] Smoking 09/27/2019 04:46:00 PM EDT Former smoker completed Former smoker [facility] Vital Signs ID Date Data Source UNK Name Value Range Interpretation Code Description Data Source(s) Body weight 76.658 kg 76.658 kg [facility] ([facility], ) Body mass index (BMI) [Ratio] 29.9 kg/m2 29.9 k g/m2 [facility] ([facility]) Body weight 169.00 [lb_av] 169.00 [lb_av] [facility] Body height 63 [in_i] 63 [in_i] [facility] ([facility]) 5'3" Diastolic blood pressure 84 mm[Hg] 84 mm[Hg] [facility] ([facility]) Systolic blood pressure 134 mm[Hg] 134 mm[Hg] [facility] ([facility]) Body weight 80.514 kg 80.514 kg [facility] ([facility]) Body mass index (BMI) [Ratio] 31.4 kg/m2 31.4 k g/m2 [facility] ([facility]) Body weight 177.50 [lb_av] 177.50 [lb_av] [facility] ([facility]) Body height 63 [in_i] 63 [in_i] [facility] ([facility]) 5'3" Diastolic blood pressure 88 mm[Hg] 88 mm[Hg] [facility] ([facility]) Systolic blood pressure 138 mm[Hg] 138 mm[Hg] [facility] ([facility]) Body mass index (BMI) [Ratio] 30.9 kg/m2 30.9 k g/m2 [facility] ([facility]) Oxygen saturation in Arterial blood by Pulse oximetry 98 % 98 % [facility] ([facility]) Air Body weight 177.00 [lb_av] 177.00 [lb_av] [facility] ([facility]) Body height 63.50 [in_i] 63.50 [in_i] [facility] ( [facility] 5'3.50" Heart rate 96 /min 96 /min [facility] ([facility]) Diastolic blood pressure 68 mm[Hg] 68 mm[Hg] [facility] ([facility]) Systolic blood pressure 118 mm[Hg] 118 mm[Hg] [facility] ([facility])
--- NOTE | 2020-07-17 12:47 | ROOR ---
Patient Name: Molly Morfin Procedure Date: 07/17/2020 12:36 PM Date of : 1960 Age: 60 Room: [facility] Gender: Female Note Status: Finalized Procedure: Upper GI endoscopy Indications: Suspected esophageal reflux Providers: Miguel Angel Kim Jr, MD Referring MD: Judith GUEVARA MD, Renzo Burr Md Requesting Provider: Medicines: Propofol per Anesthesia Complications: No immediate complications. Procedure: Pre-Anesthesia Assessment: - Prior to the procedure, a History and Physical was performed, and patient medications and allergies were reviewed. The patient is competent. The risks and benefits of the procedure and the sedation options and risks were discussed with the patient. All questions were answered and informed consent was obtained. Patient identification and proposed procedure were verified by the physician and the nurse in the pre-procedure area and in the procedure room. Mental Status Examination: alert and oriented. Airway Examination: normal oropharyngeal airway and neck mobility. Respiratory Examination: clear to auscultation. CV Examination: normal. ASA Grade Assessment: II - A patient with mild systemic disease. After reviewing the risks and benefits, the patient was deemed in satisfactory condition to undergo the procedure. The anesthesia plan was to use moderate sedation / analgesia (conscious sedation). Immediately prior to administration of medications, the patient was re-assessed for adequacy to receive sedatives. The heart rate, respiratory rate, oxygen saturations, blood pressure, adequacy of pulmonary ventilation, and response to care were monitored throughout the procedure. The physical status of the patient was re-assessed after the procedure. The Endoscope was introduced through the mouth, and advanced to the second part of duodenum. The upper GI endoscopy was accomplished without difficulty. The patient tolerated the procedure well. Findings: The upper third of the esophagus, middle third of the esophagus and lower third of the esophagus were normal. The cardia, gastric fundus, gastric body, gastric antrum, prepyloric region of the stomach and pylorus were normal. A small hiatal hernia was present. The duodenal bulb, first portion of the duodenum and second portion of the duodenum were normal. Impression: - Normal upper third of esophagus, middle third of esophagus and lower third of esophagus. - Normal cardia, gastric fundus, gastric body, antrum, prepyloric region of the stomach and pylorus. - Small hiatal hernia. - Normal duodenal bulb, first portion of the duodenum and second portion of the duodenum. - No specimens collected. Recommendation: - Discharge patient to home (ambulatory). - Return to my office as previously scheduled. Procedure Code(s): --- Professional --- 70853, Esophagogastroduodenoscopy, flexible, transoral; diagnostic, including collection of specimen(s) by brushing or washing, when performed (separate procedure) Diagnosis Code(s): --- Professional --- K44.9, Diaphragmatic hernia without obstruction or gangrene CPT copyright 2019 [employer]. All rights reserved. The codes documented in this report are preliminary and upon entry level sales associate review may be revised to meet current compliance requirements. Miguel Angel Kim MD Miguel Angel Kim Jr, MD 07/17/2020 12:46:52 PM Electronically signed by Miguel Angel Kim Jr, MD Number of Addenda: 0 Note Initiated On: 07/17/2020 12:36 PM Estimated Blood Loss: Estimated blood loss: none.
--- NOTE | 2020-07-17 13:00 | ROOR ---
Patient Name: Molly Morfin Procedure Date: 07/17/2020 12:35 PM Date of : 1960 Age: 60 Room: [facility] Gender: Female Note Status: Finalized Procedure: Colonoscopy Indications: High risk colon cancer surveillance: Personal history of colon cancer Providers: Miguel Angel Kim Jr, MD Referring MD: Judith GUEVARA MD, Renzo Burr Md Requesting Provider: Medicines: Propofol per Anesthesia Complications: No immediate complications. Procedure: Pre-Anesthesia Assessment: - Prior to the procedure, a History and Physical was performed, and patient medications and allergies were reviewed. The patient is competent. The risks and benefits of the procedure and the sedation options and risks were discussed with the patient. All questions were answered and informed consent was obtained. Patient identification and proposed procedure were verified by the physician and the nurse in the pre-procedure area and in the procedure room. Mental Status Examination: alert and oriented. Airway Examination: normal oropharyngeal airway and neck mobility. Respiratory Examination: clear to auscultation. CV Examination: normal. ASA Grade Assessment: II - A patient with mild systemic disease. After reviewing the risks and benefits, the patient was deemed in satisfactory condition to undergo the procedure. The anesthesia plan was to use moderate sedation / analgesia (conscious sedation). Immediately prior to administration of medications, the patient was re-assessed for adequacy to receive sedatives. The heart rate, respiratory rate, oxygen saturations, blood pressure, adequacy of pulmonary ventilation, and response to care were monitored throughout the procedure. The physical status of the patient was re-assessed after the procedure. The Colonoscope was introduced through the anus and advanced to the ileocolonic anastomosis. The colonoscopy was performed without difficulty. The patient tolerated the procedure well. Findings: The rectum, recto-sigmoid colon, sigmoid colon, descending colon, transverse colon and anastomosis appeared normal. Impression: - The rectum, recto-sigmoid colon, sigmoid colon, descending colon, transverse colon and colonic anastomosis are normal. - No specimens collected. Recommendation: - Discharge patient to home (ambulatory). - Repeat colonoscopy in 3 years for surveillance. Procedure Code(s): --- Professional --- 28589, Colonoscopy, flexible; diagnostic, including collection of specimen(s) by brushing or washing, when performed (separate procedure) Diagnosis Code(s): --- Professional --- Z85.038, Personal history of other malignant neoplasm of large intestine CPT copyright 2019 [employer]. All rights reserved. The codes documented in this report are preliminary and upon valet cashier review may be revised to meet current compliance requirements. Miguel Angel Kim MD Miguel Angel Kim Jr, MD 07/17/2020 1:00:08 PM Electronically signed by Miguel Angel Kim Jr, MD Number of Addenda: 0 Note Initiated On: 07/17/2020 12:35 PM Estimated Blood Loss: Estimated blood loss: none.
[2020-07-17 13:25] VITALS: BP 130/75
[2020-07-17] MEDS ORDERED: SODIUM CHLORIDE 0.9% INJ 10 ML SYR IV PRN (13:30)
[2020-07-18] MEDS ORDERED: LISI10TA4 PO (15:49)
== END 2020-07-17 13:50 | disposition home or self-care (01) ==
LOC: M OPP 09:33
PROVIDERS: ATTEND Surgery
DX: Z12.11 Encounter for screening for malignant neoplasm of colon (principal); Z85.038 Personal history of other malignant neoplasm of large intestine; K21.9 Gastro-esophageal reflux disease without esophagitis; K44.9 Diaphragmatic hernia without obstruction or gangrene; I10 Essential (primary) hypertension; E78.5 Hyperlipidemia, unspecified; E11.9 Type 2 diabetes mellitus without complications; M19.90 Unspecified osteoarthritis, unspecified site; F41.9 Anxiety disorder, unspecified; F32.9 Major depressive disorder, single episode, unspecified; F90.9 Attention-deficit hyperactivity disorder, unspecified type; F43.10 Post-traumatic stress disorder, unspecified; Z92.21 Personal history of antineoplastic chemotherapy; Z79.84 Long term (current) use of oral hypoglycemic drugs; Z79.899 Other long term (current) drug therapy
CPT/HCPCS: 43235; 45378; J1642

== ENCOUNTER → 2020-12-15 | Outpatient (CLI) | payer BC ==
[~2020-12-15] MED LIST changes: +AMOX500C PO; +BACTDSTA PO; +CEPH500C PO; +COVI30VI IM; +GLIP10TA18 PO; +GLIP5TAB20 PO; +HYDR28CR33 TOP; -LIDOCAINE 2% 100MG/5ML SDV (FOR ANES.) As Ordered ONE; +LISI10TA22 PO; -LISI10TA4 PO; -NS 1,000 ML IV ONE; -SODIUM CHLORIDE 0.9% INJ 10 ML SYR IV SCH; -SULF1TAB93 PO; -propofoL 200 MG/20 ML VIAL As Ordered ONE
--- NOTE | 2020-12-16 12:22 | REP ---
INDICATION: RESTAGING COLON CANCER ASCENDING COLON. Diagnosed in April of 2019 presenting with bowel obstruction. Status post right hemicolectomy and reanastomosis April of 2019 with liver and pelvic metastatic disease on June 27, 2019 PET/CT. Status post chemotherapy. COMPARISON: Comparison PET-CT studies are from November 20, 2019 in June 27, 2019.. Comparison CT chest abdomen pelvis [facility] August 08, 2020. TECHNIQUE: Sixty-five minutes following the intravenous injection of a 8.50 mCi dose of F-18 FDG, three-dimensional PET scintigraphy is acquired from the skull base to the proximal thighs. Triplanar noncontrast CT scanning is acquired through the same anatomic range for attenuation correction, and image registration with scan parameters optimized to minimize radiation exposure to the patient. PET scintigraphy and CT datasets were fused and displayed on a workstation with multiplanar and projection display capability. FINDINGS: On today's examination, there is again noted to be diffuse scan marrow uptake throughout the axial skeleton consistent with chemo reactive marrow changes. This is unchanged from the most recent prior study. The head and neck soft tissues are unremarkable. There is no abnormal hypermetabolic uptake in either hilus or in the mediastinum. No abnormal pulmonary parenchymal hypermetabolic uptake is appreciated. In the abdomen and pelvis, there is normal hepatic, splenic, gastrointestinal, and genitourinary FDG accumulation. Gallstones are visible in the gallbladder. There is a low-density lesion in the posterior segment of the right lobe without visible uptake most consistent with a cyst. Previously noted foci of uptake in the liver, anterior abdominal wall, right pelvis, and right upper abdomen are no longer apparent. No new area of increased uptake is seen in the abdomen or pelvis. IMPRESSION: No suspicious hypermetabolic uptake seen. <Electronically signed by Dangelo Kelly > 12/16/20 [id number]
== END ==
LOC: M PLARAD 15:28
PROVIDERS: ATTEND Internal Medicine Medical Oncology
DX: C18.2 Malignant neoplasm of ascending colon (principal)
CPT/HCPCS: 78815; A9552

== ENCOUNTER → 2021-04-03 | Outpatient (CLI) | payer BC ==
[~2021-04-03] MED LIST changes: +CAPE1TAB2 PO; +GLIM2TAB4 PO; +GLIM4TAB5 PO; +MAGIC; -METH30CA13 PO; +METH30CA3 PO; +Tumeric PO
--- NOTE | 2021-04-03 16:37 | RADONC.CN ---
Radiation Oncology Hx/Consult Radiation Oncology Consult Date of Service: Apr 03, 2021 Pt Identifier Molly Morfin is a 60 year old female with a history of metastatic right- sided colon cancer [id number] stage IVB, BRAF positive/MMR stable/CHAS wild type/ERBB2 wild type/BRCA1 copy number loss/MARIA DOLORES copy number loss/BRAF [id number] on OmniSeq NGS. She was diagnosed in 2018 after presenting with bowel obstruction. She underwent right hemicolectomy with reanastomosis in April 2019. Imaging at the time of diagnosis showed a nodule present between the uterus and proximal rectum near the peritoneal reflexion consistent with a drop metastasis. Post- surgery imaging then showed two PET-CT avid CT hypodense liver metastases and increased uptake in the perirectal lesion. She then started chemotherapy FOLXOX 07/11/19-08/21/19, then FOLFIRINOX/camilo from 09/04/19-07/11/20, then FOLFIRI/camilo 06/2020-present. She was noted to have radiographically and metabolically q uiescent imaging until PET-CT 12/15/20 showed uptake in the letty-rectal nodule which was not realized until subsequent CT abdomen and pelvis on 03/04/21 showed enlargement of the nodule as well as two subtly enlarged left-sided pelvic lymph nodes. She is seen today for consideration of RT to address this pelvic disease. Diagnosis/Treatment History Oncologic History As above Recent data: 03/04/21 CT chest abdomen pelvis 2cm peritoneal nodule between the proximal rectum and uterus, enlarging compared to prior 1.[address], new 1.[address], new No chest lesions Item Value Date Time Carcinoembryonic Antigen 4.3 NG/ML H 12/09/20 0826 Carcinoembryonic Antigen 5.5 NG/ML H 12/30/20 0805 Carcinoembryonic Antigen 5.6 NG/ML H 01/19/21 0814 Carcinoembryonic Antigen 11.0 NG/ML H 03/02/21 0802 Interval History Molly is here with her some Raji. She reports that she feels generally well aside from recrudescent whole body psoriasis lesions which have emerged in recent weeks as well as joint pains associated with this. 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 She had no skin lesions until last month when she started glimepiride. She has some feelings of pelvic fullness but has normal caliber stools. No bowel or bladder complaints otherwise. She has stable energy levels and weight. Past Medical History: Psoriasis/psoriatic arthritis DMII HPL Family History: Sister-pancreas cancer Social History: Never smoker Drinks 1-2 drinks 3 days per week Allergies / Meds Allergies: Coded Allergies: No Known Allergies (Unverified , 06/23/20) Home Meds Active Scripts Magic Mouthwash (First-Mouthwash Blm) 1 Ea Susp, 10 ML SSP QID PRN for MUCOSITIS, #240 ML 5 Refills (Diphenhydramine/maalox/lidocaine 1:1:1) May compound if kit unavailable/not covered by insurance Prov:RICO BARKER MD FACP 08/19/20 Lisinopril (Lisinopril) 10 Mg Tablet, 10 MG PO QHS, #30 TAB 5 Refills Prov:GERONIMO MCKAY MD 07/18/20 Ondansetron HCl (Ondansetron HCl) 8 Mg Tablet, 8 MG PO Q6H PRN for NAUSEA, #30 TAB 3 Refills TAKE ONE TABLET EVERY 6 HOURS NEEDED FOR NAUSEA. Prov:Cassie El MD 07/11/19 Reported Medications [Magic] No Conflict Check 04/03/21 Glimepiride (Glimepiride) 4 Mg Tablet, 1 TAB PO DAILY for 30 Days, #30 TAB 03/31/21 [Tumeric] No Conflict Check, 1 CAP PO 2XW tuesday and 03/31/21 Covid-19 Vacc, Mrna(Pfizer)/Pf ([email or web address] Covid19 Vacc (Unapprov)) 30 Mcg/0.3 Ml Vial, 30 MCG IM, VIAL 10/21/20 Vit B Complex 100 Combo No.2 (B-100 Complex) 100 Mg Tablet.er, 1 TAB PO DAILY for 30 Days, #30 TAB 06/08/19 Cholecalciferol (Vitamin D3) (Baby Vitamin D3) 15 Ml Drops, 6 DROP PO DAILY 04/20/19 Venlafaxine HCl (Venlafaxine HCl ER) 150 Mg Cap.er.24h, 75 MG PO DAILY 03/06/19 Simvastatin (Simvastatin) 10 Mg Tablet, 10 MG PO QHS 09/25/18 Metformin HCl (Metformin HCl ER) 500 Mg Tab.er.24h, 1000 MG PO BID 09/25/18 Discontinued Reported Medications Glimepiride (Glimepiride) 2 Mg Tablet, 1 TAB PO DAILY for 30 Days, #30 TAB 03/31/21 Glipizide (Glipizide ER) 10 Mg Tab.er.24, 1 TAB PO DAILY for 30 Days, #30 TAB 03/02/21 Methylphenidate HCl (Methylphenidate LA) 30 Mg Cpbp.50.50, 30 MG PO DAILY PRN for ADHD 04/20/19 Review of Systems Constitutional: Reports: Fatigue; Denies: Fever, Night Sweats, Weight Loss Eyes: Denies: Pain HEENT: Denies: Head Aches Skin: Reports: Rash, Lesions Pulmonary: Denies: Dyspnea Cardiovascular: Denies: Chest Pain Gastrointestinal: Denies: Abdominal Pain, Diarrhea, Hematochezia Hematologic: Denies: Bruising, Bleeding Excessively Musculoskeletal: Reports: Joint pain; Denies: Neck pain, Back pain Neurological: Denies: Weakness, Numbness Psych: Reports: Mood Normal Vital Signs Ht 64" Wt 184lbs BMI 32 T 98 P 69 RR 16 BP 132/71 O2 99% Pain 2 Fatigue 1 General Exam: Alert, Cooperative, No Acute Distress Eye Exam: PERRLA, EOMI ENT EXAM: Atraumatic Neck Exam: Supple Chest Exam: Clear to auscultation Heart Exam: Rate Normal Abdomen Exam: Soft Extremity Exam: Negative: Edema Skin Exam: Lesion (Diffuse scaly plaques on legs, arms, chest, sparing face) Neuro Exam: Normal Gait, Normal Speech, Cranial Nerves 3-12 NL Psych Exam: Mental status NL Diagnostic and Laboratory Diagnostic Review Radiologic images, relevant labs and pathology reports were personally reviewed and discussed with Ms. Morfin. Assessment and Plan Impression Ms. Morfin is a 60 year old female with a history of metastatic right-sided colon cancer [id number] stage IVB, BRAF positive/MMR stable/CHAS wild type/ERBB2 wild type/BRCA1 copy number loss/MARIA DOLORES copy number loss/BRAF [id number] on OmniSeq NGS. She was diagnosed in 2018 after presenting with bowel obstruction. She underwent right hemicolectomy with reanastomosis in April 2019. Imaging at the time of diagnosis showed a nodule present between the uterus and proximal rectum near the peritoneal reflexion consistent with a drop metastasis. Post-surgery imaging then showed two PET-CT avid CT hypodense liver metastases and increased uptake in the perirectal lesion. She then started chemotherapy FOLXOX 07/11/19-08/21/19, then FOLFIRINOX/camilo from 09/04/19-07/11/20, then FOLFIRI/camilo 06/2020-present. She was noted to have radiographically and metabolically quiescent imaging until PET-CT 12/15/20 showed uptake in the letty-rectal nodule which was not realized until subsequent CT abdomen and pelvis on 03/04/21 showed enlargement of the nodule as well as two subtly enlarged left-sided pelvic lymph nodes. She is seen today for consideration of RT to address this pelvic disease. Stage Right-sided colon cancer [id number] stage IVB Performance Status ECOG 1 Plan We had an extensive discussion with Ms. Morfin regarding the diagnosis at hand and available therapeutic options. She is on active chemotherapy but has rising CEA and a metastatic lesion in the uterine-rectal interface which was present at diagnosis and has been persistently PET-CT avid, and is now growing as of the last CT studies from 03/04/21. She also has 2 subtly but steadily enlarging left pelvic LN, which may be benign or represent lymphatic spread of cancer from the peritoneal nodule. Given she has oligometastatic disease with the pelvic foci the only site of active disease (the only other purported sites of metastasis are 2 formerly PET- CT avid liver lesions, which since the initiation of chemotherapy in 2019 have been radiographically and metabolically quiescent), I recommend we treat the pelvis definitively. For treatment I think chemoradiation consisting of 28-30 fractions of 3DCRT (prone with daily CBCT) with concurrent xeloda a la standard rectal cancer treatment would be appropriate, well-tolerated, and also address any occult foci of disease in-field. We discussed that this treatment course will likely cause some short term diarrhea and tenesmus as well as fatigue. We discussed the logistics of receiving radiation therapy in detail including the need for a 1-time planning session. I would aim for prone treatment if tolerated to spare bowel dose. After discussing the risks, benefits and alternatives to radiation therapy, Ms. Morfin was amenable to pursuing radiotherapy. All questions were answered to the patient's satisfaction. For her psoriasis, I will reach out to Dr. Medina here and see if she can be seen sooner than her scheduled June 2021 appointment. We instructed the patient that if there were any questions,concerns or changes in clinical status in the interim to contact us. Recommendations Chemoradiation as discussed above Simulation in the next 1-2 weeks Referral to dermatology PET-CT/CEA 3 months post treatment Billing Statement Total time of [47] minutes was spent preparing for the visit [4], obtaining HPI [7], examining the patient [3], reviewing diagnostic tests [10], discussing management options [12], coordinating care [2], and writing this note [9]. ALEJANDRA JO MD Apr 03, 2021 16:37
== END ==
LOC: M ONCR 13:04
PROVIDERS: ATTEND General Practice
DX: C18.9 Malignant neoplasm of colon, unspecified (principal); C78.7 Secondary malignant neoplasm of liver and intrahepatic bile duct; E11.9 Type 2 diabetes mellitus without complications; E78.5 Hyperlipidemia, unspecified; L40.50 Arthropathic psoriasis, unspecified; Z79.84 Long term (current) use of oral hypoglycemic drugs; Z79.899 Other long term (current) drug therapy; Z92.21 Personal history of antineoplastic chemotherapy

== ENCOUNTER 2021-04-10 14:04 | Outpatient (RCR) | payer BC ==
[2021-04-22] MEDS ORDERED: RA T500C2 PO (15:17)
== END 2021-04-19 ==
LOC: M ONCR 14:04
PROVIDERS: ATTEND General Practice
DX: C18.2 Malignant neoplasm of ascending colon (principal)

== ENCOUNTER → 2021-05-19 | Outpatient (RCR) | payer BC ==
[~2021-05-19] MED LIST changes: +OMEGCAP9 PO; +ONDA-84 PO; -ONDA8TAB10 PO; -PROC10TA4 PO; +PROC10TA5 PO
== END ==
LOC: M ONCR 04-20 11:55
PROVIDERS: ATTEND General Practice
DX: C18.2 Malignant neoplasm of ascending colon (principal)

== ENCOUNTER 2021-06-05 14:44 | Outpatient (RCR) | payer BC ==
[~2021-06-05 14:44] MED LIST changes: -ONDA-84 PO; +ONDA8TAB10 PO; +PROC10TA4 PO; -PROC10TA5 PO
== END 2021-06-19 ==
LOC: M ONCR 14:44
PROVIDERS: ATTEND General Practice
DX: C18.2 Malignant neoplasm of ascending colon (principal); R53.83 Other fatigue; R19.7 Diarrhea, unspecified

== ENCOUNTER → 2021-08-13 | Outpatient (CLI) | payer OTHER ==
[~2021-08-13] MED LIST changes: +GASTROGRAFIN SOLUTION 30ML (Q9963) As Ordered ONE; +ISOVUE-370 76% 100ML VIAL As Ordered ONE; +ONDA-84 PO; -ONDA8TAB10 PO; -PROC10TA4 PO; +PROC10TA5 PO
== END ==
LOC: M RAD 14:53
PROVIDERS: ATTEND Internal Medicine Medical Oncology
DX: C18.9 Malignant neoplasm of colon, unspecified (principal); K76.89 Other specified diseases of liver
CPT/HCPCS: 71260; 74177; Q9963; Q9967

== ENCOUNTER → 2021-09-02 | Outpatient (CLI) | payer OTHER ==
[~2021-09-02] MED LIST changes: -GASTROGRAFIN SOLUTION 30ML (Q9963) As Ordered ONE; -ISOVUE-370 76% 100ML VIAL As Ordered ONE
== END ==
LOC: M ONCR 13:30
PROVIDERS: ATTEND General Practice
DX: C20 Malignant neoplasm of rectum (principal); C18.2 Malignant neoplasm of ascending colon; K76.89 Other specified diseases of liver; R16.1 Splenomegaly, not elsewhere classified; Z92.21 Personal history of antineoplastic chemotherapy; Z92.3 Personal history of irradiation; Z98.0 Intestinal bypass and anastomosis status

== ENCOUNTER → 2021-11-13 | Outpatient (CLI) | payer OTHER ==
[~2021-11-13] MED LIST changes: +GASTROGRAFIN SOLUTION 30ML (Q9963) ONE; +GLIM4TAB5; +ISOVUE-370 76% 100ML VIAL ONE; +LIDO1CRE42 TOP
== END ==
LOC: M PLAIMG 09:09
PROVIDERS: ATTEND Internal Medicine Medical Oncology
DX: C18.9 Malignant neoplasm of colon, unspecified (principal); Z90.49 Acquired absence of other specified parts of digestive tract
CPT/HCPCS: 71260; 74177; Q9963; Q9967

== ENCOUNTER → 2022-02-19 | Outpatient (CLI) | payer OTHER ==
[~2022-02-19] MED LIST changes: +GASTROGRAFIN SOLUTION 30ML (Q9963) As Ordered ONE; -GASTROGRAFIN SOLUTION 30ML (Q9963) ONE; -GLIM4TAB5; +ISOVUE-370 76% 100ML VIAL As Ordered ONE; -ISOVUE-370 76% 100ML VIAL ONE; +NEULASTA; +PEG6SYR SC; +STINGING NETTLE PO
== END ==
LOC: M RAD 09:01
PROVIDERS: ATTEND Internal Medicine Medical Oncology
DX: C18.9 Malignant neoplasm of colon, unspecified (principal); K76.0 Fatty (change of) liver, not elsewhere classified; K76.89 Other specified diseases of liver; K80.20 Calculus of gallbladder without cholecystitis without obstruction
CPT/HCPCS: 71260; 74177; Q9963; Q9967

== ENCOUNTER → 2022-03-05 | Outpatient (CLI) | payer OTHER ==
[~2022-03-05] MED LIST changes: -GASTROGRAFIN SOLUTION 30ML (Q9963) As Ordered ONE; -ISOVUE-370 76% 100ML VIAL As Ordered ONE; +[UNRECOGNIZED DRUG - OTHER] EXT
== END ==
LOC: M ONCR 12:56
PROVIDERS: ATTEND General Practice
DX: C78.7 Secondary malignant neoplasm of liver and intrahepatic bile duct (principal); Z98.0 Intestinal bypass and anastomosis status; Z92.21 Personal history of antineoplastic chemotherapy; Z92.3 Personal history of irradiation; Z79.51 Long term (current) use of inhaled steroids; Z79.84 Long term (current) use of oral hypoglycemic drugs; Z79.899 Other long term (current) drug therapy; Z85.038 Personal history of other malignant neoplasm of large intestine

== ENCOUNTER 2022-03-25 12:43 | Day surgery (SDC) | payer OTHER ==
[~2022-03-25] VITALS: Ht 160 cm; Wt 81.2 kg
[~2022-03-25 12:43] MED LIST changes: +LIDOCAINE 2% 100MG/5ML SDV (FOR ANES.) As Ordered ONE; +NS 1,000 ML IV ONE; +VITAMIN B PO; +propofoL 200 MG/20 ML VIAL As Ordered ONE
[2022-03-25] MEDS ORDERED: propofoL 200 MG/20 ML VIAL As Ordered ONE (13:38)
[2022-03-25 14:05] VITALS: BP 147/68
== END 2022-03-25 14:18 | disposition home or self-care (01) ==
LOC: M OPP 12:43
PROVIDERS: ATTEND Surgery
DX: K64.2 Third degree hemorrhoids (principal); K92.2 Gastrointestinal hemorrhage, unspecified; K57.30 Diverticulosis of large intestine without perforation or abscess without bleeding; Z79.84 Long term (current) use of oral hypoglycemic drugs; Z79.899 Other long term (current) drug therapy; I10 Essential (primary) hypertension; E78.00 Pure hypercholesterolemia, unspecified; E11.9 Type 2 diabetes mellitus without complications; F31.9 Bipolar disorder, unspecified; F41.9 Anxiety disorder, unspecified; F90.9 Attention-deficit hyperactivity disorder, unspecified type; Z85.038 Personal history of other malignant neoplasm of large intestine; Z92.21 Personal history of antineoplastic chemotherapy; Z90.49 Acquired absence of other specified parts of digestive tract

== ENCOUNTER 2022-03-26 10:08 | Outpatient (RCR) | payer OTHER ==
[~2022-03-26 10:08] MED LIST changes: -LIDOCAINE 2% 100MG/5ML SDV (FOR ANES.) As Ordered ONE; -NS 1,000 ML IV ONE; -propofoL 200 MG/20 ML VIAL As Ordered ONE
== END 2022-04-19 23:59 | disposition home or self-care (01) ==
LOC: M ONCR 10:08
PROVIDERS: ATTEND General Practice
DX: C77.2 Secondary and unspecified malignant neoplasm of intra-abdominal lymph nodes (principal)

== ENCOUNTER → 2022-04-19 | Outpatient (CLI) | payer BC, OTHER | LOC: M PLARAD 13:30 | PROVIDERS: ATTEND Internal Medicine Medical Oncology | DX: C18.2 Malignant neoplasm of ascending colon (principal) | CPT/HCPCS: 78815; A9552 ==

== ENCOUNTER 2022-04-27 13:12 | Outpatient (RCR) | payer OTHER ==
[2022-05-19] MEDS ORDERED: MV-M1CAP8 PO (08:45)
== END 2022-05-19 ==
LOC: M ONCR 13:12
PROVIDERS: ATTEND General Practice
DX: C18.2 Malignant neoplasm of ascending colon (principal)

== ENCOUNTER → 2022-07-29 | Outpatient (CLI) | payer OTHER ==
[~2022-07-29] MED LIST changes: +CIPR-249 PO; +MV-M1CAP8 PO
== END ==
LOC: M ONCR 13:03
PROVIDERS: ATTEND General Practice
DX: C18.2 Malignant neoplasm of ascending colon (principal); Z79.84 Long term (current) use of oral hypoglycemic drugs; Z79.899 Other long term (current) drug therapy; Z92.21 Personal history of antineoplastic chemotherapy; Z92.23 Personal history of estrogen therapy; Z79.3 Long term (current) use of hormonal contraceptives

== ENCOUNTER → 2022-08-16 | Outpatient (CLI) | payer OTHER | LOC: M PLARAD 12:02 | PROVIDERS: ATTEND Internal Medicine Medical Oncology | DX: C18.9 Malignant neoplasm of colon, unspecified (principal) | CPT/HCPCS: 78815; A9552 ==

== ENCOUNTER → 2022-09-13 | Outpatient (REF) | payer OTHER ==
[~2022-09-13] MED LIST changes: +BRAF75CA PO
== END ==
LOC: M LAB REF 17:09
PROVIDERS: ATTEND Internal Medicine
DX: N76.0 Acute vaginitis (principal)

== ENCOUNTER → 2022-10-26 | Outpatient (CLI) | payer OTHER ==
[~2022-10-26] MED LIST changes: +FLAG375C PO
== END ==
LOC: M ONCR 13:40
PROVIDERS: ATTEND General Practice
DX: C18.2 Malignant neoplasm of ascending colon (principal); C20 Malignant neoplasm of rectum; C77.2 Secondary and unspecified malignant neoplasm of intra-abdominal lymph nodes; Z86.16 Personal history of COVID-19; N93.9 Abnormal uterine and vaginal bleeding, unspecified; R59.9 Enlarged lymph nodes, unspecified; Z79.84 Long term (current) use of oral hypoglycemic drugs; Z79.899 Other long term (current) drug therapy; Z92.21 Personal history of antineoplastic chemotherapy; Z92.3 Personal history of irradiation

== ENCOUNTER 2022-10-28 16:37 | Emergency (ER) | payer OTHER ==
[~2022-10-28] VITALS: Ht 157.5 cm; Wt 78.3 kg
[~2022-10-28 16:37] MED LIST changes: -FLAG375C PO
[2022-10-28 18:58] LABS: BASO % 0.5 % (0.0-1.0); EOS # 0.1 10^3/uL (0.0-0.5); EOS % 1.2 % (0.0-3.0); HEMATOCRIT 33.8 % (36.0-47.0); HEMOGLOBIN 11.4 g/dl (12.0-15.5); LYMPH # 0.8 10^3/uL (1.5-5.0); LYMPH % 10.1 % (24.0-44.0); MEAN CORPUSCULAR HEMOGLOBIN 31.1 pg (27.0-33.0); MEAN CORPUSCULAR HGB CONC 33.7 g/dl (32.0-36.5); MEAN CORPUSCULAR VOLUME 92.1 fl (80.0-96.0); MONO # 0.8 10^3/uL (0.0-0.8); MONO % 10.1 % (2.0-8.0); NEUTROPHILS # 6.3 10^3/uL (1.5-8.5); NEUTROPHILS % 77.6 % (36.0-66.0); PLATELET COUNT, AUTOMATED 149 10^3/uL (150-450); RED BLOOD COUNT 3.67 10^6/uL (4.00-5.40); WHITE BLOOD COUNT 8.1 10^3/uL (4.0-10.0)
[2022-10-28 19:46] LABS: LIPASE 26 U/L (12-53)
[2022-10-28 19:48] LABS: ALBUMIN 2.6 G/DL (3.2-5.2); ALKALINE PHOSPHATASE 91 U/L (46-116); ALT/SGPT 13 U/L (7.0-40); AST/SGOT 18 U/L (<34); BILIRUBIN,DIRECT 0.1 MG/DL (<0.4); BILIRUBIN,TOTAL 0.4 MG/DL (0.3-1.2); BLOOD UREA NITROGEN 12 MG/DL (9-23); CALCIUM LEVEL 6.9 MG/DL (8.3-10.6); CARBON DIOXIDE LEVEL 22 MMOL/L (20-31); CHLORIDE LEVEL 104 MMOL/L (98-107); CREATININE FOR GFR 0.36 MG/DL (0.55-1.30); GLOMERULAR FILTRATION RATE > 60.0 (>45); GLUCOSE, FASTING 120 MG/DL (74-106); POTASSIUM SERUM 3.5 MMOL/L (3.5-5.1); SODIUM LEVEL 136 MMOL/L (136-145); TOTAL PROTEIN 5.6 G/DL (5.7-8.2)
[2022-10-28] MEDS: GASTROGRAFIN SOLUTION 30ML PO SCH ×2 (20:50→20:52)
[2022-10-28] MEDS ORDERED: ISOVUE-370 76% 100ML VIAL As Ordered ONE (21:01)
[2022-10-28] MEDS ORDERED: FLAG375C PO (23:34)
[2022-10-28] MEDS ORDERED: CIPR-249 PO (23:34)
[2022-10-28] MEDS ORDERED: metroNIDAZOLE (FLAGYL) 500MG TABLET PO ONE (23:35)
[2022-10-28] MEDS ORDERED: CIPROFLOXACIN 500MG TABLET PO ONE (23:35)
[2022-10-28 23:45] VITALS: BP 123/68
[2022-10-29] MEDS ORDERED: CIPR-249 PO (01:14)
[2022-10-29] MEDS ORDERED: FLAG375C PO (01:14)
== END 2022-10-29 02:08 | disposition home or self-care (01) ==
LOC: M ED 16:37
DX: N82.3 Fistula of vagina to large intestine (principal); E11.9 Type 2 diabetes mellitus without complications; I10 Essential (primary) hypertension; E78.5 Hyperlipidemia, unspecified; F32.9 Major depressive disorder, single episode, unspecified; C18.9 Malignant neoplasm of colon, unspecified
CPT/HCPCS: 36415; 74177; 80048; 80076; 81001; 83690; 85025; 87086; 93041; 99285; Q9963; Q9967

== ENCOUNTER → 2022-11-26 | Outpatient (CLI) | payer OTHER ==
[~2022-11-26] MED LIST changes: +FLAG375C PO
== END ==
LOC: M ONCR 13:36
PROVIDERS: ATTEND General Practice
DX: C18.2 Malignant neoplasm of ascending colon (principal); N82.3 Fistula of vagina to large intestine; R59.0 Localized enlarged lymph nodes; Z71.2 Person consulting for explanation of examination or test findings; Z79.84 Long term (current) use of oral hypoglycemic drugs; Z79.899 Other long term (current) drug therapy; Z92.21 Personal history of antineoplastic chemotherapy; Z92.3 Personal history of irradiation

== ENCOUNTER 2022-12-08 10:35 | Outpatient (RCR) | payer OTHER ==
[~2022-12-08 10:35] MED LIST changes: +HYDR-3713 PO
[2022-12-09] MEDS ORDERED: HYDR-4517 PO (08:08)
[2022-12-13] MEDS ORDERED: CIPR-249 PO (16:31)
[2022-12-22] MEDS ORDERED: BRAF75CA PO (09:19)
[2022-12-22] MEDS ORDERED: IBUP-1022 PO (09:22)
== END 2022-12-17 ==
LOC: M ONCR 10:35
PROVIDERS: ATTEND General Practice
DX: C77.2 Secondary and unspecified malignant neoplasm of intra-abdominal lymph nodes (principal); C18.2 Malignant neoplasm of ascending colon; C20 Malignant neoplasm of rectum

== ENCOUNTER 2022-12-22 22:20 | Inpatient (IN) | payer OTHER ==
[~2022-12-22] VITALS: Ht 160 cm; Wt 75.5 kg
[~2022-12-22 22:20] MED LIST changes: +HYDR-4517 PO; +IBUP-1022 PO; -LIDO1CRE42 TOP; +LIDO30CR18 TOP
[2022-12-23] MEDS ORDERED: ONDANSETRON 4MG 2ML VIAL IV ONE (01:05)
[2022-12-23] MEDS ORDERED: NS 500 ML IV ONE (01:05)
[2022-12-23 01:16] LABS: BASO # 0.1 10^3/uL (0.0-0.2); BASO % 0.4 % (0.0-1.0); EOS % 0.1 % (0.0-3.0); HEMATOCRIT 35.9 % (36.0-47.0); HEMOGLOBIN 12.1 g/dl (12.0-15.5); LYMPH # 0.5 10^3/uL (1.5-5.0); LYMPH % 3.4 % (24.0-44.0); MEAN CORPUSCULAR HEMOGLOBIN 31.4 pg (27.0-33.0); MEAN CORPUSCULAR HGB CONC 33.7 g/dl (32.0-36.5); MEAN CORPUSCULAR VOLUME 93.2 fl (80.0-96.0); MONO # 0.8 10^3/uL (0.0-0.8); MONO % 5.4 % (2.0-8.0); NEUTROPHILS # 13.5 10^3/uL (1.5-8.5); PLATELET COUNT, AUTOMATED 197 10^3/uL (150-450); RED BLOOD COUNT 3.85 10^6/uL (4.00-5.40)
[2022-12-23 01:23] LABS: ALBUMIN 3.5 G/DL (3.2-5.2); ALKALINE PHOSPHATASE 87 U/L (46-116); ALT/SGPT 19 U/L (7.0-40); AMYLASE 61 U/L (30-118); AST/SGOT 37 U/L (<34); BILIRUBIN,DIRECT < 0.1 MG/DL (<0.4); BILIRUBIN,TOTAL 0.2 MG/DL (0.3-1.2); BLOOD UREA NITROGEN 15 MG/DL (9-23); CALCIUM LEVEL 8.3 MG/DL (8.3-10.6); CARBON DIOXIDE LEVEL 26 MMOL/L (20-31); CHLORIDE LEVEL 97 MMOL/L (98-107); CREATININE FOR GFR 0.48 MG/DL (0.55-1.30); GLOMERULAR FILTRATION RATE > 60.0 (>45); GLUCOSE, FASTING 236 MG/DL (74-106); POTASSIUM SERUM 4.1 MMOL/L (3.5-5.1); SODIUM LEVEL 130 MMOL/L (136-145); TOTAL PROTEIN 6.3 G/DL (5.7-8.2)
[2022-12-23 01:30] LABS: PROCALCITONIN 0.13 ng/ml
[2022-12-23 01:48] LABS: PARTIAL THROMBOPLASTIN TIME 27.7 SECONDS (24.8-34.2)
[2022-12-23 01:59] LABS: INR 1.01; PROTHROMBIN TIME 13.5 SECONDS (12.5-14.5)
[2022-12-23 05:25] LABS: APPEARANCE, URINE HAZY (CLEAR); BACTERIA, URINE AUTO 1+ (NEGATIVE); BILIRUBIN, URINE AUTO NEGATIVE (NEGATIVE); BLOOD, URINE BLOOD 2+ (NEGATIVE); COLOR, URINE YELLOW (YELLOW); GLUCOSE, URINE (UA) AUTO 1+ mg/dL (NEGATIVE); KETONE, URINE AUTO NEGATIVE (NEGATIVE); LEUKOCYTE ESTERASE, URINE AUTO 2+ (NEGATIVE); NITRITE, URINE AUTO NEGATIVE (NEGATIVE); PROTEIN, URINE AUTO NEGATIVE (NEGATIVE); RBC, URINE AUTO 6 /HPF (0-3); SPECIFIC GRAVITY URINE AUTO 1.004 (1.002-1.035); SQUAMOUS EPITHELIAL CELL UR AU 0 /HPF (0-6); UROBILINOGEN, URINE AUTO 0.2 mg/dL (0.0-2.0); WBC, URINE AUTO 72 /HPF (0-3)
[2022-12-23] MEDS ORDERED: NS 1,000 ML IV ONE (06:15)
[2022-12-23] MEDS ORDERED: cefTRIAXone SOD 1 GM in D5W MINI-BAG PLUS 50 ML IV ONE (06:30)
[2022-12-23] MEDS ORDERED: KETOROLAC 30 MG/ML 1ML VIAL IV ONE (06:30)
[2022-12-23] MEDS ORDERED: LEVO1TAB40 PO (07:15)
[2022-12-23] MEDS ORDERED: ACETAMINOPHEN 500 MG TAB PO ONE ×2 (07:30→08:05)
[2022-12-23] MEDS ORDERED: ISOVUE-370 76% 100ML VIAL As Ordered ONE (07:52)
[2022-12-23] MEDS ORDERED: MED REC IN PROGRESS XX SCH (10:55)
[2022-12-23] MEDS ORDERED: DEXTROSE 50% 50ML SYRINGE IV PRN (11:40)
[2022-12-23] MEDS ORDERED: GLUCAGON INJ 1MG VIAL SC PRN (11:40)
[2022-12-23] MEDS ORDERED: GLUCOSE 4GM CHEW TABLET PO PRN (11:40)
[2022-12-23] MEDS: INSULIN LISPRO (NovoLOG) PER UNIT SC SCH ×3 (12:00→21:00)
[2022-12-23 12:34] LABS: HEMATOCRIT 35.5 % (36.0-47.0); HEMOGLOBIN 11.7 g/dl (12.0-15.5); MEAN CORPUSCULAR HEMOGLOBIN 31.3 pg (27.0-33.0); MEAN CORPUSCULAR VOLUME 94.9 fl (80.0-96.0); PLATELET COUNT, AUTOMATED 144 10^3/uL (150-450); RED BLOOD COUNT 3.74 10^6/uL (4.00-5.40); WHITE BLOOD COUNT 6.1 10^3/uL (4.0-10.0)
[2022-12-23 12:55] LABS: BLOOD UREA NITROGEN 11 MG/DL (9-23); CALCIUM LEVEL 8.1 MG/DL (8.3-10.6); CARBON DIOXIDE LEVEL 30 MMOL/L (20-31); CHLORIDE LEVEL 104 MMOL/L (98-107); CREATININE FOR GFR 0.57 MG/DL (0.55-1.30); GLOMERULAR FILTRATION RATE > 60.0 (>45); GLUCOSE, FASTING 196 MG/DL (74-106); POTASSIUM SERUM 3.9 MMOL/L (3.5-5.1); SODIUM LEVEL 137 MMOL/L (136-145)
[2022-12-23] MEDS ORDERED: PIPERACILLIN/TAZOBACTAM SOD 4.5 GM in D5W MINI-BAG PLUS 50 ML IV SCH (13:00)
[2022-12-23] MEDS ORDERED: PIPERACILLIN/TAZOBACTAM SOD 3.375 GM in D5W MINI-BAG PLUS 50 ML IV SCH (13:00)
[2022-12-23] MEDS: NS 1,000 ML IV SCH ×2 (13:03→19:30)
[2022-12-23] MEDS ORDERED: SIMV20TA22 PO (13:37)
[2022-12-23] MEDS ORDERED: METR-265 PO (13:38)
[2022-12-23] MEDS ORDERED: CIPR-249 PO (13:38)
[2022-12-23] MEDS ORDERED: VITA100093 PO (13:38)
[2022-12-23] MEDS ORDERED: HOME MED LIST COMPLETE! XX SCH (13:40)
[2022-12-23] MEDS ORDERED: LIDOCAINE 1% MDV 20ML VIAL As Ordered ONE (13:55)
[2022-12-23] MEDS ORDERED: ISOVUE-300 61% 100ML VIAL As Ordered ONE (13:55)
[2022-12-23] MEDS: PIPERACILLIN/TAZOBACTAM SOD 4.5 GM in D5W MINI-BAG PLUS 50 ML IV SCH ×2 (15:54→21:31)
[2022-12-23] MEDS: VENLAFAXINE **XR** 75MG CAPSULE PO SCH (15:54)
[2022-12-23] MEDS: MORPHINE 2 MG/ML 1ML VIAL IV PRN (17:33)
[2022-12-23] MEDS: NORCO, ANEXSIA 5/325MG TABLET (HYDROcodone/ACETAMINOPHEN) PO PRN (18:34)
[2022-12-23 21:12] VITALS: BP 127/58; TEMP 97.7; O2SAT 96
[2022-12-23] MEDS: SIMVASTATIN 20 MG TAB PO SCH (21:31)
[2022-12-24] VITALS (7 sets, daily range): BP systolic 105–150; BP diastolic 51–76; TEMP 97.3–98.7; O2SAT 93–100
[2022-12-24] MEDS: NS 1,000 ML IV SCH ×2 (01:23→12:17)
[2022-12-24] MEDS: NORCO, ANEXSIA 5/325MG TABLET (HYDROcodone/ACETAMINOPHEN) PO PRN ×3 (01:35→18:59)
[2022-12-24] MEDS: PIPERACILLIN/TAZOBACTAM SOD 4.5 GM in D5W MINI-BAG PLUS 50 ML IV SCH ×3 (04:13→21:18)
[2022-12-24 06:26] LABS: MEAN CORPUSCULAR HEMOGLOBIN 31.4 pg (27.0-33.0); MEAN CORPUSCULAR HGB CONC 32.8 g/dl (32.0-36.5); MEAN CORPUSCULAR VOLUME 95.8 fl (80.0-96.0); PLATELET COUNT, AUTOMATED 101 10^3/uL (150-450); RED BLOOD COUNT 3.09 10^6/uL (4.00-5.40); WHITE BLOOD COUNT 5.7 10^3/uL (4.0-10.0)
[2022-12-24 06:38] LABS: BLOOD UREA NITROGEN 15 MG/DL (9-23); CALCIUM LEVEL 7.4 MG/DL (8.3-10.6); CARBON DIOXIDE LEVEL 28 MMOL/L (20-31); CHLORIDE LEVEL 104 MMOL/L (98-107); CREATININE FOR GFR 0.44 MG/DL (0.55-1.30); GLOMERULAR FILTRATION RATE > 60.0 (>45); GLUCOSE, FASTING 248 MG/DL (74-106); SODIUM LEVEL 136 MMOL/L (136-145)
[2022-12-24 07:05] LABS: HEMATOCRIT 29.8 % (36.0-47.0); HEMOGLOBIN 9.7 g/dl (12.0-15.5)
[2022-12-24] MEDS: INSULIN LISPRO (NovoLOG) PER UNIT SC SCH ×4 (07:30→21:05)
[2022-12-24] MEDS: ceFAZolin SOD 2 GM in IV 1 EA IV ONE ×2 (08:10→09:00)
[2022-12-24] MEDS ORDERED: LIDOCAINE 2% 100MG/5ML SDV (FOR ANES.) As Ordered ONE (09:15)
[2022-12-24] MEDS ORDERED: fentaNYL 100 MCG/2 ML INJECTION As Ordered ONE (09:15)
[2022-12-24] MEDS ORDERED: propofoL 500 MG/50 ML VIAL As Ordered ONE (09:15)
[2022-12-24] MEDS ORDERED: MIDAZOLAM INJ 2MG/2ML VIAL As Ordered ONE (09:15)
[2022-12-24] MEDS: VITAMIN D 1,000 INTERNATIONAL UNITS TABLET PO SCH (10:32)
[2022-12-24] MEDS: VENLAFAXINE **XR** 75MG CAPSULE PO SCH (10:32)
[2022-12-24] MEDS ORDERED: LIDOCAINE 1% MDV 20ML VIAL As Ordered ONE (12:26)
[2022-12-24] MEDS ORDERED: ceFAZolin 2 GM/D5W 50 ML IV BAG As Ordered ONE (12:26)
[2022-12-24] MEDS ORDERED: ISOVUE-300 61% 100ML VIAL As Ordered ONE (12:26)
[2022-12-24] MEDS ORDERED: ONDANSETRON 4MG 2ML VIAL IV PRN (12:50)
[2022-12-24] MEDS ORDERED: ONDANSETRON 4MG 2ML VIAL IV SCH (13:00)
[2022-12-24] MEDS: MORPHINE 2 MG/ML 1ML VIAL IV PRN (14:43)
[2022-12-24] MEDS: ACETAMINOPHEN TAB 650MG DOSE (2X325MG) PO PRN (21:05)
[2022-12-24] MEDS: SIMVASTATIN 20 MG TAB PO SCH (21:05)
[2022-12-25] MEDS: MORPHINE 2 MG/ML 1ML VIAL IV PRN ×3 (00:16→14:44)
[2022-12-25] MEDS: NS 1,000 ML IV SCH ×2 (00:18→07:00)
[2022-12-25 03:35] VITALS: BP 139/76; TEMP 97.9; O2SAT 98
[2022-12-25] MEDS: NORCO, ANEXSIA 5/325MG TABLET (HYDROcodone/ACETAMINOPHEN) PO PRN ×2 (03:37→10:16)
[2022-12-25] MEDS: PIPERACILLIN/TAZOBACTAM SOD 4.5 GM in D5W MINI-BAG PLUS 50 ML IV SCH ×4 (03:43→22:49)
[2022-12-25 06:10] LABS: BASO % 0.2 % (0.0-1.0); EOS % 0.7 % (0.0-3.0); HEMATOCRIT 29.1 % (36.0-47.0); HEMOGLOBIN 9.4 g/dl (12.0-15.5); LYMPH # 0.3 10^3/uL (1.5-5.0); LYMPH % 4.7 % (24.0-44.0); MEAN CORPUSCULAR HEMOGLOBIN 30.8 pg (27.0-33.0); MEAN CORPUSCULAR HGB CONC 32.3 g/dl (32.0-36.5); MEAN CORPUSCULAR VOLUME 95.4 fl (80.0-96.0); MONO # 0.4 10^3/uL (0.0-0.8); MONO % 7.3 % (2.0-8.0); NEUTROPHILS % 86.6 % (36.0-66.0); PLATELET COUNT, AUTOMATED 113 10^3/uL (150-450); RED BLOOD COUNT 3.05 10^6/uL (4.00-5.40); WHITE BLOOD COUNT 5.8 10^3/uL (4.0-10.0)
[2022-12-25 06:39] LABS: BLOOD UREA NITROGEN 10 MG/DL (9-23); CALCIUM LEVEL 8.3 MG/DL (8.3-10.6); CARBON DIOXIDE LEVEL 29 MMOL/L (20-31); CHLORIDE LEVEL 103 MMOL/L (98-107); CREATININE FOR GFR 0.46 MG/DL (0.55-1.30); GLOMERULAR FILTRATION RATE > 60.0 (>45); GLUCOSE, FASTING 207 MG/DL (74-106); POTASSIUM SERUM 3.5 MMOL/L (3.5-5.1); SODIUM LEVEL 139 MMOL/L (136-145)
[2022-12-25 07:59] VITALS: BP 130/60; TEMP 97.6; O2SAT 98
[2022-12-25] MEDS: VENLAFAXINE **XR** 75MG CAPSULE PO SCH (08:45)
[2022-12-25] MEDS: VITAMIN D 1,000 INTERNATIONAL UNITS TABLET PO SCH (08:45)
[2022-12-25] MEDS: INSULIN LISPRO (NovoLOG) PER UNIT SC SCH ×4 (09:02→21:53)
[2022-12-25] MEDS ORDERED: POTASSIUM CHLORIDE 10MEQ SR TABLET PO ONE (10:55)
[2022-12-25 14:00] VITALS: BP 132/73; TEMP 97.9; O2SAT 99
[2022-12-25 14:36] LABS: HEMOGLOBIN A1c 7.7 % (4.0-6.0)
[2022-12-25] MEDS: ACETAMINOPHEN TAB 650MG DOSE (2X325MG) PO PRN (17:05)
[2022-12-25] MEDS: SIMETHICONE 80MG CHEW TAB PO PRN (17:46)
[2022-12-25] MEDS ORDERED: KETOROLAC 30 MG/ML 1ML VIAL IV ONE (18:00)
[2022-12-25] MEDS ORDERED: RAMELTEON 8 MG TAB (ROZEREM) PO PRN (19:40)
[2022-12-25] MEDS ORDERED: LEVEMIR (INSULIN DETEMIR) 1 UNITS/0.01ML SC SCH (21:00)
[2022-12-25 21:08] VITALS: BP 122/59; TEMP 96.4; O2SAT 95
[2022-12-25] MEDS: SIMVASTATIN 20 MG TAB PO SCH (21:53)
[2022-12-26] MEDS: NORCO, ANEXSIA 5/325MG TABLET (HYDROcodone/ACETAMINOPHEN) PO PRN ×3 (01:46→14:36)
[2022-12-26] MEDS: PIPERACILLIN/TAZOBACTAM SOD 4.5 GM in D5W MINI-BAG PLUS 50 ML IV SCH ×2 (03:39→09:57)
[2022-12-26 06:00] VITALS: BP 110/47; TEMP 97.7; O2SAT 95
[2022-12-26 06:56] LABS: BASO % 0.2 % (0.0-1.0); EOS # 0.1 10^3/uL (0.0-0.5); EOS % 1.2 % (0.0-3.0); HEMATOCRIT 27.8 % (36.0-47.0); HEMOGLOBIN 9.2 g/dl (12.0-15.5); LYMPH # 0.3 10^3/uL (1.5-5.0); LYMPH % 8.3 % (24.0-44.0); MEAN CORPUSCULAR HEMOGLOBIN 31.6 pg (27.0-33.0); MEAN CORPUSCULAR HGB CONC 33.1 g/dl (32.0-36.5); MEAN CORPUSCULAR VOLUME 95.5 fl (80.0-96.0); MONO # 0.4 10^3/uL (0.0-0.8); MONO % 9.8 % (2.0-8.0); NEUTROPHILS # 3.3 10^3/uL (1.5-8.5); PLATELET COUNT, AUTOMATED 108 10^3/uL (150-450); RED BLOOD COUNT 2.91 10^6/uL (4.00-5.40); WHITE BLOOD COUNT 4.1 10^3/uL (4.0-10.0)
[2022-12-26 07:22] LABS: BLOOD UREA NITROGEN 13 MG/DL (9-23); CALCIUM LEVEL 7.8 MG/DL (8.3-10.6); CARBON DIOXIDE LEVEL 31 MMOL/L (20-31); CHLORIDE LEVEL 103 MMOL/L (98-107); CREATININE FOR GFR 0.49 MG/DL (0.55-1.30); GLOMERULAR FILTRATION RATE > 60.0 (>45); GLUCOSE, FASTING 246 MG/DL (74-106); SODIUM LEVEL 138 MMOL/L (136-145)
[2022-12-26] MEDS: INSULIN LISPRO (NovoLOG) PER UNIT SC SCH ×2 (08:07→12:00)
[2022-12-26] MEDS: VITAMIN D 1,000 INTERNATIONAL UNITS TABLET PO SCH (08:07)
[2022-12-26] MEDS: VENLAFAXINE **XR** 75MG CAPSULE PO SCH (08:07)
[2022-12-26] MEDS: SIMETHICONE 80MG CHEW TAB PO PRN (09:57)
[2022-12-26] MEDS ORDERED: HYDR-4517 PO (10:15)
[2022-12-27] MEDS ORDERED: HYDR10CA2 PO ×2 (14:10→15:36)
== END 2022-12-26 16:00 | disposition home health service (06) | DRG 720 ==
LOC: M ED 22:20 → M ED INP 12-23 11:38 → ENRESERV 12-23 13:35 → M PCU 12-23 15:47 → M MS5PR 12-25 14:02
PROVIDERS: ADMIT Internal Medicine; ATTEND Internal Medicine
PROC: 0T788DZ Dilation of Bilateral Ureters with Intraluminal Device, Via Natural or Artificial Opening Endoscopic (ICD-10-PCS; principal; 2022-12-24 09:00)
DX: A41.9 Sepsis, unspecified organism (principal); C18.9 Malignant neoplasm of colon, unspecified; C20 Malignant neoplasm of rectum; C78.7 Secondary malignant neoplasm of liver and intrahepatic bile duct; R19.09 Other intra-abdominal and pelvic swelling, mass and lump; C78.6 Secondary malignant neoplasm of retroperitoneum and peritoneum; N13.0 Hydronephrosis with ureteropelvic junction obstruction; R59.9 Enlarged lymph nodes, unspecified; E11.9 Type 2 diabetes mellitus without complications; E55.9 Vitamin D deficiency, unspecified; E78.5 Hyperlipidemia, unspecified; F32.A Depression, unspecified; I10 Essential (primary) hypertension; N82.3 Fistula of vagina to large intestine; Z79.84 Long term (current) use of oral hypoglycemic drugs; Z79.2 Long term (current) use of antibiotics; Z79.899 Other long term (current) drug therapy; Z20.822 Contact with and (suspected) exposure to COVID-19; Z92.3 Personal history of irradiation; Z92.21 Personal history of antineoplastic chemotherapy; Z90.49 Acquired absence of other specified parts of digestive tract

== ENCOUNTER → 2023-01-12 | Outpatient (REF) | payer OTHER ==
[~2023-01-12] MED LIST changes: +FLUC200T4 PO; +HYDR10CA2 PO; +LEVO1TAB40 PO; +METR-265 PO; +NITR100C2 PO; +OXYC-141 PO; +SIMV20TA22 PO; +VITA100093 PO; +[UNRECOGNIZED DRUG - CODE] PO; +[UNRECOGNIZED DRUG - CODE] PO; +med rec comment
== END ==
LOC: M SMT 17:01
PROVIDERS: ATTEND Urology
DX: N39.0 Urinary tract infection, site not specified (principal)

== ENCOUNTER 2023-01-13 13:15 | Outpatient (RCR) | payer OTHER ==
[~2023-01-13 13:15] MED LIST changes: +ACETAMINOPHEN 1000MG 100ML IV BAG As Ordered ONE; +ISOVUE-300 61% 100ML VIAL As Ordered ONE; +LIDOCAINE 1% MDV 20ML VIAL As Ordered ONE; -NITR100C2 PO; +ONDANSETRON 4MG 2ML VIAL As Ordered ONE; +ceFAZolin 2 GM/D5W 50 ML IV BAG As Ordered ONE; -med rec comment
[2023-01-13] MEDS ORDERED: NITR100C2 PO (20:53)
[2023-01-13] MEDS ORDERED: LISI10TA22 PO (20:53)
[2023-01-13] MEDS ORDERED: med rec comment (20:53)
== END 2023-01-17 ==
LOC: M ONCR 13:15
PROVIDERS: ATTEND General Practice
DX: C77.2 Secondary and unspecified malignant neoplasm of intra-abdominal lymph nodes (principal); C20 Malignant neoplasm of rectum; C18.2 Malignant neoplasm of ascending colon

== ENCOUNTER 2023-01-13 15:05 | Inpatient (IN) | payer OTHER ==
[~2023-01-13] VITALS: Ht 160 cm; Wt 77.0 kg
[~2023-01-13 15:05] MED LIST changes: -ACETAMINOPHEN 1000MG 100ML IV BAG As Ordered ONE; -ISOVUE-300 61% 100ML VIAL As Ordered ONE; -LIDOCAINE 1% MDV 20ML VIAL As Ordered ONE; -ONDANSETRON 4MG 2ML VIAL As Ordered ONE; -ceFAZolin 2 GM/D5W 50 ML IV BAG As Ordered ONE
[2023-01-13 15:54] LABS: BASO % 0.2 % (0.0-1.0); EOS % 0.1 % (0.0-3.0); HEMATOCRIT 28.5 % (36.0-47.0); HEMOGLOBIN 9.2 g/dl (12.0-15.5); LYMPH # 0.2 10^3/uL (1.5-5.0); MEAN CORPUSCULAR HEMOGLOBIN 28.8 pg (27.0-33.0); MEAN CORPUSCULAR HGB CONC 32.3 g/dl (32.0-36.5); MEAN CORPUSCULAR VOLUME 89.3 fl (80.0-96.0); MONO # 1.4 10^3/uL (0.0-0.8); MONO % 7.4 % (2.0-8.0); NEUTROPHILS # 17.5 10^3/uL (1.5-8.5); PLATELET COUNT, AUTOMATED 150 10^3/uL (150-450); RED BLOOD COUNT 3.19 10^6/uL (4.00-5.40); WHITE BLOOD COUNT 19.4 10^3/uL (4.0-10.0)
[2023-01-13] MEDS ORDERED: NS 2,360 ML in IV 1 EA IV ONE (16:05)
[2023-01-13] MEDS ORDERED: ACETAMINOPHEN TAB 650MG DOSE (2X325MG) PO ONE (16:20)
[2023-01-13] MEDS ORDERED: PIPERACILLIN/TAZOBACTAM SOD 4.5 GM in D5W MINI-BAG PLUS 50 ML IV ONE (16:20)
[2023-01-13 16:30] LABS: RSV AMPLIFICATION NEGATIVE (NEGATIVE)
[2023-01-13] MEDS ORDERED: ISOVUE-370 76% 100ML VIAL As Ordered ONE (16:47)
[2023-01-13 17:22] LABS: AMYLASE 24 U/L (30-118); CPK CREATINE PHOSPHOKINASE 64 U/L (34-145)
[2023-01-13 17:33] LABS: PROCALCITONIN 0.85 ng/ml
[2023-01-13 17:40] LABS: ALBUMIN 2.6 G/DL (3.2-5.2); ALKALINE PHOSPHATASE 137 U/L (46-116); ALT/SGPT 23 U/L (7.0-40); AST/SGOT 20 U/L (<34); BILIRUBIN,DIRECT 0.4 MG/DL (<0.4); BILIRUBIN,TOTAL 0.9 MG/DL (0.3-1.2); BLOOD UREA NITROGEN 22 MG/DL (9-23); CALCIUM LEVEL 8.4 MG/DL (8.3-10.6); CARBON DIOXIDE LEVEL 25 MMOL/L (20-31); CHLORIDE LEVEL 92 MMOL/L (98-107); CK-MB VALUE MASS < 1.0 NG/ML (<3.6); CREATININE FOR GFR 0.64 MG/DL (0.55-1.30); GLOMERULAR FILTRATION RATE > 60.0 (>45); GLUCOSE, FASTING 276 MG/DL (74-106); MB/CK RELATIVE INDEX 1.56 (< OR =4); POTASSIUM SERUM 3.7 MMOL/L (3.5-5.1); SODIUM LEVEL 127 MMOL/L (136-145)
[2023-01-13 17:44] LABS: INR 1.15; PROTHROMBIN TIME 14.9 SECONDS (12.5-14.5)
[2023-01-13 17:45] LABS: PARTIAL THROMBOPLASTIN TIME 36.6 SECONDS (24.8-34.2)
[2023-01-13 17:58] LABS: CK-MB VALUE MASS < 1.0 NG/ML (<3.6)
[2023-01-13 17:59] LABS: CPK CREATINE PHOSPHOKINASE 95 U/L (34-145); MB/CK RELATIVE INDEX 1.05 (< OR =4)
[2023-01-13] MEDS ORDERED: MOM 30ML SUSPENSION UDC PO PRN (19:35)
[2023-01-13] MEDS ORDERED: DEXTROSE 50% 50ML SYRINGE IV PRN (20:15)
[2023-01-13] MEDS ORDERED: GLUCAGON INJ 1MG VIAL SC PRN (20:15)
[2023-01-13] MEDS ORDERED: GLUCOSE 4GM CHEW TABLET PO PRN (20:15)
[2023-01-13] MEDS ORDERED: ALBUTEROL 90 MCG/ACT 8GM HFA INHALER INH PRN (20:15)
[2023-01-13] MEDS ORDERED: NITR100C2 PO (20:53)
[2023-01-13] MEDS ORDERED: med rec comment (20:53)
[2023-01-13] MEDS ORDERED: LISI10TA22 PO (20:53)
[2023-01-13] MEDS ORDERED: HOME MED LIST COMPLETE! XX SCH (20:55)
[2023-01-13] MEDS: ANEXSIA, NORCO 7.5MG/325MG TABLET(HYDROCODONE/APAP) PO PRN (21:08)
[2023-01-13 21:31] LABS: OSMOLALITY URINE 459 MOSM/KG (50-1400)
[2023-01-13 21:35] VITALS: BP 147/66; TEMP 102.4; O2SAT 98
[2023-01-13 21:56] LABS: SODIUM,RANDOM URINE 10 MMOL/L
[2023-01-13] MEDS ORDERED: ACETAMINOPHEN 1000MG 100ML IV BAG IV ONE (22:15)
[2023-01-13] MEDS: PIPERACILLIN/TAZOBACTAM SOD 3.375 GM in D5W MINI-BAG PLUS 50 ML IV SCH (22:29)
[2023-01-13] MEDS: ONDANSETRON 4MG 2ML VIAL IV PRN (22:30)
[2023-01-13] MEDS: DOCUSATE SODIUM 100MG CAPSULE PO SCH (22:40)
[2023-01-13] MEDS: oxyCODONE 15MG CR TAB PO SCH (22:41)
[2023-01-13] MEDS: NS 1,000 ML IV SCH (22:48)
[2023-01-13 23:24] VITALS: BP 100/42; TEMP 103.3; O2SAT 96
[2023-01-13] MEDS: SIMVASTATIN 20 MG TAB PO SCH (23:33)
[2023-01-13] MEDS: IBUPROFEN 600MG TAB PO PRN (23:39)
[2023-01-13 23:47] LABS: BLOOD UREA NITROGEN 17 MG/DL (9-23); CALCIUM LEVEL 7.5 MG/DL (8.3-10.6); CARBON DIOXIDE LEVEL 26 MMOL/L (20-31); CHLORIDE LEVEL 97 MMOL/L (98-107); CREATININE FOR GFR 0.54 MG/DL (0.55-1.30); GLOMERULAR FILTRATION RATE > 60.0 (>45); GLUCOSE, FASTING 292 MG/DL (74-106); POTASSIUM SERUM 3.6 MMOL/L (3.5-5.1); SODIUM LEVEL 130 MMOL/L (136-145)
[2023-01-14 01:51] VITALS: BP 102/50; TEMP 98.2; O2SAT 94
[2023-01-14] MEDS: PIPERACILLIN/TAZOBACTAM SOD 3.375 GM in D5W MINI-BAG PLUS 50 ML IV SCH ×4 (04:22→23:15)
[2023-01-14 06:13] VITALS: BP 114/60; TEMP 96.2; TEMP 98.1; O2SAT 97
[2023-01-14 06:14] LABS: BASO % 0.2 % (0.0-1.0); HEMATOCRIT 24.4 % (36.0-47.0); LYMPH # 0.3 10^3/uL (1.5-5.0); LYMPH % 3.2 % (24.0-44.0); MEAN CORPUSCULAR HEMOGLOBIN 29.3 pg (27.0-33.0); MEAN CORPUSCULAR HGB CONC 32.8 g/dl (32.0-36.5); MEAN CORPUSCULAR VOLUME 89.4 fl (80.0-96.0); MONO # 0.8 10^3/uL (0.0-0.8); NEUTROPHILS # 8.9 10^3/uL (1.5-8.5); PLATELET COUNT, AUTOMATED 114 10^3/uL (150-450); RED BLOOD COUNT 2.73 10^6/uL (4.00-5.40); WHITE BLOOD COUNT 10.1 10^3/uL (4.0-10.0)
[2023-01-14 06:30] LABS: BLOOD UREA NITROGEN 13 MG/DL (9-23); CARBON DIOXIDE LEVEL 24 MMOL/L (20-31); CHLORIDE LEVEL 98 MMOL/L (98-107); CREATININE FOR GFR 0.63 MG/DL (0.55-1.30); GLOMERULAR FILTRATION RATE > 60.0 (>45); GLUCOSE, FASTING 280 MG/DL (74-106); POTASSIUM SERUM 3.5 MMOL/L (3.5-5.1); SODIUM LEVEL 132 MMOL/L (136-145)
[2023-01-14 07:00] LABS: OSMOLALITY URINE 339 MOSM/KG (50-1400)
[2023-01-14 07:23] LABS: SODIUM,RANDOM URINE < 10 MMOL/L
[2023-01-14] MEDS: INSULIN LISPRO (NovoLOG) PER UNIT SC SCH ×3 (08:46→17:41)
[2023-01-14] MEDS: ENOXAPARIN 40MG/0.4ML SYRINGE (J1650 PER 10MG) SC SCH (08:47)
[2023-01-14] MEDS: DOCUSATE SODIUM 100MG CAPSULE PO SCH ×2 (08:48→21:34)
[2023-01-14] MEDS: VENLAFAXINE **XR** 75MG CAPSULE PO SCH (08:48)
[2023-01-14] MEDS: PANTOPRAZOLE 40MG TAB (PROTONIX) PO SCH (08:48)
[2023-01-14] MEDS: oxyCODONE 15MG CR TAB PO SCH ×2 (08:52→21:34)
[2023-01-14] MEDS: ACETAMINOPHEN TAB 650MG DOSE (2X325MG) PO PRN (08:53)
[2023-01-14] MEDS: NS 1,000 ML IV SCH ×2 (09:47→22:20)
[2023-01-14 14:30] VITALS: BP 102/53; TEMP 100.8; O2SAT 93
[2023-01-14] MEDS: IBUPROFEN 600MG TAB PO PRN (15:04)
[2023-01-14] MEDS ORDERED: GLIMEPIRIDE 2 MG TAB PO SCH (17:30)
[2023-01-14 20:00] VITALS: BP 108/55; TEMP 97.2; O2SAT 93
[2023-01-14] MEDS: SIMVASTATIN 20 MG TAB PO SCH (21:34)
[2023-01-15] VITALS (8 sets, daily range): BP systolic 123–125; BP diastolic 61–66; TEMP 98.5–103.5; O2SAT 95–98
[2023-01-15] MEDS: PIPERACILLIN/TAZOBACTAM SOD 3.375 GM in D5W MINI-BAG PLUS 50 ML IV SCH ×4 (04:59→22:52)
[2023-01-15 06:07] LABS: HEMATOCRIT 23.8 % (36.0-47.0); HEMOGLOBIN 7.7 g/dl (12.0-15.5); MEAN CORPUSCULAR HEMOGLOBIN 29.1 pg (27.0-33.0); MEAN CORPUSCULAR HGB CONC 32.4 g/dl (32.0-36.5); MEAN CORPUSCULAR VOLUME 89.8 fl (80.0-96.0); PLATELET COUNT, AUTOMATED 108 10^3/uL (150-450); RED BLOOD COUNT 2.65 10^6/uL (4.00-5.40); WHITE BLOOD COUNT 7.1 10^3/uL (4.0-10.0)
[2023-01-15 06:32] LABS: BLOOD UREA NITROGEN 11 MG/DL (9-23); CALCIUM LEVEL 7.5 MG/DL (8.3-10.6); CARBON DIOXIDE LEVEL 24 MMOL/L (20-31); CHLORIDE LEVEL 95 MMOL/L (98-107); CREATININE FOR GFR 0.58 MG/DL (0.55-1.30); GLOMERULAR FILTRATION RATE > 60.0 (>45); GLUCOSE, FASTING 240 MG/DL (74-106); POTASSIUM SERUM 3.5 MMOL/L (3.5-5.1); SODIUM LEVEL 130 MMOL/L (136-145)
[2023-01-15 07:10] LABS: LYMPHOCYTES 3 % (16-44); MONOCYTES 3 % (0-5); NEUTROPHILS 86 % (28-66)
[2023-01-15 07:13] LABS: PLATELET ESTIMATE DECREASED (NORMAL)
[2023-01-15 07:14] LABS: POLYCHROMASIA 1+
[2023-01-15 07:15] LABS: HYPOCHROMASIA 1+
[2023-01-15] MEDS: NS 1,000 ML IV SCH ×2 (08:07→15:02)
[2023-01-15] MEDS: ENOXAPARIN 40MG/0.4ML SYRINGE (J1650 PER 10MG) SC SCH (08:08)
[2023-01-15] MEDS: VENLAFAXINE **XR** 75MG CAPSULE PO SCH (08:08)
[2023-01-15] MEDS: PANTOPRAZOLE 40MG TAB (PROTONIX) PO SCH (08:08)
[2023-01-15] MEDS: oxyCODONE 15MG CR TAB PO SCH ×2 (08:09→20:57)
[2023-01-15] MEDS: ACETAMINOPHEN TAB 650MG DOSE (2X325MG) PO PRN ×2 (08:10→16:45)
[2023-01-15] MEDS: INSULIN LISPRO (NovoLOG) PER UNIT SC SCH ×3 (08:11→18:45)
[2023-01-15] MEDS: DOCUSATE SODIUM 100MG CAPSULE PO SCH ×2 (08:12→20:56)
[2023-01-15] MEDS: SIMVASTATIN 20 MG TAB PO SCH (20:56)
[2023-01-16] VITALS (10 sets, daily range): BP systolic 102–132; BP diastolic 57–67; TEMP 96.8–103.3; O2SAT 95–99
[2023-01-16] MEDS: IBUPROFEN 600MG TAB PO PRN (04:41)
[2023-01-16] MEDS: PIPERACILLIN/TAZOBACTAM SOD 3.375 GM in D5W MINI-BAG PLUS 50 ML IV SCH ×4 (04:42→22:18)
[2023-01-16] MEDS: NS 1,000 ML IV SCH ×2 (04:42→08:01)
[2023-01-16 06:23] LABS: HEMATOCRIT 21.5 % (36.0-47.0); MEAN CORPUSCULAR HEMOGLOBIN 28.8 pg (27.0-33.0); MEAN CORPUSCULAR HGB CONC 32.6 g/dl (32.0-36.5); MEAN CORPUSCULAR VOLUME 88.5 fl (80.0-96.0); PLATELET COUNT, AUTOMATED 114 10^3/uL (150-450); RED BLOOD COUNT 2.43 10^6/uL (4.00-5.40); WHITE BLOOD COUNT 4.9 10^3/uL (4.0-10.0)
[2023-01-16 06:46] LABS: BLOOD UREA NITROGEN 7 MG/DL (9-23); CARBON DIOXIDE LEVEL 24 MMOL/L (20-31); CHLORIDE LEVEL 96 MMOL/L (98-107); CREATININE FOR GFR 0.55 MG/DL (0.55-1.30); GLOMERULAR FILTRATION RATE > 60.0 (>45); GLUCOSE, FASTING 227 MG/DL (74-106); SODIUM LEVEL 130 MMOL/L (136-145)
[2023-01-16 07:00] LABS: ERYTHROCYTE SEDIMENTATION RATE 26 mm/hr (0-30)
[2023-01-16 07:15] LABS: LYMPHOCYTES 7 % (16-44); MONOCYTES 2 % (0-5); NEUTROPHILS 87 % (28-66)
[2023-01-16 07:16] LABS: MAGNESIUM LEVEL 1.6 MG/DL (1.8-2.4)
[2023-01-16 07:19] LABS: HYPOCHROMASIA 1+; PLATELET ESTIMATE DECREASED (NORMAL); POLYCHROMASIA 1+; TEAR DROP CELLS 1+
[2023-01-16] MEDS ORDERED: MAGNESIUM OXIDE 400MG TAB (MAG-OX) PO ONE (07:45)
[2023-01-16] MEDS ORDERED: POTASSIUM CHLORIDE 10MEQ SR TABLET PO ONE (08:00)
[2023-01-16] MEDS: KCL 10MEQ/100ML SWI (KRUN) 10 MEQ in IV 1 EA IV SCH ×2 (08:00→09:00)
[2023-01-16] MEDS: ENOXAPARIN 40MG/0.4ML SYRINGE (J1650 PER 10MG) SC SCH (08:01)
[2023-01-16] MEDS: INSULIN LISPRO (NovoLOG) PER UNIT SC SCH ×3 (08:01→18:03)
[2023-01-16] MEDS: DOCUSATE SODIUM 100MG CAPSULE PO SCH ×2 (08:02→20:07)
[2023-01-16] MEDS: VENLAFAXINE **XR** 75MG CAPSULE PO SCH (08:02)
[2023-01-16] MEDS: PANTOPRAZOLE 40MG TAB (PROTONIX) PO SCH (08:02)
[2023-01-16] MEDS: oxyCODONE 15MG CR TAB PO SCH ×2 (08:05→20:08)
[2023-01-16 08:26] LABS: IRON (FE) 7 UG/DL (50-170); PERCENT SATURATION 3.3 % (13.2-45.0); TOTAL IRON BINDING CAPACITY 213 UG/DL (250-425)
[2023-01-16 08:28] LABS: FERRITIN 252.3 NG/ML (7.3-270.7); FOLATE 11.69 NG/ML (>5.4); VITAMIN B12 LEVEL 732 PG/ML (211-911)
[2023-01-16] MEDS: FERROUS SULFATE 325MG TAB PO SCH (12:18)
[2023-01-16 17:22] LABS: HEMOGLOBIN 9.6 g/dl (12.0-15.5)
[2023-01-16 17:29] LABS: BLOOD UREA NITROGEN 7 MG/DL (9-23); CALCIUM LEVEL 7.5 MG/DL (8.3-10.6); CARBON DIOXIDE LEVEL 23 MMOL/L (20-31); CHLORIDE LEVEL 99 MMOL/L (98-107); CREATININE FOR GFR 0.52 MG/DL (0.55-1.30); GLOMERULAR FILTRATION RATE > 60.0 (>45); GLUCOSE, FASTING 246 MG/DL (74-106); POTASSIUM SERUM 3.5 MMOL/L (3.5-5.1); SODIUM LEVEL 134 MMOL/L (136-145)
[2023-01-16] MEDS: SIMVASTATIN 20 MG TAB PO SCH (20:08)
[2023-01-16] MEDS: ACETAMINOPHEN TAB 650MG DOSE (2X325MG) PO PRN (22:18)
[2023-01-17 02:00] VITALS: TEMP 99.1
[2023-01-17] MEDS: PIPERACILLIN/TAZOBACTAM SOD 3.375 GM in D5W MINI-BAG PLUS 50 ML IV SCH ×4 (04:27→23:34)
[2023-01-17] MEDS: ANEXSIA, NORCO 7.5MG/325MG TABLET(HYDROCODONE/APAP) PO PRN ×4 (05:08→23:41)
[2023-01-17 05:43] LABS: BASO % 0.5 % (0.0-1.0); EOS % 0.7 % (0.0-3.0); HEMATOCRIT 30.2 % (36.0-47.0); HEMOGLOBIN 9.7 g/dl (12.0-15.5); LYMPH # 0.4 10^3/uL (1.5-5.0); LYMPH % 8.3 % (24.0-44.0); MEAN CORPUSCULAR HEMOGLOBIN 28.3 pg (27.0-33.0); MEAN CORPUSCULAR HGB CONC 32.1 g/dl (32.0-36.5); MONO # 0.4 10^3/uL (0.0-0.8); MONO % 9.9 % (2.0-8.0); NEUTROPHILS # 3.5 10^3/uL (1.5-8.5); NEUTROPHILS % 80.1 % (36.0-66.0); PLATELET COUNT, AUTOMATED 119 10^3/uL (150-450); RED BLOOD COUNT 3.43 10^6/uL (4.00-5.40); WHITE BLOOD COUNT 4.3 10^3/uL (4.0-10.0)
[2023-01-17 06:00] VITALS: BP 146/66; TEMP 99.1; O2SAT 95
[2023-01-17 06:20] LABS: BLOOD UREA NITROGEN < 5 MG/DL (9-23); CARBON DIOXIDE LEVEL 26 MMOL/L (20-31); CHLORIDE LEVEL 99 MMOL/L (98-107); CREATININE FOR GFR 0.55 MG/DL (0.55-1.30); GLOMERULAR FILTRATION RATE > 60.0 (>45); GLUCOSE, FASTING 221 MG/DL (74-106); POTASSIUM SERUM 3.6 MMOL/L (3.5-5.1); SODIUM LEVEL 135 MMOL/L (136-145)
[2023-01-17] MEDS: VENLAFAXINE **XR** 75MG CAPSULE PO SCH (09:07)
[2023-01-17] MEDS: FERROUS SULFATE 325MG TAB PO SCH (09:07)
[2023-01-17] MEDS: DOCUSATE SODIUM 100MG CAPSULE PO SCH ×2 (09:07→20:23)
[2023-01-17] MEDS: INSULIN LISPRO (NovoLOG) PER UNIT SC SCH ×3 (09:07→17:57)
[2023-01-17] MEDS: oxyCODONE 15MG CR TAB PO SCH ×2 (09:07→20:22)
[2023-01-17] MEDS: ENOXAPARIN 40MG/0.4ML SYRINGE (J1650 PER 10MG) SC SCH (09:08)
[2023-01-17] MEDS: PANTOPRAZOLE 40MG TAB (PROTONIX) PO SCH (09:08)
[2023-01-17 09:13] LABS: ERYTHROCYTE SEDIMENTATION RATE 130 mm/hr (0-30)
[2023-01-17 14:00] VITALS: BP 146/67; TEMP 98.8; O2SAT 98
[2023-01-17] MEDS: SIMVASTATIN 20 MG TAB PO SCH (20:15)
[2023-01-18] MEDS: PIPERACILLIN/TAZOBACTAM SOD 3.375 GM in D5W MINI-BAG PLUS 50 ML IV SCH ×4 (04:58→22:43)
[2023-01-18] MEDS: ANEXSIA, NORCO 7.5MG/325MG TABLET(HYDROCODONE/APAP) PO PRN ×3 (04:59→17:26)
[2023-01-18 06:17] LABS: BASO % 0.3 % (0.0-1.0); EOS % 1.1 % (0.0-3.0); HEMATOCRIT 26.9 % (36.0-47.0); HEMOGLOBIN 8.7 g/dl (12.0-15.5); LYMPH # 0.4 10^3/uL (1.5-5.0); LYMPH % 9.8 % (24.0-44.0); MEAN CORPUSCULAR HEMOGLOBIN 28.8 pg (27.0-33.0); MEAN CORPUSCULAR HGB CONC 32.3 g/dl (32.0-36.5); MEAN CORPUSCULAR VOLUME 89.1 fl (80.0-96.0); MONO # 0.5 10^3/uL (0.0-0.8); NEUTROPHILS # 2.8 10^3/uL (1.5-8.5); PLATELET COUNT, AUTOMATED 105 10^3/uL (150-450); RED BLOOD COUNT 3.02 10^6/uL (4.00-5.40); WHITE BLOOD COUNT 3.8 10^3/uL (4.0-10.0)
[2023-01-18 06:19] VITALS: BP 130/60; TEMP 98.4; O2SAT 94
[2023-01-18 06:48] LABS: BLOOD UREA NITROGEN 10 MG/DL (9-23); CALCIUM LEVEL 7.8 MG/DL (8.3-10.6); CARBON DIOXIDE LEVEL 25 MMOL/L (20-31); CHLORIDE LEVEL 99 MMOL/L (98-107); CREATININE FOR GFR 0.49 MG/DL (0.55-1.30); GLOMERULAR FILTRATION RATE > 60.0 (>45); GLUCOSE, FASTING 274 MG/DL (74-106); POTASSIUM SERUM 3.6 MMOL/L (3.5-5.1); SODIUM LEVEL 134 MMOL/L (136-145)
[2023-01-18] MEDS: DOCUSATE SODIUM 100MG CAPSULE PO SCH ×2 (09:00→20:40)
[2023-01-18] MEDS: VENLAFAXINE **XR** 75MG CAPSULE PO SCH (09:05)
[2023-01-18] MEDS: FERROUS SULFATE 325MG TAB PO SCH (09:05)
[2023-01-18] MEDS: INSULIN LISPRO (NovoLOG) PER UNIT SC SCH ×3 (09:05→17:10)
[2023-01-18] MEDS: PANTOPRAZOLE 40MG TAB (PROTONIX) PO SCH (09:05)
[2023-01-18] MEDS: ENOXAPARIN 40MG/0.4ML SYRINGE (J1650 PER 10MG) SC SCH (09:06)
[2023-01-18] MEDS: oxyCODONE 15MG CR TAB PO SCH ×2 (09:09→21:14)
[2023-01-18] MEDS: PINK BISMUTH SUSP 524MG/30ML ORAL SYRINGE PO PRN (11:50)
[2023-01-18 14:00] VITALS: BP 129/60; TEMP 97.9; O2SAT 95
[2023-01-18 16:15] LABS: HEMATOCRIT 26.6 % (36.0-47.0); HEMOGLOBIN 8.6 g/dl (12.0-15.5); MEAN CORPUSCULAR HEMOGLOBIN 28.8 pg (27.0-33.0); MEAN CORPUSCULAR HGB CONC 32.3 g/dl (32.0-36.5); PLATELET COUNT, AUTOMATED 113 10^3/uL (150-450); RED BLOOD COUNT 2.99 10^6/uL (4.00-5.40)
[2023-01-18] MEDS ORDERED: FERRIC CARBOXYMALTOSE INJ 750 MG, VIAL MATE ADAPTER 1 EACH in NS 250 ML IV ONE (16:30)
[2023-01-18] MEDS: LACTOBACILLUS ACIDOPHILUS CAP (BACID) PO SCH (17:10)
[2023-01-18 20:00] VITALS: BP 130/59; TEMP 99.5; O2SAT 98
[2023-01-18] MEDS: SIMVASTATIN 20 MG TAB PO SCH (21:06)
[2023-01-18 22:06] VITALS: BP 122/40
[2023-01-19] MEDS: ANEXSIA, NORCO 7.5MG/325MG TABLET(HYDROCODONE/APAP) PO PRN ×2 (01:34→09:45)
[2023-01-19] MEDS: ACETAMINOPHEN TAB 650MG DOSE (2X325MG) PO PRN (04:33)
[2023-01-19] MEDS: PIPERACILLIN/TAZOBACTAM SOD 3.375 GM in D5W MINI-BAG PLUS 50 ML IV SCH ×4 (04:42→22:30)
[2023-01-19 05:57] LABS: BASO % 0.6 % (0.0-1.0); EOS % 0.6 % (0.0-3.0); HEMATOCRIT 25.6 % (36.0-47.0); HEMOGLOBIN 8.2 g/dl (12.0-15.5); LYMPH # 0.4 10^3/uL (1.5-5.0); LYMPH % 10.3 % (24.0-44.0); MEAN CORPUSCULAR HEMOGLOBIN 28.5 pg (27.0-33.0); MEAN CORPUSCULAR VOLUME 88.9 fl (80.0-96.0); MONO # 0.4 10^3/uL (0.0-0.8); MONO % 11.7 % (2.0-8.0); NEUTROPHILS # 2.8 10^3/uL (1.5-8.5); NEUTROPHILS % 76.2 % (36.0-66.0); PLATELET COUNT, AUTOMATED 111 10^3/uL (150-450); RED BLOOD COUNT 2.88 10^6/uL (4.00-5.40); WHITE BLOOD COUNT 3.6 10^3/uL (4.0-10.0)
[2023-01-19 06:00] VITALS: BP 137/60; TEMP 99.1; O2SAT 95
[2023-01-19 06:18] LABS: BLOOD UREA NITROGEN 6 MG/DL (9-23); CALCIUM LEVEL 7.9 MG/DL (8.3-10.6); CARBON DIOXIDE LEVEL 24 MMOL/L (20-31); CHLORIDE LEVEL 102 MMOL/L (98-107); CREATININE FOR GFR 0.48 MG/DL (0.55-1.30); GLOMERULAR FILTRATION RATE > 60.0 (>45); GLUCOSE, FASTING 238 MG/DL (74-106); POTASSIUM SERUM 3.5 MMOL/L (3.5-5.1); SODIUM LEVEL 137 MMOL/L (136-145)
[2023-01-19] MEDS: LACTOBACILLUS ACIDOPHILUS CAP (BACID) PO SCH ×3 (08:29→17:42)
[2023-01-19] MEDS: PANTOPRAZOLE 40MG TAB (PROTONIX) PO SCH (08:29)
[2023-01-19] MEDS: INSULIN LISPRO (NovoLOG) PER UNIT SC SCH ×3 (08:29→17:43)
[2023-01-19] MEDS: ENOXAPARIN 40MG/0.4ML SYRINGE (J1650 PER 10MG) SC SCH (08:30)
[2023-01-19] MEDS: DOCUSATE SODIUM 100MG CAPSULE PO SCH ×2 (08:30→20:37)
[2023-01-19] MEDS: VENLAFAXINE **XR** 75MG CAPSULE PO SCH (08:30)
[2023-01-19] MEDS: oxyCODONE 15MG CR TAB PO SCH (08:34)
[2023-01-19] MEDS: LIDOCAINE 5% (LIDODERM) PATCH TD SCH (12:58)
[2023-01-19] MEDS: DICLOFENAC EPOLAMINE 1.3% PATCH TOP SCH ×2 (12:58→20:38)
[2023-01-19] MEDS: ACETAMINOPHEN 500 MG TAB PO SCH ×2 (12:59→17:42)
[2023-01-19] MEDS: MORPHINE 4 MG/ML 1ML VIAL IV PRN ×2 (13:00→13:57)
[2023-01-19 14:00] VITALS: BP 134/83; TEMP 98.6; O2SAT 94
[2023-01-19 20:30] VITALS: BP 108/60; TEMP 98.1; O2SAT 97
[2023-01-19] MEDS: oxyCODONE 20MG CR TAB PO SCH (20:39)
[2023-01-19] MEDS: SIMVASTATIN 20 MG TAB PO SCH (20:40)
[2023-01-19] MEDS: oxyCODONE 5MG TAB PO PRN (22:30)
[2023-01-20] MEDS: ACETAMINOPHEN 500 MG TAB PO SCH ×2 (00:02→04:49)
[2023-01-20] MEDS: oxyCODONE 5MG TAB PO PRN ×3 (04:48→21:58)
[2023-01-20] MEDS: PIPERACILLIN/TAZOBACTAM SOD 3.375 GM in D5W MINI-BAG PLUS 50 ML IV SCH ×4 (04:49→22:02)
[2023-01-20 05:51] LABS: BASO % 0.6 % (0.0-1.0); EOS # 0.1 10^3/uL (0.0-0.5); EOS % 2.4 % (0.0-3.0); HEMATOCRIT 26.1 % (36.0-47.0); HEMOGLOBIN 8.3 g/dl (12.0-15.5); LYMPH # 0.4 10^3/uL (1.5-5.0); LYMPH % 10.7 % (24.0-44.0); MEAN CORPUSCULAR HEMOGLOBIN 28.4 pg (27.0-33.0); MEAN CORPUSCULAR HGB CONC 31.8 g/dl (32.0-36.5); MEAN CORPUSCULAR VOLUME 89.4 fl (80.0-96.0); MONO # 0.4 10^3/uL (0.0-0.8); MONO % 12.4 % (2.0-8.0); NEUTROPHILS # 2.5 10^3/uL (1.5-8.5); PLATELET COUNT, AUTOMATED 122 10^3/uL (150-450); RED BLOOD COUNT 2.92 10^6/uL (4.00-5.40); WHITE BLOOD COUNT 3.4 10^3/uL (4.0-10.0)
[2023-01-20 06:00] VITALS: BP 147/69; TEMP 99; O2SAT 96
[2023-01-20 06:22] LABS: BLOOD UREA NITROGEN 5 MG/DL (9-23); CARBON DIOXIDE LEVEL 28 MMOL/L (20-31); CHLORIDE LEVEL 103 MMOL/L (98-107); CREATININE FOR GFR 0.49 MG/DL (0.55-1.30); GLOMERULAR FILTRATION RATE > 60.0 (>45); GLUCOSE, FASTING 259 MG/DL (74-106); POTASSIUM SERUM 3.4 MMOL/L (3.5-5.1); SODIUM LEVEL 140 MMOL/L (136-145)
[2023-01-20] MEDS ORDERED: POTASSIUM CHLORIDE 10MEQ SR TABLET PO ONE (07:50)
[2023-01-20] MEDS: DOCUSATE SODIUM 100MG CAPSULE PO SCH ×2 (09:00→20:26)
[2023-01-20] MEDS: ONDANSETRON 4MG 2ML VIAL IV PRN (09:11)
[2023-01-20] MEDS: ENOXAPARIN 40MG/0.4ML SYRINGE (J1650 PER 10MG) SC SCH (09:11)
[2023-01-20] MEDS: INSULIN LISPRO (NovoLOG) PER UNIT SC SCH ×3 (09:13→17:11)
[2023-01-20] MEDS: oxyCODONE 20MG CR TAB PO SCH ×2 (09:14→20:25)
[2023-01-20] MEDS: VENLAFAXINE **XR** 75MG CAPSULE PO SCH (09:15)
[2023-01-20] MEDS: LACTOBACILLUS ACIDOPHILUS CAP (BACID) PO SCH ×3 (09:15→17:11)
[2023-01-20] MEDS: PANTOPRAZOLE 40MG TAB (PROTONIX) PO SCH (09:15)
[2023-01-20] MEDS: LIDOCAINE 5% (LIDODERM) PATCH TD SCH (09:16)
[2023-01-20] MEDS: DICLOFENAC EPOLAMINE 1.3% PATCH TOP SCH ×2 (09:16→20:26)
[2023-01-20] MEDS: MORPHINE 4 MG/ML 1ML VIAL IV PRN ×2 (10:24→22:53)
[2023-01-20 10:55] VITALS: BP 120/59
[2023-01-20] MEDS ORDERED: KETOROLAC 30 MG/ML 1ML VIAL IV ONE (11:35)
[2023-01-20 14:00] VITALS: BP 143/66; TEMP 99.1; O2SAT 100
[2023-01-20] MEDS: SIMVASTATIN 20 MG TAB PO SCH (20:24)
[2023-01-20 20:40] VITALS: BP 150/76; TEMP 99; O2SAT 94
[2023-01-20] MEDS: hydrOXYzine 50 MG TAB PO PRN (21:57)
[2023-01-21] MEDS: MORPHINE 4 MG/ML 1ML VIAL IV PRN ×7 (02:11→21:22)
[2023-01-21 05:20] VITALS: BP 146/74; TEMP 98.2; O2SAT 93
[2023-01-21] MEDS: PIPERACILLIN/TAZOBACTAM SOD 3.375 GM in D5W MINI-BAG PLUS 50 ML IV SCH ×4 (05:35→23:18)
[2023-01-21 06:34] LABS: BASO % 0.2 % (0.0-1.0); EOS # 0.1 10^3/uL (0.0-0.5); EOS % 1.6 % (0.0-3.0); HEMATOCRIT 27.2 % (36.0-47.0); HEMOGLOBIN 8.5 g/dl (12.0-15.5); LYMPH # 0.5 10^3/uL (1.5-5.0); LYMPH % 8.8 % (24.0-44.0); MEAN CORPUSCULAR HEMOGLOBIN 28.4 pg (27.0-33.0); MEAN CORPUSCULAR HGB CONC 31.3 g/dl (32.0-36.5); MONO # 0.7 10^3/uL (0.0-0.8); MONO % 11.5 % (2.0-8.0); NEUTROPHILS # 4.4 10^3/uL (1.5-8.5); NEUTROPHILS % 76.8 % (36.0-66.0); PLATELET COUNT, AUTOMATED 160 10^3/uL (150-450); RED BLOOD COUNT 2.99 10^6/uL (4.00-5.40); WHITE BLOOD COUNT 5.7 10^3/uL (4.0-10.0)
[2023-01-21 06:38] LABS: BLOOD UREA NITROGEN 7 MG/DL (9-23); CARBON DIOXIDE LEVEL 27 MMOL/L (20-31); CHLORIDE LEVEL 103 MMOL/L (98-107); CREATININE FOR GFR 0.48 MG/DL (0.55-1.30); GLOMERULAR FILTRATION RATE > 60.0 (>45); GLUCOSE, FASTING 217 MG/DL (74-106); POTASSIUM SERUM 3.6 MMOL/L (3.5-5.1); SODIUM LEVEL 139 MMOL/L (136-145)
[2023-01-21] MEDS: INSULIN LISPRO (NovoLOG) PER UNIT SC SCH ×3 (08:39→17:08)
[2023-01-21] MEDS: PANTOPRAZOLE 40MG TAB (PROTONIX) PO SCH (08:40)
[2023-01-21] MEDS: LACTOBACILLUS ACIDOPHILUS CAP (BACID) PO SCH ×3 (08:40→17:08)
[2023-01-21] MEDS: oxyCODONE 20MG CR TAB PO SCH ×2 (08:40→20:41)
[2023-01-21] MEDS: DOCUSATE SODIUM 100MG CAPSULE PO SCH (08:40)
[2023-01-21] MEDS: VENLAFAXINE **XR** 75MG CAPSULE PO SCH (08:40)
[2023-01-21] MEDS: DICLOFENAC EPOLAMINE 1.3% PATCH TOP SCH ×2 (08:41→20:43)
[2023-01-21] MEDS: ENOXAPARIN 40MG/0.4ML SYRINGE (J1650 PER 10MG) SC SCH (08:41)
[2023-01-21] MEDS: LIDOCAINE 5% (LIDODERM) PATCH TD SCH (08:41)
[2023-01-21 14:45] VITALS: BP 146/75; TEMP 98.2; O2SAT 97
[2023-01-21] MEDS: PINK BISMUTH SUSP 524MG/30ML ORAL SYRINGE PO PRN (15:02)
[2023-01-21] MEDS: SIMVASTATIN 20 MG TAB PO SCH (20:50)
[2023-01-21 22:00] VITALS: BP 147/78; TEMP 98.2; O2SAT 97
[2023-01-22] MEDS: oxyCODONE 5MG TAB PO PRN ×5 (00:44→20:32)
[2023-01-22 04:34] VITALS: BP 147/67; TEMP 98.8; O2SAT 94
[2023-01-22] MEDS: PIPERACILLIN/TAZOBACTAM SOD 3.375 GM in D5W MINI-BAG PLUS 50 ML IV SCH ×3 (04:53→16:11)
[2023-01-22 06:28] LABS: BASO % 0.3 % (0.0-1.0); EOS # 0.1 10^3/uL (0.0-0.5); EOS % 1.3 % (0.0-3.0); HEMATOCRIT 26.7 % (36.0-47.0); HEMOGLOBIN 8.4 g/dl (12.0-15.5); LYMPH # 0.4 10^3/uL (1.5-5.0); LYMPH % 6.1 % (24.0-44.0); MEAN CORPUSCULAR HEMOGLOBIN 28.8 pg (27.0-33.0); MEAN CORPUSCULAR HGB CONC 31.5 g/dl (32.0-36.5); MEAN CORPUSCULAR VOLUME 91.4 fl (80.0-96.0); MONO # 0.6 10^3/uL (0.0-0.8); MONO % 9.4 % (2.0-8.0); NEUTROPHILS # 5.2 10^3/uL (1.5-8.5); NEUTROPHILS % 82.4 % (36.0-66.0); PLATELET COUNT, AUTOMATED 164 10^3/uL (150-450); RED BLOOD COUNT 2.92 10^6/uL (4.00-5.40); WHITE BLOOD COUNT 6.3 10^3/uL (4.0-10.0)
[2023-01-22 06:49] LABS: BLOOD UREA NITROGEN 6 MG/DL (9-23); CALCIUM LEVEL 8.1 MG/DL (8.3-10.6); CARBON DIOXIDE LEVEL 28 MMOL/L (20-31); CHLORIDE LEVEL 101 MMOL/L (98-107); CREATININE FOR GFR 0.49 MG/DL (0.55-1.30); GLOMERULAR FILTRATION RATE > 60.0 (>45); GLUCOSE, FASTING 212 MG/DL (74-106); POTASSIUM SERUM 3.6 MMOL/L (3.5-5.1); SODIUM LEVEL 136 MMOL/L (136-145)
[2023-01-22 07:59] LABS: CLOSTRIDIUM DIFFICILE PCR NEGATIVE (NEGATIVE)
[2023-01-22] MEDS: LACTOBACILLUS ACIDOPHILUS CAP (BACID) PO SCH ×4 (08:03→17:38)
[2023-01-22] MEDS: PINK BISMUTH SUSP 524MG/30ML ORAL SYRINGE PO PRN (08:04)
[2023-01-22] MEDS: INSULIN LISPRO (NovoLOG) PER UNIT SC SCH ×3 (08:04→17:38)
[2023-01-22] MEDS: LIDOCAINE 5% (LIDODERM) PATCH TD SCH (08:04)
[2023-01-22] MEDS: ENOXAPARIN 40MG/0.4ML SYRINGE (J1650 PER 10MG) SC SCH (08:04)
[2023-01-22] MEDS: DICLOFENAC EPOLAMINE 1.3% PATCH TOP SCH ×2 (08:04→20:34)
[2023-01-22] MEDS: oxyCODONE 20MG CR TAB PO SCH ×2 (08:05→20:34)
[2023-01-22] MEDS: PANTOPRAZOLE 40MG TAB (PROTONIX) PO SCH (08:05)
[2023-01-22] MEDS: hydrOXYzine 50 MG TAB PO PRN ×2 (08:05→18:28)
[2023-01-22] MEDS: VENLAFAXINE **XR** 75MG CAPSULE PO SCH (08:05)
[2023-01-22] MEDS: DOCUSATE SODIUM 100MG CAPSULE PO PRN (11:16)
[2023-01-22] MEDS: MORPHINE 2 MG/ML 1ML VIAL IV PRN ×3 (12:03→22:00)
[2023-01-22 15:02] VITALS: BP 146/66; TEMP 99.1; O2SAT 96
[2023-01-22] MEDS ORDERED: CYCLOBENZAPRINE 5MG TABLET PO ONE (17:00)
[2023-01-22] MEDS: SIMVASTATIN 20 MG TAB PO SCH (20:32)
[2023-01-22] MEDS: CYCLOBENZAPRINE 5MG TABLET PO PRN (21:59)
[2023-01-22 22:02] VITALS: BP 153/73; TEMP 96.8; O2SAT 96
[2023-01-23] MEDS: oxyCODONE 5MG TAB PO PRN ×4 (00:13→15:00)
[2023-01-23] MEDS: MORPHINE 2 MG/ML 1ML VIAL IV PRN ×3 (03:51→21:20)
[2023-01-23] MEDS: hydrOXYzine 50 MG TAB PO PRN ×2 (06:17→14:59)
[2023-01-23] MEDS: DOCUSATE SODIUM 100MG CAPSULE PO PRN (06:17)
[2023-01-23 06:20] LABS: BASO % 0.2 % (0.0-1.0); EOS # 0.1 10^3/uL (0.0-0.5); EOS % 0.8 % (0.0-3.0); HEMATOCRIT 28.6 % (36.0-47.0); HEMOGLOBIN 9.1 g/dl (12.0-15.5); LYMPH # 0.6 10^3/uL (1.5-5.0); LYMPH % 6.6 % (24.0-44.0); MEAN CORPUSCULAR HEMOGLOBIN 28.8 pg (27.0-33.0); MEAN CORPUSCULAR HGB CONC 31.8 g/dl (32.0-36.5); MEAN CORPUSCULAR VOLUME 90.5 fl (80.0-96.0); MONO # 0.7 10^3/uL (0.0-0.8); MONO % 8.8 % (2.0-8.0); PLATELET COUNT, AUTOMATED 173 10^3/uL (150-450); RED BLOOD COUNT 3.16 10^6/uL (4.00-5.40); WHITE BLOOD COUNT 8.4 10^3/uL (4.0-10.0)
[2023-01-23 06:37] VITALS: BP 153/73; TEMP 97.9; O2SAT 98
[2023-01-23 06:44] LABS: BLOOD UREA NITROGEN 7 MG/DL (9-23); CALCIUM LEVEL 8.2 MG/DL (8.3-10.6); CARBON DIOXIDE LEVEL 26 MMOL/L (20-31); CHLORIDE LEVEL 100 MMOL/L (98-107); CREATININE FOR GFR 0.47 MG/DL (0.55-1.30); GLOMERULAR FILTRATION RATE > 60.0 (>45); GLUCOSE, FASTING 204 MG/DL (74-106); POTASSIUM SERUM 3.6 MMOL/L (3.5-5.1); SODIUM LEVEL 135 MMOL/L (136-145)
[2023-01-23] MEDS: INSULIN LISPRO (NovoLOG) PER UNIT SC SCH ×3 (09:08→17:11)
[2023-01-23] MEDS: VENLAFAXINE **XR** 75MG CAPSULE PO SCH (09:08)
[2023-01-23] MEDS: ENOXAPARIN 40MG/0.4ML SYRINGE (J1650 PER 10MG) SC SCH (09:09)
[2023-01-23] MEDS: LACTOBACILLUS ACIDOPHILUS CAP (BACID) PO SCH ×3 (09:09→17:10)
[2023-01-23] MEDS: PANTOPRAZOLE 40MG TAB (PROTONIX) PO SCH (09:09)
[2023-01-23] MEDS: oxyCODONE 20MG CR TAB PO SCH ×2 (09:09→21:17)
[2023-01-23] MEDS: LIDOCAINE 5% (LIDODERM) PATCH TD SCH (09:10)
[2023-01-23] MEDS: DICLOFENAC EPOLAMINE 1.3% PATCH TOP SCH ×2 (09:10→21:25)
[2023-01-23] MEDS: CYCLOBENZAPRINE 5MG TABLET PO PRN ×2 (09:17→21:24)
[2023-01-23 14:00] VITALS: BP 165/97; TEMP 97.3; O2SAT 96
[2023-01-23] MEDS: SIMVASTATIN 20 MG TAB PO SCH (21:17)
[2023-01-23 21:30] VITALS: TEMP 99; O2SAT 98
[2023-01-24] MEDS: hydrOXYzine 50 MG TAB PO PRN ×2 (00:40→22:33)
[2023-01-24] MEDS: MORPHINE 2 MG/ML 1ML VIAL IV PRN ×4 (00:41→17:19)
[2023-01-24 05:58] LABS: BASO % 0.3 % (0.0-1.0); EOS # 0.1 10^3/uL (0.0-0.5); EOS % 1.1 % (0.0-3.0); HEMATOCRIT 28.8 % (36.0-47.0); HEMOGLOBIN 9.1 g/dl (12.0-15.5); LYMPH # 0.6 10^3/uL (1.5-5.0); MEAN CORPUSCULAR HEMOGLOBIN 28.7 pg (27.0-33.0); MEAN CORPUSCULAR HGB CONC 31.6 g/dl (32.0-36.5); MEAN CORPUSCULAR VOLUME 90.9 fl (80.0-96.0); MONO # 0.6 10^3/uL (0.0-0.8); MONO % 7.9 % (2.0-8.0); NEUTROPHILS # 6.1 10^3/uL (1.5-8.5); NEUTROPHILS % 82.2 % (36.0-66.0); PLATELET COUNT, AUTOMATED 190 10^3/uL (150-450); RED BLOOD COUNT 3.17 10^6/uL (4.00-5.40); WHITE BLOOD COUNT 7.5 10^3/uL (4.0-10.0)
[2023-01-24 06:22] LABS: BLOOD UREA NITROGEN 8 MG/DL (9-23); CALCIUM LEVEL 8.6 MG/DL (8.3-10.6); CARBON DIOXIDE LEVEL 25 MMOL/L (20-31); CHLORIDE LEVEL 101 MMOL/L (98-107); CREATININE FOR GFR 0.43 MG/DL (0.55-1.30); GLOMERULAR FILTRATION RATE > 60.0 (>45); GLUCOSE, FASTING 200 MG/DL (74-106); POTASSIUM SERUM 3.5 MMOL/L (3.5-5.1); SODIUM LEVEL 137 MMOL/L (136-145)
[2023-01-24] MEDS: INSULIN LISPRO (NovoLOG) PER UNIT SC SCH ×3 (07:30→17:24)
[2023-01-24] MEDS: LACTOBACILLUS ACIDOPHILUS CAP (BACID) PO SCH ×3 (08:00→17:24)
[2023-01-24] MEDS: ENOXAPARIN 40MG/0.4ML SYRINGE (J1650 PER 10MG) SC SCH (09:04)
[2023-01-24] MEDS: oxyCODONE 20MG CR TAB PO SCH ×2 (09:05→20:42)
[2023-01-24] MEDS: VENLAFAXINE **XR** 75MG CAPSULE PO SCH (09:05)
[2023-01-24] MEDS: PANTOPRAZOLE 40MG TAB (PROTONIX) PO SCH (09:05)
[2023-01-24] MEDS ORDERED: LOPERAMIDE 2 MG CAPLET PO PRN (09:05)
[2023-01-24] MEDS: LIDOCAINE 5% (LIDODERM) PATCH TD SCH (09:06)
[2023-01-24] MEDS: DICLOFENAC EPOLAMINE 1.3% PATCH TOP SCH ×2 (09:06→20:43)
[2023-01-24] MEDS: oxyCODONE 5MG TAB PO PRN (13:11)
[2023-01-24 14:00] VITALS: BP 146/76; TEMP 99; O2SAT 96
[2023-01-24 20:00] VITALS: BP 140/72; TEMP 98.6; O2SAT 97
[2023-01-24] MEDS: SIMVASTATIN 20 MG TAB PO SCH (20:36)
[2023-01-25] MEDS: MORPHINE 2 MG/ML 1ML VIAL IV PRN ×3 (00:48→08:23)
[2023-01-25] MEDS: oxyCODONE 5MG TAB PO PRN (03:56)
[2023-01-25 06:00] VITALS: BP 127/59; TEMP 98.8; O2SAT 95
[2023-01-25 06:34] LABS: HEMATOCRIT 28.3 % (36.0-47.0); MEAN CORPUSCULAR HEMOGLOBIN 28.8 pg (27.0-33.0); MEAN CORPUSCULAR HGB CONC 31.8 g/dl (32.0-36.5); MEAN CORPUSCULAR VOLUME 90.4 fl (80.0-96.0); PLATELET COUNT, AUTOMATED 212 10^3/uL (150-450); RED BLOOD COUNT 3.13 10^6/uL (4.00-5.40); WHITE BLOOD COUNT 8.2 10^3/uL (4.0-10.0)
[2023-01-25 06:47] LABS: ALBUMIN 2.2 G/DL (3.2-5.2); ALKALINE PHOSPHATASE 97 U/L (46-116); ALT/SGPT 12 U/L (7.0-40); AST/SGOT 11 U/L (<34); BILIRUBIN,TOTAL 0.3 MG/DL (0.3-1.2); BLOOD UREA NITROGEN 9 MG/DL (9-23); CALCIUM LEVEL 8.2 MG/DL (8.3-10.6); CARBON DIOXIDE LEVEL 28 MMOL/L (20-31); CHLORIDE LEVEL 98 MMOL/L (98-107); CREATININE FOR GFR 0.48 MG/DL (0.55-1.30); GLOMERULAR FILTRATION RATE > 60.0 (>45); GLUCOSE, FASTING 234 MG/DL (74-106); POTASSIUM SERUM 3.5 MMOL/L (3.5-5.1); SODIUM LEVEL 135 MMOL/L (136-145); TOTAL PROTEIN 5.7 G/DL (5.7-8.2)
[2023-01-25] MEDS: INSULIN LISPRO (NovoLOG) PER UNIT SC SCH ×3 (08:21→18:17)
[2023-01-25] MEDS: LIDOCAINE 5% (LIDODERM) PATCH TD SCH (08:21)
[2023-01-25] MEDS: LACTOBACILLUS ACIDOPHILUS CAP (BACID) PO SCH ×3 (08:22→18:00)
[2023-01-25] MEDS: oxyCODONE 20MG CR TAB PO SCH (08:22)
[2023-01-25] MEDS: ENOXAPARIN 40MG/0.4ML SYRINGE (J1650 PER 10MG) SC SCH (08:22)
[2023-01-25] MEDS: VENLAFAXINE **XR** 75MG CAPSULE PO SCH (08:22)
[2023-01-25] MEDS: PANTOPRAZOLE 40MG TAB (PROTONIX) PO SCH (08:23)
[2023-01-25] MEDS: DICLOFENAC EPOLAMINE 1.3% PATCH TOP SCH ×2 (08:24→21:12)
[2023-01-25] MEDS: CYCLOBENZAPRINE 5MG TABLET PO PRN ×2 (08:45→18:17)
[2023-01-25] MEDS: MORPHINE SULFATE ORAL SOLN 10 MG/5 ML UD PO PRN ×2 (13:19→22:10)
[2023-01-25 14:00] VITALS: BP 103/52; TEMP 98.2; O2SAT 94
[2023-01-25] MEDS ORDERED: MORPHINE 30 MG SA TAB PO SCH (16:00)
[2023-01-25] MEDS: MORPHINE 30 MG SA TAB PO SCH (16:53)
[2023-01-25 20:00] VITALS: BP 135/66; TEMP 100.7; O2SAT 98
[2023-01-25] MEDS ORDERED: GABAPENTIN 100 MG CAP PO SCH (21:00)
[2023-01-25] MEDS: SIMVASTATIN 20 MG TAB PO SCH (21:16)
[2023-01-25] MEDS: ACETAMINOPHEN 500 MG TAB PO PRN (21:16)
[2023-01-26 06:00] VITALS: BP 124/66; TEMP 100.7; O2SAT 98
[2023-01-26] MEDS: MORPHINE SULFATE ORAL SOLN 10 MG/5 ML UD PO PRN ×2 (06:08→15:15)
[2023-01-26] MEDS: HYOSCYAMINE SULFATE 0.125 MG SUBL TABLET SL PRN ×2 (06:53→21:06)
[2023-01-26 08:00] VITALS: TEMP 100.9
[2023-01-26 08:16] LABS: HEMATOCRIT 28.5 % (36.0-47.0); HEMOGLOBIN 9.1 g/dl (12.0-15.5); MEAN CORPUSCULAR HEMOGLOBIN 28.9 pg (27.0-33.0); MEAN CORPUSCULAR HGB CONC 31.9 g/dl (32.0-36.5); MEAN CORPUSCULAR VOLUME 90.5 fl (80.0-96.0); PLATELET COUNT, AUTOMATED 202 10^3/uL (150-450); RED BLOOD COUNT 3.15 10^6/uL (4.00-5.40); WHITE BLOOD COUNT 11.7 10^3/uL (4.0-10.0)
[2023-01-26 08:47] LABS: ALBUMIN 2.2 G/DL (3.2-5.2); ALKALINE PHOSPHATASE 91 U/L (46-116); ALT/SGPT 11 U/L (7.0-40); AST/SGOT 14 U/L (<34); BILIRUBIN,TOTAL 0.3 MG/DL (0.3-1.2); BLOOD UREA NITROGEN 12 MG/DL (9-23); CALCIUM LEVEL 8.3 MG/DL (8.3-10.6); CARBON DIOXIDE LEVEL 26 MMOL/L (20-31); CHLORIDE LEVEL 100 MMOL/L (98-107); GLOMERULAR FILTRATION RATE > 60.0 (>45); GLUCOSE, FASTING 232 MG/DL (74-106); POTASSIUM SERUM 3.7 MMOL/L (3.5-5.1); SODIUM LEVEL 135 MMOL/L (136-145); TOTAL PROTEIN 5.7 G/DL (5.7-8.2)
[2023-01-26] MEDS: LACTOBACILLUS ACIDOPHILUS CAP (BACID) PO SCH ×4 (08:53→17:39)
[2023-01-26] MEDS: MORPHINE 30 MG SA TAB PO SCH ×2 (08:54→20:51)
[2023-01-26] MEDS: ACETAMINOPHEN 500 MG TAB PO PRN ×2 (08:54→21:06)
[2023-01-26] MEDS: PANTOPRAZOLE 40MG TAB (PROTONIX) PO SCH (08:54)
[2023-01-26] MEDS: ENOXAPARIN 40MG/0.4ML SYRINGE (J1650 PER 10MG) SC SCH (08:55)
[2023-01-26] MEDS: LIDOCAINE 5% (LIDODERM) PATCH TD SCH (08:55)
[2023-01-26] MEDS: INSULIN LISPRO (NovoLOG) PER UNIT SC SCH ×3 (08:55→17:08)
[2023-01-26] MEDS: VENLAFAXINE **XR** 75MG CAPSULE PO SCH (08:55)
[2023-01-26] MEDS: CYCLOBENZAPRINE 5MG TABLET PO PRN (08:55)
[2023-01-26] MEDS: DICLOFENAC EPOLAMINE 1.3% PATCH TOP SCH ×2 (08:56→20:52)
[2023-01-26 10:00] VITALS: TEMP 99.1
[2023-01-26 14:00] VITALS: BP 123/67; TEMP 98.8; O2SAT 98
[2023-01-26] MEDS: GABAPENTIN 100 MG CAP PO SCH ×2 (15:58→20:51)
[2023-01-26 16:04] LABS: PROCALCITONIN 0.13 ng/ml
[2023-01-26] MEDS ORDERED: MEROPENEM INJ 2 GM in NS 100 ML IV SCH (16:05)
[2023-01-26] MEDS ORDERED: PIPERACILLIN/TAZOBACTAM SOD 3.375 GM in D5W MINI-BAG PLUS 50 ML IV SCH (17:00)
[2023-01-26] MEDS: MEROPENEM INJ 1 GM in IV 1 EA IV SCH (17:39)
[2023-01-26] MEDS: SIMVASTATIN 20 MG TAB PO SCH (20:51)
[2023-01-26 21:01] VITALS: BP 145/75; TEMP 101.8; O2SAT 96
[2023-01-26 22:43] VITALS: TEMP 100.1
[2023-01-27] MEDS: MEROPENEM INJ 1 GM in IV 1 EA IV SCH ×3 (01:03→16:17)
[2023-01-27] MEDS: MORPHINE SULFATE ORAL SOLN 10 MG/5 ML UD PO PRN ×3 (01:51→16:18)
[2023-01-27 06:04] LABS: HEMATOCRIT 27.3 % (36.0-47.0); HEMOGLOBIN 8.6 g/dl (12.0-15.5); MEAN CORPUSCULAR HEMOGLOBIN 28.2 pg (27.0-33.0); MEAN CORPUSCULAR HGB CONC 31.5 g/dl (32.0-36.5); MEAN CORPUSCULAR VOLUME 89.5 fl (80.0-96.0); PLATELET COUNT, AUTOMATED 174 10^3/uL (150-450); RED BLOOD COUNT 3.05 10^6/uL (4.00-5.40); WHITE BLOOD COUNT 6.7 10^3/uL (4.0-10.0)
[2023-01-27 06:13] VITALS: BP 127/65; TEMP 99.5; O2SAT 99
[2023-01-27 06:42] LABS: ALBUMIN 2.2 G/DL (3.2-5.2); ALKALINE PHOSPHATASE 91 U/L (46-116); ALT/SGPT 12 U/L (7.0-40); AST/SGOT 15 U/L (<34); BILIRUBIN,TOTAL 0.2 MG/DL (0.3-1.2); BLOOD UREA NITROGEN 15 MG/DL (9-23); CALCIUM LEVEL 8.5 MG/DL (8.3-10.6); CARBON DIOXIDE LEVEL 27 MMOL/L (20-31); CHLORIDE LEVEL 101 MMOL/L (98-107); CREATININE FOR GFR 0.46 MG/DL (0.55-1.30); GLOMERULAR FILTRATION RATE > 60.0 (>45); GLUCOSE, FASTING 208 MG/DL (74-106); POTASSIUM SERUM 3.5 MMOL/L (3.5-5.1); SODIUM LEVEL 137 MMOL/L (136-145); TOTAL PROTEIN 5.7 G/DL (5.7-8.2)
[2023-01-27] MEDS: ENOXAPARIN 40MG/0.4ML SYRINGE (J1650 PER 10MG) SC SCH (09:50)
[2023-01-27] MEDS: INSULIN LISPRO (NovoLOG) PER UNIT SC SCH ×3 (09:50→18:11)
[2023-01-27] MEDS: LACTOBACILLUS ACIDOPHILUS CAP (BACID) PO SCH ×3 (09:51→18:12)
[2023-01-27] MEDS: PANTOPRAZOLE 40MG TAB (PROTONIX) PO SCH (09:51)
[2023-01-27] MEDS: VENLAFAXINE **XR** 75MG CAPSULE PO SCH (09:51)
[2023-01-27] MEDS: GABAPENTIN 100 MG CAP PO SCH ×3 (09:51→21:10)
[2023-01-27] MEDS: LIDOCAINE 5% (LIDODERM) PATCH TD SCH (09:52)
[2023-01-27] MEDS: DICLOFENAC EPOLAMINE 1.3% PATCH TOP SCH ×2 (09:52→21:12)
[2023-01-27] MEDS: MORPHINE 30 MG SA TAB PO SCH ×2 (09:52→21:13)
[2023-01-27] MEDS: HYOSCYAMINE SULFATE 0.125 MG SUBL TABLET SL PRN (11:23)
[2023-01-27 14:00] VITALS: BP 123/61; TEMP 101; O2SAT 97
[2023-01-27] MEDS: ACETAMINOPHEN 500 MG TAB PO PRN (16:18)
[2023-01-27 17:30] VITALS: TEMP 100.1
[2023-01-27] MEDS: CYCLOBENZAPRINE 5MG TABLET PO PRN (18:17)
[2023-01-27] MEDS: SIMVASTATIN 20 MG TAB PO SCH (21:10)
[2023-01-27 21:47] VITALS: BP 128/66; TEMP 100.9; O2SAT 98
[2023-01-28] MEDS: MEROPENEM INJ 1 GM in IV 1 EA IV SCH ×3 (00:37→17:08)
[2023-01-28] MEDS: MORPHINE SULFATE ORAL SOLN 10 MG/5 ML UD PO PRN ×2 (00:38→12:35)
[2023-01-28 02:55] VITALS: TEMP 101.9
[2023-01-28] MEDS: CYCLOBENZAPRINE 5MG TABLET PO PRN ×3 (03:08→22:22)
[2023-01-28] MEDS: ACETAMINOPHEN 500 MG TAB PO PRN ×2 (03:08→17:34)
[2023-01-28 04:43] VITALS: TEMP 100.2
[2023-01-28 06:30] LABS: HEMATOCRIT 25.7 % (36.0-47.0); HEMOGLOBIN 8.1 g/dl (12.0-15.5); MEAN CORPUSCULAR HEMOGLOBIN 28.4 pg (27.0-33.0); MEAN CORPUSCULAR HGB CONC 31.5 g/dl (32.0-36.5); MEAN CORPUSCULAR VOLUME 90.2 fl (80.0-96.0); PLATELET COUNT, AUTOMATED 179 10^3/uL (150-450); RED BLOOD COUNT 2.85 10^6/uL (4.00-5.40); WHITE BLOOD COUNT 7.1 10^3/uL (4.0-10.0)
[2023-01-28 06:36] VITALS: BP 119/61; TEMP 98.7; O2SAT 95
[2023-01-28 06:57] LABS: ALKALINE PHOSPHATASE 85 U/L (46-116); ALT/SGPT 12 U/L (7.0-40); AST/SGOT 13 U/L (<34); BILIRUBIN,TOTAL 0.2 MG/DL (0.3-1.2); BLOOD UREA NITROGEN 16 MG/DL (9-23); CALCIUM LEVEL 8.1 MG/DL (8.3-10.6); CARBON DIOXIDE LEVEL 31 MMOL/L (20-31); CHLORIDE LEVEL 97 MMOL/L (98-107); CREATININE FOR GFR 0.53 MG/DL (0.55-1.30); GLOMERULAR FILTRATION RATE > 60.0 (>45); GLUCOSE, FASTING 234 MG/DL (74-106); POTASSIUM SERUM 3.9 MMOL/L (3.5-5.1); SODIUM LEVEL 132 MMOL/L (136-145); TOTAL PROTEIN 5.4 G/DL (5.7-8.2)
[2023-01-28] MEDS: DICLOFENAC EPOLAMINE 1.3% PATCH TOP SCH ×2 (08:40→22:06)
[2023-01-28] MEDS: LIDOCAINE 5% (LIDODERM) PATCH TD SCH (08:40)
[2023-01-28] MEDS: FLUCONAZOLE 100 MG TAB PO SCH (08:41)
[2023-01-28] MEDS: GABAPENTIN 100 MG CAP PO SCH ×3 (08:41→22:06)
[2023-01-28] MEDS: VENLAFAXINE **XR** 75MG CAPSULE PO SCH (08:41)
[2023-01-28] MEDS: LACTOBACILLUS ACIDOPHILUS CAP (BACID) PO SCH ×3 (08:41→17:09)
[2023-01-28] MEDS: INSULIN LISPRO (NovoLOG) PER UNIT SC SCH ×4 (08:41→21:00)
[2023-01-28] MEDS: PANTOPRAZOLE 40MG TAB (PROTONIX) PO SCH (08:42)
[2023-01-28] MEDS: MORPHINE 30 MG SA TAB PO SCH ×2 (08:42→22:08)
[2023-01-28] MEDS: ENOXAPARIN 40MG/0.4ML SYRINGE (J1650 PER 10MG) SC SCH (08:43)
[2023-01-28] MEDS: NS 1,000 ML IV SCH (12:36)
[2023-01-28] MEDS ORDERED: LIDOCAINE 1% MDV 20ML VIAL As Ordered ONE (13:17)
[2023-01-28] MEDS ORDERED: ISOVUE-300 61% 100ML VIAL As Ordered ONE (13:17)
[2023-01-28 16:26] VITALS: BP 133/64; O2SAT 93
[2023-01-28 17:16] VITALS: TEMP 101.7
[2023-01-28 20:00] VITALS: BP 126/62; TEMP 100.7; O2SAT 96
[2023-01-28] MEDS: SIMVASTATIN 20 MG TAB PO SCH (22:07)
[2023-01-28] MEDS: LEVEMIR (INSULIN DETEMIR) 1 UNITS/0.01ML SC SCH (22:11)
[2023-01-29] MEDS: NS 1,000 ML IV SCH ×2 (01:49→15:11)
[2023-01-29] MEDS: MEROPENEM INJ 1 GM in IV 1 EA IV SCH ×3 (01:49→17:08)
[2023-01-29] MEDS: MORPHINE SULFATE ORAL SOLN 10 MG/5 ML UD PO PRN ×4 (04:06→23:56)
[2023-01-29 04:42] VITALS: BP 117/59; TEMP 99.1; O2SAT 97
[2023-01-29 06:40] LABS: HEMATOCRIT 26.5 % (36.0-47.0); HEMOGLOBIN 8.3 g/dl (12.0-15.5); MEAN CORPUSCULAR HEMOGLOBIN 28.6 pg (27.0-33.0); MEAN CORPUSCULAR HGB CONC 31.3 g/dl (32.0-36.5); MEAN CORPUSCULAR VOLUME 91.4 fl (80.0-96.0); PLATELET COUNT, AUTOMATED 170 10^3/uL (150-450); WHITE BLOOD COUNT 7.1 10^3/uL (4.0-10.0)
[2023-01-29 07:08] LABS: ALKALINE PHOSPHATASE 83 U/L (46-116); ALT/SGPT 15 U/L (7.0-40); AST/SGOT 19 U/L (<34); BILIRUBIN,TOTAL 0.2 MG/DL (0.3-1.2); BLOOD UREA NITROGEN 12 MG/DL (9-23); CALCIUM LEVEL 7.9 MG/DL (8.3-10.6); CARBON DIOXIDE LEVEL 29 MMOL/L (20-31); CHLORIDE LEVEL 99 MMOL/L (98-107); GLOMERULAR FILTRATION RATE > 60.0 (>45); GLUCOSE, FASTING 196 MG/DL (74-106); POTASSIUM SERUM 3.8 MMOL/L (3.5-5.1); SODIUM LEVEL 134 MMOL/L (136-145); TOTAL PROTEIN 5.3 G/DL (5.7-8.2)
[2023-01-29] MEDS: LEVEMIR (INSULIN DETEMIR) 1 UNITS/0.01ML SC SCH ×2 (09:01→22:30)
[2023-01-29] MEDS: DICLOFENAC EPOLAMINE 1.3% PATCH TOP SCH ×2 (09:02→22:30)
[2023-01-29] MEDS: LIDOCAINE 5% (LIDODERM) PATCH TD SCH (09:03)
[2023-01-29] MEDS: ENOXAPARIN 40MG/0.4ML SYRINGE (J1650 PER 10MG) SC SCH (09:04)
[2023-01-29] MEDS: MORPHINE 30 MG SA TAB PO SCH ×2 (09:07→22:29)
[2023-01-29] MEDS: ACETAMINOPHEN 500 MG TAB PO PRN (09:09)
[2023-01-29] MEDS: LACTOBACILLUS ACIDOPHILUS CAP (BACID) PO SCH ×3 (09:09→17:08)
[2023-01-29] MEDS: PANTOPRAZOLE 40MG TAB (PROTONIX) PO SCH (09:09)
[2023-01-29] MEDS: GABAPENTIN 100 MG CAP PO SCH ×3 (09:10→22:29)
[2023-01-29] MEDS: FLUCONAZOLE 100 MG TAB PO SCH (09:10)
[2023-01-29] MEDS: VENLAFAXINE **XR** 75MG CAPSULE PO SCH (09:11)
[2023-01-29] MEDS: CYCLOBENZAPRINE 5MG TABLET PO PRN ×2 (09:15→23:00)
[2023-01-29] MEDS: INSULIN LISPRO (NovoLOG) PER UNIT SC SCH ×4 (09:17→21:00)
[2023-01-29 09:35] VITALS: BP 119/68; TEMP 100.4; O2SAT 98
[2023-01-29 14:00] VITALS: BP 128/62; TEMP 98.5; O2SAT 96
[2023-01-29 20:00] VITALS: BP 128/67; TEMP 100.2; O2SAT 100
[2023-01-29] MEDS: SIMVASTATIN 20 MG TAB PO SCH (22:28)
[2023-01-30] MEDS: MEROPENEM INJ 1 GM in IV 1 EA IV SCH ×3 (01:12→17:30)
[2023-01-30] MEDS: MORPHINE SULFATE ORAL SOLN 10 MG/5 ML UD PO PRN ×3 (02:12→18:34)
[2023-01-30] MEDS: hydrOXYzine 50 MG TAB PO PRN ×2 (03:01→09:58)
[2023-01-30] MEDS: NS 1,000 ML IV SCH (03:04)
[2023-01-30 05:47] LABS: HEMATOCRIT 25.9 % (36.0-47.0); HEMOGLOBIN 8.1 g/dl (12.0-15.5); MEAN CORPUSCULAR HEMOGLOBIN 28.3 pg (27.0-33.0); MEAN CORPUSCULAR HGB CONC 31.3 g/dl (32.0-36.5); MEAN CORPUSCULAR VOLUME 90.6 fl (80.0-96.0); PLATELET COUNT, AUTOMATED 170 10^3/uL (150-450); RED BLOOD COUNT 2.86 10^6/uL (4.00-5.40); WHITE BLOOD COUNT 4.9 10^3/uL (4.0-10.0)
[2023-01-30 06:00] VITALS: BP 126/69; TEMP 99; O2SAT 96
[2023-01-30 06:15] LABS: ALKALINE PHOSPHATASE 81 U/L (46-116); ALT/SGPT 25 U/L (7.0-40); AST/SGOT 38 U/L (<34); BILIRUBIN,TOTAL < 0.2 MG/DL (0.3-1.2); BLOOD UREA NITROGEN 11 MG/DL (9-23); CARBON DIOXIDE LEVEL 30 MMOL/L (20-31); CHLORIDE LEVEL 103 MMOL/L (98-107); CREATININE FOR GFR 0.43 MG/DL (0.55-1.30); GLOMERULAR FILTRATION RATE > 60.0 (>45); GLUCOSE, FASTING 142 MG/DL (74-106); POTASSIUM SERUM 3.6 MMOL/L (3.5-5.1); SODIUM LEVEL 139 MMOL/L (136-145); TOTAL PROTEIN 5.3 G/DL (5.7-8.2)
[2023-01-30] MEDS: DICLOFENAC EPOLAMINE 1.3% PATCH TOP SCH ×2 (09:57→22:09)
[2023-01-30] MEDS: LACTOBACILLUS ACIDOPHILUS CAP (BACID) PO SCH ×3 (09:57→17:30)
[2023-01-30] MEDS: ENOXAPARIN 40MG/0.4ML SYRINGE (J1650 PER 10MG) SC SCH (09:58)
[2023-01-30] MEDS: PANTOPRAZOLE 40MG TAB (PROTONIX) PO SCH (09:58)
[2023-01-30] MEDS: VENLAFAXINE **XR** 75MG CAPSULE PO SCH (09:58)
[2023-01-30] MEDS: FLUCONAZOLE 100 MG TAB PO SCH (09:58)
[2023-01-30] MEDS: GABAPENTIN 100 MG CAP PO SCH ×3 (09:58→22:06)
[2023-01-30] MEDS: LIDOCAINE 5% (LIDODERM) PATCH TD SCH (09:59)
[2023-01-30] MEDS: LEVEMIR (INSULIN DETEMIR) 1 UNITS/0.01ML SC SCH (09:59)
[2023-01-30] MEDS: INSULIN LISPRO (NovoLOG) PER UNIT SC SCH ×4 (09:59→21:00)
[2023-01-30] MEDS: MORPHINE 30 MG SA TAB PO SCH ×2 (09:59→22:08)
[2023-01-30] MEDS: CYCLOBENZAPRINE 5MG TABLET PO PRN (10:51)
[2023-01-30 14:00] VITALS: BP 90/56; TEMP 98.6; O2SAT 96
[2023-01-30] MEDS ORDERED: LEVEMIR (INSULIN DETEMIR) 1 UNITS/0.01ML SC SCH (21:00)
[2023-01-30 21:45] VITALS: BP 120/63; TEMP 99.9; O2SAT 100
[2023-01-30] MEDS: SIMVASTATIN 20 MG TAB PO SCH (22:07)
[2023-01-31] MEDS: MEROPENEM INJ 1 GM in IV 1 EA IV SCH ×3 (00:08→17:39)
[2023-01-31] MEDS: hydrOXYzine 50 MG TAB PO PRN (04:51)
[2023-01-31] MEDS: CYCLOBENZAPRINE 5MG TABLET PO PRN ×3 (04:51→22:07)
[2023-01-31 04:54] VITALS: BP 152/75; TEMP 99.5; O2SAT 99
[2023-01-31 06:15] LABS: HEMATOCRIT 26.3 % (36.0-47.0); HEMOGLOBIN 8.3 g/dl (12.0-15.5); MEAN CORPUSCULAR HEMOGLOBIN 28.6 pg (27.0-33.0); MEAN CORPUSCULAR HGB CONC 31.6 g/dl (32.0-36.5); MEAN CORPUSCULAR VOLUME 90.7 fl (80.0-96.0); PLATELET COUNT, AUTOMATED 178 10^3/uL (150-450); WHITE BLOOD COUNT 4.1 10^3/uL (4.0-10.0)
[2023-01-31 06:43] LABS: ALKALINE PHOSPHATASE 82 U/L (46-116); ALT/SGPT 32 U/L (7.0-40); AST/SGOT 50 U/L (<34); BILIRUBIN,TOTAL 0.2 MG/DL (0.3-1.2); BLOOD UREA NITROGEN 10 MG/DL (9-23); CALCIUM LEVEL 8.3 MG/DL (8.3-10.6); CARBON DIOXIDE LEVEL 31 MMOL/L (20-31); CHLORIDE LEVEL 100 MMOL/L (98-107); CREATININE FOR GFR 0.46 MG/DL (0.55-1.30); GLOMERULAR FILTRATION RATE > 60.0 (>45); GLUCOSE, FASTING 93 MG/DL (74-106); POTASSIUM SERUM 3.6 MMOL/L (3.5-5.1); SODIUM LEVEL 136 MMOL/L (136-145); TOTAL PROTEIN 5.4 G/DL (5.7-8.2)
[2023-01-31] MEDS: INSULIN LISPRO (NovoLOG) PER UNIT SC SCH ×4 (07:30→21:00)
[2023-01-31] MEDS: HYOSCYAMINE SULFATE 0.125 MG SUBL TABLET SL PRN (09:46)
[2023-01-31] MEDS: VENLAFAXINE **XR** 75MG CAPSULE PO SCH (09:47)
[2023-01-31] MEDS: LACTOBACILLUS ACIDOPHILUS CAP (BACID) PO SCH ×3 (09:47→17:40)
[2023-01-31] MEDS: ENOXAPARIN 40MG/0.4ML SYRINGE (J1650 PER 10MG) SC SCH (09:47)
[2023-01-31] MEDS: GABAPENTIN 100 MG CAP PO SCH ×3 (09:47→22:07)
[2023-01-31] MEDS: MORPHINE 30 MG SA TAB PO SCH ×2 (09:47→22:06)
[2023-01-31] MEDS: FLUCONAZOLE 100 MG TAB PO SCH (09:48)
[2023-01-31] MEDS: PANTOPRAZOLE 40MG TAB (PROTONIX) PO SCH (09:48)
[2023-01-31] MEDS: LIDOCAINE 5% (LIDODERM) PATCH TD SCH (09:49)
[2023-01-31] MEDS: DICLOFENAC EPOLAMINE 1.3% PATCH TOP SCH ×2 (09:49→22:08)
[2023-01-31] MEDS: MORPHINE SULFATE ORAL SOLN 10 MG/5 ML UD PO PRN ×2 (11:37→16:59)
[2023-01-31 14:00] VITALS: BP 149/83; TEMP 98.6; O2SAT 97
[2023-01-31 22:00] VITALS: BP 126/64; TEMP 98.6; O2SAT 98
[2023-01-31] MEDS: SIMVASTATIN 20 MG TAB PO SCH (22:06)
[2023-02-01] MEDS: MEROPENEM INJ 1 GM in IV 1 EA IV SCH ×3 (01:18→17:04)
[2023-02-01] MEDS: ACETAMINOPHEN 500 MG TAB PO PRN ×2 (02:13→20:54)
[2023-02-01 06:17] VITALS: BP 112/59; TEMP 98.1; O2SAT 97
[2023-02-01 06:29] LABS: HEMATOCRIT 26.7 % (36.0-47.0); HEMOGLOBIN 8.5 g/dl (12.0-15.5); MEAN CORPUSCULAR HEMOGLOBIN 28.9 pg (27.0-33.0); MEAN CORPUSCULAR HGB CONC 31.8 g/dl (32.0-36.5); MEAN CORPUSCULAR VOLUME 90.8 fl (80.0-96.0); PLATELET COUNT, AUTOMATED 173 10^3/uL (150-450); RED BLOOD COUNT 2.94 10^6/uL (4.00-5.40); WHITE BLOOD COUNT 3.4 10^3/uL (4.0-10.0)
[2023-02-01 06:52] LABS: ALKALINE PHOSPHATASE 81 U/L (46-116); ALT/SGPT 33 U/L (7.0-40); AST/SGOT 40 U/L (<34); BILIRUBIN,TOTAL 0.2 MG/DL (0.3-1.2); BLOOD UREA NITROGEN 10 MG/DL (9-23); CALCIUM LEVEL 8.5 MG/DL (8.3-10.6); CARBON DIOXIDE LEVEL 32 MMOL/L (20-31); CHLORIDE LEVEL 100 MMOL/L (98-107); CREATININE FOR GFR 0.49 MG/DL (0.55-1.30); GLOMERULAR FILTRATION RATE > 60.0 (>45); GLUCOSE, FASTING 191 MG/DL (74-106); POTASSIUM SERUM 3.9 MMOL/L (3.5-5.1); SODIUM LEVEL 137 MMOL/L (136-145); TOTAL PROTEIN 5.5 G/DL (5.7-8.2)
[2023-02-01] MEDS: INSULIN LISPRO (NovoLOG) PER UNIT SC SCH ×4 (08:44→20:39)
[2023-02-01] MEDS: VENLAFAXINE **XR** 75MG CAPSULE PO SCH (08:44)
[2023-02-01] MEDS: FLUCONAZOLE 100 MG TAB PO SCH (08:44)
[2023-02-01] MEDS: LACTOBACILLUS ACIDOPHILUS CAP (BACID) PO SCH ×3 (08:44→17:03)
[2023-02-01] MEDS: HYOSCYAMINE SULFATE 0.125 MG SUBL TABLET SL PRN (08:44)
[2023-02-01] MEDS: PANTOPRAZOLE 40MG TAB (PROTONIX) PO SCH (08:44)
[2023-02-01] MEDS: GABAPENTIN 100 MG CAP PO SCH ×3 (08:44→20:51)
[2023-02-01] MEDS: CYCLOBENZAPRINE 5MG TABLET PO PRN ×2 (08:44→17:04)
[2023-02-01] MEDS: DICLOFENAC EPOLAMINE 1.3% PATCH TOP SCH ×2 (08:45→20:52)
[2023-02-01] MEDS: MORPHINE 30 MG SA TAB PO SCH ×2 (08:45→20:53)
[2023-02-01] MEDS: LIDOCAINE 5% (LIDODERM) PATCH TD SCH (08:45)
[2023-02-01] MEDS: ENOXAPARIN 40MG/0.4ML SYRINGE (J1650 PER 10MG) SC SCH (08:46)
[2023-02-01] MEDS: MORPHINE SULFATE ORAL SOLN 10 MG/5 ML UD PO PRN ×2 (12:00→17:04)
[2023-02-01 14:00] VITALS: BP 139/78; TEMP 99.1; O2SAT 98
[2023-02-01 20:25] VITALS: BP 123/65; TEMP 98.1; O2SAT 95
[2023-02-01 20:52] VITALS: BP 120/65
[2023-02-01] MEDS: SIMVASTATIN 20 MG TAB PO SCH (20:52)
[2023-02-02] MEDS: MEROPENEM INJ 1 GM in IV 1 EA IV SCH ×2 (01:22→08:46)
[2023-02-02 05:07] VITALS: BP 105/58; TEMP 97.9; O2SAT 96
[2023-02-02 06:30] LABS: HEMATOCRIT 26.7 % (36.0-47.0); HEMOGLOBIN 8.5 g/dl (12.0-15.5); MEAN CORPUSCULAR HEMOGLOBIN 28.9 pg (27.0-33.0); MEAN CORPUSCULAR HGB CONC 31.8 g/dl (32.0-36.5); MEAN CORPUSCULAR VOLUME 90.8 fl (80.0-96.0); PLATELET COUNT, AUTOMATED 181 10^3/uL (150-450); RED BLOOD COUNT 2.94 10^6/uL (4.00-5.40); WHITE BLOOD COUNT 4.1 10^3/uL (4.0-10.0)
[2023-02-02 06:50] LABS: BLOOD UREA NITROGEN 10 MG/DL (9-23); CALCIUM LEVEL 8.4 MG/DL (8.3-10.6); CARBON DIOXIDE LEVEL 30 MMOL/L (20-31); CHLORIDE LEVEL 100 MMOL/L (98-107); CREATININE FOR GFR 0.47 MG/DL (0.55-1.30); GLOMERULAR FILTRATION RATE > 60.0 (>45); GLUCOSE, FASTING 214 MG/DL (74-106); MAGNESIUM LEVEL 2.1 MG/DL (1.8-2.4); PHOSPHORUS LEVEL 3.6 MG/DL (2.4-5.1); POTASSIUM SERUM 3.9 MMOL/L (3.5-5.1); SODIUM LEVEL 137 MMOL/L (136-145)
[2023-02-02] MEDS: CYCLOBENZAPRINE 5MG TABLET PO PRN ×2 (06:59→16:06)
[2023-02-02] MEDS: MORPHINE SULFATE ORAL SOLN 10 MG/5 ML UD PO PRN (07:00)
[2023-02-02] MEDS: INSULIN LISPRO (NovoLOG) PER UNIT SC SCH ×3 (07:30→17:30)
[2023-02-02] MEDS: FLUCONAZOLE 100 MG TAB PO SCH (08:53)
[2023-02-02] MEDS: PANTOPRAZOLE 40MG TAB (PROTONIX) PO SCH (08:53)
[2023-02-02] MEDS: VENLAFAXINE **XR** 75MG CAPSULE PO SCH (08:53)
[2023-02-02] MEDS: ENOXAPARIN 40MG/0.4ML SYRINGE (J1650 PER 10MG) SC SCH (08:53)
[2023-02-02] MEDS: GABAPENTIN 100 MG CAP PO SCH ×2 (08:54→16:06)
[2023-02-02] MEDS: LACTOBACILLUS ACIDOPHILUS CAP (BACID) PO SCH ×3 (08:54→18:00)
[2023-02-02] MEDS: ACETAMINOPHEN 500 MG TAB PO PRN (08:54)
[2023-02-02] MEDS: DICLOFENAC EPOLAMINE 1.3% PATCH TOP SCH (08:57)
[2023-02-02] MEDS: LIDOCAINE 5% (LIDODERM) PATCH TD SCH (08:57)
[2023-02-02] MEDS: MORPHINE 30 MG SA TAB PO SCH (09:25)
[2023-02-02 14:00] VITALS: BP 125/67; TEMP 98.2; O2SAT 96
[2023-02-02] MEDS ORDERED: MORP1SOL4 PO ×2 (14:08→14:36)
[2023-02-02] MEDS ORDERED: MORP30TASA PO (14:08)
[2023-02-02] MEDS ORDERED: FLUC100T3 PO ×2 (14:08→14:18)
[2023-02-02] MEDS ORDERED: GABA-1171 PO (14:08)
[2023-02-02] MEDS ORDERED: CYCL5TAB PO (14:08)
[2023-02-02] MEDS ORDERED: DICL1PAT6 TOP (14:08)
== END 2023-02-02 18:17 | disposition home health service (06) | DRG 720 ==
LOC: M ED 15:05 → M ED INP 19:33 → M MSPAV 21:22
PROVIDERS: ADMIT Internal Medicine Nephrology; ATTEND Internal Medicine
PROC: 30233N1 Transfusion of Nonautologous Red Blood Cells into Peripheral Vein, Percutaneous Approach (ICD-10-PCS; 2023-01-16)
PROC: 0T25X0Z Change Drainage Device in Kidney, External Approach (ICD-10-PCS; principal; 2023-01-28 12:05)
DX: A41.9 Sepsis, unspecified organism (principal); T83.518A Infection and inflammatory reaction due to other urinary catheter, initial encounter; C78.7 Secondary malignant neoplasm of liver and intrahepatic bile duct; C77.5 Secondary and unspecified malignant neoplasm of intrapelvic lymph nodes; C79.51 Secondary malignant neoplasm of bone; C79.89 Secondary malignant neoplasm of other specified sites; E87.1 Hypo-osmolality and hyponatremia; C18.9 Malignant neoplasm of colon, unspecified; D64.9 Anemia, unspecified; R19.09 Other intra-abdominal and pelvic swelling, mass and lump; R19.7 Diarrhea, unspecified; E11.9 Type 2 diabetes mellitus without complications; F32.A Depression, unspecified; E78.5 Hyperlipidemia, unspecified; I10 Essential (primary) hypertension; N39.0 Urinary tract infection, site not specified; Z90.49 Acquired absence of other specified parts of digestive tract; Z79.84 Long term (current) use of oral hypoglycemic drugs; Z79.891 Long term (current) use of opiate analgesic; Z79.899 Other long term (current) drug therapy; Z86.16 Personal history of COVID-19; B96.1 Klebsiella pneumoniae [K. pneumoniae] as the cause of diseases classified elsewhere

== ENCOUNTER 2023-01-31 14:00 | Outpatient (RCR) | payer OTHER ==
[~2023-01-31 14:00] MED LIST changes: +ISOVUE-370 76% 100ML VIAL As Ordered ONE; +NITR100C2 PO; +med rec comment
[2023-02-02] MEDS ORDERED: DICL1PAT6 TOP (14:08)
[2023-02-02] MEDS ORDERED: FLUC100T3 PO ×2 (14:08→14:18)
[2023-02-02] MEDS ORDERED: MORP1SOL4 PO ×2 (14:08→14:36)
[2023-02-02] MEDS ORDERED: CYCL5TAB PO (14:08)
[2023-02-02] MEDS ORDERED: GABA-1171 PO (14:08)
[2023-02-02] MEDS ORDERED: MORP30TASA PO (14:08)
[2023-02-10] MEDS ORDERED: MORP30TASA PO (16:09)
[2023-02-10] MEDS ORDERED: MORP1SOL4 PO (16:09)
[2023-02-14] MEDS ORDERED: MORP30TASA PO (16:39)
[2023-02-14] MEDS ORDERED: MORP1SOL PO (16:39)
[2023-02-14] MEDS ORDERED: GABA-1171 PO (16:39)
[2023-02-14] MEDS ORDERED: DEXA2TA PO (16:42)
[2023-02-18] MEDS ORDERED: MORP30TASA PO (09:53)
== END 2023-02-17 ==
LOC: M ONCR 14:00
PROVIDERS: ATTEND General Practice
DX: Z51.0 Encounter for antineoplastic radiation therapy (principal); C77.2 Secondary and unspecified malignant neoplasm of intra-abdominal lymph nodes; C18.2 Malignant neoplasm of ascending colon; C20 Malignant neoplasm of rectum
CPT/HCPCS: 77295; 77300; 77334; Q9967

== ENCOUNTER → 2023-02-01 | Outpatient (CLI) | payer OTHER ==
[~2023-02-01] MED LIST changes: +CYCL5TAB PO; +DEXA2TA PO; +DICL1PAT6 TOP; +FLUC100T3 PO; +GABA-1171 PO; -ISOVUE-370 76% 100ML VIAL As Ordered ONE; +MORP1SOL PO; +MORP1SOL4 PO; +MORP30TASA PO
== END ==
LOC: M PAL 10:07
PROVIDERS: ATTEND Nurse Practitioner Adult Health
DX: C18.9 Malignant neoplasm of colon, unspecified (principal); C79.89 Secondary malignant neoplasm of other specified sites; C77.5 Secondary and unspecified malignant neoplasm of intrapelvic lymph nodes; N39.0 Urinary tract infection, site not specified; R19.7 Diarrhea, unspecified; D64.9 Anemia, unspecified; R53.81 Other malaise; Z51.5 Encounter for palliative care; E11.9 Type 2 diabetes mellitus without complications; E78.5 Hyperlipidemia, unspecified; I10 Essential (primary) hypertension; F32.A Depression, unspecified; Z79.4 Long term (current) use of insulin; Z90.49 Acquired absence of other specified parts of digestive tract; Z92.3 Personal history of irradiation; Z92.21 Personal history of antineoplastic chemotherapy; Z93.6 Other artificial openings of urinary tract status

== ENCOUNTER → 2023-02-08 | Outpatient (CLI) | payer OTHER | LOC: M ONCR 14:05 | PROVIDERS: ATTEND General Practice | DX: R19.00 Intra-abdominal and pelvic swelling, mass and lump, unspecified site (principal); Z79.891 Long term (current) use of opiate analgesic; Z93.6 Other artificial openings of urinary tract status ==

== ENCOUNTER → 2023-02-14 | Outpatient (CLI) | payer OTHER | LOC: M PAL 14:58 | PROVIDERS: ATTEND Nurse Practitioner Adult Health | DX: C18.9 Malignant neoplasm of colon, unspecified (principal); C79.89 Secondary malignant neoplasm of other specified sites; C77.5 Secondary and unspecified malignant neoplasm of intrapelvic lymph nodes; G89.3 Neoplasm related pain (acute) (chronic); Z51.5 Encounter for palliative care; R53.83 Other fatigue; F32.A Depression, unspecified; F41.9 Anxiety disorder, unspecified; R63.0 Anorexia; Z87.440 Personal history of urinary (tract) infections; Z79.4 Long term (current) use of insulin; Z79.84 Long term (current) use of oral hypoglycemic drugs; Z79.899 Other long term (current) drug therapy; Z80.0 Family history of malignant neoplasm of digestive organs; Z90.49 Acquired absence of other specified parts of digestive tract; Z92.3 Personal history of irradiation; Z92.21 Personal history of antineoplastic chemotherapy; Z93.6 Other artificial openings of urinary tract status ==

== ENCOUNTER 2023-02-24 10:52 | Inpatient (IN) | payer OTHER ==
[~2023-02-24] VITALS: Ht 160 cm; Wt 72.5 kg
[2023-02-24] MEDS ORDERED: NS 1,000 ML IV SCH (11:30)
[2023-02-24 12:12] LABS: BASO % 0.4 % (0.0-1.0); EOS # 0.1 10^3/uL (0.0-0.5); EOS % 0.7 % (0.0-3.0); HEMATOCRIT 27.3 % (36.0-47.0); HEMOGLOBIN 8.6 g/dl (12.0-15.5); LYMPH # 0.2 10^3/uL (1.5-5.0); LYMPH % 2.1 % (24.0-44.0); MEAN CORPUSCULAR HEMOGLOBIN 27.2 pg (27.0-33.0); MEAN CORPUSCULAR HGB CONC 31.5 g/dl (32.0-36.5); MEAN CORPUSCULAR VOLUME 86.4 fl (80.0-96.0); MONO # 1.2 10^3/uL (0.0-0.8); MONO % 11.2 % (2.0-8.0); NEUTROPHILS # 9.1 10^3/uL (1.5-8.5); NEUTROPHILS % 84.9 % (36.0-66.0); PLATELET COUNT, AUTOMATED 197 10^3/uL (150-450); RED BLOOD COUNT 3.16 10^6/uL (4.00-5.40); WHITE BLOOD COUNT 10.7 10^3/uL (4.0-10.0)
[2023-02-24 12:24] LABS: LIPASE 19 U/L (12-53)
[2023-02-24 12:32] LABS: ALBUMIN 2.5 G/DL (3.2-5.2); ALKALINE PHOSPHATASE 103 U/L (46-116); ALT/SGPT 14 U/L (7.0-40); AST/SGOT 9 U/L (<34); BILIRUBIN,DIRECT 0.2 MG/DL (<0.4); BILIRUBIN,TOTAL 0.4 MG/DL (0.3-1.2); BLOOD UREA NITROGEN 14 MG/DL (9-23); CALCIUM LEVEL 8.8 MG/DL (8.3-10.6); CARBON DIOXIDE LEVEL 30 MMOL/L (20-31); CHLORIDE LEVEL 87 MMOL/L (98-107); CREATININE FOR GFR 0.71 MG/DL (0.55-1.30); GLOMERULAR FILTRATION RATE > 60.0 (>45); GLUCOSE, FASTING 498 MG/DL (74-106); POTASSIUM SERUM 4.5 MMOL/L (3.5-5.1); SODIUM LEVEL 123 MMOL/L (136-145); TOTAL PROTEIN 6.2 G/DL (5.7-8.2)
[2023-02-24] MEDS ORDERED: NS 1,000 ML IV ONE (12:35)
[2023-02-24] MEDS ORDERED: PIPERACILLIN/TAZOBACTAM SOD 3.375 GM in D5W MINI-BAG PLUS 50 ML IV ONE (12:55)
[2023-02-24] MEDS ORDERED: MED REC IN PROGRESS XX SCH (14:15)
[2023-02-24 14:16] LABS: OSMOLALITY URINE 271 MOSM/KG (50-1400)
[2023-02-24 14:27] LABS: OSMOLALITY SERUM 283 MOSM/KG (280-301)
[2023-02-24 14:28] LABS: MAGNESIUM LEVEL 1.6 MG/DL (1.8-2.4)
[2023-02-24] MEDS ORDERED: GLUCOSE 4GM CHEW TABLET PO PRN (14:30)
[2023-02-24] MEDS ORDERED: ACETAMINOPHEN TAB 650MG DOSE (2X325MG) PO PRN (14:30)
[2023-02-24] MEDS ORDERED: GLUCAGON INJ 1MG VIAL SC PRN (14:30)
[2023-02-24] MEDS: NS 1,000 ML IV SCH (14:30)
[2023-02-24] MEDS ORDERED: DEXTROSE 50% 50ML SYRINGE IV PRN (14:30)
[2023-02-24] MEDS ORDERED: MORPHINE 30 MG TAB **MSIR PO PRN (14:30)
[2023-02-24 14:33] LABS: THYROID STIMULATING HORMONE 1.827 uIU/ML (0.55-4.78)
[2023-02-24] MEDS ORDERED: NALOXONE INJ 0.4MG/1ML VIAL IV PRN (14:35)
[2023-02-24 14:48] LABS: CREATININE,RANDOM URINE 26.2 MG/DL
[2023-02-24 14:57] LABS: INR 1.23; PROTHROMBIN TIME 15.2 SECONDS (12.5-14.5)
[2023-02-24 14:58] LABS: PARTIAL THROMBOPLASTIN TIME 34.1 SECONDS (24.8-34.2)
[2023-02-24 15:00] LABS: SODIUM,RANDOM URINE < 10 MMOL/L
[2023-02-24] MEDS ORDERED: MED REC CURRENTLY UNOBTAINABLE XX SCH (15:00)
[2023-02-24] MEDS ORDERED: DEXA2TA PO (16:04)
[2023-02-24] MEDS ORDERED: HOME MED LIST COMPLETE! XX SCH (16:10)
[2023-02-24 16:25] VITALS: BP 119/60; TEMP 98.1; O2SAT 94
[2023-02-24] MEDS ORDERED: PILL CUTTER 1 EACH XX PRN (16:40)
[2023-02-24] MEDS: MEROPENEM INJ 1 GM in IV 1 EA IV SCH (17:39)
[2023-02-24] MEDS: INSULIN LISPRO (NovoLOG) PER UNIT SC SCH ×2 (17:39→20:39)
[2023-02-24] MEDS: LACTOBACILLUS ACIDOPHILUS CAP (BACID) PO SCH (17:39)
[2023-02-24] MEDS: MORPHINE 30 MG TAB **MSIR PO PRN (17:40)
[2023-02-24] MEDS ORDERED: PIPERACILLIN/TAZOBACTAM SOD 3.375 GM in D5W MINI-BAG PLUS 50 ML IV SCH (20:00)
[2023-02-24] MEDS: GABAPENTIN 100 MG CAP PO SCH (20:24)
[2023-02-24] MEDS: ENOXAPARIN 40MG/0.4ML SYRINGE (J1650 PER 10MG) SC SCH (20:25)
[2023-02-24] MEDS ORDERED: MAGNESIUM OXIDE 400MG TAB (MAG-OX) PO SCH (21:00)
[2023-02-24] MEDS: MORPHINE 30 MG SA TAB PO SCH (21:55)
[2023-02-24 22:05] VITALS: BP 92/47; TEMP 99.5; O2SAT 97
[2023-02-24 22:06] VITALS: BP 94/40
[2023-02-24] MEDS ORDERED: SODIUM CHLORIDE 0.9% 1000ML IV ONE (22:20)
[2023-02-24 23:45] VITALS: BP 115/48
[2023-02-25] MEDS: NS 1,000 ML IV SCH ×2 (02:32→11:30)
[2023-02-25] MEDS: MEROPENEM INJ 1 GM in IV 1 EA IV SCH ×3 (02:32→17:20)
[2023-02-25] MEDS: MORPHINE 30 MG SA TAB PO SCH ×3 (05:44→22:18)
[2023-02-25 05:55] LABS: HEMATOCRIT 25.1 % (36.0-47.0); HEMOGLOBIN 7.8 g/dl (12.0-15.5); MEAN CORPUSCULAR HEMOGLOBIN 26.9 pg (27.0-33.0); MEAN CORPUSCULAR HGB CONC 31.1 g/dl (32.0-36.5); MEAN CORPUSCULAR VOLUME 86.6 fl (80.0-96.0); PLATELET COUNT, AUTOMATED 129 10^3/uL (150-450); WHITE BLOOD COUNT 4.2 10^3/uL (4.0-10.0)
[2023-02-25 06:21] LABS: ALBUMIN 2.4 G/DL (3.2-5.2); ALKALINE PHOSPHATASE 85 U/L (46-116); ALT/SGPT 10 U/L (7.0-40); AST/SGOT < 8 U/L (<34); BILIRUBIN,TOTAL 0.2 MG/DL (0.3-1.2); BLOOD UREA NITROGEN 9 MG/DL (9-23); CALCIUM LEVEL 8.4 MG/DL (8.3-10.6); CARBON DIOXIDE LEVEL 27 MMOL/L (20-31); CHLORIDE LEVEL 98 MMOL/L (98-107); CREATININE FOR GFR 0.61 MG/DL (0.55-1.30); GLOMERULAR FILTRATION RATE > 60.0 (>45); GLUCOSE, FASTING 220 MG/DL (74-106); MAGNESIUM LEVEL 1.7 MG/DL (1.8-2.4); POTASSIUM SERUM 3.5 MMOL/L (3.5-5.1); SODIUM LEVEL 131 MMOL/L (136-145)
[2023-02-25 06:42] VITALS: BP 123/57; TEMP 98.1; O2SAT 95
[2023-02-25] MEDS ORDERED: MAG SULF 1GM/100ML (MAG RUN) 1 GM in IV 1 EA IV ONE (09:00)
[2023-02-25] MEDS ORDERED: LEVEMIR (INSULIN DETEMIR) 1 UNITS/0.01ML SC SCH (09:00)
[2023-02-25] MEDS: LACTOBACILLUS ACIDOPHILUS CAP (BACID) PO SCH ×2 (09:29→17:20)
[2023-02-25] MEDS: INSULIN LISPRO (NovoLOG) PER UNIT SC SCH ×4 (09:29→21:00)
[2023-02-25] MEDS: VENLAFAXINE **XR** 75MG CAPSULE PO SCH (09:30)
[2023-02-25] MEDS: dexAMETHasone 2 MG TAB PO SCH (09:30)
[2023-02-25] MEDS: MAGNESIUM OXIDE 400MG TAB (MAG-OX) PO SCH ×3 (09:30→20:24)
[2023-02-25] MEDS: GABAPENTIN 100 MG CAP PO SCH ×3 (09:30→20:24)
[2023-02-25 14:00] VITALS: BP 122/58; TEMP 97.7; O2SAT 96
[2023-02-25] MEDS ORDERED: RAMELTEON 8 MG TAB (ROZEREM) PO PRN (19:20)
[2023-02-25] MEDS: ENOXAPARIN 40MG/0.4ML SYRINGE (J1650 PER 10MG) SC SCH (20:24)
[2023-02-25 21:00] VITALS: BP 120/58; TEMP 97.7; O2SAT 98
[2023-02-26] MEDS: NS 1,000 ML IV SCH ×2 (00:18→13:58)
[2023-02-26] MEDS: MEROPENEM INJ 1 GM in IV 1 EA IV SCH ×3 (01:20→17:03)
[2023-02-26] MEDS: MORPHINE 30 MG TAB **MSIR PO PRN (03:09)
[2023-02-26 05:30] VITALS: BP 118/58; TEMP 98.4; O2SAT 97
[2023-02-26] MEDS: MORPHINE 30 MG SA TAB PO SCH ×3 (06:09→22:05)
[2023-02-26 06:39] LABS: HEMATOCRIT 25.9 % (36.0-47.0); HEMOGLOBIN 8.2 g/dl (12.0-15.5); MEAN CORPUSCULAR HEMOGLOBIN 27.9 pg (27.0-33.0); MEAN CORPUSCULAR HGB CONC 31.7 g/dl (32.0-36.5); MEAN CORPUSCULAR VOLUME 88.1 fl (80.0-96.0); PLATELET COUNT, AUTOMATED 147 10^3/uL (150-450); RED BLOOD COUNT 2.94 10^6/uL (4.00-5.40); WHITE BLOOD COUNT 3.8 10^3/uL (4.0-10.0)
[2023-02-26 07:14] LABS: ALBUMIN 2.2 G/DL (3.2-5.2); ALKALINE PHOSPHATASE 78 U/L (46-116); ALT/SGPT 11 U/L (7.0-40); AST/SGOT 12 U/L (<34); BILIRUBIN,TOTAL 0.2 MG/DL (0.3-1.2); BLOOD UREA NITROGEN 13 MG/DL (9-23); CALCIUM LEVEL 8.1 MG/DL (8.3-10.6); CARBON DIOXIDE LEVEL 27 MMOL/L (20-31); CHLORIDE LEVEL 101 MMOL/L (98-107); CREATININE FOR GFR 0.56 MG/DL (0.55-1.30); GLOMERULAR FILTRATION RATE > 60.0 (>45); GLUCOSE, FASTING 147 MG/DL (74-106); MAGNESIUM LEVEL 1.9 MG/DL (1.8-2.4); POTASSIUM SERUM 3.3 MMOL/L (3.5-5.1); SODIUM LEVEL 137 MMOL/L (136-145); TOTAL PROTEIN 5.4 G/DL (5.7-8.2)
[2023-02-26 08:00] VITALS: BP 118/58; TEMP 98.1; O2SAT 96
[2023-02-26] MEDS ORDERED: POTASSIUM CHLORIDE 10MEQ SR TABLET PO ONE ×2 (08:00→10:00)
[2023-02-26] MEDS: LACTOBACILLUS ACIDOPHILUS CAP (BACID) PO SCH ×2 (10:00→17:02)
[2023-02-26] MEDS: GABAPENTIN 100 MG CAP PO SCH ×3 (10:00→20:01)
[2023-02-26] MEDS: dexAMETHasone 2 MG TAB PO SCH (10:01)
[2023-02-26] MEDS: VENLAFAXINE **XR** 75MG CAPSULE PO SCH (10:01)
[2023-02-26] MEDS: MAGNESIUM OXIDE 400MG TAB (MAG-OX) PO SCH ×3 (10:01→20:01)
[2023-02-26] MEDS: INSULIN LISPRO (NovoLOG) PER UNIT SC SCH ×4 (10:03→20:34)
[2023-02-26] MEDS: LEVEMIR (INSULIN DETEMIR) 1 UNITS/0.01ML SC SCH (10:05)
[2023-02-26] MEDS: CEPHALEXIN 500 MG CAP PO SCH ×2 (13:53→17:02)
[2023-02-26 14:14] VITALS: BP 136/71; TEMP 97.9; O2SAT 99
[2023-02-26] MEDS: ENOXAPARIN 40MG/0.4ML SYRINGE (J1650 PER 10MG) SC SCH (20:01)
[2023-02-26 20:30] VITALS: BP 136/70; TEMP 97.7; O2SAT 99
[2023-02-26] MEDS ORDERED: ONDANSETRON 4MG 2ML VIAL IV PRN (23:00)
[2023-02-27] MEDS: CEPHALEXIN 500 MG CAP PO SCH ×2 (00:02→05:56)
[2023-02-27] MEDS: MEROPENEM INJ 1 GM in IV 1 EA IV SCH ×2 (01:34→10:00)
[2023-02-27] MEDS: MORPHINE 30 MG TAB **MSIR PO PRN (03:31)
[2023-02-27] MEDS: MORPHINE 30 MG SA TAB PO SCH (05:57)
[2023-02-27 06:00] VITALS: BP 128/78; TEMP 97.7; O2SAT 95
[2023-02-27] MEDS ORDERED: MAGN400T2 PO ×2 (07:05→11:01)
[2023-02-27] MEDS ORDERED: METF-839 PO ×2 (07:05→11:01)
[2023-02-27] MEDS ORDERED: BACT800T5 PO ×3 (07:05→12:47)
[2023-02-27] MEDS ORDERED: RISATAB3 PO ×2 (07:05→11:01)
[2023-02-27] MEDS ORDERED: CEPH500C PO ×2 (07:05→11:01)
[2023-02-27 07:18] LABS: HEMOGLOBIN 8.6 g/dl (12.0-15.5); MEAN CORPUSCULAR HEMOGLOBIN 27.2 pg (27.0-33.0); MEAN CORPUSCULAR HGB CONC 30.7 g/dl (32.0-36.5); MEAN CORPUSCULAR VOLUME 88.6 fl (80.0-96.0); PLATELET COUNT, AUTOMATED 163 10^3/uL (150-450); RED BLOOD COUNT 3.16 10^6/uL (4.00-5.40); WHITE BLOOD COUNT 3.3 10^3/uL (4.0-10.0)
[2023-02-27] MEDS: INSULIN LISPRO (NovoLOG) PER UNIT SC SCH ×2 (07:30→12:00)
[2023-02-27 07:40] LABS: ALBUMIN 2.3 G/DL (3.2-5.2); ALKALINE PHOSPHATASE 72 U/L (46-116); ALT/SGPT 12 U/L (7.0-40); AST/SGOT 12 U/L (<34); BILIRUBIN,TOTAL 0.2 MG/DL (0.3-1.2); BLOOD UREA NITROGEN 14 MG/DL (9-23); CALCIUM LEVEL 8.2 MG/DL (8.3-10.6); CARBON DIOXIDE LEVEL 29 MMOL/L (20-31); CHLORIDE LEVEL 102 MMOL/L (98-107); CREATININE FOR GFR 0.58 MG/DL (0.55-1.30); GLOMERULAR FILTRATION RATE > 60.0 (>45); GLUCOSE, FASTING 124 MG/DL (74-106); POTASSIUM SERUM 3.8 MMOL/L (3.5-5.1); SODIUM LEVEL 136 MMOL/L (136-145); TOTAL PROTEIN 5.8 G/DL (5.7-8.2)
[2023-02-27] MEDS: LACTOBACILLUS ACIDOPHILUS CAP (BACID) PO SCH (08:00)
[2023-02-27] MEDS: LEVEMIR (INSULIN DETEMIR) 1 UNITS/0.01ML SC SCH (09:00)
[2023-02-27] MEDS: VENLAFAXINE **XR** 75MG CAPSULE PO SCH (11:07)
[2023-02-27] MEDS: dexAMETHasone 2 MG TAB PO SCH (11:08)
[2023-02-27] MEDS: GABAPENTIN 100 MG CAP PO SCH (11:08)
[2023-02-27] MEDS: MAGNESIUM OXIDE 400MG TAB (MAG-OX) PO SCH (11:08)
[2023-03-01] MEDS ORDERED: SENN-186 PO ×2 (12:52→12:53)
== END 2023-02-27 13:35 | disposition home health service (06) | DRG 466 ==
LOC: M ED 10:52 → M ED INP 14:26 → ENRESERV 15:14 → M MSPAV 16:35
PROVIDERS: ADMIT Internal Medicine; ATTEND Internal Medicine
DX: T83.512A Infection and inflammatory reaction due to nephrostomy catheter, initial encounter (principal); A41.9 Sepsis, unspecified organism; D84.821 Immunodeficiency due to drugs; C79.89 Secondary malignant neoplasm of other specified sites; C78.7 Secondary malignant neoplasm of liver and intrahepatic bile duct; E11.65 Type 2 diabetes mellitus with hyperglycemia; B95.61 Methicillin susceptible Staphylococcus aureus infection as the cause of diseases classified elsewhere; C18.9 Malignant neoplasm of colon, unspecified; E87.1 Hypo-osmolality and hyponatremia; E87.6 Hypokalemia; E55.9 Vitamin D deficiency, unspecified; T45.1X5A Adverse effect of antineoplastic and immunosuppressive drugs, initial encounter; Y83.1 Surgical operation with implant of artificial internal device as the cause of abnormal reaction of the patient, or of later complication, without mention of misadventure at the time of the procedure; G89.3 Neoplasm related pain (acute) (chronic); R63.0 Anorexia; F32.A Depression, unspecified; I10 Essential (primary) hypertension; R53.1 Weakness; D50.9 Iron deficiency anemia, unspecified; D63.8 Anemia in other chronic diseases classified elsewhere; Z79.60 Long term (current) use of unspecified immunomodulators and immunosuppressants; Z90.49 Acquired absence of other specified parts of digestive tract

== ENCOUNTER → 2023-03-01 | Outpatient (CLI) | payer OTHER ==
[~2023-03-01] MED LIST changes: +MAGN400T2 PO; +METF-839 PO; +RISATAB3 PO; +SENN-186 PO
== END ==
LOC: M PAL 10:20
PROVIDERS: ATTEND Nurse Practitioner Adult Health
DX: C18.9 Malignant neoplasm of colon, unspecified (principal); C79.89 Secondary malignant neoplasm of other specified sites; C77.5 Secondary and unspecified malignant neoplasm of intrapelvic lymph nodes; G89.3 Neoplasm related pain (acute) (chronic); Z51.5 Encounter for palliative care; R53.83 Other fatigue; F32.A Depression, unspecified; F41.9 Anxiety disorder, unspecified; R63.0 Anorexia; Z87.440 Personal history of urinary (tract) infections; Z79.52 Long term (current) use of systemic steroids; Z79.84 Long term (current) use of oral hypoglycemic drugs; Z79.891 Long term (current) use of opiate analgesic; Z79.899 Other long term (current) drug therapy; Z80.0 Family history of malignant neoplasm of digestive organs; Z90.49 Acquired absence of other specified parts of digestive tract; Z92.3 Personal history of irradiation; Z92.21 Personal history of antineoplastic chemotherapy; Z93.6 Other artificial openings of urinary tract status

== ENCOUNTER → 2023-03-11 | Outpatient (CLI) | payer OTHER ==
[~2023-03-11] MED LIST changes: +ACET-897 PO; +CEFD300C42 PO; +DOXY100C3 PO; +METF850T4 PO; +MIRT-84 PO; +MIRT-88 PO; +NYST-38 PO; +PROBCAP14 PO; +SENN-188 PO
== END ==
LOC: M ONCM 03-08 07:27
PROVIDERS: ATTEND Dietitian, Registered
DX: C18.9 Malignant neoplasm of colon, unspecified (principal); C79.89 Secondary malignant neoplasm of other specified sites; C78.7 Secondary malignant neoplasm of liver and intrahepatic bile duct; Z68.27 Body mass index [BMI] 27.0-27.9, adult; Z71.3 Dietary counseling and surveillance

== ENCOUNTER 2023-04-14 11:27 | Inpatient (IN) | payer OTHER ==
[2023-04-14] VITALS (8 sets, daily range): BP systolic 115–136; BP diastolic 56–65; TEMP 97.6–99.7; O2SAT 96–100
[~2023-04-14] VITALS: Ht 160 cm; Wt 67.4 kg
[~2023-04-14 11:27] MED LIST changes: -ACET-897 PO; -CEFD300C42 PO; -DOXY100C3 PO; -MIRT-84 PO; -MIRT-88 PO; -PROBCAP14 PO; -SENN-188 PO
[2023-04-14] MEDS ORDERED: ACETAMINOPHEN 325 MG TAB PO ONE (12:00)
[2023-04-14] MEDS: MORPHINE 2 MG/ML 1ML VIAL IV PRN ×2 (12:34→16:23)
[2023-04-14 12:42] LABS: VENOUS BASE EXCESS 4.2 (-2.0-2.0); VENOUS HCO3 28.7 MMOL/L (23.0-27.0); VENOUS O2 SATURATION 90.9 % (60.0-80.0); VENOUS PARTIAL PRESSURE CO2 42.8 mmHg (38.0-50.0); VENOUS PARTIAL PRESSURE O2 62.5 mmHg (30.0-50.0); VENOUS PH 7.444 UNITS (7.330-7.430); VENOUS STANDARD HCO3 28.1 MMOL/L
[2023-04-14 12:46] LABS: BASO % 0.2 % (0.0-1.0); EOS # 0.1 10^3/uL (0.0-0.5); EOS % 0.6 % (0.0-3.0); HEMATOCRIT 21.9 % (36.0-47.0); HEMOGLOBIN 7.1 g/dl (12.0-15.5); LYMPH # 0.4 10^3/uL (1.5-5.0); LYMPH % 4.1 % (24.0-44.0); MEAN CORPUSCULAR HEMOGLOBIN 26.7 pg (27.0-33.0); MEAN CORPUSCULAR HGB CONC 32.4 g/dl (32.0-36.5); MEAN CORPUSCULAR VOLUME 82.3 fl (80.0-96.0); MONO # 1.1 10^3/uL (0.0-0.8); MONO % 11.8 % (2.0-8.0); NEUTROPHILS # 7.5 10^3/uL (1.5-8.5); NEUTROPHILS % 82.9 % (36.0-66.0); PLATELET COUNT, AUTOMATED 191 10^3/uL (150-450); RED BLOOD COUNT 2.66 10^6/uL (4.00-5.40)
[2023-04-14] MEDS ORDERED: cefTRIAXone SOD 2 GM in D5W MINI-BAG PLUS 50 ML IV ONE (12:55)
[2023-04-14 12:56] LABS: APPEARANCE, URINE CLOUDY (CLEAR); BACTERIA, URINE AUTO 2+ (NEGATIVE); BILIRUBIN, URINE AUTO NEGATIVE (NEGATIVE); BLOOD, URINE BLOOD 2+ (NEGATIVE); COLOR, URINE YELLOW (YELLOW); GLUCOSE, URINE (UA) AUTO NEGATIVE (NEGATIVE); KETONE, URINE AUTO NEGATIVE (NEGATIVE); LEUKOCYTE ESTERASE, URINE AUTO 3+ (NEGATIVE); MUCUS, URINE SMALL (NEGATIVE); NITRITE, URINE AUTO POSITIVE (NEGATIVE); PROTEIN, URINE AUTO 2+ mg/dL (NEGATIVE); RBC, URINE AUTO 8 /HPF (0-3); SPECIFIC GRAVITY URINE AUTO 1.009 (1.002-1.035); SQUAMOUS EPITHELIAL CELL UR AU 0 /HPF (0-6); UROBILINOGEN, URINE AUTO 0.2 mg/dL (0.0-2.0); WBC, URINE AUTO TNTC /HPF (0-3)
[2023-04-14 12:58] LABS: INR 1.34; PROTHROMBIN TIME 16.2 SECONDS (12.5-14.5)
[2023-04-14 13:00] LABS: PARTIAL THROMBOPLASTIN TIME 110.1 SECONDS (24.8-34.2)
[2023-04-14 13:48] LABS: ALBUMIN 2.4 G/DL (3.2-5.2); ALKALINE PHOSPHATASE 128 U/L (46-116); ALT/SGPT 12 U/L (7.0-40); AMYLASE < 20 U/L (30-118); AST/SGOT 10 U/L (<34); BILIRUBIN,DIRECT 0.1 MG/DL (<0.4); BILIRUBIN,TOTAL 0.3 MG/DL (0.3-1.2); BLOOD UREA NITROGEN 14 MG/DL (9-23); CALCIUM LEVEL 8.4 MG/DL (8.3-10.6); CARBON DIOXIDE LEVEL 28 MMOL/L (20-31); CHLORIDE LEVEL 92 MMOL/L (98-107); CREATININE FOR GFR 0.56 MG/DL (0.55-1.30); GLOMERULAR FILTRATION RATE > 60.0 (>45); GLUCOSE, FASTING 235 MG/DL (74-106); POTASSIUM SERUM 4.3 MMOL/L (3.5-5.1); PROCALCITONIN 0.31 ng/ml; SODIUM LEVEL 128 MMOL/L (136-145)
[2023-04-14 14:01] LABS: APPEARANCE, URINE CLOUDY (CLEAR); BACTERIA, URINE AUTO 2+ (NEGATIVE); BILIRUBIN, URINE AUTO NEGATIVE (NEGATIVE); BLOOD, URINE BLOOD 2+ (NEGATIVE); COLOR, URINE YELLOW (YELLOW); GLUCOSE, URINE (UA) AUTO NEGATIVE (NEGATIVE); KETONE, URINE AUTO NEGATIVE (NEGATIVE); LEUKOCYTE ESTERASE, URINE AUTO 3+ (NEGATIVE); NITRITE, URINE AUTO POSITIVE (NEGATIVE); PROTEIN, URINE AUTO 2+ mg/dL (NEGATIVE); RBC, URINE AUTO 6 /HPF (0-3); SQUAMOUS EPITHELIAL CELL UR AU 0 /HPF (0-6); UROBILINOGEN, URINE AUTO 0.2 mg/dL (0.0-2.0); WBC, URINE AUTO TNTC /HPF (0-3)
[2023-04-14] MEDS ORDERED: ISOVUE-370 76% 100ML VIAL As Ordered ONE (15:22)
[2023-04-14] MEDS ORDERED: METF850T4 PO (15:35)
[2023-04-14] MEDS ORDERED: SENN-188 PO (15:35)
[2023-04-14] MEDS ORDERED: MAGN400T2 PO (15:35)
[2023-04-14] MEDS ORDERED: RISATAB3 PO (15:35)
[2023-04-14] MEDS ORDERED: GABA-1171 PO ×2 (15:36)
[2023-04-14] MEDS ORDERED: HOME MED LIST COMPLETE! XX SCH (15:40)
[2023-04-14] MEDS ORDERED: GLUCOSE 4GM CHEW TABLET PO PRN (17:45)
[2023-04-14] MEDS ORDERED: MIRALAX *UNIT DOSE* 17GM PACKET PO PRN (17:45)
[2023-04-14] MEDS ORDERED: MOM 30ML SUSPENSION UDC PO PRN (17:45)
[2023-04-14] MEDS ORDERED: ONDANSETRON 4MG 2ML VIAL IV PRN (17:45)
[2023-04-14] MEDS ORDERED: DEXTROSE 50% 50ML SYRINGE IV PRN (17:45)
[2023-04-14] MEDS ORDERED: GLUCAGON INJ 1MG VIAL SC PRN (17:45)
[2023-04-14 18:58] LABS: IRON (FE) 8 UG/DL (50-170); PERCENT SATURATION 3.8 % (13.2-45.0); TOTAL IRON BINDING CAPACITY 210 UG/DL (250-425)
[2023-04-14 18:59] LABS: VITAMIN B12 LEVEL 311 PG/ML (211-911)
[2023-04-14 19:01] LABS: FERRITIN 475.1 NG/ML (7.3-270.7)
[2023-04-14] MEDS: MORPHINE 10MG/0.5ML ORAL CONCENTRATE SOLUTION U/D PO PRN (19:51)
[2023-04-14] MEDS: LACTOBACILLUS ACIDOPHILUS CAP (BACID) PO SCH (19:51)
[2023-04-14] MEDS: INSULIN LISPRO (NovoLOG) PER UNIT SC SCH (21:40)
[2023-04-14] MEDS: SENNA 8.6 MG TAB (SENOKOT) PO SCH (21:40)
[2023-04-14] MEDS: ACETAMINOPHEN TAB 650MG DOSE (2X325MG) PO PRN (21:41)
[2023-04-14] MEDS: MORPHINE 30 MG SA TAB PO SCH (21:41)
[2023-04-14] MEDS: GABAPENTIN 100 MG CAP PO SCH (21:41)
[2023-04-14] MEDS: MAGNESIUM OXIDE 400MG TAB (MAG-OX) PO SCH (21:41)
[2023-04-14] MEDS: NS 1,000 ML IV SCH (22:51)
[2023-04-15] VITALS: BP 119/59; TEMP 99.7; O2SAT 98
[2023-04-15 04:40] VITALS: BP 140/64; TEMP 100.9; TEMP 98.4; O2SAT 98
[2023-04-15] MEDS: ACETAMINOPHEN TAB 650MG DOSE (2X325MG) PO PRN ×4 (05:20→20:40)
[2023-04-15] MEDS: MORPHINE 30 MG SA TAB PO SCH ×3 (05:20→20:41)
[2023-04-15] MEDS ORDERED: FERRIC CARBOXYMALTOSE INJ 750 MG, VIAL MATE ADAPTER 1 EACH in NS 250 ML IV ONE (06:00)
[2023-04-15 06:27] LABS: HEMATOCRIT 30.5 % (36.0-47.0); MEAN CORPUSCULAR HEMOGLOBIN 27.9 pg (27.0-33.0); MEAN CORPUSCULAR HGB CONC 33.4 g/dl (32.0-36.5); MEAN CORPUSCULAR VOLUME 83.3 fl (80.0-96.0); PLATELET COUNT, AUTOMATED 206 10^3/uL (150-450); RED BLOOD COUNT 3.66 10^6/uL (4.00-5.40); WHITE BLOOD COUNT 9.4 10^3/uL (4.0-10.0)
[2023-04-15 06:37] LABS: HEMOGLOBIN 10.2 g/dl (12.0-15.5)
[2023-04-15 06:53] LABS: BLOOD UREA NITROGEN 13 MG/DL (9-23); CALCIUM LEVEL 8.6 MG/DL (8.3-10.6); CARBON DIOXIDE LEVEL 30 MMOL/L (20-31); CHLORIDE LEVEL 95 MMOL/L (98-107); GLOMERULAR FILTRATION RATE > 60.0 (>45); GLUCOSE, FASTING 124 MG/DL (74-106); MAGNESIUM LEVEL 2.1 MG/DL (1.8-2.4); SODIUM LEVEL 134 MMOL/L (136-145)
[2023-04-15] MEDS: INSULIN LISPRO (NovoLOG) PER UNIT SC SCH ×4 (08:09→20:41)
[2023-04-15] MEDS: LACTOBACILLUS ACIDOPHILUS CAP (BACID) PO SCH ×2 (08:09→17:47)
[2023-04-15] MEDS: MAGNESIUM OXIDE 400MG TAB (MAG-OX) PO SCH ×3 (08:10→20:39)
[2023-04-15] MEDS: GABAPENTIN 100 MG CAP PO SCH ×3 (08:10→20:39)
[2023-04-15] MEDS: DOXYCYCLINE HYCLATE 100MG TABLET PO SCH ×2 (08:10→20:39)
[2023-04-15] MEDS ORDERED: ENOXAPARIN 40MG/0.4ML SYRINGE (J1650 PER 10MG) SC SCH (09:00)
[2023-04-15] MEDS: NS 1,000 ML IV SCH (10:28)
[2023-04-15] MEDS: MORPHINE 10MG/0.5ML ORAL CONCENTRATE SOLUTION U/D PO PRN (10:30)
[2023-04-15 12:00] VITALS: BP 120/72; TEMP 97.6; O2SAT 100
[2023-04-15] MEDS: cefTRIAXone SOD 2 GM in D5W MINI-BAG PLUS 50 ML IV SCH (12:35)
[2023-04-15] MEDS: ENOXAPARIN 40MG/0.4ML SYRINGE (J1650 PER 10MG) SC SCH (12:36)
[2023-04-15] MEDS: VENLAFAXINE **XR** 75MG CAPSULE PO SCH (15:33)
[2023-04-15 16:00] VITALS: BP 129/60; TEMP 97.9; O2SAT 99
[2023-04-15 20:00] VITALS: BP 122/67; TEMP 98.1; O2SAT 98
[2023-04-15] MEDS: SENNA 8.6 MG TAB (SENOKOT) PO SCH (20:39)
[2023-04-16] VITALS: BP 129/60; TEMP 97.3; O2SAT 97
[2023-04-16] MEDS: MORPHINE 10MG/0.5ML ORAL CONCENTRATE SOLUTION U/D PO PRN ×4 (03:05→20:32)
[2023-04-16 03:12] VITALS: BP 131/61; TEMP 97.6; O2SAT 96
[2023-04-16 04:56] LABS: BASO % 0.3 % (0.0-1.0); EOS # 0.1 10^3/uL (0.0-0.5); EOS % 1.5 % (0.0-3.0); HEMATOCRIT 30.2 % (36.0-47.0); HEMOGLOBIN 9.9 g/dl (12.0-15.5); LYMPH # 0.5 10^3/uL (1.5-5.0); LYMPH % 6.6 % (24.0-44.0); MEAN CORPUSCULAR HEMOGLOBIN 27.2 pg (27.0-33.0); MEAN CORPUSCULAR HGB CONC 32.8 g/dl (32.0-36.5); MONO # 0.7 10^3/uL (0.0-0.8); MONO % 10.9 % (2.0-8.0); NEUTROPHILS # 5.4 10^3/uL (1.5-8.5); PLATELET COUNT, AUTOMATED 203 10^3/uL (150-450); RED BLOOD COUNT 3.64 10^6/uL (4.00-5.40); WHITE BLOOD COUNT 6.8 10^3/uL (4.0-10.0)
[2023-04-16] MEDS: MORPHINE 30 MG SA TAB PO SCH ×3 (05:05→22:53)
[2023-04-16 05:17] LABS: INR 1.32
[2023-04-16 05:20] LABS: BLOOD UREA NITROGEN 11 MG/DL (9-23); CALCIUM LEVEL 8.5 MG/DL (8.3-10.6); CARBON DIOXIDE LEVEL 27 MMOL/L (20-31); CHLORIDE LEVEL 101 MMOL/L (98-107); CREATININE FOR GFR 0.51 MG/DL (0.55-1.30); GLOMERULAR FILTRATION RATE > 60.0 (>45); GLUCOSE, FASTING 165 MG/DL (74-106); MAGNESIUM LEVEL 2.1 MG/DL (1.8-2.4); POTASSIUM SERUM 4.2 MMOL/L (3.5-5.1); SODIUM LEVEL 136 MMOL/L (136-145)
[2023-04-16 08:30] VITALS: BP 135/63; TEMP 96.9; O2SAT 97
[2023-04-16] MEDS: ENOXAPARIN 40MG/0.4ML SYRINGE (J1650 PER 10MG) SC SCH (09:02)
[2023-04-16] MEDS: LACTOBACILLUS ACIDOPHILUS CAP (BACID) PO SCH ×2 (09:02→17:20)
[2023-04-16] MEDS: GABAPENTIN 100 MG CAP PO SCH ×3 (09:03→21:07)
[2023-04-16] MEDS: INSULIN LISPRO (NovoLOG) PER UNIT SC SCH ×4 (09:03→20:44)
[2023-04-16] MEDS: MAGNESIUM OXIDE 400MG TAB (MAG-OX) PO SCH ×3 (09:03→21:07)
[2023-04-16] MEDS: DOXYCYCLINE HYCLATE 100MG TABLET PO SCH ×2 (09:03→21:07)
[2023-04-16] MEDS: ACETAMINOPHEN TAB 650MG DOSE (2X325MG) PO PRN ×2 (13:07→17:20)
[2023-04-16] MEDS: cefTRIAXone SOD 2 GM in D5W MINI-BAG PLUS 50 ML IV SCH (13:07)
[2023-04-16] MEDS: VENLAFAXINE **XR** 75MG CAPSULE PO SCH (15:43)
[2023-04-16 19:04] VITALS: BP 114/57; TEMP 97.3; O2SAT 97
[2023-04-16 20:33] VITALS: BP 140/70; TEMP 98; O2SAT 99
[2023-04-16] MEDS ORDERED: MIRTAZAPINE 15 MG TAB PO SCH ×2 (21:00)
[2023-04-16] MEDS: SENNA 8.6 MG TAB (SENOKOT) PO SCH (21:07)
[2023-04-17] MEDS: MORPHINE 30 MG SA TAB PO SCH (06:14)
[2023-04-17 06:31] LABS: BASO # 0.1 10^3/uL (0.0-0.2); BASO % 0.6 % (0.0-1.0); EOS # 0.1 10^3/uL (0.0-0.5); EOS % 1.1 % (0.0-3.0); HEMATOCRIT 33.7 % (36.0-47.0); HEMOGLOBIN 10.8 g/dl (12.0-15.5); LYMPH # 0.8 10^3/uL (1.5-5.0); LYMPH % 8.3 % (24.0-44.0); MEAN CORPUSCULAR HEMOGLOBIN 27.1 pg (27.0-33.0); MEAN CORPUSCULAR VOLUME 84.7 fl (80.0-96.0); NEUTROPHILS # 7.1 10^3/uL (1.5-8.5); NEUTROPHILS % 78.3 % (36.0-66.0); PLATELET COUNT, AUTOMATED 292 10^3/uL (150-450); RED BLOOD COUNT 3.98 10^6/uL (4.00-5.40); WHITE BLOOD COUNT 9.1 10^3/uL (4.0-10.0)
[2023-04-17 07:10] LABS: BLOOD UREA NITROGEN 11 MG/DL (9-23); CALCIUM LEVEL 8.6 MG/DL (8.3-10.6); CARBON DIOXIDE LEVEL 29 MMOL/L (20-31); CHLORIDE LEVEL 99 MMOL/L (98-107); CREATININE FOR GFR 0.57 MG/DL (0.55-1.30); GLOMERULAR FILTRATION RATE > 60.0 (>45); GLUCOSE, FASTING 231 MG/DL (74-106); MAGNESIUM LEVEL 2.2 MG/DL (1.8-2.4); POTASSIUM SERUM 5.3 MMOL/L (3.5-5.1); SODIUM LEVEL 136 MMOL/L (136-145)
[2023-04-17 07:31] VITALS: BP 141/61; TEMP 97.3; O2SAT 98
[2023-04-17] MEDS: INSULIN LISPRO (NovoLOG) PER UNIT SC SCH ×2 (08:48→12:04)
[2023-04-17] MEDS: DOXYCYCLINE HYCLATE 100MG TABLET PO SCH (08:49)
[2023-04-17] MEDS: ENOXAPARIN 40MG/0.4ML SYRINGE (J1650 PER 10MG) SC SCH (08:49)
[2023-04-17] MEDS: MORPHINE 10MG/0.5ML ORAL CONCENTRATE SOLUTION U/D PO PRN (08:49)
[2023-04-17] MEDS: MAGNESIUM OXIDE 400MG TAB (MAG-OX) PO SCH (08:49)
[2023-04-17] MEDS: GABAPENTIN 100 MG CAP PO SCH (08:49)
[2023-04-17] MEDS: LACTOBACILLUS ACIDOPHILUS CAP (BACID) PO SCH (08:49)
[2023-04-17] MEDS ORDERED: DOXY100C3 PO (10:01)
[2023-04-17] MEDS ORDERED: MIRT-84 PO (10:01)
[2023-04-17] MEDS ORDERED: CEFD300C42 PO (10:01)
[2023-04-17] MEDS ORDERED: PROBCAP14 PO (10:01)
[2023-04-17] MEDS: ACETAMINOPHEN TAB 650MG DOSE (2X325MG) PO PRN (12:05)
== END 2023-04-17 13:06 | disposition home health service (06) | DRG 463 ==
LOC: M ED 11:27 → M ED INP 17:43 → ENRESERV 19:23 → M PCU 20:56
PROVIDERS: ADMIT Internal Medicine; ATTEND Internal Medicine
PROC: 30233N1 Transfusion of Nonautologous Red Blood Cells into Peripheral Vein, Percutaneous Approach (ICD-10-PCS; principal; 2023-04-14)
DX: N39.0 Urinary tract infection, site not specified (principal); D68.9 Coagulation defect, unspecified; C78.7 Secondary malignant neoplasm of liver and intrahepatic bile duct; C79.89 Secondary malignant neoplasm of other specified sites; E11.40 Type 2 diabetes mellitus with diabetic neuropathy, unspecified; C18.9 Malignant neoplasm of colon, unspecified; D64.81 Anemia due to antineoplastic chemotherapy; R54 Age-related physical debility; I10 Essential (primary) hypertension; F32.A Depression, unspecified; D50.9 Iron deficiency anemia, unspecified; E78.5 Hyperlipidemia, unspecified; B95.61 Methicillin susceptible Staphylococcus aureus infection as the cause of diseases classified elsewhere; R50.9 Fever, unspecified; M25.552 Pain in left hip; F41.9 Anxiety disorder, unspecified; C53.9 Malignant neoplasm of cervix uteri, unspecified; Z90.49 Acquired absence of other specified parts of digestive tract; B96.20 Unspecified Escherichia coli [E. coli] as the cause of diseases classified elsewhere; Z79.899 Other long term (current) drug therapy; Z96.0 Presence of urogenital implants; Z79.69 Long term (current) use of other immunomodulators and immunosuppressants

== ENCOUNTER → 2023-04-20 | Outpatient (CLI) | payer OTHER ==
[~2023-04-20] MED LIST changes: +CEFD300C42 PO; +DOXY100C3 PO; +MIRT-84 PO; +PROBCAP14 PO; +SENN-188 PO
== END ==
LOC: M PAL 09:05
PROVIDERS: ATTEND Nurse Practitioner Adult Health
DX: C18.9 Malignant neoplasm of colon, unspecified (principal); C78.7 Secondary malignant neoplasm of liver and intrahepatic bile duct; C79.89 Secondary malignant neoplasm of other specified sites; G89.3 Neoplasm related pain (acute) (chronic); N39.0 Urinary tract infection, site not specified; R19.7 Diarrhea, unspecified; Z63.79 Other stressful life events affecting family and household; Z51.5 Encounter for palliative care; Z79.84 Long term (current) use of oral hypoglycemic drugs; Z79.891 Long term (current) use of opiate analgesic; Z79.899 Other long term (current) drug therapy; Z80.0 Family history of malignant neoplasm of digestive organs; Z82.3 Family history of stroke; Z90.49 Acquired absence of other specified parts of digestive tract; Z92.21 Personal history of antineoplastic chemotherapy; Z92.3 Personal history of irradiation; Z96.0 Presence of urogenital implants

== ENCOUNTER 2023-04-23 17:28 | Emergency (ER) | payer OTHER ==
[~2023-04-23] VITALS: Ht 160 cm; Wt 65.9 kg
[2023-04-23 17:29] VITALS: TEMP 98.4
[2023-04-23 18:29] LABS: BASO % 0.3 % (0.0-1.0); EOS # 0.1 10^3/uL (0.0-0.5); EOS % 0.3 % (0.0-3.0); HEMATOCRIT 34.8 % (36.0-47.0); HEMOGLOBIN 11.4 g/dl (12.0-15.5); LYMPH # 0.7 10^3/uL (1.5-5.0); LYMPH % 4.6 % (24.0-44.0); MEAN CORPUSCULAR HEMOGLOBIN 27.9 pg (27.0-33.0); MEAN CORPUSCULAR HGB CONC 32.8 g/dl (32.0-36.5); MEAN CORPUSCULAR VOLUME 85.3 fl (80.0-96.0); MONO # 0.8 10^3/uL (0.0-0.8); MONO % 4.8 % (2.0-8.0); NEUTROPHILS # 14.3 10^3/uL (1.5-8.5); NEUTROPHILS % 89.4 % (36.0-66.0); PLATELET COUNT, AUTOMATED 322 10^3/uL (150-450); RED BLOOD COUNT 4.08 10^6/uL (4.00-5.40)
[2023-04-23 18:47] LABS: LIPASE 19 U/L (12-53)
[2023-04-23 18:50] LABS: ALBUMIN 2.9 G/DL (3.2-5.2); ALKALINE PHOSPHATASE 167 U/L (46-116); ALT/SGPT 28 U/L (7.0-40); AST/SGOT 26 U/L (<34); BILIRUBIN,DIRECT 0.2 MG/DL (<0.4); BILIRUBIN,TOTAL 0.4 MG/DL (0.3-1.2); BLOOD UREA NITROGEN 12 MG/DL (9-23); CARBON DIOXIDE LEVEL 29 MMOL/L (20-31); CHLORIDE LEVEL 93 MMOL/L (98-107); GLOMERULAR FILTRATION RATE > 60.0 (>45); GLUCOSE, FASTING 188 MG/DL (74-106); POTASSIUM SERUM 3.9 MMOL/L (3.5-5.1); SODIUM LEVEL 132 MMOL/L (136-145); TOTAL PROTEIN 7.4 G/DL (5.7-8.2)
[2023-04-23 18:55] LABS: RSV AMPLIFICATION NEGATIVE (NEGATIVE)
[2023-04-23] MEDS ORDERED: ISOVUE-370 76% 100ML VIAL As Ordered ONE (19:04)
[2023-04-23 19:28] VITALS: O2SAT 99
[2023-04-23 19:30] VITALS: BP 180/89
[2023-04-27] MEDS ORDERED: MAGN400T2 PO (08:53)
== END 2023-04-23 22:24 | disposition home or self-care (01) ==
LOC: M ED 17:28
DX: R19.09 Other intra-abdominal and pelvic swelling, mass and lump (principal); E11.9 Type 2 diabetes mellitus without complications; I10 Essential (primary) hypertension; E78.5 Hyperlipidemia, unspecified; F90.9 Attention-deficit hyperactivity disorder, unspecified type; F41.9 Anxiety disorder, unspecified; F32.A Depression, unspecified; Z85.038 Personal history of other malignant neoplasm of large intestine; N32.89 Other specified disorders of bladder; K80.20 Calculus of gallbladder without cholecystitis without obstruction; R16.1 Splenomegaly, not elsewhere classified; R19.5 Other fecal abnormalities; Z79.899 Other long term (current) drug therapy; Z79.84 Long term (current) use of oral hypoglycemic drugs
CPT/HCPCS: 74177; 80048; 80076; 83605; 83690; 85025; 87631; 88305; 93041; 99284; Q9967

== ENCOUNTER 2023-04-29 09:53 | Inpatient (IN) | payer OTHER ==
[~2023-04-29] VITALS: Ht 160 cm; Wt 65.4 kg
[~2023-04-29 09:53] MED LIST changes: +CEFD1CAP9 PO; -CEFD300C42 PO
[2023-04-29 10:59] LABS: APPEARANCE, URINE CLOUDY (CLEAR); BACTERIA, URINE AUTO 1+ (NEGATIVE); BILIRUBIN, URINE AUTO NEGATIVE (NEGATIVE); BLOOD, URINE BLOOD NEGATIVE (NEGATIVE); COLOR, URINE YELLOW (YELLOW); GLUCOSE, URINE (UA) AUTO NEGATIVE (NEGATIVE); KETONE, URINE AUTO TRACE mg/dL (NEGATIVE); LEUKOCYTE ESTERASE, URINE AUTO 3+ (NEGATIVE); MUCUS, URINE SMALL (NEGATIVE); NITRITE, URINE AUTO NEGATIVE (NEGATIVE); PROTEIN, URINE AUTO 1+ mg/dL (NEGATIVE); RBC, URINE AUTO 23 /HPF (0-3); SPECIFIC GRAVITY URINE AUTO 1.011 (1.002-1.035); SQUAMOUS EPITHELIAL CELL UR AU 0 /HPF (0-6); UROBILINOGEN, URINE AUTO 0.2 mg/dL (0.0-2.0); WBC, URINE AUTO 60 /HPF (0-3)
[2023-04-29 11:06] LABS: HEMATOCRIT 26.5 % (36.0-47.0); HEMOGLOBIN 8.7 g/dl (12.0-15.5); MEAN CORPUSCULAR HEMOGLOBIN 28.3 pg (27.0-33.0); MEAN CORPUSCULAR HGB CONC 32.8 g/dl (32.0-36.5); MEAN CORPUSCULAR VOLUME 86.3 fl (80.0-96.0); PLATELET COUNT, AUTOMATED 220 10^3/uL (150-450); RED BLOOD COUNT 3.07 10^6/uL (4.00-5.40); WHITE BLOOD COUNT 23.5 10^3/uL (4.0-10.0)
[2023-04-29 11:22] LABS: ANISOCYTOSIS 1+; MONOCYTES 7 % (0-5); NEUTROPHILS 78 % (28-66); PLATELET ESTIMATE NORMAL (NORMAL); POIKILOCYTOSIS 1+; POLYCHROMASIA 1+
[2023-04-29] MEDS ORDERED: ACETAMINOPHEN TAB 650MG DOSE (2X325MG) PO ONE (11:25)
[2023-04-29 11:27] LABS: RSV AMPLIFICATION NEGATIVE (NEGATIVE)
[2023-04-29 11:31] LABS: ALBUMIN 1.9 G/DL (3.2-5.2); ALKALINE PHOSPHATASE 213 U/L (46-116); ALT/SGPT 41 U/L (7.0-40); AST/SGOT 51 U/L (<34); BILIRUBIN,TOTAL 1.1 MG/DL (0.3-1.2); BLOOD UREA NITROGEN 14 MG/DL (9-23); CARBON DIOXIDE LEVEL 23 MMOL/L (20-31); CHLORIDE LEVEL 95 MMOL/L (98-107); CREATININE FOR GFR 0.77 MG/DL (0.55-1.30); GLOMERULAR FILTRATION RATE > 60.0 (>45); GLUCOSE, FASTING 178 MG/DL (74-106); SODIUM LEVEL 128 MMOL/L (136-145); TOTAL PROTEIN 5.6 G/DL (5.7-8.2)
[2023-04-29] MEDS ORDERED: NS 1,000 ML IV ONE (11:35)
[2023-04-29] MEDS ORDERED: SODIUM CHLORIDE 0.9% INJ 10 ML SYR IV PRN (11:50)
[2023-04-29] MEDS ORDERED: LevoFLOXacin IV 750 MG in IV 1 EA IV ONE (12:00)
[2023-04-29] MEDS ORDERED: NS 2,000 ML in IV 1 EA IV ONE (13:00)
[2023-04-29] MEDS ORDERED: ISOVUE-370 76% 100ML VIAL As Ordered ONE (13:20)
[2023-04-29] MEDS ORDERED: HYDROCORTISONE 100MG/2ML VIAL IV ONE (15:25)
[2023-04-29] MEDS ORDERED: VANCOMYCIN HCL 750 MG, VIAL MATE ADAPTER 1 EACH in D5W 250 ML IV SCH (16:05)
[2023-04-29] MEDS ORDERED: MED REC IN PROGRESS XX SCH (17:00)
[2023-04-29] MEDS ORDERED: ACET-897 PO (17:26)
[2023-04-29] MEDS ORDERED: BRAF75CA PO (17:28)
[2023-04-29] MEDS ORDERED: RISATAB3 PO (17:30)
[2023-04-29] MEDS ORDERED: MAGN400T2 PO (17:31)
[2023-04-29] MEDS ORDERED: MIRT-88 PO (17:32)
[2023-04-29] MEDS ORDERED: MORP30TASA PO (17:34)
[2023-04-29] MEDS ORDERED: HOME MED LIST COMPLETE! XX SCH (17:45)
[2023-04-29] MEDS: PIPERACILLIN/TAZOBACTAM SOD 3.375 GM in D5W MINI-BAG PLUS 50 ML IV SCH (18:36)
[2023-04-29] MEDS: NS 1,000 ML IV SCH (18:36)
[2023-04-29 19:35] LABS: PROCALCITONIN 25.41 ng/ml
[2023-04-29 19:37] LABS: C REACTIVE PROTEIN QUANTITATIV 33.3 MG/DL (<1.0)
[2023-04-29] MEDS ORDERED: VANCOMYCIN HCL 750 MG, VIAL MATE ADAPTER 1 EACH in D5W 250 ML IV ONE ×2 (20:00→21:00)
[2023-04-29 21:30] VITALS: BP 126/60; TEMP 97.4; O2SAT 100
[2023-04-29 22:00] VITALS: BP 95/53; O2SAT 97
[2023-04-29 22:30] VITALS: BP 100/55; O2SAT 97
[2023-04-29 23:00] VITALS: BP 99/56; O2SAT 97
[2023-04-29 23:54] VITALS: BP 105/59; TEMP 96.7; O2SAT 98
[2023-04-30] VITALS (10 sets, daily range): BP systolic 100–152; BP diastolic 57–74; TEMP 96.9–102.8; O2SAT 96–99
[2023-04-30] MEDS: PIPERACILLIN/TAZOBACTAM SOD 3.375 GM in D5W MINI-BAG PLUS 50 ML IV SCH ×3 (00:41→12:49)
[2023-04-30] MEDS ORDERED: VANCOMYCIN HCL 1,000 MG, VIAL MATE ADAPTER 1 EACH in D5W 250 ML IV SCH (04:00)
[2023-04-30] MEDS: NS 1,000 ML IV SCH (04:56)
[2023-04-30] MEDS ORDERED: MORPHINE 2 MG/ML 1ML VIAL IV ONE ×2 (05:55→12:35)
[2023-04-30 08:07] LABS: BASO % 0.2 % (0.0-1.0); HEMATOCRIT 28.2 % (36.0-47.0); LYMPH # 0.1 10^3/uL (1.5-5.0); LYMPH % 2.3 % (24.0-44.0); MEAN CORPUSCULAR HEMOGLOBIN 27.7 pg (27.0-33.0); MEAN CORPUSCULAR HGB CONC 31.9 g/dl (32.0-36.5); MEAN CORPUSCULAR VOLUME 86.8 fl (80.0-96.0); MONO # 0.1 10^3/uL (0.0-0.8); MONO % 1.6 % (2.0-8.0); NEUTROPHILS # 5.4 10^3/uL (1.5-8.5); NEUTROPHILS % 95.5 % (36.0-66.0); PLATELET COUNT, AUTOMATED 187 10^3/uL (150-450); RED BLOOD COUNT 3.25 10^6/uL (4.00-5.40); WHITE BLOOD COUNT 5.6 10^3/uL (4.0-10.0)
[2023-04-30 08:30] LABS: ALBUMIN 1.6 G/DL (3.2-5.2); ALKALINE PHOSPHATASE 180 U/L (46-116); ALT/SGPT 84 U/L (7.0-40); AST/SGOT 88 U/L (<34); BILIRUBIN,TOTAL 0.5 MG/DL (0.3-1.2); BLOOD UREA NITROGEN 13 MG/DL (9-23); CARBON DIOXIDE LEVEL 22 MMOL/L (20-31); CHLORIDE LEVEL 104 MMOL/L (98-107); CREATININE FOR GFR 0.51 MG/DL (0.55-1.30); GLOMERULAR FILTRATION RATE > 60.0 (>45); GLUCOSE, FASTING 193 MG/DL (74-106); MAGNESIUM LEVEL 1.8 MG/DL (1.8-2.4); POTASSIUM SERUM 3.5 MMOL/L (3.5-5.1); SODIUM LEVEL 139 MMOL/L (136-145); TOTAL PROTEIN 5.2 G/DL (5.7-8.2)
[2023-04-30] MEDS ORDERED: MAGNESIUM OXIDE 400MG TAB (MAG-OX) PO SCH (09:00)
[2023-04-30] MEDS ORDERED: ENOXAPARIN 40MG/0.4ML SYRINGE (J1650 PER 10MG) SC SCH (09:00)
[2023-04-30] MEDS: GABAPENTIN 100 MG CAP PO SCH ×3 (09:00→21:00)
[2023-04-30] MEDS ORDERED: ONDANSETRON 4MG 2ML VIAL IV PRN ×2 (12:10→13:10)
[2023-04-30] MEDS ORDERED: ISOVUE-370 76% 100ML VIAL As Ordered ONE (12:23)
[2023-04-30] MEDS ORDERED: LORazepam 2 MG/ML 1ML VIAL IV PRN (13:10)
[2023-04-30] MEDS ORDERED: ACETAMINOPHEN 650MG SUPP PR PRN (13:10)
[2023-04-30] MEDS: MORPHINE 2 MG/ML 1ML VIAL IV PRN ×3 (13:59→20:40)
[2023-04-30] MEDS: MORPHINE 30 MG SA TAB PO SCH ×2 (14:00→22:00)
[2023-04-30] MEDS ORDERED: VENLAFAXINE **XR** 75MG CAPSULE PO SCH (15:00)
[2023-04-30] MEDS ORDERED: MIRTAZAPINE 15 MG TAB PO SCH (21:00)
[2023-05-01] MEDS: MORPHINE 2 MG/ML 1ML VIAL IV PRN ×4 (01:19→10:34)
[2023-05-01] MEDS: LORazepam 1 MG TAB PO PRN (05:21)
[2023-05-01] MEDS: MORPHINE 30 MG SA TAB PO SCH ×3 (06:00→21:58)
[2023-05-01] MEDS: GABAPENTIN 100 MG CAP PO SCH ×3 (10:35→21:56)
[2023-05-01] MEDS: ACETAMINOPHEN TAB 650MG DOSE (2X325MG) PO PRN (14:18)
[2023-05-01] MEDS ORDERED: VANCOMYCIN HCL 750 MG, VIAL MATE ADAPTER 1 EACH in D5W 250 ML IV SCH (15:05)
[2023-05-01] MEDS: SIMETHICONE 80MG CHEW TAB PO SCH ×2 (15:38→21:00)
[2023-05-01] MEDS: NS 1,000 ML IV SCH (15:38)
[2023-05-01] MEDS: PIPERACILLIN/TAZOBACTAM SOD 3.375 GM in D5W MINI-BAG PLUS 50 ML IV SCH ×2 (16:40→23:39)
[2023-05-01] MEDS ORDERED: VANCOMYCIN HCL 750 MG, VIAL MATE ADAPTER 1 EACH in D5W 250 ML IV ONE ×2 (18:00→20:00)
[2023-05-01] MEDS: metroNIDAZOLE 500 MG in IV 1 EA IV SCH (18:56)
[2023-05-01] MEDS ORDERED: VANCOMYCIN HCL 500 MG in D5W MINI-BAG PLUS 100 ML IV ONE ×2 (19:00→21:00)
[2023-05-02] MEDS: metroNIDAZOLE 500 MG in IV 1 EA IV SCH ×3 (01:03→18:43)
[2023-05-02] MEDS: MORPHINE 10MG/0.5ML ORAL CONCENTRATE SOLUTION U/D SL PRN (02:45)
[2023-05-02] MEDS: VANCOMYCIN HCL 1,000 MG, VIAL MATE ADAPTER 1 EACH in D5W 250 ML IV SCH ×2 (03:50→17:12)
[2023-05-02] MEDS: PIPERACILLIN/TAZOBACTAM SOD 3.375 GM in D5W MINI-BAG PLUS 50 ML IV SCH ×4 (04:49→21:02)
[2023-05-02] MEDS: MORPHINE 2 MG/ML 1ML VIAL IV PRN ×2 (04:49→23:22)
[2023-05-02] MEDS: MORPHINE 30 MG SA TAB PO SCH ×3 (05:39→21:02)
[2023-05-02] MEDS: SIMETHICONE 80MG CHEW TAB PO SCH ×3 (08:49→21:00)
[2023-05-02] MEDS: GABAPENTIN 100 MG CAP PO SCH ×3 (08:49→21:00)
[2023-05-02] MEDS: ACETAMINOPHEN TAB 650MG DOSE (2X325MG) PO PRN (12:59)
[2023-05-02 15:46] LABS: BASO # 0.1 10^3/uL (0.0-0.2); BASO % 0.2 % (0.0-1.0); HEMATOCRIT 27.9 % (36.0-47.0); HEMOGLOBIN 9.4 g/dl (12.0-15.5); LYMPH # 0.7 10^3/uL (1.5-5.0); LYMPH % 3.1 % (24.0-44.0); MEAN CORPUSCULAR HEMOGLOBIN 27.8 pg (27.0-33.0); MEAN CORPUSCULAR HGB CONC 33.7 g/dl (32.0-36.5); MEAN CORPUSCULAR VOLUME 82.5 fl (80.0-96.0); MONO # 0.5 10^3/uL (0.0-0.8); MONO % 2.2 % (2.0-8.0); NEUTROPHILS # 19.1 10^3/uL (1.5-8.5); NEUTROPHILS % 91.4 % (36.0-66.0); PLATELET COUNT, AUTOMATED 183 10^3/uL (150-450); RED BLOOD COUNT 3.38 10^6/uL (4.00-5.40)
[2023-05-02 15:53] LABS: ERYTHROCYTE SEDIMENTATION RATE 79 mm/hr (0-30)
[2023-05-02 16:06] LABS: INR 1.69; PROTHROMBIN TIME 19.3 SECONDS (12.5-14.5)
[2023-05-02 16:07] LABS: PARTIAL THROMBOPLASTIN TIME 39.6 SECONDS (24.8-34.2)
[2023-05-02 16:18] LABS: VANCOMYCIN LEVEL TROUGH 12.2 UG/ML (10.0-20.0)
[2023-05-02 16:41] LABS: ALBUMIN 1.4 G/DL (3.2-5.2); ALKALINE PHOSPHATASE 191 U/L (46-116); ALT/SGPT 46 U/L (7.0-40); AST/SGOT 26 U/L (<34); BLOOD UREA NITROGEN 14 MG/DL (9-23); CALCIUM LEVEL 7.5 MG/DL (8.3-10.6); CARBON DIOXIDE LEVEL 22 MMOL/L (20-31); CHLORIDE LEVEL 94 MMOL/L (98-107); CREATININE FOR GFR 0.62 MG/DL (0.55-1.30); GLOMERULAR FILTRATION RATE > 60.0 (>45); GLUCOSE, FASTING 253 MG/DL (74-106); POTASSIUM SERUM 2.9 MMOL/L (3.5-5.1); SODIUM LEVEL 126 MMOL/L (136-145); TOTAL PROTEIN 4.6 G/DL (5.7-8.2)
[2023-05-02] MEDS ORDERED: POTASSIUM CHLORIDE 10MEQ SR TABLET PO ONE (16:45)
[2023-05-02] MEDS: LORazepam 1 MG TAB PO PRN (18:41)
[2023-05-02 20:00] VITALS: BP 119/75; TEMP 97.9; O2SAT 97
[2023-05-03] MEDS: metroNIDAZOLE 500 MG in IV 1 EA IV SCH (00:08)
[2023-05-03] MEDS: NS 1,000 ML IV SCH ×2 (00:08→15:05)
[2023-05-03] MEDS: MORPHINE 2 MG/ML 1ML VIAL IV PRN (02:42)
[2023-05-03] MEDS: PIPERACILLIN/TAZOBACTAM SOD 3.375 GM in D5W MINI-BAG PLUS 50 ML IV SCH ×4 (03:09→21:07)
[2023-05-03] MEDS: VANCOMYCIN HCL 1,000 MG, VIAL MATE ADAPTER 1 EACH in D5W 250 ML IV SCH (04:23)
[2023-05-03] MEDS: MORPHINE 30 MG SA TAB PO SCH ×3 (05:13→20:23)
[2023-05-03 05:23] VITALS: BP 130/79; TEMP 98.1; O2SAT 92
[2023-05-03 05:48] LABS: BASO # 0.1 10^3/uL (0.0-0.2); BASO % 0.2 % (0.0-1.0); HEMATOCRIT 28.6 % (36.0-47.0); HEMOGLOBIN 9.5 g/dl (12.0-15.5); LYMPH # 0.8 10^3/uL (1.5-5.0); LYMPH % 3.3 % (24.0-44.0); MEAN CORPUSCULAR HEMOGLOBIN 27.5 pg (27.0-33.0); MEAN CORPUSCULAR HGB CONC 33.2 g/dl (32.0-36.5); MEAN CORPUSCULAR VOLUME 82.7 fl (80.0-96.0); MONO # 0.8 10^3/uL (0.0-0.8); MONO % 3.3 % (2.0-8.0); NEUTROPHILS # 21.9 10^3/uL (1.5-8.5); NEUTROPHILS % 90.4 % (36.0-66.0); PLATELET COUNT, AUTOMATED 162 10^3/uL (150-450); RED BLOOD COUNT 3.46 10^6/uL (4.00-5.40); WHITE BLOOD COUNT 24.3 10^3/uL (4.0-10.0)
[2023-05-03 06:26] LABS: ALBUMIN 1.3 G/DL (3.2-5.2); ALKALINE PHOSPHATASE 196 U/L (46-116); ALT/SGPT 34 U/L (7.0-40); AST/SGOT 23 U/L (<34); BLOOD UREA NITROGEN 18 MG/DL (9-23); CALCIUM LEVEL 7.6 MG/DL (8.3-10.6); CARBON DIOXIDE LEVEL 20 MMOL/L (20-31); CHLORIDE LEVEL 95 MMOL/L (98-107); CREATININE FOR GFR 0.72 MG/DL (0.55-1.30); GLOMERULAR FILTRATION RATE > 60.0 (>45); GLUCOSE, FASTING 309 MG/DL (74-106); MAGNESIUM LEVEL 1.8 MG/DL (1.8-2.4); POTASSIUM SERUM 3.5 MMOL/L (3.5-5.1); SODIUM LEVEL 126 MMOL/L (136-145); TOTAL PROTEIN 4.5 G/DL (5.7-8.2)
[2023-05-03 07:46] VITALS: TEMP 96.6; O2SAT 92
[2023-05-03] MEDS ORDERED: NITROGLYCERIN 0.4MG SUBL TABLET SL STA (08:34)
[2023-05-03] MEDS ORDERED: NITROGLYCERIN 0.4MG SUBL TABLET SL PRN (08:35)
[2023-05-03] MEDS ORDERED: ISOVUE-370 76% 100ML VIAL As Ordered ONE ×2 (08:45→09:55)
[2023-05-03 08:59] VITALS: BP 128/77
[2023-05-03] MEDS ORDERED: PANTOPRAZOLE 40MG VIAL IV ONE (09:00)
[2023-05-03 09:22] LABS: IONIZED CALCIUM 4.1 MG/DL (4.5-5.3)
[2023-05-03 09:46] LABS: CK-MB VALUE MASS < 1.0 NG/ML (<3.6); MAGNESIUM LEVEL 1.9 MG/DL (1.8-2.4)
[2023-05-03 09:47] LABS: C REACTIVE PROTEIN QUANTITATIV 29.3 MG/DL (<1.0)
[2023-05-03 10:00] LABS: PROCALCITONIN 9.75 ng/ml
[2023-05-03 10:15] LABS: CPK CREATINE PHOSPHOKINASE < 15 U/L (34-145)
[2023-05-03] MEDS: SIMETHICONE 80MG CHEW TAB PO SCH ×3 (11:22→20:23)
[2023-05-03] MEDS: GABAPENTIN 100 MG CAP PO SCH ×3 (11:22→20:24)
[2023-05-03] MEDS: FLUCONAZOLE 100 MG TAB PO SCH (11:22)
[2023-05-03] MEDS: ACETAMINOPHEN TAB 650MG DOSE (2X325MG) PO PRN (11:26)
[2023-05-03] MEDS ORDERED: MOM 30ML SUSPENSION UDC PO PRN (12:15)
[2023-05-03] MEDS ORDERED: BISACODYL 5MG TAB PO PRN (12:15)
[2023-05-03] MEDS ORDERED: FLEET ENEMA PR PRN (12:15)
[2023-05-03] MEDS ORDERED: MIRALAX *UNIT DOSE* 17GM PACKET PO PRN (12:15)
[2023-05-03] MEDS ORDERED: SENOKOT S TAB PO PRN (12:15)
[2023-05-03 12:54] LABS: SODIUM,RANDOM URINE < 10 MMOL/L
[2023-05-03 13:25] LABS: OSMOLALITY URINE 244 MOSM/KG (50-1400)
[2023-05-03 14:00] VITALS: BP 121/75; TEMP 97.7; O2SAT 95
[2023-05-03] MEDS: PANTOPRAZOLE 40MG VIAL IV SCH (20:24)
[2023-05-03 22:00] VITALS: BP 106/57; TEMP 97.3; O2SAT 95
[2023-05-04] MEDS: PIPERACILLIN/TAZOBACTAM SOD 3.375 GM in D5W MINI-BAG PLUS 50 ML IV SCH ×4 (03:09→21:06)
[2023-05-04] MEDS: MORPHINE 30 MG SA TAB PO SCH (05:02)
[2023-05-04 06:00] VITALS: BP 107/60; TEMP 98.2; O2SAT 95
[2023-05-04 06:11] LABS: BASO # 0.1 10^3/uL (0.0-0.2); BASO % 0.4 % (0.0-1.0); EOS % 0.1 % (0.0-3.0); HEMATOCRIT 28.4 % (36.0-47.0); HEMOGLOBIN 9.1 g/dl (12.0-15.5); LYMPH # 0.9 10^3/uL (1.5-5.0); LYMPH % 2.9 % (24.0-44.0); MEAN CORPUSCULAR HEMOGLOBIN 27.2 pg (27.0-33.0); MEAN CORPUSCULAR VOLUME 84.8 fl (80.0-96.0); MONO # 1.1 10^3/uL (0.0-0.8); MONO % 3.6 % (2.0-8.0); NEUTROPHILS # 27.5 10^3/uL (1.5-8.5); NEUTROPHILS % 88.2 % (36.0-66.0); PLATELET COUNT, AUTOMATED 191 10^3/uL (150-450); RED BLOOD COUNT 3.35 10^6/uL (4.00-5.40)
[2023-05-04 06:30] LABS: WHITE BLOOD COUNT 31.2 10^3/uL (4.0-10.0)
[2023-05-04 06:45] LABS: ALBUMIN 1.2 G/DL (3.2-5.2); BILIRUBIN,TOTAL 0.7 MG/DL (0.3-1.2); CALCIUM LEVEL 7.6 MG/DL (8.3-10.6); CREATININE FOR GFR 1.1 MG/DL (0.55-1.30); GLOMERULAR FILTRATION RATE 53.4 (>45); MAGNESIUM LEVEL 1.9 MG/DL (1.8-2.4); POTASSIUM SERUM 3.5 MMOL/L (3.5-5.1); TOTAL PROTEIN 4.5 G/DL (5.7-8.2)
[2023-05-04] MEDS: SIMETHICONE 80MG CHEW TAB PO SCH ×3 (08:59→21:05)
[2023-05-04] MEDS: GABAPENTIN 100 MG CAP PO SCH ×2 (09:00→20:34)
[2023-05-04] MEDS: PANTOPRAZOLE 40MG VIAL IV SCH ×2 (09:00→21:00)
[2023-05-04] MEDS: FLUCONAZOLE 100 MG TAB PO SCH (09:00)
[2023-05-04 14:00] VITALS: BP 112/71; TEMP 97.5; O2SAT 94
[2023-05-04 20:00] VITALS: BP 101/58; TEMP 97; O2SAT 96
[2023-05-04] MEDS: MORPHINE 10MG/0.5ML ORAL CONCENTRATE SOLUTION U/D SL PRN (21:05)
[2023-05-05] MEDS: PIPERACILLIN/TAZOBACTAM SOD 3.375 GM in D5W MINI-BAG PLUS 50 ML IV SCH ×3 (04:31→17:12)
[2023-05-05 05:38] LABS: HEMATOCRIT 25.1 % (36.0-47.0); HEMOGLOBIN 8.3 g/dl (12.0-15.5); MEAN CORPUSCULAR HEMOGLOBIN 27.9 pg (27.0-33.0); MEAN CORPUSCULAR HGB CONC 33.1 g/dl (32.0-36.5); MEAN CORPUSCULAR VOLUME 84.5 fl (80.0-96.0); PLATELET COUNT, AUTOMATED 181 10^3/uL (150-450); RED BLOOD COUNT 2.97 10^6/uL (4.00-5.40)
[2023-05-05 05:41] LABS: WHITE BLOOD COUNT 34.7 10^3/uL (4.0-10.0)
[2023-05-05 05:55] LABS: ANISOCYTOSIS 1+; EOSINOPHILS 1 % (0-3); LYMPHOCYTES 1 % (16-44); MONOCYTES 4 % (0-5); NEUTROPHILS 90 % (28-66)
[2023-05-05 05:56] LABS: GIANT PLATELETS 1+; MICROCYTOSIS 1+; PLATELET ESTIMATE NORMAL (NORMAL)
[2023-05-05 05:57] LABS: HYPOCHROMASIA 1+; POIKILOCYTOSIS 1+
[2023-05-05 05:58] LABS: SPHEROCYTES 1+
[2023-05-05 06:00] VITALS: BP 108/68; TEMP 97.2; O2SAT 93
[2023-05-05 06:16] LABS: ALBUMIN 1.2 G/DL (3.2-5.2); BILIRUBIN,TOTAL 0.5 MG/DL (0.3-1.2); CALCIUM LEVEL 7.4 MG/DL (8.3-10.6); CREATININE FOR GFR 1.97 MG/DL (0.55-1.30); GLOMERULAR FILTRATION RATE 27.3 (>45); POTASSIUM SERUM 3.8 MMOL/L (3.5-5.1); TOTAL PROTEIN 4.6 G/DL (5.7-8.2)
[2023-05-05] MEDS ORDERED: NS 1,000 ML IV ONE (08:25)
[2023-05-05] MEDS ORDERED: NS 1,000 ML IV SCH (09:00)
[2023-05-05 09:36] LABS: CALCIUM LEVEL 7.5 MG/DL (8.3-10.6); CREATININE FOR GFR 2.1 MG/DL (0.55-1.30); GLOMERULAR FILTRATION RATE 25.3 (>45); POTASSIUM SERUM 3.7 MMOL/L (3.5-5.1)
[2023-05-05] MEDS: FLUCONAZOLE 100 MG TAB PO SCH (09:57)
[2023-05-05] MEDS: SODIUM BICARBONATE 325 MG TAB PO SCH ×3 (09:58→17:58)
[2023-05-05] MEDS: PANTOPRAZOLE 40MG VIAL IV SCH (09:58)
[2023-05-05] MEDS: SIMETHICONE 80MG CHEW TAB PO SCH ×2 (09:58→17:12)
[2023-05-05] MEDS: GABAPENTIN 100 MG CAP PO SCH (09:58)
[2023-05-05 12:53] LABS: SOURCE, BODY FLUID pH PLEURAL
[2023-05-05 13:03] LABS: APPEARANCE, BODY FLUID TURBID (CLEAR); PLEURAL FL COLOR YELLOW (COLORLESS); SOURCE, BODY FLUID PLEURAL
[2023-05-05 14:00] VITALS: BP 108/65; TEMP 97.2; O2SAT 93
[2023-05-05 14:01] LABS: SOURCE, BODY FLUID ALBUMIN PLEURAL
[2023-05-05 14:06] LABS: SOURCE, BODY FLUID GLUCOSE PLEURAL; SOURCE, BODY FLUID TRIG PLEURAL; TRIGLYCERIDE, BODY FLUID 78 MG/DL (NOT ESTABLISHED)
[2023-05-05 14:07] LABS: AMYLASE, BODY FLUID < 20 U/L (NOT ESTABLISHED); LDH, BODY FLUID 327 U/L (NOT ESTABLISHED); SOURCE, BODY FLUID AMYLASE PLEURAL; SOURCE, BODY FLUID LDH PLEURAL
[2023-05-05 14:08] LABS: CHOLESTEROL, BODY FLUID 64 MG/DL (NOT ESTABLISHED); SOURCE, BODY FLUID CHOL PLEURAL; SOURCE, BODY FLUID TOT PROTEIN PLEURAL; TOTAL PROTEIN, BODY FLUID 3.1 G/DL (NOT ESTABLISHED)
[2023-05-05 14:59] LABS: CALCIUM LEVEL 7.4 MG/DL (8.3-10.6); CREATININE FOR GFR 2.25 MG/DL (0.55-1.30); GLOMERULAR FILTRATION RATE 23.4 (>45); POTASSIUM SERUM 3.9 MMOL/L (3.5-5.1)
[2023-05-05 15:48] VITALS: BP 99/56; TEMP 98.6; O2SAT 93
[2023-05-05 16:58] LABS: CALCIUM LEVEL 7.3 MG/DL (8.3-10.6); CREATININE FOR GFR 2.26 MG/DL (0.55-1.30); GLOMERULAR FILTRATION RATE 23.3 (>45); POTASSIUM SERUM 4.2 MMOL/L (3.5-5.1)
[2023-05-05 18:29] LABS: OSMOLALITY URINE 263 MOSM/KG (50-1400)
[2023-05-05 18:30] LABS: SODIUM,RANDOM URINE 25 MMOL/L
[2023-05-05] MEDS: SCOPOLAMINE 1MG TRANSDERMAL PATCH TOP SCH (19:40)
[2023-05-05] MEDS ORDERED: ACETAMINOPHEN TAB 650MG DOSE (2X325MG) PO PRN (21:00)
[2023-05-06] MEDS: MORPHINE 2 MG/ML 1ML VIAL IV PRN ×2 (09:29→12:29)
[2023-05-07] MEDS: MORPHINE 10MG/0.5ML ORAL CONCENTRATE SOLUTION U/D SL PRN ×4 (09:33→23:53)
[2023-05-08] MEDS: MORPHINE 10MG/0.5ML ORAL CONCENTRATE SOLUTION U/D SL PRN ×2 (18:19→20:27)
[2023-05-08] MEDS: SCOPOLAMINE 1MG TRANSDERMAL PATCH TOP SCH (20:27)
[2023-05-09] MEDS: MORPHINE 10MG/0.5ML ORAL CONCENTRATE SOLUTION U/D SL PRN ×7 (01:29→20:07)
[2023-05-09] MEDS ORDERED: HYPROMELLOSE 0.3% 150DROP/10G BTL OU PRN (13:55)
[2023-05-09] MEDS: HYPROMELLOSE 0.3% 150DROP/10G BTL OU SCH ×3 (15:53→20:09)
[2023-05-10] MEDS: HYPROMELLOSE 0.3% 150DROP/10G BTL OU SCH ×4 (08:47→21:56)
[2023-05-10] MEDS: MORPHINE 10MG/0.5ML ORAL CONCENTRATE SOLUTION U/D SL PRN ×5 (08:47→21:59)
[2023-05-11] MEDS: MORPHINE 10MG/0.5ML ORAL CONCENTRATE SOLUTION U/D SL PRN ×6 (04:37→23:56)
[2023-05-11] MEDS: HYPROMELLOSE 0.3% 150DROP/10G BTL OU SCH ×4 (09:17→21:00)
[2023-05-11] MEDS: SCOPOLAMINE 1MG TRANSDERMAL PATCH TOP SCH (22:44)
[2023-05-12] MEDS: MORPHINE 10MG/0.5ML ORAL CONCENTRATE SOLUTION U/D SL PRN ×6 (06:08→21:10)
[2023-05-12] MEDS: HYPROMELLOSE 0.3% 150DROP/10G BTL OU SCH ×5 (10:29→21:10)
[2023-05-13] MEDS: MORPHINE 10MG/0.5ML ORAL CONCENTRATE SOLUTION U/D SL PRN ×8 (00:25→23:02)
[2023-05-13] MEDS: HYPROMELLOSE 0.3% 150DROP/10G BTL OU SCH ×4 (08:52→20:27)
[2023-05-14] MEDS: MORPHINE 10MG/0.5ML ORAL CONCENTRATE SOLUTION U/D SL PRN ×7 (05:44→23:56)
[2023-05-14] MEDS: HYPROMELLOSE 0.3% 150DROP/10G BTL OU SCH ×4 (09:38→20:46)
[2023-05-14] MEDS: SCOPOLAMINE 1MG TRANSDERMAL PATCH TOP SCH (19:38)
[2023-05-15] MEDS: MORPHINE 10MG/0.5ML ORAL CONCENTRATE SOLUTION U/D SL PRN ×5 (04:55→20:39)
[2023-05-15] MEDS: HYPROMELLOSE 0.3% 150DROP/10G BTL OU SCH ×4 (09:21→20:39)
[2023-05-15] MEDS: ONDANSETRON 4MG 2ML VIAL IV PRN ×2 (10:02→17:20)
[2023-05-15] MEDS ORDERED: PROMETHAZINE 25MG/ML 1ML VIAL IV PRN (11:25)
[2023-05-16] MEDS: MORPHINE 10MG/0.5ML ORAL CONCENTRATE SOLUTION U/D SL PRN ×3 (00:47→15:18)
[2023-05-16] MEDS: LORazepam 2 MG/ML 1ML VIAL IV PRN ×3 (02:10→22:01)
[2023-05-16] MEDS: HYPROMELLOSE 0.3% 150DROP/10G BTL OU SCH ×4 (09:14→22:01)
[2023-05-17] MEDS: MORPHINE 10MG/0.5ML ORAL CONCENTRATE SOLUTION U/D SL PRN ×3 (03:45→16:34)
[2023-05-17] MEDS: LORazepam 2 MG/ML 1ML VIAL IV PRN ×3 (04:50→23:01)
[2023-05-17] MEDS: HYPROMELLOSE 0.3% 150DROP/10G BTL OU SCH ×4 (09:00→20:26)
[2023-05-17] MEDS: SCOPOLAMINE 1MG TRANSDERMAL PATCH TOP SCH (20:26)
[2023-05-18] MEDS: MORPHINE 10MG/0.5ML ORAL CONCENTRATE SOLUTION U/D SL PRN ×7 (01:09→23:00)
[2023-05-18] MEDS: LORazepam 2 MG/ML 1ML VIAL IV PRN ×2 (02:46→09:56)
[2023-05-18] MEDS: HYPROMELLOSE 0.3% 150DROP/10G BTL OU SCH ×4 (07:54→21:12)
[2023-05-19] MEDS: MORPHINE 10MG/0.5ML ORAL CONCENTRATE SOLUTION U/D SL PRN ×8 (01:17→21:27)
[2023-05-19] MEDS: LORazepam 2 MG/ML 1ML VIAL IV PRN ×4 (01:18→17:30)
[2023-05-19] MEDS: HYPROMELLOSE 0.3% 150DROP/10G BTL OU SCH ×4 (08:39→21:27)
[2023-05-20] MEDS: MORPHINE 10MG/0.5ML ORAL CONCENTRATE SOLUTION U/D SL PRN ×12 (00:52→23:53)
[2023-05-20] MEDS: LORazepam 2 MG/ML 1ML VIAL IV PRN ×4 (00:52→18:39)
[2023-05-20] MEDS: HYPROMELLOSE 0.3% 150DROP/10G BTL OU SCH ×4 (09:11→20:45)
[2023-05-20] MEDS: SCOPOLAMINE 1MG TRANSDERMAL PATCH TOP SCH (18:39)
[2023-05-21] MEDS: MORPHINE 10MG/0.5ML ORAL CONCENTRATE SOLUTION U/D SL PRN ×8 (05:43→22:19)
[2023-05-21] MEDS: HYPROMELLOSE 0.3% 150DROP/10G BTL OU SCH ×4 (08:17→21:00)
[2023-05-21] MEDS: LORazepam 2 MG/ML 1ML VIAL IV PRN (09:37)
[2023-05-21] MEDS ORDERED: HYOSCYAMINE SULFATE 0.125 MG SUBL TABLET PO PRN (09:45)
[2023-05-21] MEDS: LORazepam 2 MG TAB PO PRN ×3 (11:52→19:13)
[2023-05-21] MEDS: ATROPINE SULFATE 1% OPHTH SOLN 2ML BTL SL PRN ×3 (15:10→22:15)
[2023-05-22] MEDS: MORPHINE 10MG/0.5ML ORAL CONCENTRATE SOLUTION U/D SL PRN ×14 (00:17→22:55)
[2023-05-22] MEDS: ATROPINE SULFATE 1% OPHTH SOLN 2ML BTL SL PRN ×9 (00:17→22:56)
[2023-05-22] MEDS: HYPROMELLOSE 0.3% 150DROP/10G BTL OU SCH ×4 (08:39→21:00)
[2023-05-22] MEDS: LORazepam 2 MG TAB PO PRN ×7 (09:59→22:56)
[2023-05-23] MEDS: MORPHINE 10MG/0.5ML ORAL CONCENTRATE SOLUTION U/D SL PRN ×8 (03:09→12:06)
[2023-05-23] MEDS: LORazepam 2 MG TAB PO PRN ×4 (03:10→10:29)
[2023-05-23] MEDS: ATROPINE SULFATE 1% OPHTH SOLN 2ML BTL SL PRN ×4 (03:10→10:29)
[2023-05-23] MEDS ORDERED: MORPHINE 10MG/0.5ML ORAL CONCENTRATE SOLUTION U/D SL ONE (07:20)
[2023-05-23] MEDS: HYPROMELLOSE 0.3% 150DROP/10G BTL OU SCH (09:21)
== END 2023-05-23 12:30 | disposition expired | DRG 720 ==
LOC: EDBD 09:53 → M ED 09:53 → M ED INP 16:04 → M PCU 21:17 → M MSPAV 05-01 15:21 → M PCU 05-05 15:44 → M MS5PR 05-05 21:40
PROVIDERS: ADMIT Family Medicine; ATTEND General Practice
PROC: 0W9B3ZX Drainage of Left Pleural Cavity, Percutaneous Approach, Diagnostic (ICD-10-PCS; principal; 2023-05-05 11:00)
DX: A41.53 Sepsis due to Serratia (principal); J96.01 Acute respiratory failure with hypoxia; E43 Unspecified severe protein-calorie malnutrition; G93.41 Metabolic encephalopathy; J91.0 Malignant pleural effusion; N17.9 Acute kidney failure, unspecified; R64 Cachexia; E86.0 Dehydration; E87.21 Acute metabolic acidosis; C79.89 Secondary malignant neoplasm of other specified sites; C78.7 Secondary malignant neoplasm of liver and intrahepatic bile duct; N82.3 Fistula of vagina to large intestine; N13.30 Unspecified hydronephrosis; E87.1 Hypo-osmolality and hyponatremia; R13.10 Dysphagia, unspecified; C18.2 Malignant neoplasm of ascending colon; Z51.5 Encounter for palliative care; Z66 Do not resuscitate; E11.9 Type 2 diabetes mellitus without complications; R10.2 Pelvic and perineal pain; I10 Essential (primary) hypertension; F32.A Depression, unspecified; D50.9 Iron deficiency anemia, unspecified; G89.3 Neoplasm related pain (acute) (chronic); E78.5 Hyperlipidemia, unspecified; D63.0 Anemia in neoplastic disease; E55.9 Vitamin D deficiency, unspecified; B37.49 Other urogenital candidiasis; R62.7 Adult failure to thrive; Z96.0 Presence of urogenital implants; Z79.84 Long term (current) use of oral hypoglycemic drugs; Z90.49 Acquired absence of other specified parts of digestive tract; Z79.891 Long term (current) use of opiate analgesic; Z79.899 Other long term (current) drug therapy; R65.20 Severe sepsis without septic shock; Z79.69 Long term (current) use of other immunomodulators and immunosuppressants